=== PATIENT | male | born 1935 | race Caucasian/White ===

== ENCOUNTER 2019-04-29 14:52 | Emergency (ER) | payer MEDICARE ==
--- OUTSIDE RECORDS SUMMARY | 2019-04-29 14:56 | XMS REPORT ---
:1935 [facility] Address [address] Schultz [address] [place] [address] Care Team Providers Name Role Phone Unavailable Unavailable Unavailable Problems This patient has no known problems. Allergies, Adverse Reactions, Alerts This patient has no known allergies or adverse reactions. Medications This patient has no known medications.
--- OUTSIDE RECORDS SUMMARY | 2019-04-29 14:57 | XMS REPORT | Summary of Care ---
:1935 Author Organization [facility] Address [address] [place] [address] Care Team Providers Name Role Phone Greg Esparza MD Primary Care Provider Reason for Visit Reason Comments Talk To Nurse Encounter Details Date Type Department Care Team Description 12/18/2018 Telephone [facility] Cardiology- Roshan Holliday MD Talk To Nurse [address] [facility], [address] [place] [address] [place] [address] Allergies Active Allergy Reactions Severity Noted Date Comments Penicillins Swelling High 10/28/2016 Simvastatin Other - See comments 05/06/2017 Leg cramps Sulfa (Sulfonamide Antibiotics) Rash High 10/28/2016 Rivaroxaban Other - See comments 05/06/2017 hematuria documented as of this encounter (statuses as of 12/18/2018) Medications Medication Sig Dispensed Refills Start Date End Date Status gabapentin 800 mg tablet Take 800 mg by 0 Active mouth 3 (three) times daily. finasteride 5 mg tablet TAKE 1 ORAL 90 tablet 3 02/23/2018 Active TABLET ONCE A DAY amiodarone 200 mg Take 1 tablet 60 tablet 3 05/05/2018 Active tabletIndications: SVT by mouth daily. (supraventricular tachycardia) fludrocortisone 0.1 mg Take 1 tablet 60 tablet 3 05/05/2018 Active tabletIndications: 1 by mouth daily. tablet twice a day as needed if systolic BP less than 90 RANITIDINE 150 mg tablet TAKE 1 TABLET 180 tablet 1 05/21/2018 Active BY MOUTH TWICE A DAY TAMSULOSIN 0.4 mg 24 hr TAKE 1 CAPSULE 90 capsule 2 07/27/2018 Active capsule BY MOUTH EVERY DAY magnesium oxide 400 mg Take 1 tablet 60 tablet 3 10/06/2018 Active (241.3 mg magnesium) by mouth 2 tablet (two) times daily. KCL 20 mEq tablet Take 2 tablets 60 tablet 3 10/21/2018 Active by mouth daily. 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 Essential hypertension 02/21/2017 Abnormal nuclear stress test 02/21/2017 Chest pain 01/16/2017 SVT (supraventricular tachycardia) 01/01/2017 Orthostatic hypotension 01/01/2017 Hypokalemia 01/01/2017 Hypomagnesemia 01/01/2017 Tachycardia 12/31/2016 documented as of this encounter (statuses as of 12/18/2018) Social History Tobacco Use Types Packs/Day Years Used Date Never Smoker Smokeless Tobacco: Former User Chew Quit: 10/28/1953 Alcohol Use Drinks/Week oz/Week Comments No Sex Assigned at Date Recorded Not on file Job Start Date Occupation Industry Not on file Not on file Not on file Travel History Travel Start Travel End No recent travel history available. documented as of this encounter Last Filed Vital Signs Not on filedocumented in this encounter Plan of Treatment Date Type Specialty Care Team Description 02/02/2019 Office Visit Cardiology Roshan Holliday MD [address] [facility] [address] [place], [place] [id number] 03/24/2019 Office Visit Urology Rica Abraham FNP [address] [place], [place] [phone] Health Maintenance Due Date Last Done Comments DTaP,Tdap,and Td Vaccines (1 - Tdap) 1954 Zoster Recombinant Vaccine (SHINGRIX) (1 of 2) 08/20/1983 Medicare Wellness Visit 1998 PNEUMOCOCCAL VACCINES 65+ (1 of 2 - PCV13) 1998 INFLUENZA VACCINE (#1) 2018 documented as of this encounter Results Not on filedocumented in this encounter Insurance Payer Benefit Plan / Subscriber ID Effective Phone Address Type Group Dates [place] [employer]ARP MEDICARE [id number] 2016-Prese Medicare Adv HEALTHCARE - COMPLETE nt HMO MANAGED MEDICARE documented as of this encounter
--- OUTSIDE RECORDS SUMMARY | 2019-04-29 14:57 | XMS REPORT | Summary of Care ---
:1935 Author Organization [facility] Address [address] [place] [id number] Care Team Providers Name Role Phone Greg Esparza MD Primary Care Provider Reason for Visit Reason Comments Talk To Nurse Encounter Details Date Type Department Care Team Description 12/18/2018 Telephone [facility] Cardiology- Roshan Holliday MD Talk To Nurse [address] [facility], [address] [place] [address] [place] [address] Allergies Active Allergy Reactions Severity Noted Date Comments Penicillins Swelling High 10/28/2016 Simvastatin Other - See comments 05/06/2017 Leg cramps Sulfa (Sulfonamide Antibiotics) Rash High 10/28/2016 Rivaroxaban Other - See comments 05/06/2017 hematuria documented as of this encounter (statuses as of 12/21/2018) Medications Medication Sig Dispensed Refills Start Date [...] as of this encounter (statuses as of 12/21/2018) Active Problems Problem Noted Date Hypotension 01/09/2018 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 Essential hypertension 02/21/2017 Abnormal nuclear stress test 02/21/2017 Chest pain 01/16/2017 SVT (supraventricular tachycardia) 01/01/2017 Orthostatic hypotension 01/01/2017 Hypokalemia 01/01/2017 Hypomagnesemia 01/01/2017 Tachycardia 12/31/2016 documented as of this encounter (statuses as of 12/21/2018) Social History Tobacco Use Types Packs/Day Years [...] Office Visit Cardiology Roshan Holliday MD [address] [facility] [address] [place], [place] [address] 03/24/2019 Office Visit Urology Rica Abraham FNP [address] [facility] [address] [place], [place] [phone] Health Maintenance Due Date Last Done Comments [...] Address Type Group Dates [place] [employer]ARP MEDICARE [id number] 2016-Prese Medicare Adv HEALTHCARE - COMPLETE nt HMO MANAGED MEDICARE documented as of this encounter
--- OUTSIDE RECORDS SUMMARY | 2019-04-29 14:57 | XMS REPORT | Summary of Care ---
:1935 Author Organization [facility] Address [address] [place] [address] Care Team Providers Name Role Phone Greg Esparza MD Primary Care Provider Reason for Visit Reason Comments Refill Request Encounter Details Date Type Department Care Team Description 12/22/2018 Refill [facility] Family Medicine Greg Esparza MD Refill Request - [address] [address] [place] [address] Allergies Active Allergy Reactions Severity Noted Date Comments Penicillins Swelling High 10/28/2016 Simvastatin Other - See comments 05/06/2017 Leg cramps Sulfa (Sulfonamide Antibiotics) Rash High 10/28/2016 Rivaroxaban Other - See comments 05/06/2017 hematuria documented as of this encounter (statuses as of 12/23/2018) Medications Medication Sig Dispensed Refills Start Date End Date Status gabapentin 800 mg Take 800 mg 0 Active tablet by mouth 3 (three) times daily. finasteride 5 mg TAKE 1 ORAL 90 tablet 3 02/23/2018 Active tablet TABLET ONCE A DAY amiodarone 200 mg Take 1 tablet 60 tablet 3 05/05/2018 Active tabletIndications: by mouth SVT (supraventricular daily. tachycardia) fludrocortisone 0.1 Take 1 tablet 60 tablet 3 05/05/2018 Active mg tabletIndications: by mouth 1 tablet twice a day daily. as needed if systolic BP less than 90 TAMSULOSIN 0.4 mg 24 TAKE 1 90 capsule 2 07/27/2018 Active hr capsule CAPSULE BY MOUTH EVERY DAY magnesium oxide 400 Take 1 tablet 60 tablet 3 10/06/2018 Active mg (241.3 mg by mouth 2 magnesium) tablet (two) times daily. KCL 20 mEq tablet Take 2 60 tablet 3 10/21/2018 Active tablets by mouth daily. 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 [address] [place], [place] [phone] Health Maintenance Due Date Last Done Comments [...] Address Type Group Dates [place] [employer]ARP MEDICARE [id number] 2016-Prese Medicare Adv HEALTHCARE - COMPLETE nt O MANAGED MEDICARE documented as of this encounter
--- OUTSIDE RECORDS SUMMARY | 2019-04-29 14:57 | XMS REPORT | Summary of Care ---
:1935 Author Organization [facility] Address [address] [place] [address] Care Team Providers Name Role Phone Greg Esparza MD Primary Care Provider Encounter Details Date Type Department Care Team Description 12/29/2018 Orders Only [facility] Doctor Unassigned, No [address] [facility] Name [place], [place] [id number] [place] [address] Allergies Active Allergy Reactions Severity Noted Date Comments Penicillins Swelling High 10/28/2016 Simvastatin Other - See comments 05/06/2017 Leg cramps Sulfa (Sulfonamide Antibiotics) Rash High 10/28/2016 Rivaroxaban Other - See comments 05/06/2017 hematuria documented as of this encounter (statuses as of 12/29/2018) Medications Medication Sig Dispensed Refills Start Date [...] less than 90 TAMSULOSIN 0.4 mg 24 hr TAKE 1 CAPSULE 90 capsule 2 07/27/2018 Active capsule BY MOUTH EVERY DAY magnesium oxide 400 mg Take 1 tablet 60 tablet 3 10/06/2018 Active (241.3 mg magnesium) by mouth 2 tablet (two) times daily. KCL 20 mEq tablet Take 2 tablets 60 tablet 3 10/21/2018 Active by mouth daily. 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 Essential hypertension 02/21/2017 Abnormal nuclear stress test 02/21/2017 Chest pain 01/16/2017 SVT (supraventricular tachycardia) 01/01/2017 Orthostatic hypotension 01/01/2017 Hypokalemia 01/01/2017 Hypomagnesemia 01/01/2017 Tachycardia 12/31/2016 documented as of this encounter (statuses as of 12/29/2018) Social History Tobacco Use Types Packs/Day Years [...] 02/02/2019 Office Visit Cardiology Roshan Holliday MD [address] [place] [address] [address] [place] [address] [phone] 03/24/2019 Office Visit Urology Rica Abraham FNP [address] [place] [address] [address] [place], [place] [address] Health Maintenance Due Date Last Done Comments DTaP,Tdap,and Td Vaccines (1 - Tdap) 1954 Zoster Recombinant Vaccine (SHINGRIX) (1 of 2) 08/20/1983 Medicare Wellness Visit 1998 PNEUMOCOCCAL VACCINES 65+ (1 of 2 - PCV13) 1998 INFLUENZA VACCINE (#1) 2018 documented as of this encounter Procedures Procedure Name Priority Date/Time Associated Diagnosis Comments EXTERNAL PROVIDER - ADC Routine 12/29/2018 12:01 AM CARDIOLOGY CDT documented in this encounter Results Not on filedocumented in this encounter Insurance Payer Benefit Plan / Subscriber ID Effective Phone Address Type Group Dates [place] [employer] MEDICARE [id number] 2016-[place] Medicare Adv HEALTHCARE - COMPLETE nt HMO MANAGED MEDICARE documented as of this encounter
[2019-04-29 15:54] LABS: Absolute Lymphocytes (CBC) 0.8 K/uL (0.7-4.9); Basophils % 0.5 % (0-1.3); Lymphocytes % 5.3 % (15.3-44.8); MPV 10.9 fL (7.6-11.3); RBC Red Blood Cell Count 4.78 M/uL (4.33-5.43)
[2019-04-29 16:08] LABS: Albumin 3.4 g/dL (3.4-5.0); Bilirubin Direct 0.2 mg/dL (0-0.2); Bilirubin Total 0.6 mg/dL (0.2-1.0); Potassium 3.8 mmol/L (3.5-5.1); Protein, Total 6.5 g/dL (6.4-8.2)
--- NOTE | 2019-04-29 16:45 | RAD REPORT ---
EXAM DESCRIPTION: CT - Abdomen Pelvis W Contrast - 04/29/2019 4:33 pm CLINICAL HISTORY: ABD PAINabdominal pain, rectal pain, decreased bowel movement COMPARISON: CT ABD PELVIS W CONTRAST dated 10/08/2013 TECHNIQUE: Biphasic, helical CT imaging of the abdomen and pelvis was performed following 100 ml non -ionic IV contrast. No oral contrast administered. All CT scans are performed using dose optimization technique as appropriate and may include automated exposure control or mA/KV adjustment according to patient size. FINDINGS: No suspicious findings in the lung bases. The liver, spleen, and pancreas show no suspicious findings. Gallbladder is absent. Biliary tree with in normal limits. Symmetric renal function is seen with no hydronephrosis or suspicious renal mass. No pyelonephritis o r acute parenchymal process. No bladder abnormalities. No adrenal abnormalities. No gastric dilatation or wall thickening. No small bowel abnormality. No appendicitis findings. Mild to moderate stool is present in the colon from cecum through mid descending colon. Moderate stool vol ume fills the distal descending colon and sigmoid. There is a large amount of stool present dilating the rectum to 10 cm AP x 7 cm TR. Proximal rectal wall thickening and edema are present. There is mil d stranding in the adjacent fat. No mass lesion evident. No free air, free fluid or pneumatosis. Small fat only inguinal hernias are present. No bulky lympha denopathy. Disc and bony degenerative changes are present without acute finding. IMPRESSION: Large stool volume is present dilating the rectum to 10 cm AP x 7 cm TR. No inguinal or distal rectal mass evident. Moderate stool volume is present in the colon from distal descending colon to the proximal rectum. Mi ld rectal wall thickening and edema are present just proximal to the dilatation. No free air, obstruction or emergent finding otherwise noted.
[2019-04-29] MEDS ORDERED: NA CHLORIDE 0.9% 250 ML ONE (16:52)
[2019-04-29] MEDS ORDERED: NA CHLORIDE 0.9% 500 ML ONE (16:52)
[2019-04-29 17:32] LABS: Urine Bacteria <20 /HPF (NONE SEEN); Urine Culture Reflex Order NOT NEEDED; Urine Mucus 1+ /HPF (NONE SEEN)
[2019-04-29] MEDS ORDERED: MINERAL OIL ENEMA 135 ML BTL PR ONE (17:37)
--- NOTE | 2019-04-29 19:16 | ER ---
Nurse's Notes [facility] Name: Danyel Oliver IV Age: 83 yrs Sex: Male : 1935 Arrival Date: 04/29/2019 Time: 14:54 Bed 30 Private MD: Diagnosis: Fecal impaction;Constipation Presentation: 04/29 15:02 Presenting complaint: Patient states: No BM x 3 days, c/o rectal pain, hx of ph hemorrhoids, denies N/V or fever. Transition of care: patient was not received from another setting of care. Onset of symptoms was April 29, 2019. Risk Assessment: Do you want to hurt yourself or someone else? Patient reports no desire to harm self or others. Initial Sepsis Screen: Does the patient meet any 2 criteria? No. Patient's initial sepsis screen is negative. Does the patient have a suspected source of infection? No. Patient's initial sepsis screen is negative. Care prior to arrival: took stool softener this morning. 15:02 Method Of Arrival: Ambulatory ph 15:02 Acuity: REDDY 4 ph Triage Assessment: 16:00 General: Appears in no apparent distress. uncomfortable. General: Behavior is calm, ls4 cooperative. Neuro: No deficits noted. Cardiovascular: No deficits noted. Respiratory: No deficits noted. 16:00 GI: GI: Abdomen is round Rectal exam: Deferred to physician Last BM was April 252019. : : No deficits noted. Historical: - Allergies: 15:13 PENICILLINS; ph 15:13 Sulfa (Sulfonamide Antibiotics); ph - Home Meds: 15:33 finasteride 5 mg Oral tab 1 tab once daily [Active]; fludrocortisone 0.1 mg Oral tab 1 ls4 tab twice a day [Active]; gabapentin 800 mg Oral tab 1 tab 3 times per day [Active]; Potassium Chloride Oral [Active]; tamsulosin 0.4 mg Oral cp24 1 cap once daily [Active]; magnesium oxide 400 mg Oral cap twice a day [Active]; Aspir-81 81 mg oral TbEC 1 tab every three days [Active]; Vitamin B-12 Oral daily [Active]; - PMHx: 15:30 Diabetes - NIDDM; neuropathy; Hyperlipidemia; spinal cord tumor; DVT; right bundle ls4 branch block; - PSHx: 15:30 Knee surgery; Appendectomy; Cholecystectomy; Disc surgery; ls4 - Immunization history:: Adult Immunizations up to date. - Social history:: Smoking status: Patient/guardian denies using tobacco, never smoked. - Ebola Screening: : No symptoms or risks identified at this time. Screenin:52 Abuse screen: Denies threats or abuse. Denies injuries from another. Nutritional ls4 screening: No deficits noted. Tuberculosis screening: No symptoms or risk factors identified. Fall Risk None identified. Assessment: 15:46 General: Appears uncomfortable, Behavior is calm, cooperative. GI: Bowel sounds present ls4 X 4 quads. Abdomen is tender to palpation X 4 quads. Reports Parent/caregiver reports the patient having constipation. 17:00 Reassessment: Patient and/or family updated on plan of care and expected duration. Pain ls4 level reassessed. Patient is alert, oriented x 3, equal unlabored respirations, skin warm/dry/pink. 17:00 Pain: Complains of pain in gluteal cleft Pain currently is 4 out of 10 on a pain scale. ls4 19:18 Reassessment: Patient and/or family updated on plan of care and expected duration. Pain ls4 level reassessed. Patient is alert, oriented x 3, equal unlabored respirations, skin warm/dry/pink. pt discharge delayed due to pt is still on commode after enema. Enema is having positive results. Vital Signs: 15:04 Pulse 84; Resp 18; Temp 98.4; Pulse Ox 98% ; Weight 100.7 kg; Height 6 ft. 3 in. ph (190.50 cm); 15:13 BP 138 / 72; ph 15:04 Body Mass Index 27.75 (100.70 kg, 190.50 cm) ph ED Course: 14:54 Patient arrived in ED. as 15:04 Triage completed. ph 15:08 Marlee Hammond, CECILIA is Primary Nurse. ls4 15:18 Piter Ferrera PA is PHCP. cp 15:18 Yogesh Arita MD is Attending Physician. cp 15:46 Arm band placed on. ls4 15:52 Patient has correct armband on for positive identification. Placed in gown. Bed in low ls4 position. Call light in reach. Side rails up X 1. Verbal reassurance given. 15:53 No provider procedures requiring assistance completed. Inserted saline lock: 20 gauge ls4 in right antecubital area, using aseptic technique. 16:33 CT Abd/Pelvis - IV Contrast Only In Process Unspecified. EDMS Administered Medications: 16:56 Drug: NS 0.9% 500 ml Route: IV; Rate: 75 ml/hr; Site: right antecubital; ls4 19:23 Follow up: IV Status: Completed infusion; IV Intake: 150ml ls4 16:56 Drug: NS 0.9% 250 ml Route: IV; Rate: bolus; Site: right antecubital; ls4 19:23 Follow up: IV Status: Completed infusion; IV Intake: 250ml ls4 Intake: 19:23 IV: 250ml; Total: 250ml. ls4 19:23 IV: 150ml; Total: 400ml. ls4 Outcome: 19:15 Discharge ordered by . slim 21:15 Patient left the ED. ls4 Signatures: Dispatcher [employer] EDMS Elle Hernandez Patricia, RN RN ph Piter Ferrera PA PA Marlee Carreon, RN RN ls4
--- NOTE | 2019-04-29 19:16 | EDPHYS ---
Physician Documentation [facility] Name: Danyel Oliver IV Age: 83 yrs Sex: Male : 1935 Arrival Date: 04/29/2019 Time: 14:54 Bed 30 Private MD: ED Physician Yogesh Arita HPI: 04/29 15:24 This 83 yrs old Male presents to ER via Ambulatory with complaints of cp Hemorrhoids, Constipation. 15:25 The patient presents with constipation. cp 15:25 Onset: The symptoms/episode began/occurred 3 day(s) ago. Associated signs and symptoms: cp Pertinent negatives: nausea and vomiting, blood in stools, chest pain, diarrhea, dysuria, fever, shortness of breath. Historical: - Allergies: 15:13 PENICILLINS; ph 15:13 Sulfa (Sulfonamide Antibiotics); ph - Home Meds: 15:33 finasteride 5 mg Oral tab 1 tab once daily [Active]; fludrocortisone 0.1 mg Oral tab 1 ls4 tab twice a day [Active]; gabapentin 800 mg Oral tab 1 tab 3 times per day [Active]; Potassium Chloride Oral [Active]; tamsulosin 0.4 mg Oral cp24 1 cap once daily [Active]; magnesium oxide 400 mg Oral cap twice a day [Active]; Aspir-81 81 mg oral TbEC 1 tab every three days [Active]; Vitamin B-12 Oral daily [Active]; - PMHx: 15:30 Diabetes - NIDDM; neuropathy; Hyperlipidemia; spinal cord tumor; DVT; right bundle ls4 branch block; - PSHx: 15:30 Knee surgery; Appendectomy; Cholecystectomy; Disc surgery; ls4 - Immunization history:: Adult Immunizations up to date. - Social history:: Smoking status: Patient/guardian denies using tobacco, never smoked. - Ebola Screening: : No symptoms or risks identified at this time. ROS: 15:30 Eyes: Negative for injury, pain, redness, and discharge. cp 15:30 Constitutional: Negative for body aches, chills, fever, poor PO intake. 15:30 Cardiovascular: Negative for chest pain, edema. 15:30 Respiratory: Negative for cough, shortness of breath, wheezing. 15:30 Abdomen/GI: Positive for abdominal pain, constipation, Negative for vomiting, diarrhea, anorexia, black/tarry stool, rectal bleeding. 15:30 Back: Negative for pain at rest, pain with movement. 15:30 Skin: Negative for rash. 15:30 Neuro: Negative for altered mental status, headache, weakness. 15:30 All other systems are negative. Exam: 15:35 Constitutional: The patient appears in no acute distress, alert, awake, cp non-diaphoretic, non-toxic, well developed, well nourished. 15:35 Head/Face: Normocephalic, atraumatic. cp 15:35 Eyes: Periorbital structures: appear normal, Conjunctiva: normal, no exudate, no injection, Sclera: no appreciated abnormality, Lids and lashes: appear normal, bilaterally. 15:35 ENT: External ear(s): are unremarkable, Nose: is normal, Mouth: Lips: moist, Oral mucosa: pink and intact, moist, Posterior pharynx: is normal, airway is patent, no erythema, no exudate. 15:35 Chest/axilla: Inspection: normal, Palpation: is normal, no crepitus, no tenderness. 15:35 Cardiovascular: Rate: normal, Rhythm: regular. 15:35 Respiratory: the patient does not display signs of respiratory distress, Respirations: normal, no use of accessory muscles, no retractions, no splinting, no tachypnea, labored breathing, is not present, Breath sounds: are clear throughout, no decreased breath sounds, no stridor, no wheezing. 15:35 Abdomen/GI: Inspection: abdomen appears normal, Bowel sounds: active, all quadrants, Palpation: soft, in all quadrants, mild abdominal tenderness, in the right lower quadrant and left lower quadrant, rebound tenderness, is not appreciated, voluntary guarding, is not appreciated, involuntary guarding, is not appreciated, Rectal exam: Stool: brown, guaiac positive, fecal impaction, that is moderate. 15:35 Neuro: Orientation: to person, place \T\ time. Mentation: is normal. Vital Signs: 15:04 Pulse 84; Resp 18; Temp 98.4; Pulse Ox 98% ; Weight 100.7 kg; Height 6 ft. 3 in. ph (190.50 cm); 15:13 BP 138 / 72; ph 15:04 Body Mass Index 27.75 (100.70 kg, 190.50 cm) ph MDM: 15:19 Patient medically screened. cp 16:00 Differential diagnosis: bowel obstruction, diverticulitis, GI Bleed, non-specific abd cp pain. 19:13 Data reviewed: vital signs, nurses notes, lab test result(s), radiologic studies, CT cp scan, I have discussed the patient's presentation/case with the attending Emergency Department Physician; and as a result, I will discharge patient. Counseling: I had a detailed discussion with the patient and/or guardian regarding: the historical points, exam findings, and any diagnostic results supporting the discharge/admit diagnosis, lab results, radiology results, to return to the emergency department if symptoms worsen or persist or if there are any questions or concerns that arise at home. Response to treatment: the patient's symptoms have markedly improved after treatment, VSS. Patient observed to have large bowel movement after administration of soaps suds enema. Will discharge to home for continued monitoring. 04/29 15:25 Order name: Basic Metabolic Panel; Complete Time: 16:20 cp 04/29 16:20 Interpretation: Normal except: CL 109; GLUC 139; BUN 19; CRE 1.38; GFR 49. cp 04/29 15:25 Order name: CBC with Diff; Complete Time: 16:20 cp 04/29 16:21 Interpretation: Normal except: WBC 15.0; IVANA% 83.6; LYM% 5.3; NEUT A 12.5; MNA 1.6. cp 04/29 15:25 Order name: Creatinine for Radiology; Complete Time: 16:20 cp 04/29 15:25 Order name: Hepatic Function; Complete Time: 16:20 cp 04/29 15:25 Order name: Lipase; Complete Time: 16:20 cp 04/29 15:25 Order name: Urine Microscopic Only cp 04/29 15:25 Order name: IV Saline Lock; Complete Time: 16:09 cp 04/29 15:25 Order name: Labs collected and sent; Complete Time: 16:09 cp 04/29 15:25 Order name: CT Abd/Pelvis - IV Contrast Only; Complete Time: 16:51 cp 04/29 15:25 Order name: Urine Dipstick-Ancillary (obtain specimen); Complete Time: 17:05 cp 04/29 16:53 Order name: Misc. Order: soap suds enema; Complete Time: 18:15 cp Administered Medications: 16:56 Drug: NS 0.9% 500 ml Route: IV; Rate: 75 ml/hr; Site: right antecubital; ls4 19:23 Follow up: IV Status: Completed infusion; IV Intake: 150ml ls4 16:56 Drug: NS 0.9% 250 ml Route: IV; Rate: bolus; Site: right antecubital; ls4 19:23 Follow up: IV Status: Completed infusion; IV Intake: 250ml ls4 Disposition: 04/29/19 19:15 Discharged to Home. Impression: Fecal impaction, Constipation. - Condition is Stable. - Discharge Instructions: Constipation, Adult, Fecal Impaction. - Medication Reconciliation Form, Thank You Letter, Antibiotic Education, Prescription Opioid Use form. - Follow up: Emergency Department; When: As needed; Reason: Worsening of condition. - Problem is new. - Symptoms have improved. Addendum: 05/04/2019 09:34 Co-signature as Attending Physician, Yogesh Arita MD. r n Signatures: Dispatcher [employer] EDMS Yogesh Arita MD MD rn Hall, Patricia, RN RN ph Piter Ferrera PA PA cp Marlee Hammond RN RN ls4 Corrections: (The following items were deleted from the chart) 04/29 16:21 16:21 Normal except: WBC 15.0; IVANA% 83.6; LYM% 5.3; NEUT A 12.5. cp cp 21:15 19:15 04/29/2019 19:15 Discharged to Home. Impression: Fecal impaction; Constipation. ls4 Condition is Stable. Forms are Medication Reconciliation Form, Thank You Letter, Antibiotic Education, Prescription Opioid Use. Follow up: Emergency Department; When: As needed; Reason: Worsening of condition. Problem is new. Symptoms have improved. cp
[2019-04-29 22:11] VITALS: TEMP 98.4; O2SAT 98
[2019-04-29 22:13] VITALS: BP 138/72
== END 2019-04-29 21:15 | disposition home or self-care (01) ==
LOC: ER 14:52
DX: K56.41 Fecal impaction (principal); Z88.0 Allergy status to penicillin; Z88.2 Allergy status to sulfonamides; E11.9 Type 2 diabetes mellitus without complications; E78.5 Hyperlipidemia, unspecified
CPT/HCPCS: 36415; 74177; 80048; 80076; 81015; 83690; 85025; 96365; 96366; 99283; J7030; J7040; Q9967

== ENCOUNTER 2019-06-17 03:32 | Observation (INO) | payer MEDICARE ==
--- OUTSIDE RECORDS SUMMARY | 2019-06-17 03:35 | XMS REPORT ---
:1935 Author Organization [facility] Address [address] Schultz [address] [place] [address] Care Team Providers Name Role Phone Unavailable Unavailable Unavailable Problems This patient has no known problems. Allergies, Adverse Reactions, Alerts This patient has no known allergies or adverse reactions. Medications This patient has no known medications.
--- OUTSIDE RECORDS SUMMARY | 2019-06-17 03:36 | XMS REPORT | Summary of Care ---
:1935 Author Organization [facility] - Health Address [address] [place] [address] Care Team Providers Name Role Phone Greg Esparza MD Primary Care Provider Reason for Visit Reason Comments Notification Rx Concern/Question Encounter Details Date Type Department Care Team Description 04/30/2019 Telephone [facility] Greg Esparza Notification; Rx Medicine - Sandi Iqbal MD Concern/Question [address] [phone] Allergies Active Allergy Reactions Severity Noted Date Comments Penicillins Swelling High 10/28/2016 Simvastatin Other - See comments 05/06/2017 Leg cramps Sulfa (Sulfonamide Antibiotics) Rash High 10/28/2016 Rivaroxaban Other - See comments 05/06/2017 hematuria documented as of this encounter (statuses as of 05/04/2019) Medications Medication Sig Dispensed Refills Start Date End Date Status gabapentin 800 mg tablet Take 800 mg by 0 Active mouth 3 (three) times daily. finasteride 5 mg tablet TAKE 1 ORAL 90 tablet 3 02/23/2018 Active TABLET ONCE A DAY amiodarone 200 mg Take 1 tablet 60 tablet 3 05/05/2018 Active tabletIndications: SVT by mouth daily. (supraventricular tachycardia) benzonatate 200 mg Take 1 capsule 30 capsule 1 01/29/2019 Active capsuleIndications: by mouth 3 Cough (three) times daily as needed for Cough. magnesium oxide 400 mg Take 1 tablet 60 tablet 3 02/01/2019 Active (241.3 mg magnesium) by mouth 2 tablet (two) times daily. fludrocortisone 0.1 mg Take 2 tablets 60 tablet 5 02/02/2019 Active tabletIndications: 1 by mouth daily. tablet twice a day as Indications: 1 needed if systolic BP tablet twice a less than 90 day as needed if systolic BP less than 90 fludrocortisone 0.1 mg Take 2 tablets 60 tablet 5 02/02/2019 Active tablet by mouth daily. KCL 20 mEq tablet Take 2 tablets 60 tablet 3 02/23/2019 Active by mouth daily. tamsulosin 0.4 mg 24 hr Take 1 capsule 60 capsule 11 04/21/2019 Active capsuleIndications: BPH by mouth 2 with obstruction/lower (two) times urinary tract symptoms daily. famotidine 20 mg Take 1 tablet 60 tablet 12 04/22/2019 Active tabletIndications: by mouth 2 Gastroesophageal reflux (two) times disease without daily. 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 Essential hypertension 02/21/2017 Abnormal nuclear stress test 02/21/2017 Chest pain 01/16/2017 SVT (supraventricular tachycardia) 01/01/2017 Orthostatic hypotension 01/01/2017 Hypokalemia 01/01/2017 Hypomagnesemia 01/01/2017 Tachycardia 12/31/2016 documented as of this encounter (statuses as of 05/04/2019) Immunizations Name Administration Dates Next Due Influenza Virus Vaccine 01/11/2019 Pneumococcal 13 Conjugate, PCV13 (Prevnar 13) 12/14/2015 documented as of this encounter Social History Tobacco Use Types Packs/Day Years [...] Treatment Date Type Specialty Care Team Description 08/04/2019 Office Visit Cardiology Roshan Holliday MD [address] [place] [address] [address] [place] [address] [phone] 09/20/2019 Office Visit Urology Tu Barron MD [address] [place] [address]. [place] [address] Health Maintenance Due Date Last Done Comments DTaP,Tdap,and Td Vaccines (1 - Tdap) 1946 Zoster Recombinant Vaccine (SHINGRIX) (1 of 2) 08/20/1983 Medicare Wellness Visit 1998 PNEUMOCOCCAL VACCINES 65+ (2 of 2 - PPSV23) 12/13/2016 12/14/2015 INFLUENZA VACCINE Completed 01/11/2019 documented as of this encounter Results Not on filedocumented in this encounter Insurance Payer Benefit Plan Subscriber ID Effective Phone Address Type / Group Dates [facility] [id number] 2016-[facility] Medicare Adv HEALTHCARE - MEDICARE ent HMO MANAGED COMPLETE MEDICARE MEDICARE MEDICARE xxxxxxxxxxx 2019-Pr [phone] Medicare PART A & B esent [id number] [place] [phone] documented as of this encounter
--- OUTSIDE RECORDS SUMMARY | 2019-06-17 03:37 | XMS REPORT | Summary of Care ---
:1935 Author Organization [facility] Address [address] [place] [address] Care Team Providers Name Role Phone Greg Esparza MD Primary Care Provider Reason for Visit Reason Comments Follow-up follow up from fall, hurting all over Encounter Details Date Type Department Care Team Description 05/06/2019 Office Visit [facility] Family Greg Esparza Multiple contusions Medicine - Sandi Iqbal MD (Primary Dx) [address] [facility] [place], [place] [phone] Allergies Active Allergy Reactions Severity Noted Date Comments Penicillins Swelling High 10/28/2016 Simvastatin Other - See comments 05/06/2017 Leg cramps Sulfa (Sulfonamide Antibiotics) Rash High 10/28/2016 Rivaroxaban Other - See comments 05/06/2017 hematuria documented as of this encounter (statuses as of 05/06/2019) Medications Medication Sig Dispensed Refills Start Date [...] as of this encounter (statuses as of 05/06/2019) Active Problems Problem Noted Date Hypotension 01/09/2018 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 Essential hypertension 02/21/2017 Abnormal nuclear stress test 02/21/2017 Chest pain 01/16/2017 SVT (supraventricular tachycardia) 01/01/2017 Orthostatic hypotension 01/01/2017 Hypokalemia 01/01/2017 Hypomagnesemia 01/01/2017 Tachycardia 12/31/2016 documented as of this encounter (statuses as of 05/06/2019) Immunizations Name Administration Dates Next Due Influenza [...] of this encounter Last Filed Vital Signs Vital Sign Reading Time Taken Comments Blood Pressure 164/67 05/06/2019 11:31 AM SECURITY POLICE OFFICER Pulse 58 05/06/2019 11:31 AM SEC[employer]ITY [employer]ICE OFFICER Temperature 36.7 C (98.1 F) 05/06/2019 11:31 AM SECURITY POLICE OFFICER Respiratory Rate 18 05/06/2019 11:31 AM SECURITY POLICE OFFICER Oxygen Saturation - - Inhaled Oxygen Concentration - - Weight 100.7 kg (222 lb) 05/06/2019 11:31 AM SECURITY POLICE OFFICER Height 190.5 cm (6' 3") 05/06/2019 11:31 AM SECURITY POLICE OFFICER Body Mass Index 27.75 05/06/2019 11:31 AM SECURITY POLICE OFFICER documented in this encounter Progress Notes Greg Esparza MD - 05/06/2019 11:30 AM CST CC: follow up from fall Danyel is a 83 year old male Patient is here to check contusions from recent fall. Patient is doing OK Allergies Allergen Reactions Pcn [Penicillins] Swelling Sulfa (Sulfonamide Antibiotics) Rash Simvastatin Other - See comments Leg cramps Xarelto [Rivaroxaban] Other - See comments hematuria Current Outpatient Medications Medication Sig Dispense Refill famotidine 20 mg tablet Take 1 tablet by mouth 2 (two) times daily. 60 tablet 12 tamsulosin 0.4 mg 24 hr capsule Take 1 capsule by mouth 2 (two) times daily. 60 capsule 11 KCL 20 mEq tablet Take 2 tablets by mouth daily. 60 tablet 3 fludrocortisone 0.1 mg tablet Take 2 tablets by mouth daily. Indications: 1 tablet twice a day as needed if systolic BP less than 90 60 tablet 5 fludrocortisone 0.1 mg tablet Take 2 tablets by mouth daily. 60 tablet 5 magnesium oxide 400 mg (241.3 mg magnesium) tablet Take 1 tablet by mouth 2 (two) times daily. 60 tablet 3 benzonatate 200 mg capsule Take 1 capsule by mouth 3 (three) times daily as needed for Cough. 30capsule 1 amiodarone 200 mg tablet Take 1 tablet by mouth daily. 60 tablet 3 finasteride 5 mg tablet TAKE 1 ORAL TABLET ONCE A DAY 90 tablet 3 gabapentin 800 mg tablet Take 800 mg by mouth 3 (three) times daily. No current facility-administered medications for this visit. Past Medical History: Diagnosis Date Carpal tunnel syndrome Cataract DVT (deep venous thrombosis) Embolism involving vascular device Enlarged prostate Esophageal reflux Factor V Leiden History of lumbar laminectomy for spinal cord decompression Decompression of C 3, 4, 5, L 4 and 5 Osteoarthritis Right bundle branch block S/P cervical spinal fusion Spinal cord tumor SVT (supraventricular tachycardia) 01/01/2017 Past Surgical History: Procedure Laterality Date ADENOIDECTOMY APPENDECTOMY CHOLECYSTECTOMY CIRCUMCISION EYE SURGERY HB FILTER VENA TECH CAVAL 09/2013 HEMORRHOIDECTOMY LAMINECTOMY,LUMBAR OPEN CARPAL TUNNEL RELEASE OPEN SHOULDER ROTATOR CUFF REPAIR Left POSTERIOR CERVICAL FUSION VA ANESTH,KNEE AREA SURGERY Left TONSILLECTOMY TRANSURETHRAL PROSTATE RESECTION 2000 Social History Socioeconomic History Marital status: Spouse name: Not on file Number of children: Not on file Years of education: Not on file Highest education level: Not on file Occupational History Not on file Social Needs Financial resource strain: Not on file Food insecurity: Worry: Not on file Inability: Not on file Transportation needs: Medical: Not on file Non-medical: Not on file Tobacco Use Smoking status: Never Smoker Smokeless tobacco: Former User Types: Chew Substance and Sexual Activity Alcohol use: No Drug use: No Sexual activity: Not on file Lifestyle Physical activity: Days per week: Not on file Minutes per session: Not on file Stress: Not on file Relationships Social connections: Talks on phone: Not on file Gets together: Not on file Attends episcopal service: Not on file Active member of club or organization: Not on file Attends meetings of clubs or organizations: Not on file Relationship status: Not on file Intimate partner violence: Fear of current or ex partner: Not on file Emotionally abused: Not on file Physically abused: Not on file Forced sexual activity: Not on file Other Topics Concern Not on file Social History Narrative Uses walker Lives with family Family History Problem Relation Age of Onset PAD (peripheral arterial disease) Mother carotid artery disease Heart Father Review of Systems BP (!) 164/67 (BP Location: Left arm, Patient Position: Sitting, BP CUFF SIZE: Adult Large) | Pulse58 | Temp 36.7 C (98.1 F) (Tympanic) | Resp 18 | Ht 6' 3" (1.905 m) | Wt 222 lb (100.7 kg) | BMI 27.75 kg/m Physical Exam Constitutional: He is oriented to person, place, and time. He appears well- developed and well-nourished. HENT: Head: Normocephalic and atraumatic. Eyes: Conjunctivae are normal. Neck: Normal range of motion. Neck supple. No JVD present. No tracheal deviation present. No thyromegaly present. Cardiovascular: Normal rate, regular rhythm, normal heart sounds and intact distal pulses. Exam reveals no gallop and no friction rub. No murmur heard. Pulmonary/Chest: Effort normal and breath sounds normal. No respiratory distress. He has no wheezes.He has no rales. He exhibits no tenderness. Abdominal: Soft. Bowel sounds are normal. He exhibits no distension and no mass. There is no tenderness. There is no rebound and no guarding. Musculoskeletal: Normal range of motion. He exhibits no edema or tenderness. Lymphadenopathy: He has no cervical adenopathy. Neurological: He is alert and oriented to person, place, and time. Skin: Skin is warm and dry. Ecchymosis (contusions left butt and hip; left foot and toes) noted. Diagnosis: 1. Multiple contusions Follow up: prn Patient Care Team: Greg Esparza MD as PCP - General (FM-FAMILY MEDICINE) Plan of care, desired health behaviors, goals,& medication discussed with patient. Education resources & self management tools provided and reviewed with AVS. Patient/guardian/family verbalized understanding & agrees to plan of care. Barriers to care: None Ability to manage care: Good documented in this encounter Plan of Treatment Date Type Specialty Care Team Description 08/04/2019 Office Visit Cardiology Roshan Holliday MD [address] [place] [address] [address] [place] [address] [phone] 09/20/2019 Office Visit Urology Tu Barron MD [address] [place] [phone] Health Maintenance Due Date Last Done Comments DTaP,Tdap,and Td Vaccines (1 - Tdap) 1946 Zoster Recombinant Vaccine (SHINGRIX) (1 of 2) 08/20/1983 Medicare Wellness Visit 1998 PNEUMOCOCCAL VACCINES 65+ (2 of 2 - PPSV23) 12/13/2016 12/14/2015 INFLUENZA VACCINE Completed 01/11/2019 documented as of this encounter Results Not on filedocumented in this encounter Visit Diagnoses Diagnosis Multiple contusions - Primary Contusion of multiple sites, not elsewhere classified documented in this encounter Insurance Payer Benefit Plan / Subscriber ID Effective Dates Phone Address Type Group [facility] [id number] 2019-Present [facility] documented as of this encounter
--- OUTSIDE RECORDS SUMMARY | 2019-06-17 03:37 | XMS REPORT | Summary of Care ---
:1935 Author Organization [facility] - [facility] Address [address] [place] [address] Care Team Providers Name Role Phone Greg Esparza MD Primary Care Provider Reason for Visit Reason Comments Notification Encounter Details Date Type Department Care Team Description 05/04/2019 Telephone [facility] Greg Esparza, Notification - Sandi ADKINS [address] [place] [address] [place] [address] [facility] [address] Allergies Active Allergy Reactions Severity [...] 08/04/2019 Office Visit Cardiology Roshan Holliday MD [address] [place] [address] [place] [address] [phone] 09/20/2019 Office Visit Urology Tu Barron MD [address] [place] [address]. [place] [phone] Health Maintenance Due Date Last Done Comments [...] Effective Phone Address Type / Group Dates [facility] [id number] 2016-Pres Medicare Adv HEALTHCARE - MEDICARE ent HMO MANAGED COMPLETE MEDICARE MEDICARE MEDICARE xxxxxxxxxxx 2019-Pr [phone] Medicare PART A & B esent [id number] [place] [phone] documented as of this encounter
--- OUTSIDE RECORDS SUMMARY | 2019-06-17 03:37 | XMS REPORT | Summary of Care ---
:1935 Author Organization [facility] Address [address] [place] [address] Care Team Providers Name Role Phone Greg Esparza MD Primary Care Provider Reason for Visit Reason Comments Follow-up follow up from fall, hurting all over Encounter Details Date Type Department Care Team Description 05/06/2019 Office Visit [facility] Family Greg Esparza Multiple contusions Medicine - Sandi Iqbal MD (Primary Dx) [address] [facility] [place], [place] [phone] Allergies Active Allergy Reactions Severity Noted [...] Comments Blood Pressure 164/67 05/06/2019 11:31 AM DESK ATTENDANT Pulse 58 05/06/2019 11:31 AM DESK ATTENDANT Temperature 36.7 C (98.1 F) 05/06/2019 11:31 AM DESK ATTENDANT Respiratory Rate 18 05/06/2019 11:31 AM DESK ATTENDANT Oxygen Saturation - - Inhaled Oxygen Concentration - - Weight 100.7 kg (222 lb) 05/06/2019 11:31 AM DESK ATTENDANT Height 190.5 cm (6' 3") 05/06/2019 11:31 AM DESK ATTENDANT Body Mass Index 27.75 05/06/2019 11:31 AM DESK ATTENDANT documented in this encounter Progress Notes Greg [...] ROTATOR CUFF REPAIR Left POSTERIOR CERVICAL FUSION MS ANESTH,KNEE AREA SURGERY Left TONSILLECTOMY TRANSURETHRAL PROSTATE [...] file Gets together: Not on file Attends pentecostalism service: Not on file Active member of [...] 08/04/2019 Office Visit Cardiology Roshan Holliday MD [address] [place] [address] [address] [place] [address] [phone] 09/20/2019 Office Visit Urology Tu Barron MD [address] [place] [phone] [phone] Health Maintenance Due Date Last Done Comments [...] ID Effective Dates Phone Address Type Group [facility] [id number] 2019-Present [facility] documented as of this encounter
--- OUTSIDE RECORDS SUMMARY | 2019-06-17 03:37 | XMS REPORT | Summary of Care ---
:1935 Author Organization [facility] - [facility] Address [address] [place] [address] Care Team Providers Name Role Phone Greg Esparza MD Primary Care Provider Reason for Referral (Routine) Status Reason Specialty Diagnoses / Referred By Referred To Procedures Contact Contact New Request Patient is Diagnoses Diplopia Greg Esparza, Established with Procedures CONSULT/REFERRAL OPHTHALMOLOGY MD Nighat Iqbal MD a Specific [address] [facility] [place] [address] Phone: Fax: (Routine) Status Reason Specialty Diagnoses / Referred By Referred To Procedures Contact Contact New Request Patient is Diagnoses Pain of foot, unspecified laterality Greg Esparza David Established with a Procedures CONSULT/REFERRAL PODIATRY MD Cayetano Iqbal, DPM Specific Provider [address] [facility] [address] [place] [address] [address] [place], [place] Phone: [phone] Phone: Reason for Visit Reason Comments Follow-up follow up from fall, hurting all over Encounter Details Date Type Department Care Team Description 05/06/2019 Office Visit [facility] Family Greg Esparza Multiple contusions (Primary Dx); Medicine - Sandi Iqbal MD Pain of foot, unspecified laterality; 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 CARE NURSE Pulse 58 05/06/2019 11:31 AM HIV/AIDS CARE NURSE Temperature 36.7 C (98.1 F) 05/06/2019 11:31 AM HIV/AIDS CARE NURSE Respiratory Rate 18 05/06/2019 11:31 AM HIV/AIDS CARE NURSE Oxygen Saturation - - Inhaled Oxygen Concentration - - Weight 100.7 kg (222 lb) 05/06/2019 11:31 AM HIV/AIDS CARE NURSE Height 190.5 cm (6' 3") 05/06/2019 11:31 AM HIV/AIDS CARE NURSE Body Mass Index 27.75 05/06/2019 11:31 AM HIV/AIDS CARE NURSE documented in this encounter Progress Notes Greg [...] ROTATOR CUFF REPAIR Left POSTERIOR CERVICAL FUSION AL ANESTH,KNEE AREA SURGERY Left TONSILLECTOMY TRANSURETHRAL PROSTATE [...] file Gets together: Not on file Attends cheondoism service: Not on file Active member of [...] 08/04/2019 Office Visit Cardiology Roshan Holliday MD [address] [facility] [address] [place], [place] [phone] 09/20/2019 Office Visit Urology Tu Barron MD [address] [place] [phone] Health Maintenance Due Date Last Done [...] Contusion of multiple sites, not elsewhere classified Pain of foot, unspecified laterality Diplopia documented in this encounter Insurance Payer Benefit Plan / Subscriber ID Effective Dates Phone Address Type Group [facility] [id number] 2019-Present [facility]/AARP documented as of this encounter
--- OUTSIDE RECORDS SUMMARY | 2019-06-17 03:37 | XMS REPORT | Summary of Care ---
:1935 Author Organization [facility] - [facility] Address [address] [place] [address] Care Team Providers Name Role Phone Greg Esparza MD Primary Care Provider Reason for Referral (Routine) Status Reason Specialty Diagnoses / Referred By Referred To Procedures Contact Contact New Request Patient is Diagnoses Diplopia Greg Esparza, Established with Procedures CONSULT/REFERRAL OPHTHALMOLOGY MD Nighat Iqbal MD a Specific [address] [facility] [place] [phone] Phone: Fax: (Routine) Status Reason Specialty Diagnoses / Referred By Referred To Procedures Contact Contact New Request Patient is Diagnoses Pain of foot, unspecified laterality Greg Esparza David Established with a Procedures CONSULT/REFERRAL PODIATRY MD Cayetano Iqbal, DPM Specific Provider [address] [facility] [address] [place] [address] [address] [place], [place] Phone: [phone] Phone: Reason for Visit Reason Comments Follow-up follow up from fall, hurting all over Encounter Details Date Type Department Care Team Description 05/06/2019 Office Visit [facility] Family Greg Esparza Multiple contusions (Primary Dx); Medicine - Sandi Iqbal MD Pain of foot, unspecified laterality; 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 Pulse 58 05/06/2019 11:31 AM RV PARTS AND SERVICE DIRECTOR Temperature 36.7 C (98.1 F) 05/06/2019 11:31 AM RV PARTS AND SERVICE DIRECTOR Respiratory Rate 18 05/06/2019 11:31 AM RV PARTS AND SERVICE DIRECTOR Oxygen Saturation - - Inhaled Oxygen Concentration - - Weight 100.7 kg (222 lb) 05/06/2019 11:31 AM RV PARTS AND SERVICE DIRECTOR Height 190.5 cm (6' 3") 05/06/2019 11:31 AM RV PARTS AND SERVICE DIRECTOR Body Mass Index 27.75 05/06/2019 11:31 AM RV PARTS AND SERVICE DIRECTOR documented in this encounter Progress Notes Greg [...] ROTATOR CUFF REPAIR Left POSTERIOR CERVICAL FUSION [place] ANESTH,KNEE AREA SURGERY Left TONSILLECTOMY TRANSURETHRAL PROSTATE [...] file Gets together: Not on file Attends sikh service: Not on file Active member of [...] Office Visit Cardiology Roshan Holliday MD [address] [facility] [address] [place], [place] [address] 09/20/2019 Office Visit Urology Tu Barron MD [address] [place] [phone] Health Maintenance Due Date Last Done [...] ID Effective Dates Phone Address Type Group [facility] [id number] 2019-Present [facility]/AARP documented as of this encounter
--- OUTSIDE RECORDS SUMMARY | 2019-06-17 03:38 | XMS REPORT | Summary of Care ---
:1935 Author Organization [facility] - Health Address [address] [place] [address] Care Team Providers Name Role Phone Greg Esparza MD Primary Care Provider Reason for Visit Reason Comments Refill Request Encounter Details Date Type Department Care Team Description 05/21/2019 Refill [facility] Family Medicine Greg Esparza MD Refill Request - [address] [address] [place] [address] Allergies Active Allergy Reactions Severity Noted Date Comments Penicillins Swelling High 10/28/2016 Simvastatin Other - See comments 05/06/2017 Leg cramps Sulfa (Sulfonamide Antibiotics) Rash High 10/28/2016 Rivaroxaban Other - See comments 05/06/2017 hematuria documented as of this encounter (statuses as of 05/21/2019) Medications Medication Sig Dispensed Refills Start Date End Date Status gabapentin 800 mg Take 800 mg 0 Active tablet by mouth 3 (three) times daily. benzonatate 200 mg Take 1 30 capsule 1 01/29/2019 Active capsuleIndications: capsule by Cough mouth 3 (three) times daily as needed for Cough. magnesium oxide 400 Take 1 tablet 60 tablet 3 02/01/2019 Active mg (241.3 mg by mouth 2 magnesium) tablet (two) times daily. fludrocortisone 0.1 Take 2 60 tablet 5 02/02/2019 Active mg tabletIndications: tablets by 1 tablet twice a day mouth daily. as needed if systolic Indications: BP less than 90 1 tablet twice a day as needed if systolic BP less than 90 fludrocortisone 0.1 Take 2 60 tablet 5 02/02/2019 Active mg tablet tablets by mouth daily. KCL 20 mEq tablet Take 2 60 tablet 3 02/23/2019 Active tablets by mouth daily. tamsulosin 0.4 mg 24 Take 1 60 capsule 11 04/21/2019 Active hr capsule by capsuleIndications: mouth 2 (two) BPH with times daily. obstruction/lower urinary tract symptoms famotidine 20 mg Take 1 tablet 60 tablet 12 04/22/2019 Active tabletIndications: by mouth 2 Gastroesophageal (two) times reflux disease daily. without esophagitis amiodarone 200 mg Take 1 tablet 90 tablet 3 05/13/2019 Active tabletIndications: by mouth SVT (supraventricular daily. 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 Essential hypertension 02/21/2017 Abnormal nuclear stress test 02/21/2017 Chest pain 01/16/2017 SVT (supraventricular tachycardia) 01/01/2017 Orthostatic hypotension 01/01/2017 Hypokalemia 01/01/2017 Hypomagnesemia 01/01/2017 Tachycardia 12/31/2016 documented as of this encounter (statuses as of 05/21/2019) Immunizations Name Administration Dates Next Due Influenza [...] Office Visit Cardiology Roshan Holliday MD [address] [facility] [address] [place] [address] [phone] 09/20/2019 Office Visit Urology Tu Barron MD [address] [place] [phone] Health Maintenance Due Date Last Done Comments [...] ID Effective Dates Phone Address Type Group [facility] [id number] 2019-Present PPO HEALTHCARE/AARP documented as of this encounter
--- OUTSIDE RECORDS SUMMARY | 2019-06-17 03:38 | XMS REPORT | Summary of Care ---
:1935 Author Organization [facility] Address [address] [place] [address] Care Team Providers Name Role Phone Greg Esparza MD Primary Care Provider Reason for Visit Reason Comments Refill Request Amiodarone 200 mg Encounter Details Date Type Department Care Team Description 05/10/2019 Refill [facility] Cardiology- Roshan Holliday MD Refill Request [address] (Amiodarone 200 mg) [address] [place] [address], [address] [place] [address] [place], [place] [phone] Allergies Active Allergy Reactions Severity Noted Date Comments Penicillins Swelling High 10/28/2016 Simvastatin Other - See comments 05/06/2017 Leg cramps Sulfa (Sulfonamide Antibiotics) Rash High 10/28/2016 Rivaroxaban Other - See comments 05/06/2017 hematuria documented as of this encounter (statuses as of 05/13/2019) Medications Medication Sig Dispensed Refills Start End Date Status Date gabapentin 800 mg Take 800 mg 0 Active tablet by mouth 3 (three) times daily. finasteride 5 mg TAKE 1 ORAL 90 tablet 3 Active tablet TABLET ONCE 8 A DAY benzonatate 200 mg Take 1 30 capsule 1 Active capsuleIndications: capsule by 9 Cough mouth 3 (three) times daily as needed for Cough. magnesium oxide 400 Take 1 60 tablet 3 Active mg (241.3 mg tablet by 9 magnesium) tablet mouth 2 (two) times daily. fludrocortisone 0.1 Take 2 60 tablet 5 Active mg tabletIndications: tablets by 9 1 tablet twice a day mouth daily. as needed if systolic Indications: BP less than 90 1 tablet twice a day as needed if systolic BP less than 90 fludrocortisone 0.1 Take 2 60 tablet 5 Active mg tablet tablets by 9 mouth daily. KCL 20 mEq tablet Take 2 60 tablet 3 Active tablets by 9 mouth daily. tamsulosin 0.4 mg 24 Take 1 60 capsule 11 Active hr capsule by 0 capsuleIndications: mouth 2 BPH with (two) times obstruction/lower daily. urinary tract symptoms famotidine 20 mg Take 1 60 tablet 12 Active tabletIndications: tablet by 0 Gastroesophageal mouth 2 reflux disease (two) times without esophagitis daily. amiodarone 200 mg Take 1 90 tablet 3 Active tabletIndications: tablet by 0 SVT (supraventricular mouth daily. tachycardia) amiodarone 200 mg Take 1 60 tablet 3 05/13/19 Discontinued tabletIndications: tablet by 9 20 (Reorder) SVT (supraventricular mouth daily. 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 Essential hypertension 02/21/2017 Abnormal nuclear stress test 02/21/2017 Chest pain 01/16/2017 SVT (supraventricular tachycardia) 01/01/2017 Orthostatic hypotension 01/01/2017 Hypokalemia 01/01/2017 Hypomagnesemia 01/01/2017 Tachycardia 12/31/2016 documented as of this encounter (statuses as of 05/13/2019) Immunizations Name Administration Dates Next Due Influenza [...] Office Visit Cardiology Roshan Holliday MD [address] [facility] [address] [place] [address] [phone] 09/20/2019 Office Visit Urology Tu Barron MD [address] [place] [phone] Health Maintenance Due Date Last Done Comments DTaP,Tdap,and Td Vaccines (1 - Tdap) 1946 Zoster Recombinant Vaccine (SHINGRIX) (1 of 2) 08/20/1983 Medicare Wellness Visit 1998 PNEUMOCOCCAL VACCINES 65+ (2 of 2 - PPSV23) 12/13/2016 12/14/2015 INFLUENZA VACCINE Completed 01/11/2019 documented as of this encounter Results Not on filedocumented in this encounter Visit Diagnoses Diagnosis SVT (supraventricular tachycardia) Other specified cardiac dysrhythmias documented in this encounter Insurance Payer Benefit Plan / Subscriber ID Effective Dates Phone Address Type Group [facility] [id number] 2019-Present [facility]/AARP documented as of this encounter
--- OUTSIDE RECORDS SUMMARY | 2019-06-17 03:38 | XMS REPORT | Summary of Care ---
:[address] [facility] - Health Address [address] [place] [address] Care Team Providers Name Role Phone Greg Esparza MD Primary Care Provider Encounter Details Date Type Department Care Team Description 05/07/[address] [facility] Doctor Unassigned, No [address] [facility] [place] [address] [place] [address] Allergies Active Allergy Reactions Severity Noted Date Comments Penicillins Swelling High 10/28/2016 Simvastatin Other - See comments 05/06/2017 Leg cramps Sulfa (Sulfonamide Antibiotics) Rash High 10/28/2016 Rivaroxaban Other - See comments 05/06/2017 hematuria documented as of this encounter (statuses as of 05/07/2019) Medications Medication Sig Dispensed Refills Start Date [...] as of this encounter (statuses as of 05/07/2019) Active Problems Problem Noted Date Hypotension 01/09/2018 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 Essential hypertension 02/21/2017 Abnormal nuclear stress test 02/21/2017 Chest pain 01/16/2017 SVT (supraventricular tachycardia) 01/01/2017 Orthostatic hypotension 01/01/2017 Hypokalemia 01/01/2017 Hypomagnesemia 01/01/2017 Tachycardia 12/31/2016 documented as of this encounter (statuses as of 05/07/2019) Immunizations Name Administration Dates Next Due Influenza [...] 08/04/2019 Office Visit Cardiology Roshan Holliday MD [address] [place] [address] [address] [place] [address] [phone] 09/20/2019 Office Visit Urology Tu Barron MD [address] [place] [phone] Health Maintenance Due Date Last Done Comments DTaP,Tdap,and Td Vaccines (1 - Tdap) 1946 Zoster Recombinant Vaccine (SHINGRIX) (1 of 2) 08/20/1983 Medicare Wellness Visit 1998 PNEUMOCOCCAL VACCINES 65+ (2 of 2 - PPSV23) 12/13/2016 12/14/2015 INFLUENZA VACCINE Completed 01/11/2019 documented as of this encounter Procedures Procedure Name Priority Date/Time Associated Diagnosis Comments EXTERNAL PROVIDER Routine 05/07/2019 12:01 AM TRAINING AND DEVELOPMENT REP RECORDS documented in this encounter Results Not on filedocumented in this encounter Insurance Payer Benefit Plan / Subscriber ID Effective Dates Phone Address Type Group [facility] [id number] 2019-Present PPO HEALTHCARE/AARP documented as of this encounter
[2019-06-17] MEDS ORDERED: MECLIZINE HCL 12.5 MG TAB ONE (03:47)
[2019-06-17] MEDS ORDERED: ONDANSETRON 4 MG/2 ML VIAL ONE ×3 (03:47→06:16)
[2019-06-17] MEDS ORDERED: NA CHLORIDE 0.9% 1,000 ML ONE ×2 (03:47→05:24)
[2019-06-17 04:19] LABS: Albumin 3.1 g/dL (3.4-5.0); Bilirubin Direct 0.2 mg/dL (0-0.2); Bilirubin Total 0.5 mg/dL (0.2-1.0); Protein, Total 6.6 g/dL (6.4-8.2)
[2019-06-17 04:24] LABS: Potassium 2.8 mmol/L (3.5-5.1)
[2019-06-17 04:25] LABS: Basophils % 0.5 % (0-1.3); Hematocrit 43.2 % (39.6-49.0); Lymphocytes % 13.2 % (15.3-44.8); MPV 10.9 fL (7.6-11.3); RBC Red Blood Cell Count 4.84 M/uL (4.33-5.43)
[2019-06-17] MEDS ORDERED: POTASSIUM 25 MEQ EFFERV TAB ONE (04:35)
[2019-06-17] MEDS ORDERED: HYDRALAZINE HCL 20 MG/ML VIAL ONE ×2 (04:55→06:01)
[2019-06-17] MEDS ORDERED: ACETAMINOPHEN 500 MG TAB ONE (05:06)
[2019-06-17] MEDS ORDERED: cloNIDine HCL 0.1 MG TAB ONE (06:01)
[2019-06-17] MEDS ORDERED: PROMETHAZINE INJ 25 MG/ML AMP ONE (06:36)
--- NOTE | 2019-06-17 06:59 | ER ---
Nurse's Notes [facility] Name: Danyel Oliver IV Age: 83 yrs Sex: Male : 1935 Arrival Date: 06/17/2019 Time: 03:37 Bed 7 Private MD: Diagnosis: Cyclical vomiting, intractable;Hypo-osmolality and hyponatremia;Dehydration Presentation: 06/16 03:37 Chief complaint: EMS states: IS VERTIGO FOR SIX DAYS NOW. ON THE WAY TO BATHROOM WHEN rv HE FELT HE IS GOING TO FALL SO HE JUST WENT DOWN AND CALLED FOR HELP. ALSO COMPLAINING OF NAUSEA WITHOUT EPISODES OF VOMITING, AND LOSS OF APPETITE. GENERALIZED WEAKNESS. Coronavirus screen: The patient has NOT traveled to a country currently being monitored by the CDC within the last 14 days. Proceed with normal triage procedures. The patient has NOT had contact with any known and/or suspected case of coronavirus. Proceed with normal triage procedures. Ebola Screen: No symptoms or risks identified at this time. Initial Sepsis Screen: Does the patient meet any 2 criteria? No. Patient's initial sepsis screen is negative. Does the patient have a suspected source of infection? No. Patient's initial sepsis screen is negative. Risk Assessment: Do you want to hurt yourself or someone else? Patient reports no desire to harm self or others. 03:37 Method Of Arrival: EMS: [facility] rv 03:37 Acuity: REDDY 3 rv Historical: - Allergies: 03:43 PENICILLINS; rv 03:43 Sulfa (Sulfonamide Antibiotics); rv - Home Meds: 03:43 fludrocortisone 0.1 mg Oral tab 1 tab twice a day [Active]; finasteride 5 mg Oral tab 1 rv tab once daily [Active]; gabapentin 800 mg Oral tab 1 tab 3 times per day [Active]; tamsulosin 0.4 mg Oral cp24 1 cap once daily [Active]; famotidine 20 mg Oral tab 1 tab 2 times per day [Active]; Aspir-81 81 mg Oral TbEC 1 tab every three days [Active]; Potassium Chloride Oral [Active]; aspirin 81 mg Oral TbEC 1 tab EVERY THREE DAYS [Active]; Vitamin B-12 Oral daily [Active]; magnesium oxide 400 mg Oral cap twice a day [Active]; - PMHx: 03:43 DVT; Hyperlipidemia; neuropathy; right bundle branch block; spinal cord tumor; rv - PSHx: 03:43 Appendectomy; Cholecystectomy; HEMORHOIDECTOMY; rv - Immunization history:: Adult Immunizations up to date. - Social history:: Smoking status: Patient denies any tobacco usage or history of. Screenin:00 Abuse screen: Denies threats or abuse. Denies injuries from another. Nutritional mg2 screening: No deficits noted. Tuberculosis screening: No symptoms or risk factors identified. 04:00 Fall Risk IV access (20 points). mg2 Assessment: 04:10 General: Appears in no apparent distress. comfortable, Behavior is calm, cooperative. mg2 Pain: Denies pain. Neuro: Level of Consciousness is awake, alert, obeys commands, Oriented to person, place, time, situation. 04:10 Neuro: Reports dizziness. Cardiovascular: Capillary refill < 3 seconds Patient's skin mg2 is warm and dry. Respiratory: Airway is patent Respiratory effort is even, unlabored, Respiratory pattern is regular, symmetrical. GI: Reports nausea. : No signs and/or symptoms were reported regarding the genitourinary system. EENT: No signs and/or symptoms were reported regarding the EENT system. Derm: Skin is intact, is healthy with good turgor, Skin is pink, warm \\T\\ dry. normal. Musculoskeletal: Circulation, motion, and sensation intact. Capillary refill < 3 seconds. 05:00 Reassessment: Patient appears in no apparent distress at this time. Patient and/or mg2 family updated on plan of care and expected duration. Pain level reassessed. Patient is alert, oriented x 3, equal unlabored respirations, skin warm/dry/pink. 06:00 Reassessment: Patient appears in no apparent distress at this time. Patient and/or mg2 family updated on plan of care and expected duration. Pain level reassessed. Patient is alert, oriented x 3, equal unlabored respirations, skin warm/dry/pink. patient was vomiting nonstop. provider informed. 07:05 General: Appears uncomfortable, Behavior is calm, cooperative. Neuro: Level of ss Consciousness is awake, alert, obeys commands, Oriented to person, place, time, situation, [employer] are equal bilaterally Speech is normal, Facial symmetry appears normal, Pupils are PERRLA, Pt has numbness in bilateral lower extremities, but states this is chronic due to peripheral neuropathy from many years ago. . Denies headache. Neuro: Reports slight hallucinations such as feeling as if legs are floating off of the bed and that there are legs hanging off the ceiling. states that any time patient has any sedatives at all that he tends to hallucinate and go "berserk".. Neuro: Reports dizziness, when moving head, repositioning x 4 days. Respiratory: Airway is patent Respiratory effort is even, unlabored, Respiratory pattern is regular, symmetrical. EENT: Nares are clear Oral mucosa is moist. Derm: Skin is healthy with good turgor, is thin, Skin is pink, warm \\T\\ dry. Musculoskeletal: No signs and/or symptoms reported regarding the musculoskeletal system. Circulation, motion, and sensation intact. 07:28 Reassessment: Care handed over to Dr. Upton per Dr. Hernandez. Pt awaiting to go to CT. ss Pt states that he feels like he is too nauseous to go to CT at this time. Dr. Upton notified and has ordered Reglan 10 mg IV. Medication ordered and administered. Pt and verbalize understanding that he is admitted to the hospital, but we must wait for CT results prior to obtaining room assignment. Respiratory: Respiratory effort is even, unlabored, Respiratory pattern is regular, symmetrical. Derm: Skin is pink, warm \\T\\ dry. 08:31 Reassessment: Patient and/or family updated on plan of care and expected duration. Pain ss level reassessed. Patient is alert, oriented x 3, equal unlabored respirations, skin warm/dry/pink. Patient states feeling better. Patient states symptoms have improved. 08:31 Reassessment: Attempted to call report to fourth floor. Nurse unavailable and will call ss back momentarily. Vital Signs: 03:37 BP 190 / 89; Pulse 59; Resp 17; Temp 98.8; Pulse Ox 98% on R/A; Weight 99.79 kg; Height rv 6 ft. 2 in. (187.96 cm); Pain 0/10; 04:45 BP 205 / 83; Pulse 52; Resp 18; Pulse Ox 100% on R/A; Pain 0/10; mg2 05:04 BP 163 / 67; Pulse 59; Resp 18; Pulse Ox 100% on R/A; mg2 05:53 BP 205 / 88; Pulse 59; Resp 18; Pulse Ox 100% on R/A; mg2 07:23 BP 162 / 70; Pulse 60; ss 09:03 BP 165 / 71; Pulse 64; Resp 16; Pulse Ox 98% on R/A; Pain 0/10; ss 03:37 Body Mass Index 28.25 (99.79 kg, 187.96 cm) rv ED Course: 03:37 Patient arrived in ED. rv 03:40 Triage completed. rv 03:43 Arm band placed on Patient placed Patient notified of wait time. rv 03:44 Neil Hernandez MD is Attending Physician. tw4 03:51 Torito Edwards, CECILIA is Primary Nurse. mg2 04:00 Inserted saline lock: 20 gauge in right antecubital area, using aseptic technique. mg2 Blood collected. 04:48 Patient has correct armband on for positive identification. mg2 04:48 No provider procedures requiring assistance completed. mg2 06:57 Dina Trinidad MD is Hospitalizing Provider. tw4 09:02 Patient admitted, IV remains in place. ss Administered Medications: 03:53 Drug: Meclizine 50 mg Route: PO; mg2 04:34 Follow up: Response: No adverse reaction mg2 03:53 Drug: Zofran (Ondansetron) 4 mg Route: IVP; Site: right forearm; mg2 04:34 Follow up: Response: No adverse reaction mg2 03:53 Drug: NS 0.9% 1000 ml Route: IV; Rate: 1 bolus; Site: right forearm; mg2 04:34 Follow up: Response: No adverse reaction; IV Status: Completed infusion; IV Intake: mg2 1000ml 04:54 Drug: Potassium Effervescent Tablet 50 mEq Route: PO; mg2 07:11 Follow up: Response: No adverse reaction mg2 04:54 Drug: hydrALAZINE 10 mg Route: IV; Rate: bolus; Site: right antecubital; mg2 06:41 Follow up: IV Status: Completed infusion mg2 05:04 Drug: Tylenol 1000 mg Route: PO; mg2 06:41 Follow up: Response: No adverse reaction mg2 05:20 Drug: NS 0.9% 1000 ml Route: IV; Rate: 1000 ml; Site: right antecubital; mg2 08:35 Follow up: IV Status: Completed infusion; IV Intake: 1000ml ss 05:20 Drug: Zofran (Ondansetron) 4 mg Route: IVP; Site: right antecubital; mg2 06:41 Follow up: Response: No adverse reaction mg2 06:02 Drug: hydrALAZINE 20 mg Route: IV; Rate: bolus; Site: right antecubital; mg2 06:40 Follow up: Response: No adverse reaction; IV Status: Completed infusion mg2 06:02 Drug: cloNIDine 0.2 mg Route: PO; mg2 06:40 Follow up: Response: No adverse reaction; Blood pressure is lowered mg2 06:45 Drug: Phenergan 6.25 mg Route: IVP; Site: right antecubital; mg2 07:11 Follow up: Response: No adverse reaction mg2 07:27 Drug: Reglan 10 mg Route: IVP; Site: right forearm; ss 08:34 Follow up: Response: No adverse reaction; Marked relief of symptoms; Nausea is decreasedss Intake: 04:34 IV: 1000ml; Total: 1000ml. mg2 08:35 IV: 1000ml; Total: 2000ml. ss Outcome: 06:58 Decision to Hospitalize by Provider. tw4 09:02 Admitted to Tele accompanied by tech, family with patient, via stretcher, room 415, with chart, Report called to CECILIA Lara 09:02 Condition: good 09:02 Instructed on the need for admit. 09:18 Patient left the ED. iw Signatures: Katrin Alcantar RN CECILIA iw Nini Dos Santos RN RN Neil Hernandez MD MD tw4 Torito Edwards RN RN mg2 Torrey Jimenez RN RN rv Corrections: (The following items were deleted from the chart) 09:04 03:43 PMHx: Diabetes - NIDDM; rv ss
--- NOTE | 2019-06-17 06:59 | EDPHYS ---
Physician Documentation [facility] Name: Danyel Oliver IV Age: 83 yrs Sex: Male : 1935 Arrival Date: 06/17/2019 Time: 03:37 Bed 7 Private MD: ED Physician Neil Hernandez HPI: 06/16 05:13 This 83 yrs old Male presents to ER via EMS with complaints of "VERTIGO". tw4 05:13 The patient presents with sense of spinning. Onset: The symptoms/episode began/occurred tw4 today. Context: occurred at home. Modifying factors: The symptoms are alleviated by nothing, the symptoms are aggravated by nothing. Severity of symptoms: At their worst the symptoms were moderate. The patient has not experienced similar symptoms in the past. 07:14 Associated signs and symptoms: Pertinent positives: nausea, vomiting, Pertinent tw4 negatives: abdominal pain, agitation, blurred vision, chest pain, confusion, focal weakness, numbness, palpitations. Patient's baseline: Neuro: alert and fully oriented, Motor: no deficits. Historical: - Allergies: 03:43 PENICILLINS; rv 03:43 Sulfa (Sulfonamide Antibiotics); rv - Home Meds: 03:43 fludrocortisone 0.1 mg Oral tab 1 tab twice a day [Active]; finasteride 5 mg Oral tab 1 rv tab once daily [Active]; gabapentin 800 mg Oral tab 1 tab 3 times per day [Active]; tamsulosin 0.4 mg Oral cp24 1 cap once daily [Active]; famotidine 20 mg Oral tab 1 tab 2 times per day [Active]; Aspir-81 81 mg Oral TbEC 1 tab every three days [Active]; Potassium Chloride Oral [Active]; aspirin 81 mg Oral TbEC 1 tab EVERY THREE DAYS [Active]; Vitamin B-12 Oral daily [Active]; magnesium oxide 400 mg Oral cap twice a day [Active]; - PMHx: 03:43 DVT; Hyperlipidemia; neuropathy; right bundle branch block; spinal cord tumor; rv - PSHx: 03:43 Appendectomy; Cholecystectomy; HEMORHOIDECTOMY; rv - Immunization history:: Adult Immunizations up to date. - Social history:: Smoking status: Patient denies any tobacco usage or history of. ROS: 05:13 Constitutional: Negative for fever, chills, and weight loss, Eyes: Negative for injury, tw4 pain, redness, and discharge, Cardiovascular: Negative for chest pain, palpitations, and edema, Respiratory: Negative for shortness of breath, cough, wheezing, and pleuritic chest pain, Back: Negative for injury and pain, MS/Extremity: Negative for injury and deformity, Skin: Negative for injury, rash, and discoloration. 05:13 Neuro: Positive for dizziness. 07:14 Abdomen/GI: Positive for nausea and vomiting, nausea, vomiting, Negative for abdominal tw4 pain, diarrhea, constipation, abdominal cramps, abdominal distension, anorexia, dysphagia, black/tarry stool, rectal pain, rectal bleeding. Exam: 05:13 Constitutional: This is a well developed, well nourished patient who is awake, alert, tw4 and in no acute distress. Head/Face: Normocephalic, atraumatic. Chest/axilla: Normal chest wall appearance and motion. Nontender with no deformity. No lesions are appreciated. Cardiovascular: Regular rate and rhythm with a normal S1 and S2. No gallops, murmurs, or rubs. Normal PMI, no JVD. No pulse deficits. Respiratory: Lungs have equal breath sounds bilaterally, clear to auscultation and percussion. No rales, rhonchi or wheezes noted. No increased work of breathing, no retractions or nasal flaring. Abdomen/GI: Soft, non-tender, with normal bowel sounds. No distension or tympany. No guarding or rebound. No evidence of tenderness throughout. Back: No spinal tenderness. No costovertebral tenderness. Full range of motion. MS/ Extremity: Pulses equal, no cyanosis. Neurovascular intact. Full, normal range of motion. Neuro: Awake and alert, GCS 15, oriented to person, place, time, and situation. Cranial nerves II-XII grossly intact. Motor strength 5/5 in all extremities. Sensory grossly intact. Cerebellar exam normal. Normal gait. Vital Signs: 03:37 BP 190 / 89; Pulse 59; Resp 17; Temp 98.8; Pulse Ox 98% on R/A; Weight 99.79 kg; Height rv 6 ft. 2 in. (187.96 cm); Pain 0/10; 04:45 BP 205 / 83; Pulse 52; Resp 18; Pulse Ox 100% on R/A; Pain 0/10; mg2 05:04 BP 163 / 67; Pulse 59; Resp 18; Pulse Ox 100% on R/A; mg2 05:53 BP 205 / 88; Pulse 59; Resp 18; Pulse Ox 100% on R/A; mg2 07:23 BP 162 / 70; Pulse 60; ss 09:03 BP 165 / 71; Pulse 64; Resp 16; Pulse Ox 98% on R/A; Pain 0/10; ss 03:37 Body Mass Index 28.25 (99.79 kg, 187.96 cm) rv MDM: 03:44 Patient medically screened. tw4 05:41 Differential diagnosis: cardiac arrhythmia, CVA. Data reviewed: vital signs, nurses tw4 notes. Data interpreted: Pulse oximetry: Interpretation: normal. Counseling: I had a detailed discussion with the patient and/or guardian regarding: the historical points, exam findings, and any diagnostic results supporting the discharge/admit diagnosis. 07:14 Data reviewed: lab test result(s), CBC, electrolytes, EKG. Test interpretation: by ED tw4 physician or midlevel provider: ECG. Medication response: Phenergan partially relieved the patient's nausea, Zofran did not change the patient's condition. The patient is still nauseated. Physician consultation: Dina Trinidad MD regarding admission, to the telemetry unit. and will see patient in ED. 06/16 03:47 Order name: Basic Metabolic Panel; Complete Time: 04:40 06/16 04:42 Interpretation: Normal except: GLUC 137; K 2.8; GFR 64. 06/16 03:47 Order name: CBC with Diff; Complete Time: 04:40 06/16 03:47 Order name: Creatinine for Radiology; Complete Time: 04:40 06/16 04:47 Interpretation: Within normal limits: CRE 1.06. 06/16 03:47 Order name: Hepatic Function; Complete Time: 04:40 06/16 04:46 Interpretation: Normal except: AST 10; ALT 11; ALB 3.1; A/G 0.9. 06/16 03:47 Order name: Lipase; Complete Time: 04:40 06/16 04:47 Interpretation: Normal except: LIP 68. 06/16 05:55 Order name: CT Head Brain wo Cont 06/16 07:03 Order name: CT Abd/Pelvis - IV Contrast Only 4 06/16 08:09 Order name: CT; Complete Time: 08:41 EDMS 06/16 08:21 Order name: CT; Complete Time: 08:41 EDMS 06/16 03:47 Order name: IV Saline Lock; Complete Time: 03:54 tw4 06/16 03:47 Order name: Labs collected and sent; Complete Time: 03:54 tw4 06/16 03:54 Order name: EKG - Nurse/Tech; Complete Time: 03:54 mg2 EC:13 Rate is 58 beats/min. Rhythm is regular with Right bundle branch block. QRS Parks is tw4 Normal. MS interval is normal. QRS interval is normal. QT interval is normal. No Q waves. T waves are Normal. No ST changes noted. Clinical impression: Abnormal EKG without significant change. Interpreted by me. Reviewed by me. Administered Medications: 03:53 Drug: Meclizine 50 mg Route: PO; mg2 04:34 Follow up: Response: No adverse reaction mg2 03:53 Drug: Zofran (Ondansetron) 4 mg Route: IVP; Site: right forearm; mg2 04:34 Follow up: Response: No adverse reaction mg2 03:53 Drug: NS 0.9% 1000 ml Route: IV; Rate: 1 bolus; Site: right forearm; mg2 04:34 Follow up: Response: No adverse reaction; IV Status: Completed infusion; IV Intake: mg2 1000ml 04:54 Drug: Potassium Effervescent Tablet 50 mEq Route: PO; mg2 07:11 Follow up: Response: No adverse reaction mg2 04:54 Drug: hydrALAZINE 10 mg Route: IV; Rate: bolus; Site: right antecubital; mg2 06:41 Follow up: IV Status: Completed infusion mg2 05:04 Drug: Tylenol 1000 mg Route: PO; mg2 06:41 Follow up: Response: No adverse reaction mg2 05:20 Drug: NS 0.9% 1000 ml Route: IV; Rate: 1000 ml; Site: right antecubital; mg2 08:35 Follow up: IV Status: Completed infusion; IV Intake: 1000ml ss 05:20 Drug: Zofran (Ondansetron) 4 mg Route: IVP; Site: right antecubital; mg2 06:41 Follow up: Response: No adverse reaction mg2 06:02 Drug: hydrALAZINE 20 mg Route: IV; Rate: bolus; Site: right antecubital; mg2 06:40 Follow up: Response: No adverse reaction; IV Status: Completed infusion mg2 06:02 Drug: cloNIDine 0.2 mg Route: PO; mg2 06:40 Follow up: Response: No adverse reaction; Blood pressure is lowered mg2 06:45 Drug: Phenergan 6.25 mg Route: IVP; Site: right antecubital; mg2 07:11 Follow up: Response: No adverse reaction mg2 07:27 Drug: Reglan 10 mg Route: IVP; Site: right forearm; ss 08:34 Follow up: Response: No adverse reaction; Marked relief of symptoms; Nausea is decreasedss Disposition: 06/17/19 06:58 Hospitalization ordered by Dina Trinidad for Observation. Preliminary diagnosis are Cyclical vomiting, intractable, Hypo-osmolality and hyponatremia, Dehydration. - Bed requested for Telemetry/MedSurg (observation). - Status is Observation. iw - Condition is Fair. - Problem is new. - Symptoms are unchanged. Signatures: Dispatcher [employer] EDMS Trey Upton MD MD [facility] Katrin Alcantar RN RN iw Alexis Hernandez em1 Nini Dos Santos RN RN ss Neil Hernandez MD MD tw4 Torito Edwards, CECILIA RN mg2 Torrey Jimenez RN RN rv Corrections: (The following items were deleted from the chart) 08:26 06:58 Hospitalization Ordered by Dina Trinidad MD for Observation. Preliminary diagnosis em1 is Cyclical vomiting, intractable; Hypo-osmolality and hyponatremia; Dehydration. Bed requested for Telemetry/MedSurg (observation). Status is Observation. Condition is Fair. Problem is new. Symptoms are unchanged. tw4 09:04 03:43 PMHx: Diabetes - NIDDM; rv ss 09:18 08:26 06/17/2019 06:58 Hospitalization Ordered by Dina Trinidad MD for Observation. iw Preliminary diagnosis is Cyclical vomiting, intractable; Hypo-osmolality and hyponatremia; Dehydration. Bed requested for Telemetry/MedSurg (observation). Status is Observation. Condition is Fair. Problem is new. Symptoms are unchanged. em1
[2019-06-17] MEDS ORDERED: METOCLOPRAMIDE 10 MG/2mL INJ ONE (07:27)
--- NOTE | 2019-06-17 08:06 | RAD REPORT ---
EXAM DESCRIPTION: CT - Head Brain Wo Cont - 06/17/2019 7:50 am CLINICAL HISTORY: Vertigo COMPARISON: 2012 TECHNIQUE: Computed axial tomography of the head was obtained. IV contrast was not requested. All CT scans are performed using dose optimization technique as appropriate and may include automated exposure control or mA/KV adjustment according to patient size. FINDINGS: A small calcification within the upper spinal cord is unchanged. An intracranial bleed is not seen . The ventricles are normal in caliber. No extra-axial fluid collection is noted. Fluid within the sinuses/ mastoids is not seen. IMPRESSION: No acute intracranial abnormality is seen. If patient's symptoms persist MRI of the bra in would be recommended.
--- NOTE | 2019-06-17 08:11 | RAD REPORT ---
EXAM DESCRIPTION: CT - Abdomen Pelvis W Contrast - 06/17/2019 7:52 am CLINICAL HISTORY: Abdominal pain/nausea COMPARISON: April 2019 TECHNIQUE: Computed axial tomography of the abdomen pelvis was obtained. 100 cc Isovue-300 was admin istered intravenously. Oral contrast was not requested which limits evaluation of bowel. All CT scans are performed using dose optimization technique as appropriate and may include automated exposure control or mA/KV adjustment according to patient size. FINDINGS: The liver, spleen, pancreas, and adrenals appear unremarkable. Small renal cysts There is no evidence of diverticulitis. Small inguinal hernias contain fat. Postsurgical changes involve the lumbar spine. IVC filter in place IMPRESSION: No acute abnormality is displayed.
[2019-06-17] MEDS ORDERED: ACETAMINOPHEN 500 MG TAB PO PRN (09:14)
[2019-06-17] MEDS: ONDANSETRON 4 MG/2 ML VIAL IV PRN ×2 (10:08→14:19)
[2019-06-17] MEDS: MECLIZINE HCL 12.5 MG TAB PO PRN (10:08)
[2019-06-17] MEDS: NA CHLORIDE 0.9% 1,000 ML IV SCH ×2 (10:08→18:28)
[2019-06-17] MEDS ORDERED: ASPIRIN 81 MG CHEWABLE TABLET PO SCH (11:00)
--- NOTE | 2019-06-17 11:37 | EKG ---
Test Date: 2019-06-17 Test Time: 03:37:53 High Pressure Kettle Operator: MEASUREMENT RESULTS: Intervals: Rate: 58 NC: 234 QRSD: 154 QT: 528 QTc: 518 [place]: P: 27 NC: 234 QRS: -83 T: 12 INTERPRETIVE STATEMENTS: Sinus bradycardia with 1st degree AV block Right bundle branch block Left anterior fascicular block Bifascicular block Minimal voltage criteria for LVH, may be normal variant Septal infarct, age undetermined Abnormal ECG Compared to ECG 10/06/2013 17:06:30 First degree AV block now present Left anterior fascicular block now present Bifascicular block now present Left ventricular hypertrophy now present Myocardial infarct finding now present Electronically Signed On 06-17-19 11:36:14 TRACK MECHANIC by Juan Manuel Cadet
[2019-06-17 12:13] VITALS: BMI 27.7
[2019-06-17] MEDS: KCL 20 MEQ/100 mL IVPB 20 MEQ/100 ML BAG IV SCH ×4 (12:14→23:49)
[2019-06-17] MEDS: GABAPENTIN 400 MG CAP PO SCH ×2 (14:19→21:06)
[2019-06-17] MEDS ORDERED: HYDRALAZINE HCL 20 MG/ML VIAL IV PRN (15:08)
[2019-06-17] MEDS ORDERED: THIAMINE 200 MG/2 ML INJ IVP ONE (19:30)
--- NOTE | 2019-06-17 20:02 | HP ---
Date of Admission: 06/17/2019 Consultants: Dr. Harrison with Neurology. Code Status: Full. Chief Complaint: Nausea, vomiting, vertigo. History Of Present Illness: Patient is an 83-year-old male with past medical history of GERD, BPH, n europathy, Factor V Leiden, osteoarthritis, spinal cord tumor, undergoing current treatment, who come s in with worsening nausea, vomiting, and vertigo. Patient states his vertigo is worse with certain movements. Patient has been having this problem ongoing for the past several years, has been followi ng with Dr. Harrison with Neurology. However, his symptoms recently have worsened. Symptoms are consta nt, moderate, progressively worsening. Him and his recently moved to an assisted living [facility] and out of their house. Otherwise, denies any fevers, chills, ill contacts. Does report some vagu e abdominal epigastric pain. Patient came into the ER for further evaluation. His workup revealed a low sodium, potassium of 2.8. CT scan of the head was negative. CT scan of the abdomen showed no a cute abnormality. IVC filter in place. Patient was then referred for admission. He was given Phene rgan, Zofran, and meclizine in the ER and 2 boluses of IV fluids. His potassium was also replaced. Past Medical History: Benign prostatic hyperplasia; spinal cord tumor, currently undergoing treatmen t; peripheral neuropathy. Patient also has Factor V Leiden, right bundle-branch block, and IVC filte r. Surgical History: Appendectomy; cholecystectomy; hemorrhoidectomy; cervical fusion 5, 6, and 7; part ial laminectomy, lumbar; cataract surgery both eyes; embolism removal; rotator cuff on the left; debr idement of the left thumb; decompression of C3, 4, and 5; decompression of L4, L5, and S1; removal of inflamed muscle mass; cervical epidural steroid injections; carpal tunnel, right hand and left hand. Patient also has history of DVT and basal cell carcinoma removal. Allergies: PENICILLIN AND SULFA. Medications: As per medication reconciliation list. Family History: Patient denies any premature coronary artery disease in the family. Social History: Patient denies any tobacco use or alcohol use. Lives with his in assisted [facility], mainly independent in his activities of daily living. Does need some assistance. Review of Systems: Ten-point system reviewed, negative except as per HPI. Physical Examination: Vital Signs: Temperature 98.8, heart rate 59, blood pressure 190/89, respirations 17, O2 of 98% on r oom air. General: Awake, alert, oriented x3. Elderly male, ill-appearing. HEENT: Normocephalic, atraumatic. PERRLA. EOMI. Dry mucous membranes. Oropharynx is clear. Poor dentition. Conjunctivae are anicteric. Neck: Supple. No JVD. Trachea midline. CV: S1, S2. Regular rate and rhythm. Pulses weak. Respiratory: Moving air well bilaterally. No wheezing or stridor. No use of accessory muscles. Gastrointestinal: Abdomen is soft, nontender, nondistended. Positive bowel sounds. Patient has marielena e tenderness on the epigastric region. No rebound or guarding. Extremities: No clubbing, cyanosis, or edema. No calf tenderness. Neurologic: Cranial nerves 2 through 12 intact grossly. No focal neurological deficit. Speech is n ormal. Skin: No rashes. Normal skin turgor. Psychiatric: Mood is okay. Affect is full. Insight and judgment are good. Laboratory Data: WBC 7.4, H and H 14.4 and 43.2, platelets 147, neutrophils 73%. Sodium 143, potass ium 2.8, chloride 107, CO2 of 31, BUN 11, creatinine 1.09, glucose 137, calcium 8.6, albumin 3.1, lip ase 68. Imaging Studies: CT scan of the head shows no acute abnormality. CT scan of the abdomen also does n ot show any acute abnormality. IVC filter is in place. Small renal cysts. Assessment: 83-year-old male with: 1.Intractable nausea and vomiting, likely secondary to vertigo. We will continue with Zofran and Ph energan, and we will continue with symptomatic treatment, IV fluids. 2.Vertigo, likely benign positional vertigo. We will have PT work with patient and apply the Aydee maneuver. Dr. Harrison is his neurologist. We will consult him as well and meclizine p.r.n. 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 Grimm in [place]. 4.Benign prostatic hypertrophy. Continue tamsulosin. 5.Gastroesophageal reflux disease. Continue PPI. No esophagitis. 6.Degenerative disk disease. 7.Mixed hyperlipidemia. Continue statin. 8.Neuropathy. Plan: 1.Admit patient to Med-Surg, place as observation. 2.Deep vein thrombosis prophylaxis with Lovenox. CALI Voice ID: [id number]
[2019-06-17] MEDS: TAMSULOSIN 0.4 MG SR CAP PO SCH (21:05)
[2019-06-17] MEDS: FAMOTIDINE 20 MG TAB PO SCH (21:06)
[2019-06-17 21:38] VITALS: O2SAT 94
--- NOTE | 2019-06-17 23:08 | CON ---
Date of Consultation: 06/17/2019 Time: 1849. Reason: Dizziness. History: 83-year-old gentleman well known to myself with multiple problems, we will just touch base on the neurological issues. 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 He has multiple nutritional neuropathies with a history of B12 deficiency, Beriberi, as well as paraproteinemia with a monoclonal gammopathy. His has Parkinson disease. As alluded, I have known the patient over 10 years, moved to [facility] recently because he is jus t really no longer able to care for himself properly, had a lot issues with orthostatic hypotension a nd orthostatic dizziness. It has been ongoing, but he went to get up last night to use the bathroom and got very dizzy, he was unable to walk. He fell back into the bed. He has a somewhat hard time d escribing the episode. It is not really a violent twisting spinning sensation as noted and really peterson ppened when going from lying to sitting to standing. He did have some associated nausea and vomiting , came to the emergency department. CT scan of the brain was unremarkable. Labs revealed hypokalemi a and elevated glucose consistent with his known history of diabetes. EKG; sinus bradycardia with a bifascicular block. QTc 518. He was admitted and I was consulted. Past Medical History: As alluded to also with a history of diabetes, orthostatic hypotension. Allergies: PENICILLIN AND SULFA. Social History: requiring increasing assistance with basic activities of daily living. Review of Systems: General: Chronically ill. Eyes: Chronic diplopia. Ears, Nose, Throat: No dysphagia. No dysarthria. Cardiovascular: Bifascicular block and prolonged QT. Pulmonary: Negative. GI: Nausea. : Prostate enlargement. Musculoskeletal: Arthralgias, distal weakness. Neurologic: As noted. Psychiatric: Negative. Endocrine: Diabetes. Hematologic: Monoclonal gammopathy. Physical Examination: Vital Signs: 98, 72, 160/79. Heart: Sinus rhythm. Systolic ejection murmur noted radiating up into the carotids. HEENT: Pupils reactive. Ocular motion full, pederson full. Neck: Hallpike negative. Decreased range of motion cervical spine. 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 Extremities: Examination of the extremities reveal 4/5 distal upper extremity weakness and 2/5 foot drops proximally. Full strength. Sensation decreased distally. Reflexes are 2/4 in the arms and ab sent in the legs. Toes are silent. Neuro: Cerebellar exam demonstrates no ataxia. Pertinent Laboratory Data And Imaging: EKG is noted. Potassium 2.5, creatinine 1.06. CBC; platelet s 147, otherwise normal. Liver function tests normal. Impression: 1.Dizziness. 2.Neuropathy with orthostatic hypotension. 3.Spinal cord astrocytoma/glioma. Plan: We will administer thiamine intravenously. Check orthostatic vitals to ensure it is not somet sheyla as simple as adjusting his Florinef or adding midodrine. Check brain MRI and cervical MRI with contrast. He has been having some symptoms that are concerning for tumor enlargement, although repea t scan in March up in [place] demonstrated that the lesion was not enlarging. Physical Therapy as you are doing. Thank you for the consult. We will continue to follow with you. JERRELL Voice ID: [id number] Report ID: [id number]
[2019-06-18] MEDS: KCL 20 MEQ/100 mL IVPB 20 MEQ/100 ML BAG IV SCH ×2 (01:44→03:52)
[2019-06-18 06:10] LABS: Absolute Lymphocytes (CBC) 1.3 K/uL (0.7-4.9); Basophils % 0.2 % (0-1.3); Hematocrit 38.3 % (39.6-49.0); Lymphocytes % 12.4 % (15.3-44.8); MPV 11.8 fL (7.6-11.3)
[2019-06-18 06:18] LABS: Albumin 2.8 g/dL (3.4-5.0); Bilirubin Total 0.9 mg/dL (0.2-1.0); Magnesium 1.6 mg/dL (1.8-2.4); Potassium 3.4 mmol/L (3.5-5.1); Protein, Total 5.7 g/dL (6.4-8.2)
[2019-06-18] MEDS: NA CHLORIDE 0.9% 1,000 ML IV SCH (06:19)
[2019-06-18] MEDS ORDERED: MAGNESIUM SULFATE 1 gm IVPB 1 GM/100 ML BAG IV ONE (07:30)
[2019-06-18] MEDS ORDERED: FINASTERIDE 5 MG TAB PO SCH (09:00)
[2019-06-18] MEDS ORDERED: THIAMINE 200 MG/2 ML INJ IVP SCH (09:00)
[2019-06-18] MEDS ORDERED: FLUDROCORTISONE 0.1 MG TAB PO SCH (09:00)
[2019-06-18] MEDS: FAMOTIDINE 20 MG TAB PO SCH (09:22)
[2019-06-18] MEDS: GABAPENTIN 400 MG CAP PO SCH ×2 (09:22→13:34)
[2019-06-18] MEDS: TAMSULOSIN 0.4 MG SR CAP PO SCH (09:22)
[2019-06-18] MEDS ORDERED: POTASSIUM CL SA 10 MEQ TAB PO ONE (09:24)
--- NOTE | 2019-06-18 09:55 | RAD REPORT ---
EXAM DESCRIPTION: MRI - Brain W/Wo Cont - 06/18/2019 8:41 am CLINICAL HISTORY: Double vision/CVA COMPARISON: 2016 TECHNIQUE: Axial, sagittal, and coronal magnetic images of the brain were obtained. 20 cc MultiHance administered intravenously FINDINGS: Mild signal is present within periventricular, deep and subcortical white matter probably ischemic changes secondary to small vessel disease The ventricles are normal in caliber. Diffusion-weighted/ ADC mapping sequences do not demonstrate evidence of an acute infarction. No abnormal enhancement within the brain is seen. An extra-axial fluid collection is not noted. Fluid within the sinuses/mastoids is not seen IMPRESSION: No acute abnormality displayed
--- NOTE | 2019-06-18 09:58 | RAD REPORT ---
EXAM DESCRIPTION: MRI - MRA Head Wo Cont - 06/18/2019 8:41 am CLINICAL HISTORY: CVA/double vision COMPARISON: None. TECHNIQUE: Magnetic resonance angiogram was performed. 3D MIPS reconstruction performed FINDINGS: The anterior cerebral, middle cerebral, posterior cerebral, distal internal carotid and ba silar arteries do not demonstrate a significant stenosis. An aneurysm is not displayed. IMPRESSION: Unremarkable MRA brain.
--- NOTE | 2019-06-18 10:05 | RAD REPORT ---
EXAM DESCRIPTION: MRI - MRA Neck W/Wo Cont - 06/18/2019 8:40 am CLINICAL HISTORY: CVA/double vision COMPARISON: None. TECHNIQUE: Magnetic resonance angiogram of the neck was performed. 20 cc MultiHance was administered intravenously. 3D MIPS reconstruction performed FINDINGS: Mild plaque is present within the common, internal and external carotid arteries. The vertebral arteries are codominant. No abnormality is displayed IMPRESSION: Mild plaque within the carotid arteries NASCET criteria used. Mild 0-49% stenosis Moderate 50-69% stenosis Severe 70-99% stenosis
--- NOTE | 2019-06-18 11:09 | RAD REPORT ---
EXAM DESCRIPTION: MRI - C Spine W/Wo Cont - 06/18/2019 8:41 am CLINICAL HISTORY: Astrocytoma COMPARISON: 2014 TECHNIQUE: Axial and sagittal magnetic resonance imaging of the cervical spine was obtained FINDINGS: A 9 millimeter enhancing lesion within the spinal cord at the C1 level has mildly diminish ed in size. However, the enhancement now involves the entire lesion. On the prior exam the enhancemen t was in the periphery of the lesion. Ill-defined increased signal within the spinal cord extends inf eriorly to the C2-3 level. Broad-based central disc herniation C3-4. This in combination with spondylosis results in moderate na rrowing of the left and mild narrowing the right neural foramina Spondylosis C4-5 results in moderate narrowing of the neural foramina bilaterally Anterior fusion involves C5 through C7 IMPRESSION: 9 millimeter area of enhancement within the spinal cord at C1 has mildly diminished in s ize. However, the enhancement now involves the entire lesion. On the prior exam the enhancement was i n the periphery of the lesion
[2019-06-18] MEDS: MECLIZINE HCL 12.5 MG TAB PO PRN (13:45)
[2019-06-18 15:43] VITALS: BP 147/72; TEMP 97.8
--- NOTE | 2019-06-18 23:41 | DS ---
Date of Discharge: 06/18/2019 Consultants: Dr. Harrison with Neurology. Discharge Diagnoses: 1.Intractable nausea and vomiting, improved secondary to vertigo. 2.Vertigo, likely benign positional vertigo, improved. 3.Spinal cord tumor, imaging study showing reduction in size. 4.Benign prostatic hypertrophy, stable on tamsulosin. 5.Gastroesophageal reflux disease without esophagitis. Continue PPI. 6.Degenerative disk disease. 7.Mixed hyperlipidemia. 8.Neuropathy. Hospital Course: Patient is an 83-year-old male with past medical history of GERD, BPH, neuropathy, factor 5 Leiden, osteoarthritis, spinal cord tumor, comes in with nausea, vomiting, vertigo. Patient was dizzy and also reported some vertigo. Patient was admitted to the hospital for further evaluati on. CT scan of the head showed no significant or acute abnormalities. He did have some electrolyte abnormalities including low sodium and potassium of 2.8. Patient had imaging studies done including MRI of the brain, MRA of the brain, neck MRA, and cervical spine MRA, which were unremarkable. The t umor on the spinal cord reduced in size. Patient currently undergoing treatment with Dr. Grimm in [place] on. The patient's orthostatic vital signs were negative. He worked with PT. An Aydee maneuver was performed. Overall, his symptoms improved. He did well. He did require some meclizine p.r.n. The patient was then able to ambulate without difficulty. He was then set up with home health and discha rged in a stable condition. Activity: Fall precautions, ambulate with assist. Diet: Diabetic. Followup: Follow up with primary care physician in 2-3 days. Follow up with neurologist, Dr. Harrison in 2 weeks. Return to ER for worsening condition. Medications: As per medication reconciliation list. Physical Examination: General: Awake, alert, and oriented x3. Elderly male, not in any acute distress. CV: S1, S2. Respiratory: Moving air well bilaterally. Abdomen: Abdomen is soft, nontender, nondistended. Positive bowel sounds. Extremities: No clubbing, cyanosis, or edema. Neurologic: Nonfocal. SA/MODL Voice ID: [id number] Report ID: [id number]
== END 2019-06-18 15:59 | disposition home health service (06) ==
LOC: ER 03:32 → ERHOLD 07:25 → 4TH 09:06
PROVIDERS: ADMIT Family Medicine; ATTEND Family Medicine
DX: R42 Dizziness and giddiness (principal); R11.2 Nausea with vomiting, unspecified; E87.1 Hypo-osmolality and hyponatremia; E86.0 Dehydration; K21.9 Gastro-esophageal reflux disease without esophagitis; D49.7 Neoplasm of unspecified behavior of endocrine glands and other parts of nervous system; N40.0 Benign prostatic hyperplasia without lower urinary tract symptoms; E78.2 Mixed hyperlipidemia; G62.9 Polyneuropathy, unspecified; M19.90 Unspecified osteoarthritis, unspecified site; Z88.0 Allergy status to penicillin; Z88.2 Allergy status to sulfonamides; Z85.828 Personal history of other malignant neoplasm of skin; Z86.718 Personal history of other venous thrombosis and embolism
CPT/HCPCS: 96365; 96361; 93005; 85025 ×2; 80048; 36415 ×2; 83735; 84132 ×3; 80076; 83690; 80053; 70450; 74177; 70553; 72156; 70544; 70549; 97112; 97163; 97530; 94760 ×2; 96375; 99285; 96366; Q9967; A9577; J0360 ×3; J2765; J2550; J3411 ×2; J3475; J7030 ×5; J2405 ×5; G0378 ×3; J8597

== ENCOUNTER 2020-07-01 15:16 | Emergency (ER) | payer MEDICARE ==
--- OUTSIDE RECORDS SUMMARY | 2020-07-01 15:21 | XMS REPORT | Continuity of Care Document ---
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 Ton Soliz Kurt Bell OPID [place] Gastroesop Problem Active 2020-06-30 emoria hageal 00:58:46 l reflux [place] disease Gastroesop (disorder) hageal reflux disease (disorder) Active Problem 06/30/2020 Data migrated from [employer] on 12/06/14. [facility] Glioma Problem Active 2020-06-30 Memor ia (disorder) 00:58:46 l Glioma [place] (disorder) Active Problem 06/30/2020 Data migrated from [employer] on 12/06/14. Ton Soliz Kurt Bellann Hypertensi Problem Active 2020-06-30 M emoria ve 00:58:46 l disorder, [place] systemic Hypertensi arterial ve (disorder) disorder, systemic arterial (disorder) Active Problem 06/30/2020 [facility] GIANFRANCO [place] Numbness Problem Active 2020-06-30 Mem oria of limbs 00:58:46 l (finding) Numbness Her amezcua of limbs (finding) Active Problem 06/30/2020 Data migrated from [employer] on 12/06/14. [facility], Kurt BellD [place] Tachycardi Problem Active 2020-06-30 M emoria a 00:58:46 l (finding) Amol Tachycardi a (finding) Active Problem 06/30/2020 [facility] GIANFRANCO Carmichael Vertigo Problem Active 2020-06-30 Luis shasta (finding) 00:58:46 l Vertigo [place] (finding) Active Problem 06/30/2020 Data migrated from [employer] on 12/06/14. [facility], Kurt Bell Amol Beriberi Problem Active 2020-06-30 Mem oria (disorder) 00:58:46 l Beriberi Jitendra n (disorder) Active Problem 06/30/2020 [facility] GIANFRANCO Carmichael Foot-drop Problem Active 2020-06-30 Me moria (finding) 00:58:46 l Amol Foot-drop (finding) Active Problem 06/30/2020 [facility] GIANFRANCO Carmichael Monoclonal Problem Active 2020-06-30 M emoria gammopathy 00:58:46 l (disorder) Jitendra n Monoclonal gammopathy (disorder) Active Problem 06/30/2020 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, Amol WITH SPONDYLOSI RADICULOPA S, THY CERVICAL, WITH RADICULOPA THY Active Condition 10/20/2014 [facility] FATIGUE Condition Active 2014-10-20 Me moria 13:39:01 l FATIGUE Amol Active Condition 10/20/2014 [facility] NEURAL Condition Active 2014-10-20 Mem oria HEARING 13:39:01 l 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 Condition 10/20/2014 [facility] BRONCHOPNE Diagnosis Active 2016-01-15 Memoria UMONIA, 22:08:00 l UNSPECIFIE Jitendra n D ORGANISM BRONCHOPNE UMONIA, UNSPECIFIE D ORGANISM Active [facility] Am[facility] Other Problem 2018-06-16 Memor ia cervical 15:58:43 l disc 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 level 06/16/2018 OPID [place] Spinal Problem 2018-10-06 Memor ia stenosis, 11:19:11 l cervical Spinal Jitendra n region stenosis, cervical region 10/06/2018 OPID Amol Other Problem 2018-06-16 Memor ia specified 15:58:43 l diseases Other Amol of spinal specified cord diseases of spinal cord 9 OPID Amol Localized Problem 2018-06-16 Ne moria edema 15:58:43 l [place] Localized edema 06/16/2018 OPID [place] Arthrodesi Problem 2018-06-16 M emoria s status 15:58:43 l Amol Arthrodesi s status 06/16/2018 OPID Amol Abnormal Problem 2017-09-11 Mem oria findings 11:08:52 l on Abnormal Jitendra n diagnostic findings imaging of on other diagnostic parts of imaging of musculoske other letal parts of system musculoske letal system 09/11/2017 OPID Amol Fusion of Problem 2018-10-06 Ne moria spine, 11:19:11 l cervical Fusion Jitendra n region of spine, cervical region 10/06/2018 OPID Amol Osteophyte Problem 2018-10-06 M emoria , 11:19:11 l vertebrae [place] Osteophyte , vertebrae 10/06/2018 OPID Amol Carpal Problem Resolve 2020-06-30 Luis shasta tunnel d 00:58:46 l syndrome Carpal Jitendra n (disorder) tunnel syndrome (disorder) Resolved Problem 06/30/2020 Ton Soliz, Arabella,[facility] OPID [place] Hyperlipid Problem Resolve 2020-06-30 Memoria emia d 00:58:46 l (disorder) Jitendra n Hyperlipid emia (disorder) Resolved Problem 06/30/2020 Ton Soliz, Arabella,[facility] TIGRED [place] Large Problem Resolve 2020-06-30 Luis shasta prostate d 00:58:46 l (finding) Large Jitendra n prostate (finding) Resolved Problem 06/30/2020 [facility], Arabella,[facility] OPID [place] Neoplasm Problem Resolve 2020-06-30 Me moria of spinal d 00:58:46 l cord Neoplasm Jitendra n (disorder) of spinal cord (disorder) Resolved Problem 06/30/2020 [facility] Arabella,[facility] GIANFRANCO [place] Orthostati Problem Resolve 2020-06-30 Memoria c d 00:58:46 l hypotensio Jitendra n n Orthostati (disorder) c hypotensio n (disorder) Resolved Problem 06/30/2020 Ton Soliz, Arabella,[facility] OPID [place] Osteoarthr Problem Resolve 2020-06-30 Memoria itis d 00:58:46 l (disorder) Jitendra n Osteoarthr itis (disorder) Resolved Problem 06/30/2020 [facility] Arabella,[facility] OPID [place] Peripheral Problem Resolve 2020-06-30 Memoria neurorrhap d 00:58:46 l hy [place] (procedure Peripheral ) neurorrhap hy (procedure ) Resolved Problem 06/30/2020 [facility] OPID [place] 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 , , [place]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 Diabetes Problem Active Unive rs mellitus mellitus ity of [place] Physici ans 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 [place] Physici ans Bradyarrhy Bradyarrhy Problem Active U nivers thmia thmia ity of [place] Physici ans 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 [place] branch branch Physici block) block) ans 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 ity of hypertroph hypertroph [place]ici ans Dental Dental Problem Active Univers caries caries ity of [place] [facility]ici ans Infective Problem Resolve 2015-042020-06-30 2020-06-30 Memoria pneumonia d 04-30 00:58:46 00:58:46 l (disorder) 00:00: Jitendra n Infective 00 pneumonia (disorder) Resolved 02/29/2016 Problem 06/30/2020 [facility], GIANFRANCO Carmichael History of Past Illness Condition Condition Condition Status Onset Resolution Last Treating Co mments Source Name Details Category Date Date Treatment Clinician Date Malignant Problem 2017-042018-10-06 2018-10-06 Memoria 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/23/2018 10/06/2018 GIANFRANCO Amol Neoplasm Problem 2017-09-11 2017-09-11 Memoria of 06-11 11:08:52 11:08:52 l unspecifie Neoplasm 05:24: He rmmary kate d behavior of 06 of brain unspecifie d behavior of brain 8 09/11/2017 GIANFRANCO Carmichael BENIGN Condition Inactiv 2014-10-20 2014-10-20 Memoria NEOPLASM e 12-20 13:39:01 13:39:01 l OF SPINAL BENIGN 00:00: Kaylee nn CORD NEOPLASM 00 OF SPINAL CORD Inactive 12/20/2010 Condition 5 [facility] Allergies, Adverse Reactions, Alerts Allergy Allergy Status Severity Reaction(s) Onset Inactive Treating Comm ents Source Name Type Date Date Clinician penicill penicill Active Memori a ins<sup> ins<sup> 7-26 l 1</sup> 1</sup> 00:00: [place] 00 sulfa sulfa Active Memoria drugs<castorena drugs<castorena 7 l p>2</sup p>2</sup 00:00: Jitendra n > > 00 PENICILL PENICILL Active Memori a IN IN 7-26 l 00:00: [place] SULFUR SULFUR Active Memoria 11-06 l 00:00: [place] Bactrim Bactrim Active Memoria 7-30 l 00:00: Amol penicill penicill Active Memori a ins ins 7-30 l 00:00: [place] sulfa sulfa Active Memoria drugs drugs 7-30 l 00:00: Amol Penicill drug Active [facility] Dem[facility] Demerol Active Moderate Memori a HCl HCl l Amol Sulfa drug Active [facility] Social History Smoking Status Start Date Stop Date Source Social History [facility] [place] [facility] Medications Ordered Filled Start Stop Current Ordering Indication Dosage Frequency Signature Comments Components Source Medication Medication Date Date Medication? Clinician (SIG) Name Name apixaban Yes 2.5 mg = 1 Mem oria 2.5 MG Oral 3-16 tab, PO, l Tablet 15:15: BID, 0 [place] [Eliquis] 00 Refill(s) Avastin 25 Yes 5 mg/kg, Mem oria mg/mL 3-16 IV, q3wk, l intravenous 15:15: 0 Jitendra n solution 00 Refill(s) Clonidine Yes 0.1 mg = 1 Me moria Hydrochlori 3-16 tab, PO, l de 0.1 MG 15:14: BID, 0 Jitendra n Oral Tablet 00 Refill(s) gabapentin Yes = 1 tab, Mem oria 800 MG Oral 9-15 PO, TID, # l Tablet 17:02: 270 tab, 3 Kaylee nn 00 Refill(s), Pharmacy: [place] [address] [facility], 185.42, cm, 12/28/19 11:19:00 CDT, Height, 101.364, kg, 12/28/19 11:19:00 CDT, Weight AMIODarone Yes 200 mg = 1 M emoria 200 mg oral 9-15 tab, PO, l tablet 16:27: Daily, # [place] 00 90 tab, 3 Refill(s) Famotidine Yes 20 mg = 1 Me moria 20 MG Oral 2-04 tab, PO, l Tablet 16:40: BID, # 60 Jitendra n 00 tab, 0 Refill(s) gabapentin Yes = 1 tab, Mem oria 800 MG Oral 9-25 PO, TID, # l Tablet 18:23: 270 tab, 3 Kaylee nn 57 Refill(s), Pharmacy: [place] [address] [facility] Ibuprofen Ibuprofen Yes TAWANA 1 Q6H TAKE 1 Univers 600 MG Oral 600 MG Oral 5-20 TONG DDS TABLET ity of Tablet Tablet 00:00: EVERY 6 [place] 00 HOURS WITH Physici FOOD ans NEEDED. Acetaminoph Acetaminoph Yes TAWANA TAKE 1 Univers en 500 MG en 500 MG 5-20 TONG DDS TABLET ity of Oral Tablet Oral Tablet 00:00: EVERY 4 TO [place] 00 6 HOURS Physici NEEDED. ans Clindamycin Clindamycin Yes [place] Q6H TAKE 1 Univers HCl - 300 HCl - 300 5-20 TONG DDS CAPSULE ity of MG Oral MG Oral 00:00: EVERY 6 [place] Capsule Capsule 00 HOURS Physici DAILY. ans Chlorhexidi Chlorhexidi Yes TA[place]NA Q12H RINSE Univers ne ne 5-20 TONG DDS MOUTH WITH ity o f Gluconate Gluconate 00:00: 15ML (1 [place] 0.12 % 0.12 % 00 CAPFUL) Physici Mouth/Throa Mouth/Throa FOR 30 ans t Solution t Solution SECONDS AM AND PM AFTER TOOTHBRUSH ING. EXPECTORAT E AFTER RINSING, DO NOT SWALLOW Vitamin B12 Yes 1,000 Memor ia 1000 mcg 1-02 microgram l oral tablet 16:39: = 1 tab, He rmann 39 PO, Daily, # 30 tab, 4 Refill(s), other Aspirin 2017-04 Yes 81 mg, PO, Luis shasta 2-14 Daily, 0 l 20:09: Refill(s) Amol 00 Vitamin B12 2017-04 No 1,000 Memor ia 1000 mcg 2-14 microgram l oral tablet 20:07: = 1 tab, He rmann 00 PO, qWeek, X 30 day, # 5 tab, 6 Refill(s), other gabapentin 2017-04 Yes 800 mg = 1 M emoria 800 MG Oral 0-02 tab, PO, l Tablet 23:23: TID, # 270 Kaylee nn 00 tab, 3 Refill(s), Pharmacy: [place] [address] [facility] simvastatin No 20 mg = 1 M emoria 20 mg oral 2-27 tab, PO, l tablet 15:37: Bedtime, 0 Kaylee nn 00 Refill(s) metoprolol No 25 mg = 1 Me moria tartrate 25 2-27 tab, PO, l mg oral 15:37: BID, 0 [place] tablet 00 Refill(s) atorvastati Yes 20 mg = 1 M emoria n 20 mg 2-22 tab, PO, l oral tablet 19:20: Bedtime, # [place] 00 90 tab, 0 Refill(s) Aspirin 81 Yes 81 mg = 1 Me moria MG Enteric 2-22 tab, PO, l Coated 19:20: Daily, # [place] Tablet 00 90 tab, 3 Refill(s) potassium Yes 40 mEq = 2 Me moria chloride 20 2-22 tab, PO, l mEq oral 19:20: BID, 0 Amol tablet, 00 Refill(s) extended release magnesium Yes 400 mg = 1 Me moria oxide 400 2-22 tab, PO, l mg oral 19:20: BID, 0 [place] tablet 00 Refill(s) fludrocorti Yes 0.1 mg = 1 Memoria sone 0.1 mg - tab, PO, l oral tablet 21:16: Q48H, 0 Her amezcua 00 Refill(s) gabapentin Yes PO, TID, 0 M emoria 800 MG Oral 01-09 Refill(s) l Tablet 21:16: [place] 00 Potassium Yes 20 mEq = Luis shasta Chloride 01-09 15 mL, PO, l 1.33 MEQ/ML 21:16: BID, 0 Herm mary kate Oral 00 Refill(s) Solution simvastatin Yes 20 mg = 1 M emoria 20 mg oral 28 tab, PO, l tablet 21:16: Bedtime, 0 Kaylee nn 00 Refill(s) tamsulosin Yes 0.4 mg = 1 M emoria 0.4 mg oral 28 cap, PO, l capsule 21:16: Daily, 0 Jitendra n 00 Refill(s) acetaminoph Yes 650 mg = 2 Memoria en 325 mg -28 tab, PO, l oral tablet 21:16: Q4H, PRN He rmann 00 Pain Score 1-3, 0 Refill(s) Enoxaparin Yes 40 mg = Luis hsasta 01-09 0.4 mL, l 21:16: SUB-Q, [place] 00 [id number], 0 Refill(s) 24 HR Yes 25 mg = 1 Memoria Metoprolol 01-09 tab, PO, l Tartrate 25 21:16: BID, 0 Herm mary kate MG Extended 00 Refill(s) Release Tablet [Toprol] lactobacill Yes 1 cap, PO, Memoria us 01-09 Daily, 0 l rhamnosus 21:16: Refill(s) Her amezcua GG 00 levalbutero Yes 1.25 mg = M emoria l 1.25 mg/3 01-09 3 mL, NEB, l mL 21:16: RQ6H, PRN [place] inhalation 00 Respirator solution y Protocol, 0 Refill(s) Imodium A-D No 1 mg, Memor ia 01-09 Route: PO, l 17:00: Drug form: Amol 00 LIQ, Q6H, Dosing Weight 107.227, kg, Start date: 01/10/16 12:00:00 CDT, Duration: 30 day, Stop date: 02/09/16 6:00:00 CDT Loperamide No Notes: Memor ia 01-09 (Same as: l 15:02: Imodium) [place] 00 Fludrocorti No Notes: Luis shasta sone 01-07 (Same as: l 14:00: Florinef [place] 00 Acetate) Give with food. 24 HR No Notes: Memoria Metoprolol 01-05 (Same as: l Tartrate 25 22:00: Toprol XL) [place] MG Extended Do Not Release Crush Tablet [Toprol] Potassium No 20 mEq, 15 Me moria Chloride -24 mL, Route: l 1.33 MEQ/ML 14:47: PO, ONCE, H ermann Oral 00 Dosing Solution Weight 107.227, kg, Start date: 01/06/16 9:47:00 CDT, Stop date: 01/06/16 9:47:00 CDT Fludrocorti No Notes: Luis shasta sone 01-05 (Same as: l 14:00: Florinef Amol 00 Acetate) Give with food. Acetaminoph Yes 1 - 2 tab, Memoria en 300 MG / 01-04 PO, Q6H, l Codeine 23:23: PRN Pain, Kaylee nn Phosphate 00 X 4 day, # 60 MG Oral 50 tab, 2 Tablet Refill(s) [Tylenol with Codeine #4] Potassium No Notes: Memori a Chloride 01-04 (Same as: l 1.33 MEQ/ML 22:00: Potassium H ermann Oral 00 Chloride) Solution lactobacill No Notes: Luis shasta us 01-04 Same as l rhamnosus 16:07: Culturelle rmann GG 00 Potassium No Notes: Memori a Chloride 01-04 (Same as: l 1.33 MEQ/ML 15:13: Potassium H ermann Oral Chloride) Solution Magnesium No 800 mg, Memor ia Oxide 01-04 Route: PO, l 15:12: PRN, Dosing Weight 107.227, kg, PRN Abnormal Lab Result, For NON-ICU Patients Only., Start date: 01/05/16 10:12:00 CDT, Duration: 30 day, Stop date: 02/04/16 10:11:00 CDT potassium No 20 mEq, Memor ia chloride 01-04 Route: PO, l 15:12: Drug form: ERTAB, PRN, Dosing Weight 107.227, kg, PRN Abnormal Lab Result, For NON-ICU Patients Only, Start date: 01/05/16 10:12:00 CDT, Duration: 30 day, Stop date: 02/04/16 10:11:00 CDT sodium No 30 mmol, Memoria phosphate 01-04 Route: l 15:12: IVPB, PRN, Dosing Weight 107.227, kg, PRN Abnormal Lab Result, For NON-ICU Patients Only., Start date: 01/05/16 10:12:00 CDT, Duration: 30 day, Stop date: 02/04/16 10:11:00 CDT Magnesium No 2 gm, Memoria Sulfate 01-04 Route: l 15:12: IVPB, PRN, Dosing Weight 107.227, kg, PRN Abnormal Lab Result, For NON-ICU Patients Only., Start date: 01/05/16 10:12:00 CDT, Duration: 30 day, Stop date: 02/04/16 10:11:00 CDT Calcium No 3 gm, Memoria Gluconate 01-04 Route: l 15:12: IVPB, PRN, Amol Dosing Weight 107.227, kg, PRN Abnormal Lab Result, For NON-ICU Patients Only., Start date: 01/05/16 10:12:00 CDT, Duration: 30 day, Stop date: 02/04/16 10:11:00 CDT potassium No 15 mmol, Luis shasta phosphate 01-04 Route: l 15:12: IVPB, PRN, Amol Dosing Weight 107.227, kg, PRN Abnormal Lab Result, For NON-ICU Patients Only., Start date: 01/05/16 10:12:00 CDT, Duration: 30 day, Stop date: 02/04/16 10:11:00 CDT potassium No 2 pkt, Memori a phosphate-s 01-04 Route: PO, l odium 15:12: Dosing [place] phosphate 00 Weight 250 mg-278 107.227, mg-164 mg kg, PRN, oral powder PRN Abnormal Lab Result, For NON-ICU Patients Only, Start date: 01/05/16 10:12:00 CDT, Duration: 30 day, Stop date: 02/04/16 10:11:00 CDT Potassium No Notes: Memori a Chloride 20 01-04 (Same as: l MEQ 11:14: K-Dur 20) Amol Extended "Do Not Release Crush" Tablet With food and full glass of water potassium No Notes: Memori a chloride 01-03 (Same as: l 19:00: K-Dur 20) "Do Not Crush" With food and full glass of water fentaNYL No Route: IV, Mem oria (ANES) 01-03 Drug form: l 17:29: INJ, ONCE, Stop date: 01/04/16 12:29:00 CDT propofol No Route: IV, Mem oria (ANES) 01-03 Drug form: l 17:25: INJ, ONCE, Stop date: 01/04/16 12:25:00 CDT Cleocin No Route: IV, Luis shasta Phosphate 01-03 Drug form: l (ANES) 17:25: INJ, ONCE, Kaylee nn 00 Stop date: 01/04/16 12:25:00 CDT ketOROLAC No IV, ONCE Luis shasta (ANES) 01-03 l 17:25: [place] 00 ondansetron No Route: IV, Memoria (ANES) 01-03 Drug form: l 17:25: INJ, ONCE, [place] 00 Stop date: 01/04/16 12:25:00 CDT midazolam No Route: IV, Me moria (ANES) 01-03 Drug form: l 17:25: SOLN, [place] 00 ONCE, Stop date: 01/04/16 12:25:00 CDT Magnesium No Notes: Memori a Sulfate 01-03 WASTE: F/P l 17:00: - Sink; E - Municipal Trash Bin LR 1000 mL No Route: IV, M emoria INJ (ANES) 01-03 Total l 16:25: Volume: Amol 1,000, Start date: 01/04/16 11:25:00 CDT, Stop date: 01/04/16 12:25:00 CDT Lactated No 1,000 mL, Luis shasta Ringers 01-03 Rate: 40 l 1,000 mL 15:40: ml/hr, Infuse over: 25 hr, Route: IV, Dosing Weight 107.227 kg, Total Volume: 1,000, Start date: 01/04/16 10:40:00 CDT, Duration: 30 day, Stop date: 02/03/16 10:39:00 CDT potassium No Notes: Memori a chloride 01-03 (Same as: l 15:00: K-Dur 20) "Do Not Crush" With food and full glass of water Hydralazine No Notes: Luis shasta 01-03 (Same as: l 06:41: Apresoline ) Push over 5 minutes 24 HR No Notes: Memoria Metoprolol 01-01 (Same as: l Tartrate 25 14:51: Toprol XL) [place] MG Extended 00 Do Not Release Crush Tablet [Toprol] Magnesium No Notes: Memori a Sulfate 12-31 WASTE: F/P l 19:35: - Sink; E [place] 00 - Municipal Trash Bin Magnesium No Notes: Memori a Oxide 12-31 (Same as: l 19:35: Mag-Ox [place] 00 400) Magnesium oxide 249ov=953d g elemental magnesium Dose=____m g magnesium oxide (___mg elemental magnesium) Calcium No Notes: Memoria Gluconate 12-31 WASTE: F/P l 19:35: - Sink; E [place] 00 - Municipal Trash Bin sodium No 30 mmol, Memoria phosphate + - 10 mL, l D5W 250 mL 19:35: Route: Kaylee nn 00 IVPB, PRN, Dosing Weight 107.227, kg, PRN Abnormal Lab Result, For NON-ICU Patients Only., Start date: 01/01/16 14:35:00 CDT, Duration: 30 day, Stop date: 01/31/16 14:34:00 CDT potassium No Notes: Memori a phosphate + - (Same as: l sodium 19:35: K [place] chloride 00 Phosphate. 0.9% INJ ) 1 mMol 250 mL phoshate has 1.47 mEq potassium Infuse over 4 hours potassium No Notes: Memori a phosphate-s - (Same as: l odium 19:35: Neutra-Erica Jitendra n phosphate 00 s) Each 250 mg-278 1.25 gm mg-164 mg pkt has oral powder 250mg phosphorou s. Mix w/2.5oz water and stir. potassium No Notes: Memori a chloride - Infuse at l 19:35: a rate of [place] 00 10 mEq/hr. (Same as: KCL) potassium No Notes: Memori a chloride -19 (Same as: l 10:45: K-Dur 20) Amol 00 "Do Not Crush" With food and full glass of water Clindamycin No 300 mg, 50 Memoria 9-19 mL, Route: l 02:00: IVPB, Drug [place] 00 form: INJ, [id number], Dosing Weight 107.227, kg, Start date: 12/31/15 21:00:00 CDT, Duration: 30 day, Stop date: 01/30/16 13:00:00 CDT Simvastatin No Notes: Luis shasta -19 (Same as: l 02:00: Zocor) [place] 00 Xopenex No Notes: SEE Luis shasta 9-18 RT l 19:09: DOCUMENTAT [place] 00 ION (Same as:Xopenex ) Non-Formul papa tamsulosin No Notes: Memor ia -18 (Same As: l 14:00: Flomax) "Do Not Crush" Finasteride No Notes: Luis shasta -18 (Same as: l 14:00: Proscar) "Do Not Crush" Women of childbeari ng age should not touch or handle broken tablets gabapentin No Notes: Memor ia 800 MG Oral 18 (Same as: l Tablet 14:00: Neurontin) Kaylee nn Fludrocorti No Notes: Luis shasta sone 18 (Same as: l 14:00: Florinef [place] 00 Acetate) Give with food. Aztreonam No /= 30 Memoria 9-18 ml/min), l 10:00: Start date: 12/31/15 5:00:00 CDT, Duration: 30 day, Stop date: 01/29/16 21:00:00 CDT Vancomycin No 100 Memoria 9-18 mL/min), l 10:00: Time Critical Medication , Priority: Routine, Start date: 12/31/15 5:00:00 CDT, Duration: 30 day, Stop date: 01/29/16 21:00:00 CDT Tobramycin No 60 Memoria 9-18 ml/min), l 10:00: Time Critical Medication , Priority: Routine, Start date: 12/31/15 5:00:00 CDT, Duration: 30 day, Stop date: 01/29/16 5:00:00 CDT Guaifenesin No Notes: Luis shasta 9-18 (Same as: l 09:47: Robitussin ) Ondansetron No Notes: Luis shasta 12-30 (Same as: l 09:47: Zofran) [place] 00 MEDICATION WASTE Product Size: 4 mg Product Wasted: ___ mg Acetaminoph No Notes: Do M emoria en 12-30 not exceed l 09:47: 4 gm/day. [place] 00 (Same as: Tylenol) Levaquin No Notes: Memoria 12-30 (Same l 09:00: as:Levaqui [place] 00 n) Enoxaparin No Notes: Memor ia 12-30 (Same as: l 09:00: Lovenox) Albuterol No Notes: Memori a 0.833 MG/ML 12-30 (Same as: l / 08:55: Duoneb) [place] Ipratropium 00 [place] 0.167 MG/ML Inhalant Solution Magnesium No 1 gm, Memoria Sulfate 12-30 Route: l 08:53: IVPB, Drug form: INJ, ONCE, Dosing Weight 101.364, kg, Start date: 12/31/15 3:53:00 CDT, Stop date: 12/31/15 3:53:00 CDT Sodium No 1,000 mL, Memori a Chloride 18 Rate: 75 l 0.154 08:50: ml/hr, Amol MEQ/ML 00 Infuse Injectable over: 13.3 Solution hr, Route: IV, Dosing Weight 101.364 kg, Total Volume: 1,000, Start date: 12/31/15 3:50:00 CDT, Duration: 30 day, Stop date: 01/30/16 3:49:00 CDT Saline No Notes: Memoria Flush 0.9% 12-30 (Same as: l 08:50: BD Amol 00 Posiflush) Magnesium No Notes: Memori a Sulfate 18 WASTE: F/P l 08:14: - Sink; E [place] 00 - Municipal Trash Bin potassium No Notes: Memori a chloride 9-18 Infuse at l 08:00: a rate of Amol 00 10 mEq/hr. (Same as: KCL) Tobramycin No Notes: Memor ia -18 TIME l 07:43: CRITICAL MEDICATION (Same As: Nebcin) Aztreonam No Notes: Memori a 18 (Same As: l 07:41: Azactam) Vancomycin No 2001 mg: Me moria -18 infuse l 07:41: over 2.5 hours MEDICATION WASTE Product Size: 1000 mg Product Wasted: ___ mg potassium No Notes: Memori a chloride 18 (Same as: l 07:03: K-Dur 20) "Do Not Crush" With food and full glass of water FINASTERIDE Yes 1 po qd Mem oria 5 MG TABS 7-09 l 00:00: OMEPRAZOLE Yes qd Memoria 20 MG CPDR 8-01 l 00:00: FLUDROCORTI Yes bid Memori a SONE 8-01 l ACETATE 0.1 00:00: Jitendra n MG TABS OMEPRAZOLE Yes qd Memoria 20 MG CPDR 8-01 l 00:00: OMEPRAZOLE Yes qd [facility]oria 20 MG CPDR 8-01 l 00:00: FLUDROCORTI Yes bid Memori a SONE 8-01 l ACETATE 0.1 00:00: Jitendra n MG TABS 00 GABAPENTIN Yes 1 tab TID Me moria 800 MG TABS 4-04 l (GABAPENTIN 00:00: Jitendra n ) 00 TAMSULOSIN Yes QD Memoria HCL 0.4 MG 4-04 l CAPS 00:00: LISINOPRIL No PRN Memoria 5 MG TABS 4-04 l 00:00: K-TABS 10 No QD Memoria MEQ CR-TABS 4-04 l 00:00: LISINOPRIL No PRN Memoria 5 MG TABS 4-04 l 00:00: LISINOPRIL No PRN Memoria 5 MG TABS 4-04 l 00:00: ZOFRAN 8 MG No take one Me moria TABS 8-29 daily 30 l 00:00: min prior to chemo COLESTIPOL Yes 1-2 tabs Mem oria HCL 1 GM 7-26 daily prn l TABS 00:00: METFORMIN Yes 1 tab 2x Luis shasta HCL 500 MG 7-26 daily l TABS 00:00: VITAMIN Yes 1 tab Memoria B-12 1000 7-26 daily l MCG SUBL 00:00: MULTIVITAMI Yes 1 tab Memor ia NS TABS 7-26 daily l 00:00: SIMVASTATIN Yes 1 tab Memor ia 20 MG TABS 7-26 daily l 00:00: FLUTICASONE No 2 sprays Me moria PROPIONATE 7-26 ea nostril l 50 MCG/ACT 00:00: qday prn Her amezcua SUSP FLUDROCORTI No 1 tab 2x Me moria SONE 7-26 daily l ACETATE 0.1 00:00: Jitendra n MG TABS VITAMIN D No 1 tab Memoria 1000 UNIT 7-26 daily l CAPS 00:00: WARFARIN No 1 po qd Memori a SODIUM 4 MG 7-26 l TABS 00:00: METFORMIN Yes 1 tab 2x Luis shasta HCL 500 MG 7-26 daily l TABS 00:00: SIMVASTATIN Yes 1 tab Memor ia 20 MG TABS 7-26 daily l 00:00: FLUTICASONE No 2 sprays Me moria PROPIONATE 7-26 ea nostril l 50 MCG/ACT 00:00: qday prn Her amezcua SUSP WARFARIN No 1 po qd Memori a SODIUM 4 MG 7-26 l TABS 00:00: METFORMIN Yes 1 tab 2x Ulis shasta HCL 500 MG 7-26 daily l TABS 00:00: FLUDROCORTI No 1 tab 2x Me moria SONE 7-26 daily l ACETATE 0.1 00:00: Jitendra n MG TABS WARFARIN No 1 po qd Memori a SODIUM 4 MG 7-26 l TABS 00:00: METFORMIN 2011-0 Yes 1 tab 2x Luis shasta HCL 500 MG 7-26 daily l TABS 00:00: Colestipol Colestipol Yes Q0.3333D TAKE 1 Univers HCl - 1 GM HCl - 1 GM TABLET 3 ity of Oral Tablet Oral Tablet TIMES [place] DAILY. Physici ans Gabapentin Gabapentin Yes Q0.3333D TAKE 1 Univers 800 MG Tab 800 MG Tab TABLET 3 ity of (OR) - (OR) - TIMES [place] [id number] [id number] DAILY. Physici ivated ivated ans Omeprazole Omeprazole Yes 1 QD TAKE 1 U nivers 20 MG Oral 20 MG Oral TABLET i ty of Tablet Tablet DAILY [place] Delayed Delayed Physici Release Release ans Aspirin 81 Aspirin 81 Yes 1 QD TAKE 1 U nivers MG TABS MG TABS TABLET ity of DAILY. [place] Physici ans Vitamin B12 Vitamin B12 Yes QD TAKE 1 Univers TABS TABS TABLET ity of DAILY [place] DIRECTED. Physici ans Multi-Vitam Multi-Vitam Yes 1 QD TAKE 1 Univers in TABS in TABS TABLET ity of DAILY. [place] Physici ans Simvastatin Simvastatin Yes QD TAKE 1 Univers 20 MG Oral 20 MG Oral TABLET i ty of Tablet Tablet DAILY [place] DIRECTED. Physici ans Tamsulosin Tamsulosin Yes 1 TAKE 1 U nivers HCl - 0.4 HCl - 0.4 CAPSULE it y of MG Oral MG Oral BEDTIME [place] Capsule Capsule Physici ans Fludrocorti Fludrocorti Yes 1 Q0.5D TAKE 1 Univers sone sone TABLET ity of Acetate 0.1 Acetate 0.1 TWICE [place] MG Oral MG Oral DAILY Physici Tablet Tablet ans Glimepiride Glimepiride Yes 1 QD TAKE 1 Univers 1 MG Oral 1 MG Oral TABLET ity of Tablet Tablet DAILY. [place] Physici ans Finasteride Finasteride Yes 1 QD TAKE 1 Univers 5 MG Oral 5 MG Oral TABLET ity of Tablet Tablet DAILY. [place] Physici ans Potassium Potassium Yes 1 QD TAKE 1 Uni vers Chloride 20 Chloride 20 TABLET ity of MEQ TBCR MEQ TBCR DAILY. [place] Physici ans Vital Signs Vital Name Observation Time Observation Value Comments Source Systolic (mm Hg) 2020-06-27 15:08:00 Luis rial [facility] Diastolic (mm Hg) 2020-06-27 15:08:00 [facility] [place] Heart Rate 2020-06-27 15:08:00 [facility] Respitory Rate 2020-06-27 15:08:00 [facility] al [place] Weight 2020-06-27 15:08:00 [facility] Systolic (mm Hg) 2019-12-28 16:19:00 Luis rial [place] Diastolic (mm Hg) 2019-12-28 16:19:00 [facility] [place] Heart Rate 2019-12-28 16:19:00 [facility] [place] Respitory Rate 2019-12-28 16:19:00 Memori al Am[facility] Height 2019-12-28 16:19:00 185.42 cm [facility] [place] Weight 2019-12-28 16:19:00 [facility] [place] BMI Calculated 2019-12-28 16:19:00 [facility] al [place] Systolic (mm Hg) 2019-05-18 16:31:00 Luis rial [place] Diastolic (mm Hg) 2019-05-18 16:31:00 [facility] o[facility] [place] Heart Rate 2019-05-18 16:31:00 [facility] [place] Respitory Rate 2019-05-18 16:31:00 Memori al Am[place] Height 2019-05-18 16:31:00 185.42 cm [facility] [place] Weight 2019-05-18 16:31:00 [facility] BMI Calculated 2019-05-18 16:31:00 Memori al [place] BMI Calculated 2018-11-12 15:10:00 [facility] al [place] Weight 2018-11-12 15:10:00 [facility] Height 2018-11-12 15:10:00 185.42 cm [facility] Respitory Rate 2018-11-12 15:10:00 Memori al [facility] Systolic (mm Hg) 2018-11-12 15:10:00 Luis rial [place] Diastolic (mm Hg) 2018-11-12 15:10:00 [facility] o[facility] [place] Heart Rate 2018-11-12 15:10:00 [facility] Height 2018-09-24 20:30:00 190.5 cm [facility] Weight 2018-09-24 20:30:00 [facility] [place] BMI Calculated 2018-09-24 20:30:00 [facility] al [place] Systolic (mm Hg) 2018-09-24 20:30:00 Luis rial [place] Diastolic (mm Hg) 2018-09-24 20:30:00 [facility] [place] Heart Rate 2018-09-24 20:30:00 [facility] [place] BP Systolic 2018-08-31 10:00:00 120 mm[Hg] [facility] [place] [facility] BP Diastolic 2018-08-31 10:00:00 57 mm[Hg] [facility] [place] [facility] Height 2018-08-31 10:00:00 75 [in_us] [facility] [place] [facility] Weight 2018-08-31 10:00:00 222 [lb_av] [facility] [place] [facility] Body Mass Index 2018-08-31 10:00:00 27.75 kg/m2 Unive rsity of Calculated [place] Physician s Heart Rate 2018-08-31 10:00:00 88 /min [facility] [place] [facility] BP Systolic 2018-06-29 09:50:00 151 mm[Hg] [facility] [place] [facility] BP Diastolic 2018-06-29 09:50:00 68 mm[Hg] [facility] [place] [facility] Height 2018-06-29 09:50:00 75 [in_us] [facility] [place] [facility] Weight 2018-06-29 09:50:00 222 [lb_av] [facility] [place] [facility] Body Mass Index 2018-06-29 09:50:00 27.75 kg/m2 Unive rsity of Calculated [place] [facility] Heart Rate 2018-06-29 09:50:00 82 /min [facility] [place] [facility] BMI Calculated 2018-03-27 19:25:00 [facility] al [place] Height 2018-03-27 19:25:00 190.5 cm [facility] Weight 2018-03-27 19:25:00 [facility] [place] Systolic (mm Hg) 2018-03-27 19:25:00 Luis rial [place] Diastolic (mm Hg) 2018-03-27 19:25:00 Mem o[facility] Heart Rate 2018-03-27 19:25:00 [facility] [place] BMI Calculated 2018-03-18 20:56:00 [facility] al [place] Height 2018-03-18 20:56:00 190.5 cm [facility] Weight 2018-03-18 20:56:00 [facility] Temperature Oral (F) 2018-03-18 20:56:00 96.9 F [facility] Heart Rate 2018-03-18 20:56:00 [facility] Systolic (mm Hg) 2018-03-18 20:56:00 Luis rial [place] Diastolic (mm Hg) 2018-03-18 20:56:00 [facility] o[facility] Weight 2017-11-27 18:13:00 [facility] Height 2017-11-27 18:13:00 190.5 cm [facility] BMI Calculated 2017-11-27 18:13:00 [facility] al [place] Systolic (mm Hg) 2017-11-27 18:13:00 Luis rial [place] Diastolic (mm Hg) 2017-11-27 18:13:00 [facility] o[facility] Heart Rate 2017-11-27 18:13:00 [facility] Temperature Oral (F) 2017-11-27 18:13:00 96.3 F [facility] [place] BMI Calculated 2017-06-05 18:38:00 [facility] al [place] Weight 2017-06-05 18:38:00 [facility] [place] Height 2017-06-05 18:38:00 190.5 cm [facility] [place] Temperature Oral (F) 2017-06-05 18:38:00 96.7 F [facility] [place] Systolic (mm Hg) 2017-06-05 18:38:00 Luis rial [facility] Diastolic (mm Hg) 2017-06-05 18:38:00 Mem o[facility] Heart Rate 2017-06-05 18:38:00 [facility] [place] Systolic (mm Hg) 2016-01-10 21:19:00 Luis rial [place] Diastolic (mm Hg) 2016-01-10 21:19:00 [facility] [place] Respitory Rate 2016-01-10 21:19:00 [facility] al [place] Heart Rate 2016-01-10 21:19:00 [facility] Temperature Oral (F) 2016-01-10 21:19:00 98.5 F [facility] [place] Systolic (mm Hg) 2016-01-10 16:04:00 Luis rial [facility] Diastolic (mm Hg) 2016-01-10 16:04:00 Mem o[facility] Temperature Oral (F) 2016-01-10 16:04:00 97.9 F [facility] [place] Respitory Rate 2016-01-10 16:04:00 [facility] al [place] Heart Rate 2016-01-10 16:04:00 [facility] [place] Systolic (mm Hg) 2016-01-10 13:24:00 Luis rial [facility] Diastolic (mm Hg) 2016-01-10 13:24:00 Mem [facility] [place] Respitory Rate 2016-01-10 13:24:00 [facility] al [facility] Heart Rate 2016-01-10 13:24:00 [facility] Temperature Oral (F) 2016-01-10 13:24:00 97.6 F [facility] [place] Weight 2015-12-31 09:05:00 [facility] Height 2015-12-31 09:05:00 190.5 cm [facility] [place] BMI Calculated 2015-12-31 09:05:00 [facility] al [place] Height 2015-12-31 05:17:00 190.5 cm [facility] [place] BMI Calculated 2015-12-31 05:17:00 [facility] al [place] Weight 2015-12-31 05:17:00 [facility] [place] Weight 2014-10-20 18:39:01 [facility] [place] Height 2014-10-20 18:39:01 [facility] [place] Temperature Oral (F) 2014-10-20 18:39:01 96.8 F [facility] [place] Heart Rate 2014-10-20 18:39:01 [facility] [place] Systolic (mm Hg) 2014-10-20 18:39:01 Luis rial [place] Diastolic (mm Hg) 2014-10-20 18:39:01 [facility] [place] Height 2014-06-30 18:19:44 [facility] [place] Weight 2014-06-30 18:19:44 [facility] [place] Temperature Oral (F) 2014-06-30 18:19:44 97.2 F [facility] Heart Rate 2014-06-30 18:19:44 [facility] [place] Systolic (mm Hg) 2014-06-30 18:19:44 Luis rial [place] Diastolic (mm Hg) 2014-06-30 18:19:44 [facility] Weight 2014-04-05 18:52:31 [facility] [place] Height 2014-04-05 18:52:31 [facility] [place] Temperature Oral (F) 2014-04-05 18:52:31 96.8 F [facility] [place] Heart Rate 2014-04-05 18:52:31 [facility] [place] Systolic (mm Hg) 2014-04-05 18:52:31 Luis rial [facility] Diastolic (mm Hg) 2014-04-05 18:52:31 Mem [facility] [place] Weight 2013-12-30 16:18:00 [facility] Height 2013-12-30 16:18:00 [facility] [place] Temperature Oral (F) 2013-12-30 16:18:00 96.2 F [facility] [place] Heart Rate 2013-12-30 16:18:00 [facility] [place] Systolic (mm Hg) 2013-12-30 16:18:00 Luis rial [facility] Diastolic (mm Hg) 2013-12-30 16:18:00 [facility] [place] Weight 2013-12-09 16:55:00 [facility] [place] Height 2013-12-09 16:55:00 [facility] [place] Temperature Oral (F) 2013-12-09 16:55:00 96.2 F [facility] [place] Heart Rate 2013-12-09 16:55:00 [facility] Systolic (mm Hg) 2013-12-09 16:55:00 Luis rial [place] Diastolic (mm Hg) 2013-12-09 16:55:00 [facility] [place] Height 2013-08-05 19:11:52 [facility] [place] Weight 2013-08-05 19:11:52 [facility] [place] Systolic (mm Hg) 2013-08-05 19:11:52 Luis rial [place] Diastolic (mm Hg) 2013-08-05 19:11:52 [facility] [place] Heart Rate 2013-08-05 19:11:52 [facility] Respitory Rate 2013-08-05 19:11:52 [facility] al [place] Temperature Oral (F) 2013-08-05 19:11:52 98.6 F [facility] Weight 2013-05-13 19:03:20 [facility] [place] Height 2013-05-13 19:03:20 [facility] Temperature Oral (F) 2013-05-13 19:03:20 97.2 F [facility] [place] Heart Rate 2013-05-13 19:03:20 [facility] Systolic (mm Hg) 2013-05-13 19:03:20 Luis rial [facility] Diastolic (mm Hg) 2013-05-13 19:03:20 [facility] [place] Weight 2013-02-11 18:24:12 [facility] [place] Height 2013-02-11 18:24:12 [facility] [place] Temperature Oral (F) 2013-02-11 18:24:12 97.0 F [facility] [place] Heart Rate 2013-02-11 18:24:12 [facility] Systolic (mm Hg) 2013-02-11 18:24:12 Luis rial [facility] Diastolic (mm Hg) 2013-02-11 18:24:12 [facility] [place] Weight 2012-11-12 18:46:11 [facility] Height 2012-11-12 18:46:11 [facility] [place] Temperature Oral (F) 2012-11-12 18:46:11 98 F [facility] [place] Heart Rate 2012-11-12 18:46:11 [facility] [place] Systolic (mm Hg) 2012-11-12 18:46:11 Luis rial [facility] Diastolic (mm Hg) 2012-11-12 18:46:11 [facility] [place] Weight 2012-07-16 19:23:03 [facility] [place] Height 2012-07-16 19:23:03 [facility] Temperature Oral (F) 2012-07-16 19:23:03 97.7 F [facility] [place] Heart Rate 2012-07-16 19:23:03 [facility] [place] Systolic (mm Hg) 2012-07-16 19:23:03 Luis rial [place] Diastolic (mm Hg) 2012-07-16 19:23:03 [facility] Weight 2012-05-21 19:46:40 [facility] Height 2012-05-21 19:46:40 [facility] [place] Temperature Oral (F) 2012-05-21 19:46:40 97.9 F [facility] [place] Heart Rate 2012-05-21 19:46:40 [facility] [place] Systolic (mm Hg) 2012-05-21 19:46:40 Luis rial [facility] Diastolic (mm Hg) 2012-05-21 19:46:40 [facility] [place] Weight 2012-03-19 16:55:40 [facility] [place] Height 2012-03-19 16:55:40 [facility] [place] Temperature Oral (F) 2012-03-19 16:55:40 98.3 F [facility] [place] Heart Rate 2012-03-19 16:55:40 [facility] [place] Systolic (mm Hg) 2012-03-19 16:55:40 Luis rial [facility] Diastolic (mm Hg) 2012-03-19 16:55:40 [facility] [place] Weight 2012-01-14 18:13:10 [facility] [place] Height 2012-01-14 18:13:10 [facility] Temperature Oral (F) 2012-01-14 18:13:10 97.3 F [facility] [place] Heart Rate 2012-01-14 18:13:10 [facility] Systolic (mm Hg) 2012-01-14 18:13:10 Luis rial [facility] Diastolic (mm Hg) 2012-01-14 18:13:10 [facility] [place] Weight 2011-10-31 18:40:21 [facility] [place] Height 2011-10-31 18:40:21 [facility] [place] Temperature Oral (F) 2011-10-31 18:40:21 98.2 F [facility] [place] Heart Rate 2011-10-31 18:40:21 [facility] [place] Systolic (mm Hg) 2011-10-31 18:40:21 Luis rial [facility] Diastolic (mm Hg) 2011-10-31 18:40:21 [facility] Height 2011-08-22 15:41:41 [facility] [place] Temperature Oral (F) 2011-08-22 15:41:41 97.2 F [facility] [place] Heart Rate 2011-08-22 15:41:41 [facility] [place] Systolic (mm Hg) 2011-08-22 15:41:41 Luis rial [place] Diastolic (mm Hg) 2011-08-22 15:41:41 [facility] Weight 2011-08-22 15:41:41 [facility] [place] Weight 2011-06-27 17:22:40 [facility] [place] Height 2011-06-27 17:22:40 [facility] [place] Temperature Oral (F) 2011-06-27 17:22:40 97.2 F [facility] Systolic (mm Hg) 2011-06-27 17:22:40 Luis rial [facility] Diastolic (mm Hg) 2011-06-27 17:22:40 [facility] [place] Weight 2011-04-25 18:00:10 [facility] [place] Height 2011-04-25 18:00:10 [facility] [place] Temperature Oral (F) 2011-04-25 18:00:10 98.0 F [facility] [place] Heart Rate 2011-04-25 18:00:10 [facility] [place] Systolic (mm Hg) 2011-04-25 18:00:10 Luis rial [place] Diastolic (mm Hg) 2011-04-25 18:00:10 Mem orial [facility] Weight 2011-03-28 18:48:51 [facility] [place] Height 2011-03-28 18:48:51 [facility] [place] Temperature Oral (F) 2011-03-28 18:48:51 97.2 F [facility] Am[facility] Heart Rate 2011-03-28 18:48:51 [facility] [place] Systolic (mm Hg) 2011-03-28 18:48:51 Luis juarez Am[facility] Diastolic (mm Hg) 2011-03-28 18:48:51 [facility] orial Amol Procedures Procedure Date / Time Performing Clinician Source Performed CTD - Carpal tunnel 2012-12-23 05:00:00 [facility] Amol decompression smoking/tobacco cessation, 2012-05-21 19:46:40 [facility] [place] patient education and counseling Decompression of spinal 2007-04-14 00:00:00 Luis ann Richardsonann cord Partial laminectomy 1989-04-14 00:00:00 [facility] [place] [facility] Cervical spinal fusion 1986-04-14 00:00:00 [facility] [place] Hem[facility]ide[facility] 1974-04[facility]14 [facility] 00:00:00 [facility] Appendectomy 1962-04-14 00:00:00 [facility] Cataract extraction [facility] Cataract surgery [facility] n Deep vein thrombosis (DVT) [facility] [place] History of Fusion / [facility] [place] Refusion Of 2-3 Vertebrae Physic ians History [facility] History of Laminectomy [facility] Cervical Physicians History of Appendectomy [facility] Physicians History of Cholecystectomy [facility] Physicians History of [employer] [facility] [place] Hemorrhoidectomy Physicians History of Cataract [facility] [place] Extraction Physicians History of Rotator Cuff [facility] Repair Physicians History of Neuroplasty [facility] Decompression [facility] At Carpal Tunnel Encounters Start End Encounter Admission Attending Care Care Encounter Source Date/Time Date/Time Type Type Clinicians Facility Department ID 2020-06-30 2020-06-30 Refill DON Holliday [id number] 00:00:00 00:00:00 Roshan Junior [id number] [place] [id number] Professio [id number] [address] 2020-06-27 2020-06-27 Outpatient Krell, MHMISCHER MHMISCHER [id number] 10:30:00 23:59:59 Ken 16 [place] 2020-06-13 2020-06-13 Office Gramm, [facility] [id number] 09:39:37 10:25:33 Visit Rica Monteiro [place] [id number] [place] [id number] Professio [id number] [address] 2020-06-09 2020-06-09 Orders Doctor ANGELICA [id number] 00:00:00 00:00:00 Only Unassigned, DELISA [id number] [place] [facility] [id number] 2020-03-15 2020-03-15 Outpatient Celsa, MHOIH MHOIH [id number] 12:46:00 23:59:00 Ulisses 33 2019-12-28 2019-12-28 Outpatient Christy, MHMISCHER MHMISCHER [id number] 11:15:00 23:59:59 Ken 15 [place] 2019-05-18 2019-05-18 Outpatient Christy, MHMISCHER MHMISCHER [id number] 10:30:00 23:59:59 Ken 12 [place] 2019-03-25 2019-03-25 Outpatient Celsa MHOIH MHOIH [id number] 10:00:00 23:59:00 Ulisses 32 2018-11-12 2018-11-12 Outpatient Christy, MHMISCHER MHMISCHER [id number] 10:30:00 23:59:59 Ken 10 [place] 2018-09-24 2018-09-24 Outpatient Steen, MHMISCHER MHMISCHER [id number] 15:30:00 23:59:59 Ulisses 11 2018-09-24 2018-09-24 Outpatient Celsa, MHOIH MHOIH [id number] 11:35:00 23:59:00 Ulisses 31 2018-08-31 2018-08-31 Appointmen ANGELY STAHL Oral & [id number] Univers 10:30:00 10:30:00 t; KENNEY, Maxillofaci i ty of SWATHI STAHL al Surgery Peter as Joycelyn MOULTON DDJuanis ans 2018-08-03 2018-08-04 Outpatient MHMISCHER MHMISCHER [id number] 12:44:00 23:59:59 16 2018-07-13 2018-07-14 Outpatient MHMISCHER MHMISCHER [id number] 08:21:00 23:59:59 15 2018-06-29 2018-06-29 Appointmen ANGELY STAHL Oral & [id number] Univers 10:00:00 10:00:00 t; KENNEY, Maxillofaci i ty of SWATHI STA[facility] al Surgery Peter as Joycelyn MOULTON DDJuanis ans 2018-03-27 2018-03-27 Outpatient Bonnieshiva MHMISCHER MHMISCHER [id number] 13:30:00 23:59:59 Ken 08 [facility] 2018-03-18 2018-03-18 Outpatient Celsa MHMISCHER MHMISCHER [id number] 15:00:00 23:59:59 Ulisses 09 2018-03-18 2018-03-18 Outpatient Celsa MHOIH MHOIH [id number] 12:17:00 23:59:00 Ulisses 30 2018-01-13 2018-01-14 Outpatient MHMISCHER MHMISCHER [id number] 09:46:00 23:59:59 14 2017-12-24 2017-12-25 Outpatient MHMISCHER MHMISCHER [id number] 13:04:00 23:59:59 13 2017-12-09 2017-12-10 Outpatient MHMISCHER MHMISCHER [id number] 09:01:00 23:59:59 12 2017-11-28 2017-11-29 Outpatient MHMISCHER MHMISCHER [id number] 10:14:00 23:59:59 11 2017-11-27 2017-11-27 Outpatient Celsa MHMISCHER MHMISCHER [id number] 12:00:00 23:59:59 Ulisses 06 2017-11-27 2017-11-27 Outpatient Celsa MHOIH MHOIH [id number] 09:30:00 23:59:00 Donn-Jiguang 29 2017-06-05 2017-06-05 Outpatient Celsa, MHMISCHER MHMISCHER [id number] 12:00:00 23:59:59 Donn-Jiguang 05 2017-06-05 2017-06-05 Outpatient Celsa, MHMISCHER MHMISCHER [id number] 12:00:00 23:59:59 Donn-Jiguang 2017-06-05 2017-06-05 Outpatient Celsa, MHOIH MHOIH [id number] 10:16:00 23:59:00 Donn-Jiguang 2017-06-05 2017-06-05 Outpatient Celsa, MHOIH MHOIH [id number] 10:16:00 23:59:00 Donn-Jiguang 28 2017-02-21 2017-02-22 Outpatient MHMISCHER MHMISCHER [id number] 14:31:00 23:59:59 09 2016-12-05 2016-12-05 Outpatient Celsa, MHOIH MHOIH [id number] 10:15:00 23:59:00 Donn-Jiguang 27 2016-06-19 2016-06-19 Outpatient Celsa, MHOIH MHOIH [id number] 10:56:00 23:59:00 Donn-Jiguang 26 2016-04-04 2016-04-04 Outpatient Celsa, MHOIH MHOIH [id number] 10:38:00 23:59:00 Donn-Jiguang 25 2015-12-31 2016-01-10 Outpatient Ajibaluis, [facility] [id number] 00:07:00 17:35:00 [facility] 2015-10-12 2015-10-12 Outpatient Celsa, MHOIH MHOIH [id number] 11:59:00 23:59:00 Donn-Jiguang 24 2015-04-20 2015-04-20 Outpatient Celsa, MHOIH MHOIH [id number] 11:10:00 23:59:00 Donn-Jiguang 23 2015-04-20 2015-04-20 Outpatient Celsa, MHOIH MHOIH [id number] 11:10:00 23:59:00 Donn-Jiguang 23 2014-10-20 2014-10-20 Outpatient Celsa [facility] [id number] 10:45:00 23:59:00 DonnLoriguang 22 2013-12-30 2013-12-30 Outpatient Celsa [facility] [id number] 08:53:00 23:59:00 Donn-Marvinguang 19 2013-12-09 2013-12-09 Outpatient Celsa [facility] [id number] 09:34:00 23:59:00 Donn-Antonella 18 2013-08-05 2013-08-05 Outpatient Celsa [facility] [id number] 11:37:00 23:59:00 DonnLorironaldo 17 2013-05-13 2013-05-13 Outpatient [facility] [id number] [facility] 10:31:00 23:59:00 Outpatien Outpatient O utpati t Imaging Imaging ent [facility] 2013-02-11 2013-02-11 Outpatient [facility] [id number] [facility] 10:15:00 23:59:00 Outpatien Outpatient O utpati t Imaging Imaging ent [facility] Veronique bradshaw 2013-02-11 2013-02-11 Outpatient [facility] [id number] [facility] 10:15:00 23:59:00 Outpatien Outpatient O utpati t Imaging Imaging ent [facility] Veronique bradshaw 2013-02-11 2013-02-11 Outpatient [facility] [id number] [facility] 10:15:00 23:59:00 Outpatien Outpatient O utpati t Imaging Imaging ent [place] Arabella bradshaw 2013-02-11 2013-02-11 Outpatient [facility] [id number] 4 [facility] 10:15:00 23:59:00 Outpatien Outpatient O utpati t Imaging Imaging ent Lawrence Arabella bradshaw Results Test Description Test Time Test Comments Results Result Comments Source ELECTROLYTES 2016-01-09 10.6 [facility] 09:46:00 ELECTROLYTES 2016-01-09 87 [facility] 09:46:00 ELECTROLYTES 2016-01-09 3.6 [facility] 09:46:00 ELECTROLYTES 2016-01-09 109 [facility] 09:46:00 ELECTROLYTES 2016-01-09 142 [facility] 09:46:00 ELECTROLYTES 2016-01-09 26 [facility] 09:46:00 ELECTROLYTES 2016-01-09 7.9 [facility] 09:46:00 ELECTROLYTES 2016-01-09 11 [facility] 09:46:00 ELECTROLYTES 2016-01-09 117 [facility] 09:46:00 ELECTROLYTES 2016-01-09 0.71 [facility] 09:46:00 HEMATOLOGY 2016-01-09 9.9 [facility] 09:46:00 HEMATOLOGY 2016-01-09 85.6 [facility] 09:46:00 HEMATOLOGY 2016-01-09 4.35 [facility] 09:46:00 HEMATOLOGY 2016-01-09 12.6 [facility] 09:46:00 HEMATOLOGY 2016-01-09 37.3 [facility] 09:46:00 HEMATOLOGY 2016-01-09 12.0 [facility] 09:46:00 HEMATOLOGY 2016-01-09 09:46:00 Test Item Value Reference Range Interpretation Comme nts MCH (test code = MCH) 28.9 pg 27.0-31.0 [facility] CulhcpuICIXSWZGQH8556-63-91 09:46:0033.7[facility]ann[facility]MATOLOGY 2016-01-09 09:46:0015.1[facility] AgumyaeZABFQTSKEC4280-82-05 09:46:46434Fszdkvmh HermannURINE AND SQHYB7102-78-59 08:59:00Negative (01/09/16 3:59 AM)[facility] GHJWM1780-16-72 08:59:00Negative (01/09/16 3:59 AM)[facility] SZOVH3631-93-51 08:59:00Negative (01/09/16 3:59 AM)[facility] BUNUL7767-38-73 08:59:000.2[facility] STOOL 2016-01-09 08:59:00 Test Item Value Reference Range Interpretation Comments UA pH (test code = UA pH) 7.0 1 5.0-8.0 [facility] [id number] 08:59:00 Test Item Value Reference Range Interpretation Comments UA Spec Grav (test code = UA Spec 1.010 1 Grav) [facility] [id number] 08:59:00Negative *NA*(01/09/16 3:59 AM) [facility] ALFLQ5545-08-72 08:59:00Yellow *NA*(01/09/16 3:59 AM) [facility] CXDDX7463-75-18 08:59:00Clear (01/09/16 3:59 AM) [facility] MZEFG2182-17-81 08:59:00None Seen (01/09/16 3:59 AM) [facility] XVRVP7589-23-12 08:59:00Performed (01/09/16 3:59 AM) [facility]annMOLECULAR VMZXVJYHKB4681-41-14 16:36:00Negative (01/08/16 11:36 AM)[facility] KbqdtdrICAFEEJTXI7528-73-35 09:25:000.8[facility]annHEMATOLOGY 2016-01-08 09:25:000.2[facility] DaovfyhYVCGTXQKIF9739-51-37 09:25:0077.7[facility] XpityqtBGGQHZKAPE3677-80-73 09:25:008.5[facility] EsneffbHZQTPJBAPT6576-91-38 09:25:0010.9[facility] VufgpthHBOPBMPGQX3874-93-24 09:25:007.7[facility] [place] WLURPLZDZU3657-04-98 09:25:000.5[facility] PdfqvysQPWSNQMRUD9959-81-37 09:25:002.4 [facility] SvzunhpNIIMTPETYW0734-68-88 09:25:001.1[facility]annHEMATOLOGY 2016-01-08 09:25:009.7[facility] GdqoqtoZIJRLYNPJM9973-99-03 09:25:0085.2[facility] QyeqvkrPFYXMZRXOB8472-80-67 09:25:0036.8[facility] RhbxhnlAGTGBKZZFX2124-39-89 09:25:00 Test Item Value Reference Range Interpretation Comments MCH (test code = MCH) 28.5 pg 27.0-31.0 [facility] NzidlgtQJDTIITVKT3760-25-19 09:25:0033.4[facility]annHEMATOLOGY 2016-01-08 09:25:0015.0[facility] SqirtlxSJRCLNMRSV2573-77-20 09:25:38176Qjstuyqe XhotyklUGTMTYGDSZ0320-78-40 09:25:004.32[facility] GpszcweHFMMGVIIFA5215-36-84 09:25:009.9[facility] FburmhrXBROGTJTYM7018-38-24 09:25:0012.3[facility] [place] BXLBSDPNPMNIQ8263-24-78 17:12:00<1[facility] PizeapgUDZIFBGTFTAZJ8985-17-85 17:12:000.07[facility] HermannCHEM FWILH1233-64-36 09:14:68261Lwykhady HermannCHEM XSZRM3700-11-63 09:14:0011[facility]annCHEM IKFRN1765-29-13 09:14:19771 [facility]annCHEM EJJXX9824-76-97 09:14:000.72[facility] HermannCHEM PANEL 2016-01-07 09:14:0087[facility] HermannCHEM MGXPV5802-82-61 09:14:003.4[facility] HermannCHEM SPVKY2609-27-72 09:14:08382Jhbdnayk HermannCHEM RFMQA2402-77-17 09:14:0028[facility]annCHEM HTMPZ2785-11-29 09:14:007.8[facility]annCHEM AVLZI6498-84-93 09:14:0010.4[facility]annCHEM IMUYT9130-66-62 09:14:001.8 [facility] UfcrbfwLDVSEWLLCJ5290-39-87 09:14:0033.6[facility]annHEMATOLOGY 2016-01-07 09:14:00 Test Item Value Reference Range Interpretation Comments MCH (test code = MCH) 28.7 pg 27.0-31.0 [facility] PfpdfuiEFOBVATNWD5727-83-83 09:14:0085.3[facility]annHEMATOLOGY 2016-01-07 09:14:0037.0[facility] QnkjttrXGMTSHEPRX6999-15-24 09:14:0012.4[facility] ZdjzoftAFHXMNIOQS5868-00-68 09:14:0015.1[facility] YtibnusNCMQXSMNEI5025-74-58 09:14:009.8[facility] AklhnsxWFICHYOTZU4239-82-72 09:14:72007Dthalizt [place] ZBTSCITKVC6824-12-37 09:14:004.34[facility] RxbfqstUIUMETESJM9914-46-14 09:14:00 9.2[facility] AhubhskBDZXZMCZVE1199-41-93 09:14:000.2[facility]annHEMATOLOGY 2016-01-07 09:14:000.8[facility] SzhqnagZKBQAEBVGY9395-54-13 09:14:000.9[facility] IycqqebAWYJAUIIHK6679-28-29 09:14:0078.2[facility] BdwbektXEGMRTRVKC9285-39-56 09:14:007.2[facility] LpolxweCRJTYBKCVC5478-33-17 09:14:000.4[facility]ol QUKHGTOOYG9307-48-76 09:14:002.2[facility] GldpbbkSHKQFKNXJS0282-55-66 09:14:009.1 [facility] KsuuorxTPTWHQMEOL8980-15-04 09:14:0010.1[facility] HermannCHEM PANEL 2016-01-06 09:19:51323Ucushfaf HermannCHEM AKMXE6463-27-47 09:19:0011[facility] HermannCHEM NRLMC9435-19-46 09:19:007.4[facility] HermannCHEM FUPEF0831-13-62 09:19:0084[facility] HermannCHEM EMJAM2770-57-42 09:19:000.77[facility] HermannCHEM ELQJK4010-92-66 09:19:60340Akjjqijf HermannCHEM OSFHQ1332-62-52 09:19:003.1 [facility]annCHEM XKCEH8265-28-58 09:19:37130Xsbekvpo HermannCHEM PANEL 2016-01-06 09:19:0029[facility] HermannCHEM LHZFP8422-31-53 09:19:0010.1[facility] HermannCHEM AEHNH1004-29-37 09:19:001.9[facility] VbfocpxBMXVUJPOSN5938-97-79 09:19:008.3[facility] RbbgnawSJVIIIFMPM9603-38-46 09:19:0080.5[facility] DGOFPYZVZN4819-76-90 09:19:009.3[facility] ZcsttipMAWHKLCCZV1607-50-14 09:19:001.5 [facility] FzhngndQGHARJOPGC3163-88-40 09:19:007.9[facility] HermannHEMATOLOGY 2016-01-06 09:19:000.4[facility] JthgdzlIWJOCVWFWX2026-35-39 09:19:000.1[facility] PcfjjhnECVHUPUBPZ6712-24-00 09:19:000.9[facility] OlwssytNADUSTASVF8540-07-27 09:19:000.8[facility] HermannCHEM PDLIE5672-55-70 09:28:002.1[facility] HermannBODY YIJJHQ1313-44-43 17:57:46Negative (01/04/16 12:57 PM)[facility]annBODY FLUIDS 2016-01-04 17:57:46Synovial (01/04/16 12:57 PM)[facility]annBODY FLUIDS 2016-01-04 17:57:46Moderate Cloudy *ABN*(01/04/16 12:57 PM)[facility]annBODY VAFJTO4844-63-63 17:57:208787Wjztnziu HermannBODY ZGPBPJ3189-99-37 17:57:46 Yellow (01/04/16 12:57 PM)[facility] HermannBODY PDNXMA6369-16-91 17:57:46Synovial (01/04/16 12:57 PM)[facility] HermannBODY NYFRMG0418-14-75 17:57:85319Tksixhtj HermannBODY CVZNAE7609-50-48 17:57:4610[facility] HermannBODY PABLIB7179-88-85 17:57:4690[facility] MeewwcvHKLCBIWHEE6964-34-67 14:20:0086[facility] CJJLSQVJBT9968-89-17 14:20:000.1[facility] XqfoqrdHECOKIXYXB4584-95-91 14:20:00 164.0[facility] HermannBODY BQMBWR2956-61-43 21:43:436[facility] HermannBODY FLUIDS 2016-01-03 21:43:43Synovial (01/03/16 4:43 PM)[facility] HermannBODY FLUIDS 2016-01-03 21:43:432.2[facility] HermannBODY LUUSSG7407-78-93 21:43:43Synovial (01/03/16 4:43 PM)[facility]annBODY DKWVXF7328-73-53 21:43:4326[facility] HermannBODY AALOQS7763-30-53 21:43:4372[facility] HermannBODY ZKSXEP0241-87-46 21:43:432[facility]annBODY JIYKZX8855-93-13 21:43:43Synovial (01/03/16 4:43 PM)[facility]annBODY NVKJRD2595-81-19 21:43:43Light Yellow *ABN*(01/03/16 4:43 PM)[facility]annBODY RZIFDC9990-96-06 21:43:43Marked *ABN*(01/03/16 4:43 PM) [facility]annB[facility] PLNIGC1118-15-36 21:43:252773Vpfxpqsz HermannBODY FLUIDS 2016-01-03 21:43:791994Cryygxiu HermannBODY NGRHRF9010-46-68 21:43:43Negative (01/03/16 4:43 PM)[facility]annBODY FPHSVF6054-06-52 21:43:43Synovial (01/03/16 4:43 PM)[facility] HermannCHEM CLGID5863-26-70 10:01:001.8[facility] HermannCHEM GRVPQ3548-99-21 10:01:002.4[facility] HermannCHEM OUXVU5698-10-84 10:01:0099 [facility]annCHEM JMDXK3644-89-70 10:01:0015[facility] HermannCHEM PANEL 2015-12-31 10:01:000.7[facility] HermannCHEM AFMDU2847-30-43 10:01:003.5[facility] HermannCHEM EPKKS9435-69-42 10:01:005.9[facility] HermannCHEM GEADB2398-95-20 10:01:001.5[facility] HermannCHEM RCZUA5491-53-30 10:01:007[facility]annCHEM KTQVQ0049-35-25 10:01:0019[facility] PrdlgajTRHCZPTPON2787-48-29 10:01:00 Test Item Value Reference Range Interpretation Comments aPTT (test code = aPTT) 45.7 s 22.9-35.8 [facility]annCHEM JEAXU7780-34-72 08:30:000.21[facility] HermannCHEM PANEL 2015-12-31 08:30:001.4[facility] AND DLFVM3800-30-05 07:30:00Negative (12/31/15 2:30 AM)[facility] MBIKV8356-34-10 07:30:00Negative (12/31/15 2:30 AM)[facility] KBAIS1550-90-60 07:30:001.0[facility] HBIAT5092-97-10 07:30:00Trace *ABN*(12/31/15 2:30 AM)[facility] BULBK4890-39-76 07:30:00Negative (12/31/15 2:30 AM)[facility] HOCQM5302-94-27 07:30:00Negative (12/31/15 2:30 AM)[facility] SEMMM7695-43-98 07:30:00Negative *NA*(12/31/15 2:30 AM)[facility] HKENC1954-15-12 07:30:00Negative *NA*(12/31/15 2:30 AM)[facility] RHLEA6975-33-64 07:30:00<=1.005 *NA*(12/31/15 2:30 AM) [facility] CSLMO5681-47-85 07:30:00 Test Item Value Reference Range Interpretation Comments UA pH (test code = UA pH) 6.0 1 5.0-8.0 [facility] MRQJI7451-56-31 07:30:00Yellow *NA*(12/31/15 2:30 AM) [facility] YEUUI5526-15-99 07:30:00Clear (12/31/15 2:30 AM) [facility]annCHEM DNMRS2279-51-99 06:34:003.8[facility] HermannCHEM PANEL 2015-12-31 06:34:0016[facility] HermannCHEM NOUUP8955-97-33 06:34:000.7[facility] HermannCHEM XFMAW9518-66-23 06:34:21978Lalxjmhf HermannCHEM FYNSS8268-61-46 06:34:002.8[facility] HermannCHEM BTWPD0476-12-90 06:34:0021[facility] HermannCHEM QFQXF0327-14-55 06:34:008[facility] HermannCHEM CKUCZ8050-81-71 06:34:006.6 [facility]annCHEM TDYZC6596-24-45 06:34:001.3[facility] HermannVIRAL - SEROLOGY 2015-12-31 06:04:00Negative (12/31/15 1:04 AM)[facility]annVIRAL - SEROLOGY 2015-12-31 06:04:00Negative (12/31/15 1:04 AM)[facility] HermannHematology 2011-03-28 17:15:0013.5[facility] DuggaevBnzgxzyujl2163-25-80 17:15:0040.3[facility] XduvthbMiovwaehhb6739-41-73 17:15:83703 [facility] 2011-02-14 14:41:0013.9[facility] EupwnoqLhyyzwyyzn6726-21-18 14:41:0040.3[facility] RwwjcghPdcaqtkedu5001-94-69 14:41:49917 [facility] [place]
--- NOTE | 2020-07-01 15:49 | ER ---
Nurse's Notes [facility] Name: Danyel Oliver IV Age: 84 yrs Sex: Male : 1935 Arrival Date: 07/01/2020 Time: 15:17 Bed 17 Private MD: Greg Esparza Diagnosis: Fall due to bumping against object;Displaced subtrochanteric fracture of right femur Presentation: 07/01 15:09 Chief complaint: EMS states: Pt. is 84 yr. old from home. Fell in the kitchen and rb3 landed on his left side, but c/o right hip pain and right shoulder pain. Denies LOC. 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 No medications were administered during route. reports that pt. behavior is normal. BP 200/96, P 75, BS 182, 98% RA. Pt. arrived on a backboard for easier transfer, not due to back injury. Allergy to Sulfa and Penicillin. Care prior to arrival: Placed on backboard. Mechanism of Injury: Fall from standing position. an unknown distance. 15:09 Acuity: REDDY 3 rb3 15:09 Method Of Arrival: EMS: [facility] rb3 15:09 Coronavirus screen: At this time, the client does not indicate any symptoms associated rb3 with coronavirus-19. Pt. reports having both doses of the vaccine. Ebola Screen: Patient denies travel to an Ebola-affected area in the 21 days before illness onset. Initial Sepsis Screen: Does the patient meet any 2 criteria? No. Patient's initial sepsis screen is negative. Does the patient have a suspected source of infection? No. Patient's initial sepsis screen is negative. Risk Assessment: Do you want to hurt yourself or someone else? Patient reports no desire to harm self or others. Onset of symptoms was July 01, 2020 at 14:30. Historical: - Allergies: 15:09 PENICILLINS; rb3 15:09 Sulfa (Sulfonamide Antibiotics); rb3 - Home Meds: 15:09 aspirin 81 mg Oral TbEC 1 tab every three days [Active]; famotidine 20 mg Oral tab 1 rb3 tab 2 times per day [Active]; finasteride 5 mg Oral tab 1 tab once daily [Active]; fludrocortisone 0.1 mg Oral tab 1 tab twice a day [Active]; gabapentin 800 mg Oral tab 1 tab 3 times per day [Active]; magnesium oxide 400 mg Oral cap twice a day [Active]; Potassium Chloride Oral [Active]; tamsulosin 0.4 mg Oral cp24 1 cap once daily [Active]; Vitamin B-12 Oral daily [Active]; Eliquis 2.5 mg oral tab 1 tab 2 times per day [Active]; Avastin 25 mg/mL intravenous soln every 2 wks [Active]; amiodarone 200 mg Oral tab 1 tab once daily [Active]; - PMHx: 15:09 DVT; Hyperlipidemia; neuropathy; right bundle branch block; spinal cord tumor; rb3 - PSHx: 15:09 Appendectomy; Cholecystectomy; HEMORHOIDECTOMY; Cataract; Rotator Cuff; Carpal Tunnel rb3 Repair; Basal Cell Carcinoma; - Immunization history:: Adult Immunizations up to date. - Social history:: Smoking status: Patient/guardian denies using. - Family history:: not pertinent. Screenin:09 Abuse screen: Denies threats or abuse. Tuberculosis screening: No symptoms or risk rb3 factors identified. 15:09 Nutritional screening: No deficits noted. Fall Risk Fall in past 12 months (25 points). rb3 Secondary diagnosis (15 points) impaired mobility, No IV (0 pts). Ambulatory Aid- None/Bed Rest/Nurse Assist (0 pts). Gait- Impaired (20 pts.). Mental Status- Oriented to own ability (0 pts). Total Davila Fall Scale indicates High Risk Score (45 or more points). Fall prevention measures have been instituted. Side Rails Up X 2 Placed Close to Nursing Station Frequent Obs/Assessments Occuring As available patient and family educated on Fall Prevention Program and Strategies. Primary Survey: 15:09 NO uncontrolled hemorrhage observed. A: The patient is alert. Airway: patent. rb3 Breathing/Chest: Respiratory pattern: regular, Respiratory effort: spontaneous, unlabored, Breath sounds: clear, bilaterally. Chest inspection: symmetrical rise and fall of the chest. Circulation: Pulses: palpable right radial artery and right posterior tibial artery. Skin color: pink, Skin temperature: warm. Disability Alert. Exposure/Environment: All clothing and personal items were removed. Forensic evidence collection is not deemed to be indicated at this time. Items placed in patient belonging bag. There is no evidence of uncontrolled external bleeding. Obvious injury(ies) are noted at this time: possible right hip fracture A warming method has been applied: A warm blanket has been provided to the patient. 15:30 Reassessment Airway Airway Patent Breathing/Chest Respiratory pattern Regular rb3 Respiratory effort Spontaneous Unlabored Chest inspection Symmetrical Circulation Color [place] Temperature Warm Dry Disability Alert. Secondary Survey: 15:09 HEENT: No deficits noted. Gastrointestinal: No deficits noted. : No signs and/or rb3 symptoms were reported regarding the genitourinary system. Musculoskeletal: Reports pain in right hip and right shoulder Pain is 7 out of 10 on a pain scale. Assessment: 15:09 General: Appears in no apparent distress. comfortable, Behavior is calm, cooperative. rb3 Pain: Complains of pain in right hip and right knee Pain currently is 7 out of 10 on a pain scale. Neuro: Level of Consciousness is awake, alert, obeys commands, Oriented to person, place, time, situation. Cardiovascular: Patient's skin is warm and dry. Respiratory: Airway is patent Respiratory effort is even, unlabored, Respiratory pattern is regular, symmetrical. GI: No signs and/or symptoms were reported involving the gastrointestinal system. : No signs and/or symptoms were reported regarding the genitourinary system. Musculoskeletal: Range of motion: limited in right shoulder and right hip. 16:00 Reassessment: Patient appears in no apparent distress at this time. Patient and/or rb3 family updated on plan of care and expected duration. Pain level reassessed. Patient is alert, oriented x 3, equal unlabored respirations, skin warm/dry/pink. 17:00 Reassessment: Patient appears in no apparent distress at this time. No changes from rb3 previously documented assessment. 17:15 Reassessment: Gave report to CECILIA Rolle at [place]. Information from the [facility] was given. rb3 All questions asked and answered. 18:00 Reassessment: Patient appears in no apparent distress at this time. Patient and/or rb3 family updated on plan of care and expected duration. Pain level reassessed. Patient is alert, oriented x 3, equal unlabored respirations, skin warm/dry/pink. 19:25 Reassessment: Patient appears in no apparent distress at this time. Patient is alert, rr5 oriented x 3, equal unlabored respirations, skin warm/dry/pink. report given to city ambulance alert oriented vital signs taken and recorded. Vital Signs: 15:09 BP 198 / 95; Pulse 68; Resp 19; Temp 97.5; Pulse Ox 100% ; Weight 95.25 kg; Height 6 rb3 ft. 2 in. (187.96 cm); Pain 7/10; 16:00 BP 204 / 80; Pulse 64; Resp 12; Pulse Ox 99% ; rb3 17:00 BP 198 / 88; Pulse 64; Resp 12; Pulse Ox 99% ; rb3 18:00 BP 195 / 93; Pulse 68; Resp 11; Pulse Ox 99% ; rb3 19:24 BP 157 / 80; Pulse 79; Resp 16; Pulse Ox 98% ; rr5 15:09 Body Mass Index 26.96 (95.25 kg, 187.96 cm) rb3 Vineet Coma Score: 15:09 Eye Response: spontaneous(4). Verbal Response: oriented(5). Motor Response: obeys rb3 commands(6). Total: 15. Trauma Score (Adult): 15:09 Eye Response: spontaneous(1); Verbal Response: oriented(1); Motor Response: obeys rb3 commands(2); Systolic BP: > 89 mm Hg(4); Respiratory Rate: 10 to 29 per min(4); [place] Score: 15; Trauma Score: 12 ED Course: 15:09 Patient has correct armband on for positive identification. Bed in low position. Call rb3 light in reach. Side rails up X 1. Patient maintains SpO2 saturation greater than 95% on room air. 15:09 Arm band placed on right wrist. rb3 15:09 Patient maintains SpO2 saturation greater than 95% on room air. rb3 15:09 Thermoregulation: warm blanket given to patient. rb3 15:17 Patient arrived in ED. am2 15:17 Greg Esparza MD is Private Physician. am2 15:19 Piter Echeverria MD is Attending Physician. dionne 15:23 Sandra Alonso, CECILIA is Primary Nurse. rb3 15:31 Triage completed. rb3 16:21 Initial lab(s) drawn, by ut, sent to lab. Urine collected: Nevarez catheter specimen, mh5 clear. Inserted saline lock: 22 gauge in right antecubital area, using aseptic technique. Blood collected. 16:30 Nevarez cath inserted, using sterile technique, 18 Fr., by ut, balloon inflated, urine [facility] specimen collected. 16:31 Magnesium Sent. 5 16:31 Liver (Hepatic) Function Sent. 5 16:31 Basic Metabolic Panel Sent. 5 16:31 CBC with Automated Diff Sent. 5 16:32 Basic Metabolic Panel Sent. 5 16:32 CBC with Diff Sent. 5 16:32 LFT's Sent. 5 16:32 Magnesium Sent. 5 16:32 NT PRO-BNP Sent. 5 16:33 PT-INR Sent. 5 16:33 Troponin (emerg Dept Use Only) Sent. 5 16:33 Urine Culture Sent. 5 16:[address] Echeverria with Troy Villagran from the [facility]. 16:51 administrative approval given by Troy Villagran/ Patient has been accepted to [facility] ER/ Dr. Núñez has accepted the patient without conference/ report to be given [phone]. 17:15 XRAY Chest (1 view) In Process Unspecified. EDMS 17:15 Pelvis XRAY In Process Unspecified. EDMS 17:15 Hip Right 2 View XRAY In Process Unspecified. EDMS 17:15 Femur Right XRAY In Process Unspecified. EDMS 17:33 Shoulder Right (2 View) XRAY In Process Unspecified. EDMS 19:26 No provider procedures requiring assistance completed. EKG done, by ED staff, reviewed rr5 by Piter Echeverria MD. Patient transferred, IV remains in place. intact, No redness/swelling at site. Administered Medications: 16:23 Drug: morphine 2 mg Route: IVP; Site: right antecubital; rb3 16:23 Drug: Zofran (Ondansetron) 4 mg Route: IVP; Site: right antecubital; rb3 16:40 Follow up: Response: No adverse reaction rb3 16:23 Drug: NS 0.9% 500 ml Route: IV; Rate: bolus; Site: right antecubital; rb3 17:14 Follow up: IV Status: Completed infusion rb3 17:27 Drug: NS 0.9% 1000 ml Route: IV; Rate: 125 ml/hr; Site: right antecubital; rb3 19:25 Follow up: Response: No adverse reaction; IV Status: Infusion continued upon transfer; rr5 IV Intake: 250ml 18:03 Drug: morphine 2 mg Route: IVP; Site: right antecubital; rb3 18:34 Follow up: Response: No adverse reaction; Pain is decreased rb3 19:35 Drug: morphine 2 mg {Note: rass 0.} Route: IVP; Site: right antecubital; rr5 19:41 Follow up: Response: Medication administered at discharge. rr5 Intake: 19:25 IV: 250ml; Total: 250ml. rr5 Outcome: 15:49 ER care complete, transfer ordered by MD. truong 19:26 Transferred by ground EMS to [facility], Transfer form completed. rr5 19:26 Condition: stable 19:26 Instructed on the need for transfer. 19:39 Patient left the ED. rr5 19:41 Patient left the ED. rr5 Signatures: Dispatcher [employer] Piter Cowan MD MD cha Martinez, Maria 5 Annie Murray am2 Rebekah Kelsey Raymond RN RN rr5 Sandra Alonso, RN RN rb3
--- NOTE | 2020-07-01 15:49 | EDPHYS ---
Physician Documentation [facility] Name: Danyel Oliver IV Age: 84 yrs Sex: Male : 1935 Arrival Date: 07/01/2020 Time: 15:17 Bed 17 Private MD: Greg Esparza ED Physician Piter Echeverria HPI: 07/01 15:37 This 84 yrs old Male presents to ER via EMS with complaints of Fall Injury. dionne 15:37 Details of fall: The patient fell from an upright position, while standing, while idonne walking. Onset: The symptoms/episode began/occurred just prior to arrival. Associated injuries: The patient sustained right hip, lateral aspect of right thigh and right upper thigh. Severity of symptoms: At their worst the symptoms were mild, moderate, just prior to arrival. The patient has not experienced similar symptoms in the past. Historical: - Allergies: 15:09 PENICILLINS; rb3 15:09 Sulfa (Sulfonamide Antibiotics); rb3 - Home Meds: 15:09 aspirin 81 mg Oral TbEC 1 tab every three days [Active]; famotidine 20 mg Oral tab 1 rb3 tab 2 times per day [Active]; finasteride 5 mg Oral tab 1 tab once daily [Active]; fludrocortisone 0.1 mg Oral tab 1 tab twice a day [Active]; gabapentin 800 mg Oral tab 1 tab 3 times per day [Active]; magnesium oxide 400 mg Oral cap twice a day [Active]; Potassium Chloride Oral [Active]; tamsulosin 0.4 mg Oral cp24 1 cap once daily [Active]; Vitamin B-12 Oral daily [Active]; Eliquis 2.5 mg oral tab 1 tab 2 times per day [Active]; Avastin 25 mg/mL intravenous soln every 2 wks [Active]; amiodarone 200 mg Oral tab 1 tab once daily [Active]; - PMHx: 15:09 DVT; Hyperlipidemia; neuropathy; right bundle branch block; spinal cord tumor; rb3 - PSHx: 15:09 Appendectomy; Cholecystectomy; HEMORHOIDECTOMY; Cataract; Rotator Cuff; Carpal Tunnel rb3 Repair; Basal Cell Carcinoma; - Immunization history:: Adult Immunizations up to date. - Social history:: Smoking status: Patient/guardian denies using. - Family history:: not pertinent. ROS: 15:38 Constitutional: Negative for fever, chills, and weight loss, Eyes: Negative for injury, dionne pain, redness, and discharge, ENT: Negative for injury, pain, and discharge, Neck: Negative for injury, pain, and swelling, Cardiovascular: Negative for chest pain, palpitations, and edema, Respiratory: Negative for shortness of breath, cough, wheezing, and pleuritic chest pain, Abdomen/GI: Negative for abdominal pain, nausea, vomiting, diarrhea, and constipation, Back: Negative for injury and pain, : Negative for injury, bleeding, discharge, and swelling, Skin: Negative for injury, rash, and discoloration, Neuro: Negative for headache, weakness, numbness, tingling, and seizure, Psych: Negative for depression, anxiety, suicide ideation, homicidal ideation, and hallucinations, Allergy/Immunology: Negative for hives, rash, and allergies, Endocrine: Negative for neck swelling, polydipsia, polyuria, polyphagia, and marked weight changes, Hematologic/Lymphatic: Negative for swollen nodes, abnormal bleeding, and unusual bruising. 15:38 MS/extremity: Positive for decreased range of motion, pain, swelling, of the right hip, lateral aspect of right thigh and right upper thigh. Exam: 15:38 Constitutional: This is a well developed, well nourished patient who is awake, alert, dionne and in no acute distress. Head/Face: Normocephalic, atraumatic. Eyes: Pupils equal round and reactive to light, extra-ocular motions intact. Lids and lashes normal. Conjunctiva and sclera are non-icteric and not injected. Cornea within normal limits. Periorbital areas with no swelling, redness, or edema. ENT: Nares patent. No nasal discharge, no septal abnormalities noted. Tympanic membranes are normal and external auditory canals are clear. Oropharynx with no redness, swelling, or masses, exudates, or evidence of obstruction, uvula midline. Mucous membranes moist. Neck: Trachea midline, no thyromegaly or masses palpated, and no cervical lymphadenopathy. Supple, full range of motion without nuchal rigidity, or vertebral point tenderness. No Meningismus. Chest/axilla: Normal chest wall appearance and motion. Nontender with no deformity. No lesions are appreciated. Cardiovascular: Regular rate and rhythm with a normal S1 and S2. No gallops, murmurs, or rubs. Normal PMI, no JVD. No pulse deficits. Respiratory: Lungs have equal breath sounds bilaterally, clear to auscultation and percussion. No rales, rhonchi or wheezes noted. No increased work of breathing, no retractions or nasal flaring. Abdomen/GI: Soft, non-tender, with normal bowel sounds. No distension or tympany. No guarding or rebound. No evidence of tenderness throughout. Back: No spinal tenderness. No costovertebral tenderness. Full range of motion. Male : Normal genitalia with no discharge or lesions. Skin: Warm, dry with normal turgor. Normal color with no rashes, no lesions, and no evidence of cellulitis. Neuro: Awake and alert, GCS 15, oriented to person, place, time, and situation. Cranial nerves II-XII grossly intact. Motor strength 5/5 in all extremities. Sensory grossly intact. Cerebellar exam normal. Normal gait. Psych: Awake, alert, with orientation to person, place and time. Behavior, mood, and affect are within normal limits. 15:38 Musculoskeletal/extremity: ROM: limited active range of motion due to pain, limited passive range of motion due to pain, in the right leg, Circulation is intact in all extremities. Sensation intact. Compartment Syndrome exam of affected extremity: is normal. Weight bearing: is unable to bear weight, DVT Exam: negative Homans' sign noted on exam, no appreciated bluish discoloration, no erythema, no increased warmth, pain, swelling, tenderness, Calves: are non-tender, have equal circumference. 19:28 ECG was reviewed by the Attending Physician. cp Vital Signs: 15:09 BP 198 / 95; Pulse 68; Resp 19; Temp 97.5; Pulse Ox 100% ; Weight 95.25 kg; Height 6 rb3 ft. 2 in. (187.96 cm); Pain 7/10; 16:00 BP 204 / 80; Pulse 64; Resp 12; Pulse Ox 99% ; rb3 17:00 BP 198 / 88; Pulse 64; Resp 12; Pulse Ox 99% ; rb3 18:00 BP 195 / 93; Pulse 68; Resp 11; Pulse Ox 99% ; rb3 19:24 BP 157 / 80; Pulse 79; Resp 16; Pulse Ox 98% ; rr5 15:09 Body Mass Index 26.96 (95.25 kg, 187.96 cm) rb3 Vineet Coma Score: 15:09 Eye Response: spontaneous(4). Verbal Response: oriented(5). Motor Response: obeys rb3 commands(6). Total: 15. Trauma Score (Adult): 15:09 Eye Response: spontaneous(1); Verbal Response: oriented(1); Motor Response: obeys rb3 commands(2); Systolic BP: > 89 mm Hg(4); Respiratory Rate: 10 to 29 per min(4); Queensbury Score: 15; Trauma Score: 12 Procedures: 17:46 Splinting: using right hip posterior ocl. dionne MDM: 15:19 Patient medically screened. dionne 15:41 Differential diagnosis: closed fracture, contusion, hip fracture, intertrochanteric dionne fracture, femoral neck fracture, femoral shaft fracture. Differential diagnosis: contusion, fracture, laceration, multiple trauma, sprain, strain. Data reviewed: vital signs, nurses notes, lab test result(s), EKG, radiologic studies, plain films. 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 Test interpretation: by ED physician or midlevel provider: ECG, plain radiologic studies. Counseling: I had a detailed discussion with the patient and/or guardian regarding: the historical points, exam findings, and any diagnostic results supporting the discharge/admit diagnosis, lab results. 07/01 15:36 Order name: Basic Metabolic Panel [facility] 07/01 15:36 Order name: CBC with Diff 07/01 15:36 Order name: LFT's 07/01 15:36 Order name: Magnesium 07/01 15:36 Order name: NT PRO-BNP; Complete Time: 17:05 [facility] 07/01 15:36 Order name: PT-INR; Complete Time: 17:05 [facility] 07/01 15:36 Order name: Troponin (emerg Dept Use Only); Complete Time: 17:05 [facility] 07/01 15:36 Order name: XRAY Chest (1 view); Complete Time: 19:15 [facility] 07/01 15:36 Order name: Urine Culture 07/01 15:37 Order name: Basic Metabolic Panel; Complete Time: 17:05 EDMS 07/01 15:37 Order name: CBC with Automated Diff; Complete Time: 17:05 EDMS 07/01 15:37 Order name: Liver (Hepatic) Function; Complete Time: 17:05 EDMS 07/01 15:37 Order name: Magnesium; Complete Time: 17:05 EDDC 07/01 16:40 Order name: Urine Dipstick--Ancillary (enter results) 07/01 15:36 Order name: EKG; Complete Time: 15:37 [facility] 07/01 15:36 Order name: Cardiac monitoring; Complete Time: 16:31 [facility] 07/01 15:36 Order name: EKG - Nurse/Tech; Complete Time: 16:32 [facility] 07/01 15:36 Order name: IV Saline Lock; Complete Time: 16:32 [facility] 07/01 15:36 Order name: Labs collected and sent; Complete Time: 16:32 [facility] 07/01 15:36 Order name: O2 Per Protocol; Complete Time: 17:10 [facility] 07/01 15:36 Order name: O2 Sat Monitoring; Complete Time: 17:10 [facility] 07/01 15:36 Order name: Pelvis XRAY; Complete Time: 19:15 [facility] 07/01 15:36 Order name: Hip Right 2 View XRAY [facility] 07/01 15:36 Order name: Femur Right XRAY [facility] 07/01 17:14 Order name: Shoulder Right (2 View) XRAY; Complete Time: 19:15 [facility] 07/01 15:36 Order name: Urine Dipstick-Ancillary (obtain specimen); Complete Time: 16:33 [facility] 07/01 16:34 Order name: Nevarez; Complete Time: 16:34 rb3 07/01 17:07 Order name: Splint: right hip; Complete Time: 18:32 [facility] 07/01 19:26 Order name: EKG - Nurse/Tech; Complete Time: 19:26 rr5 EC:28 Rate is 78 beats/min. Rhythm is regular. IL interval is prolonged at 246 msec. QRS cp interval is prolonged at 130 msec. QT interval is normal. Interpreted by me. Reviewed by me. Administered Medications: 16:23 Drug: morphine 2 mg Route: IVP; Site: right antecubital; rb3 16:23 Drug: Zofran (Ondansetron) 4 mg Route: IVP; Site: right antecubital; rb3 16:40 Follow up: Response: No adverse reaction rb3 16:23 Drug: NS 0.9% 500 ml Route: IV; Rate: bolus; Site: right antecubital; rb3 17:14 Follow up: IV Status: Completed infusion rb3 17:27 Drug: NS 0.9% 1000 ml Route: IV; Rate: 125 ml/hr; Site: right antecubital; rb3 19:25 Follow up: Response: No adverse reaction; IV Status: Infusion continued upon transfer; rr5 IV Intake: 250ml 18:03 Drug: morphine 2 mg Route: IVP; Site: right antecubital; rb3 18:34 Follow up: Response: No adverse reaction; Pain is decreased rb3 19:35 Drug: morphine 2 mg {Note: rass 0.} Route: IVP; Site: right antecubital; rr5 19:41 Follow up: Response: Medication administered at discharge. rr5 Disposition: 07/02 01:24 Co-signature as Attending Physician, Piter Echeverria MD I agree with the assessment and [facility] plan of care. Disposition: 07/01/20 15:49 Transfer ordered to [facility]. Diagnosis are Fall due to bumping against object, Displaced subtrochanteric fracture of right femur. - Reason for transfer: Higher level of care. - Accepting physician is Wiley Dinh. - Condition is Stable. - Problem is new. - Symptoms have improved. Signatures: Dispatcher [employer] EDPiter Zheng MD MD cha Page, Corey, PA PA cp Botello, Elizabeth eb Roque, Raymond RN RN rr5 Sandra Alonso, RN RN rb3 Corrections: (The following items were deleted from the chart) 07/01 16:56 15:49 07/01/2020 15:49 Transfer ordered to [facility]. Diagnosis is Fall eb due to bumping against object; Displaced subtrochanteric fracture of right femur. Reason for transfer: Higher level of care. Accepting physician is to ionia, per patient choice. Condition is Stable. Problem is new. Symptoms have improved. [facility] 19:39 16:56 07/01/2020 15:49 Transfer ordered to [facility]. Diagnosis is Fall rr5 due to bumping against object; Displaced subtrochanteric fracture of right femur. Reason for transfer: Higher level of care. Accepting physician is Wiley Dinh. Condition is Stable. Problem is new. Symptoms have improved. eb 19:41 19:39 07/01/2020 15:49 Transfer ordered to [facility]. Diagnosis is Fall rr5 due to bumping against object; Displaced subtrochanteric fracture of right femur. Reason for transfer: Higher level of care. Accepting physician is Wiley Dinh. Condition is Stable. Problem is new. Symptoms have improved. rr5
[2020-07-01] MEDS ORDERED: NA CHLORIDE 0.9% 1,000 ML ONE (16:06)
[2020-07-01] MEDS ORDERED: NA CHLORIDE 0.9% 500 ML ONE (16:06)
[2020-07-01] MEDS ORDERED: MORPHINE 2 MG/ML SYR ONE ×3 (16:06→19:48)
[2020-07-01] MEDS ORDERED: ONDANSETRON 4 MG/2 ML VIAL ONE (16:06)
[2020-07-01 16:41] LABS: Protime INR 1.11
[2020-07-01 16:43] LABS: Absolute Lymphocytes (CBC) 0.9 K/uL (0.7-4.9); Basophils % 0.5 % (0-1.3); Hematocrit 42.6 % (39.6-49.0); MPV 10.8 fL (7.6-11.3); RBC Red Blood Cell Count 4.73 M/uL (4.33-5.43)
[2020-07-01 16:49] LABS: ALT/SGPT 14 U/L (12-78); AST/SGOT 9 U/L (15-37); Albumin 3.2 g/dL (3.4-5.0); Alkaline Phosphatase 112 U/L (45-117); BUN Blood Urea Nitrogen 14 mg/dL (7-18); Bicarbonate 28 mmol/L (21-32); Bilirubin Direct 0.1 mg/dL (0-0.2); Bilirubin Total 0.4 mg/dL (0.2-1.0); Glucose Level 122 mg/dL (74-106); NT PRO-BNP 560 pg/mL (<450); Potassium 4.2 mmol/L (3.5-5.1); Protein, Total 7.3 g/dL (6.4-8.2); Sodium Level 143 mmol/L (136-145); Troponin (Emerg Dept Use Only) < 0.02 ng/mL (0.0-0.045)
--- NOTE | 2020-07-01 17:27 | RAD REPORT ---
EXAM DESCRIPTION: RAD - Chest Single View - 07/01/2020 5:15 pm CLINICAL HISTORY: COUGH Chest pain. COMPARISON: Chest Pa And Lat (2 Views) dated 12/27/2015; CHEST SINGLE VIEW dated 10/06/2013; CHEST SIN GLE VIEW dated 05/09/2012; CHEST SINGLE VIEW dated 01/24/2009 FINDINGS: Portable technique limits examination quality. The lungs are grossly clear. The heart is normal in size. No displaced fractures. IMPRESSION: No acute intrathoracic process suspected.
--- NOTE | 2020-07-01 17:28 | RAD REPORT ---
EXAM DESCRIPTION: RAD - Pelvis - 07/01/2020 5:15 pm CLINICAL HISTORY: PAIN Fall, trauma, pain COMPARISON: None FINDINGS: AP pelvis, right hip and right femur - multiple projections submitted Intratrochanteric fracture is present of the proximal right femur with varus angulation. No dislocati on evident. No knee joint effusion.
--- NOTE | 2020-07-01 17:40 | RAD REPORT ---
EXAM DESCRIPTION: RAD - Shoulder Right 2 View - 07/01/2020 5:34 pm CLINICAL HISTORY: PAIN COMPARISON: Shoulder Right 2 View dated 10/01/2013; Pelvis dated 07/01/2020 FINDINGS: Mild degenerative change involves the AC joint and glenohumeral joint. No acute fracture o r dislocation seen
[2020-07-01 19:51] VITALS: BP 157/80; O2SAT 98
[2020-07-01 20:08] LABS: Urine Specific Gravity 1.025 (1.005-1.030)
[2020-07-01 20:09] LABS: Urine Blood NEGATIVE (NEG); Urine Glucose NEGATIVE (NEG); Urine Protein NEGATIVE (NEG)
--- NOTE | 2020-07-03 10:59 | RAD REPORT ---
EXAM DESCRIPTION: RAD - Femur Right - 07/01/2020 5:15 pm CLINICAL HISTORY: PAIN Fall, trauma, pain COMPARISON: None FINDINGS: AP pelvis, right hip and right femur - multiple projections submitted Intratrochanteric fracture is present of the proximal right femur with varus angulation. No dislocati on evident. No knee joint effusion.
--- NOTE | 2020-07-03 10:59 | RAD REPORT ---
EXAM DESCRIPTION: RAD - Hip Right 2 View - 07/01/2020 5:15 pm RAD - Hip Right 2 View - 07/01/2020 5:15 pm CLINICAL HISTORY: PAIN Fall, trauma, pain COMPARISON: None FINDINGS: AP pelvis, right hip and right femur - multiple projections submitted Intratrochanteric fracture is present of the proximal right femur with varus angulation. No dislocati on evident. No knee joint effusion.
== END 2020-07-01 19:41 | disposition short-term general hospital (02) ==
LOC: ER 15:16
DX: S72.21XA Displaced subtrochanteric fracture of right femur, initial encounter for closed fracture (principal); W18.00XA Striking against unspecified object with subsequent fall, initial encounter; Y93.01 Activity, walking, marching and hiking; Y92.9 Unspecified place or not applicable; Z79.82 Long term (current) use of aspirin; Z88.0 Allergy status to penicillin; Z88.2 Allergy status to sulfonamides; E78.5 Hyperlipidemia, unspecified
CPT/HCPCS: 96361; 93005 ×2; 87088; 85025; 87086; 80048; 36415; 83735; 85610; 80076; 81003; 84484; 83880; 71045; 72170; 73502; 73030; 73552; 51702; 96375; 96374; 99285; J2270 ×3; J7040; J7030; J2405

== ENCOUNTER 2020-08-25 14:46 | Inpatient (IN) | payer MEDICARE ==
--- NOTE | 2020-08-30 10:49 | R.PREADM ---
PRE-ADMISSION SCREENING FORM SCREENING DATE AND TIME 08/30/2020 10:08 (CDT) ANTICIPATED REHAB ADMISSION DATE 08/30/2020 REFERRING FACILITY [facility] REFERRAL DATE AND TIME 08/25/2020 11:08 (CDT) REFERRAL OFFICE PHONE [phone] ACUTE ADMIT DATE 07/11/2020 Previous Rehabilitation(s): No. ATTENDING PHYSICIAN REFERRING PHYSICIAN REHAB FACILITY [facility] CLINICAL LIAISON Emanuel Albarado PHYSICIAN REVIEWER Dr. Zhang Sullivan M.D. MR# [id number] NAME AILEEN ANDINO [address]ESS [address] [facility] [id number] DATE OF 1935 AGE 85 SSN# [id number] GENDER male MARITAL STATUS RACE unknown race PREF. LANGUAGE (IF NON-ROMANSH) Turkish ADMIT FROM 03 - Group Home Facility (SNF) PRE-HOSPITAL LIVING SETTING 01 - Home (private home/apt. board/care, assisted living, snf, transitional living) HOME TYPE AND DETAILS Type of home: single family house # of steps to enter the residence: 1 # of levels in the residence: 1 # of steps within the residence: 1 PRE-HOSPITAL LIVING WITH Family/Relatives FAMILY SUPPORT Yes PRIMARY FAMILY CONTACT NAME ANATOLY ANDINO PRIMARY FAMILY CONTACT PHONE PRIMARY FAMILY CONTACT RELATIONSHIP Spouse PHONE PRIMARY FAMILY CONTACT ON ADM.? no IS PRIMARY FAMILY CONTACT AUTH. REP.? no 1ST EMERGENCY CONTACT ANATOLY ANDINO 1ST CONTACT PHONE 1ST CONTACT RELATIONSHIP Spouse PHONE 1ST CONTACT ON ADM. no IS 1ST CONTACT AUTH. REP.? no PHONE 2ND CONTACT ON ADM.? no PATIENT EMPLOYMENT STATUS Retired (for age) PATIENT EMPLOYER No Employer PAYOR INFORMATION: 1ST PAYOR NAME TREY 1ST PAYOR PHONE [phone] 1ST PAYOR INJURY/ILLNESS DUE TO ACCIDENT? No ANOTHER CONSTITUTION PARTY RESPONSIBLE? No PRIMARY REHAB/ACUTE DIAGNOSIS: right femur fracture ONSET DATE 08/30/2020 REHAB IMPAIRMENT CATEGORY (LENARD): 07 Fracture of LE (FracLE) MEETS 60% rule AFFECTED EXTREMITIES: RLE PRIMARY DIAGNOSIS-RELATED SURGERIES: SUBSEQUENT ENCOUNTER FOR CLOSED FRACTURE SUMMARY OF ACUTE HOSPITALIZATION: Pt. is a 85 yo Right-handed male of unknown race. On 08/30/2020 he was admitted to [facility] with diagnosis right femur fracture. His impairment category is Orthopaedic Disorders 08 - Unilateral Hip Fracture (08.11). Pre-morbidly, Pt. was independent/mod-I in Safety Awareness, Balance, Transfers Control, Endurance, a nd Locomotion; and he had good Balance and Social Cognition. Currently, he has deficits of Locomotion, Safety Awareness, Social Cognition, Transfers Control, Sphi ncter Control, Self-Care, and Endurance. Pt. is now referred to [facility] for acute in-patient rehabilitation in order to maximize patient's functional independence in activities of daily living, strength, ROM, and mobi lity. Patient has realistic goal of being discharged at assistance level 7-Ind to reside at Home with Fami ly/Relatives. PAST MEDICAL HISTORY Unspecified lack of coordination (R27.9) Muscle weakness (generalized) (M62.81) Encounter for other aftercare and medical care (Z51) Displaced intertrochanteric fracture of left femur, subsequent encounter for closed fracture with rou vane healing (S72.142D) MEDICATION ALLERGIES: FENLANYL MORPHINE OXYCODONE PENICILLIN BACTRIM SULFA ANTIBIOTICS ENVIRONMENTAL ALLERGIES: Milk LETTUCE - Substance Allergies None Known - Other Allergies None Known CODE STATUS: Full code BMI N/A DIET: - Diet Type Regular - Diet - Solid Texture Regular - Diet - Liquid Texture Regular - Tube Feed N/A REVIEW OF SYSTEMS: - Gen Alert and awake Lying in bed No apparent distress Oriented to: person, time, and place - Vital Signs Temperature: 97.7 F SBP/DBP: 141/80 Pulse: 72 Resp: 16 Vital signs stable, afebrile - CVS RRR VITAL SIGNS Temperature: 97.7 F SBP/DBP: 141/80 Pulse: 72 Resp: 16 Vital signs stable, afebrile MEDICATIONS/TREATMENT: Other- See attached MAR (Medication Administration Record). CURRENT SPHINCTER CONTROL: Pre-hospital bladder status: unspecified # of bladder accidents in the last 7 days prior to screenin Pre-hospital bowel status: unspecified # of bowel accidents in the last 7 days prior to screenin Last Bowel Movement Date: 08/25/2020 CURRENT LOCOMOTION STATUS: distance walked 7-10 feet WITH RW AND WHEEL CHAIR DETAILED CURRENT FUNCTIONAL STATUS: - Bladder accident frequency: 7-Ind - No accidents in the past 7 days - Bowel accident frequency: 7-Ind - No accidents in the past 7 days - Walking score based on distance walked: 0(N/A) score based on distance walked: 1(<=50ft) - Wheelchair score based on distance traveled: 0(N/A) QI SCORES: - Self-Care A. Eating 06-Independent B. Oral hygiene 03-Partial/moderate assistance C. Toileting hygiene 02-Substantial/maximal assistance E. Shower/bathe self 02-Substantial/maximal assistance F. Upper body dressing 02-Substantial/maximal assistance G. Lower body dressing 02-Substantial/maximal assistance H. Putting on/taking off footwear 88-Not attempted due to medical condition or safety concerns - Mobility A. Roll left and right 03-Partial/moderate assistance B. Sit to lying 02-Substantial/maximal assistance C. Lying to sitting on side of bed 02-Substantial/maximal assistance D. Sit to stand 02-Substantial/maximal assistance E. Chair/oai-lo-liyhj transfer 02-Substantial/maximal assistance F. Toilet transfer 03-Partial/moderate assistance G. Car transfer 88-Not attempted due to medical condition or safety concerns I. Walk 10 feet 02-Substantial/maximal assistance J. Walk 50 feet with two turns 88-Not attempted due to medical condition or safety concerns K. Walk 150 feet 88-Not attempted due to medical condition or safety concerns L. Walking 10 feet on uneven surfaces 88-Not attempted due to medical condition or safety concerns M. 1 step (curb) 88-Not attempted due to medical condition or safety concerns N. 4 steps 88-Not attempted due to medical condition or safety concerns O. 12 steps 88-Not attempted due to medical condition or safety concerns P. Picking up object 88-Not attempted due to medical condition or safety concerns R. Wheel 50 feet with two turns 88-Not attempted due to medical condition or safety concerns S. Wheel 150 feet 88-Not attempted due to medical condition or safety concerns - Bladder and Bowel Bladder continence Bowel continence - Endurance Fair - Balance Poor - Safety Awareness Fair CURRENT FUNC. DEFICITS: Mobility, Endurance, Balance, Safety Awareness, and Self-Care CURRENT / PREVIOUS ASSISTIVE DEVICES: Rolling Walker Wheelchair HISTORY OF FALLS. HAS THE PATIENT HAD TWO OR MORE FALLS IN THE PAST YEAR OR ANY FALL WITH INJURY IN T HE PAST YEAR?: No PRIOR SURGERY. DID THE PATIENT HAVE MAJOR SURGERY DURING THE 100 DAYS PRIOR TO ADMISSION?: Yes THERAPY NOTES FROM ACUTE CARE: Attached. SPECIAL NEEDS: - Safety Concerns Skin breakdown precautions needed due to skin breakdown risk PRECAUTIONS: - Posterior Hip Precaution No adduction across midline No external rotation No hip flexion >90 degrees No internal rotation No wheel chair propulsion - Weight Bearing Precaution WBAT right LE PATIENT NEEDS ACTIVE AND ONGOING THERAPEUTIC INTERVENTION OF MULTIPLE THERAPY DISCIPLINES, INCLUDING: - Dietary and Nutrition Adequate Nutrition. Nutritional Education. Nutritional Supplements. PATIENT NEEDS CLOSE MEDICAL SUPERVISION BY A REHABILITATION PHYSICIAN FOR: Coordination of Treatment Team PATIENT REQUIRES 24X7 REHAB NURSING FOR MEDICAL AND FUNCTIONAL MGT. OF THE FOLLOWING DEFICITS: Disease Management Medication Management Patient/Family Education Providing Safe Environment PATIENT REQUIRES INTENSIVE, COORDINATED INTERDISCIPLINARY APPROACH TO REHAB: Arranging Home Equipment/Services Discharge Planning Family Intervention/Training Assistant Professor Of Communication/Case Management PATIENT REHAB POTENTIAL: Danish ANDNIO is able and expected to receive 3 hours of individualized therapy daily on at least 5 of every 7 days Danish ANDINO's prognosis for significant practical improvement within a reasonable period of time trent ears Good Expected level of measurable improvement will be of a practical value to Danish ANDINO's functional ca pacity or adaptations to impairments Has a viable Discharge Plan Medically appropriate; condition is sufficiently stable to participate in intensive rehab program DISCHARGE PLAN: - Estimated Length of Stay (days) 14. - Consensus on plan Discharge plan has been discussed with primary caregiver. Patient/Family is in agreement with the raina n. Primary caregiver is in agreement with the plan. - Patient/Family Goals Return home independently. - Planned Living Setting Upon Discharge Home, to live with Family/Relatives. Transitional Living. RECOMMENDED CARE LEVEL: IRF RECOMMENDATION DETAILS: Recommended Admission to Comprehensive Rehabilitation Program to Increase Functional Pelican SCREENER'S COMPLETENESS CONFIRMATION: - Screening Confirmation The patient data collection on this preadmission screening form is finished PHYSICIANS REVIEW AND ADMISSION DETERMINATION Admit - Based on my review of the Pre-Admission Screening results, in my medical judgment and experie nce, I concur with the findings and recommend admission to [facility], as this patient requires an IRF level of care. SIGNATURE PANEL: Thoroughbred Horse Farm Manager - [electronically] signed by Emanuel Albarado on 08/30/2020 at 10:13 (CDT) Thoroughbred Horse Farm Manager - [electronically] signed by Osbaldo Cortez PT on 08/30/2020 at 10:26 (CDT) Physician Reviewer - [electronically] signed by Dr. Zhang Sullivan M.D. on 08/30/2020 at 10:49 (CDT )
--- OUTSIDE RECORDS SUMMARY | 2020-08-30 14:41 | XMS REPORT | Continuity of Care Document ---
:[address] [facility] t Address [address] [place] [address] Care Team Providers Name Role Phone Rasheed Esparza MD Attending Clinician DONNA Attending Clinician Unavailable Doctor Unassigned, Name Attending Clinician Unavailable FRANCHESKA Attending Clinician Unavailable Gramm SG, [place] Attending Clinician MARIBETH Attending Clinician Unavailable Problems Condition Condition Condition Status Onset Resolution Last Treating Co mments Source Name Details Category Date Date Treatment Clinician Date POSTURAL Condition Active 2011-042014-10-20 M emoria LIGHTHEADE 2-06 13:39:01 l DNESS POSTURAL 00:00: Jitendra amor LIGHTHEADE 00 DNESS Active 03/19/2012 Condition 5 [facility] 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 [place] of hypertroph [place] Physici ans Dental Dental Problem Active Univers caries caries ity of [place] Physici ans Pain of Pain of Problem Active Univers right right ity of femur femur [place] Physici ans 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 , , [place]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 Diabetes Problem Active Unive rs mellitus mellitus ity of [place] Physici ans 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 [place] Physici ans Esophageal Esophageal Problem Active U nivers reflux reflux ity of [place] Physici ans Hyperlipid Hyperlipid Problem Active U nivers emia emia ity of [place] Physici ans Bradyarrhy Bradyarrhy Problem Active U nivers thmia thmia ity of [place] Physici ans 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 Mem oria 13:39:01 l GLIOMA [place] Active Condition 10/20/2014 [facility] GERD Condition Active 2014-10-20 Mem oria 13:39:01 l GERD [place] Active Condition 10/20/2014 [facility] 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 [place]ensio [place] Physici ans NUMBNESS, Condition Active 2014-10-20 Memoria ARM 13:39:01 l Amol NUMBNESS, ARM Active Condition 10/20/2014 [facility] 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, 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, Amol WITH SPONDYLOSI RADICULOPA S, THY CERVICAL, WITH RADICULOPA THY Active Condition 10/20/2014 [facility] FATIGUE Condition Active 2014-10-20 Me moria 13:39:01 l FATIGUE [place] Active Condition 10/20/2014 [facility] NEURAL Condition Active 2014-10-20 Mem oria HEARING 13:39:01 l LOSS NEURAL [place] BILATERAL HEARING LOSS BILATERAL Active Condition 10/20/2014 [facility] 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 [place] branch branch Physici block) block) ans History of Past Illness Condition Condition Condition Status Onset Resolution Last Treating Co mments Source Name Details Category Date Date Treatment Clinician Date BENIGN Condition Inactiv 2014-10-20 2014-10-20 Memoria NEOPLASM e 12-20 13:39:01 13:39:01 l OF SPINAL BENIGN 00:00: Kaylee nn CORD NEOPLASM 00 OF SPINAL CORD Inactive 12/20/2010 [facility] All[facility]ies, Adverse Reactions, Alerts Allergy Allergy Status Severity Reaction(s) Onset Inactive Treating Comm ents Source Name Type Date Date Clinician PENICILL PENICILL Active Memori a IN IN 7-26 l 00:00: [place] 00 SULFUR SULFUR Active Memoria 26 l 00:00: [place] 00 Penicill Allergy Active Univers ins to drug ity of (finding [place] ) Physici ans Sulfa Allergy Active Univers Drugs to drug ity of (finding [place] ) Physici ans Medications Ordered Filled Start Stop Current Ordering Indication Dosage Frequency Signature Comments Components Source Medication Medication Date Date Medication? Clinician (SIG) Name Name Ibuprofen Ibuprofen Yes TAWANA Q6H TAKE 1 Univers 600 MG Oral [...] EXPECTORAT E AFTER RINSING, DO NOT SWALLOW FINASTERIDE Yes 1 po qd Mem oria 5 MG TABS 7-09 l 00:00: OMEPRAZOLE Yes qd Memoria 20 MG CPDR 8-01 l 00:00: FLUDROCORTI Yes bid Memori a SONE 8-01 l ACETATE 0.1 00:00: Jitendra n MG TABS OMEPRAZOLE Yes qd Memoria 20 MG CPDR 8-01 l 00:00: Am[place] OMEPRAZOLE Yes qd Memoria 20 MG CPDR 8-01 l 00:00: [place] 00 FLUDROCORTI Yes bid Memori a SONE 8-01 l ACETATE 0.1 00:00: Jitendra n MG TABS GABAPENTIN Yes 1 tab TID Me moria 800 MG TABS 4-04 l (GABAPENTIN 00:00: Jitendra n ) TAMSULOSIN Yes QD Memoria HCL 0.4 MG 4-04 l CAPS 00:00: LISINOPRIL No PRN Memoria 5 MG TABS 4-04 l 00:00: Amol 00 K-TABS 10 No QD Memoria MEQ CR-TABS [...] 0.1 00:00: Jitendra n MG TABS 00 WARFARIN No 1 po qd Memori a SODIUM 4 MG 7-26 l TABS 00:00: METFORMIN Yes 1 tab 2x Luis shasta HCL 500 MG 7-26 daily l TABS 00:00: Colestipol Colestipol Yes Q0.3333D TAKE 1 Univers HCl - 1 GM HCl - 1 GM TABLET 3 ity of Oral Tablet Oral Tablet TIMES [place] DAILY. Physici ans Gabapentin Gabapentin Yes Q0.3333D TAKE 1 Univers 800 MG Tab 800 MG Tab TABLET 3 ity of (OR) - (OR) - TIMES [place] [id number] DAILY. Physici ivated ivated ans Omeprazole Omeprazole Yes 1 QD TAKE 1 U nivers 20 MG Oral 20 MG Oral TABLET i ty of Tablet Tablet DAILY [place] Delayed Delayed Physici Release Release ans Aspirin 81 Aspirin 81 Yes 1 QD TAKE 1 U nivers MG TABS MG TABS TABLET ity of DAILY. [place] Physici ans Vitamin B12 Vitamin B12 Yes QD TAKE 1 Univers TABS TABS TABLET ity of DAILY [place] DIRECTED. Physici ans Multi-Vitam Multi-Vitam Yes 1 QD TAKE 1 Univers in TABS in TABS TABLET ity of DAILY. [place] Physici ans Simvastatin Simvastatin Yes QD TAKE 1 Univers 20 MG Oral 20 MG Oral TABLET i ty of Tablet Tablet DAILY [place] DIRECTED. Physici ans Tamsulosin Tamsulosin Yes 1 [...] Oral TABLET ity of Tablet Tablet DAILY. [place] Physici ans Finasteride Finasteride Yes 1 QD TAKE 1 Univers 5 MG Oral 5 MG Oral TABLET ity of Tablet Tablet DAILY. [place] Physici ans Potassium Potassium Yes 1 QD TAKE 1 Uni vers Chloride 20 Chloride 20 TABLET ity of MEQ TBCR MEQ TBCR DAILY. [place] Physici ans Vital Signs Vital Name Observation Time Observation Value Comments Source BP Systolic 2018-08-31 10:00:00 120 mm[Hg] Universi [...] /min Universi ty of [place] Physician s Weight 2014-10-20 18:39:01 [facility] [place] Height 2014-10-20 18:39:01 [facility] [place] Temperature Oral (F) 2014-10-20 18:39:01 96.8 F [facility] Heart Rate 2014-10-20 18:39:01 [facility] [place] Systolic (mm Hg) 2014-10-20 18:39:01 Luis juarez Amol Diastolic (mm Hg) 2014-10-20 18:39:01 Mem orial [place] Height 2014-06-30 18:19:44 [facility] [place] Weight 2014-06-30 18:19:44 [facility] [place] Temperature Oral (F) 2014-06-30 18:19:44 97.2 F [facility] [place] Heart Rate 2014-06-30 18:19:44 [facility] [place] Systolic (mm Hg) 2014-06-30 18:19:44 Luis rial Amol Diastolic (mm Hg) 2014-06-30 18:19:44 Mem o[facility] [place] Weight 2014-04-05 18:52:31 [facility] [place] Height 2014-04-05 18:52:31 [facility] Temperature Oral (F) 2014-04-05 18:52:31 96.8 F [facility] [place] Heart Rate 2014-04-05 18:52:31 [facility] [place] Systolic (mm Hg) 2014-04-05 18:52:31 Luis rial [place] Diastolic (mm Hg) 2014-04-05 18:52:31 Mem orial [place] Weight 2013-12-30 16:18:00 [facility] [place] Height 2013-12-30 16:18:00 [facility] [place] Temperature Oral (F) 2013-12-30 16:18:00 96.2 F [facility] [place] Heart Rate 2013-12-30 16:18:00 [facility] [place] Systolic (mm Hg) 2013-12-30 16:18:00 Luis rial [place] Diastolic (mm Hg) 2013-12-30 16:18:00 Mem orial [place] Weight 2013-12-09 16:55:00 [facility] [place] Height 2013-12-09 16:55:00 [facility] [place] Temperature Oral (F) 2013-12-09 16:55:00 96.2 F [facility] Heart Rate 2013-12-09 16:55:00 [facility] [place] Systolic (mm Hg) 2013-12-09 16:55:00 Luis rial [place] Diastolic (mm Hg) 2013-12-09 16:55:00 Mem orial [place] Height 2013-08-05 19:11:52 [facility] [place] Weight 2013-08-05 19:11:52 [facility] [place] Systolic (mm Hg) 2013-08-05 19:11:52 Luis rial [place] Diastolic (mm Hg) 2013-08-05 19:11:52 Mem orial [place] Heart Rate 2013-08-05 19:11:52 [facility] Respitory Rate 2013-08-05 19:11:52 Memori al [place] Temperature Oral (F) 2013-08-05 19:11:52 98.6 F [facility] [place] Weight 2013-05-13 19:03:20 [facility] Height 2013-05-13 19:03:20 [facility] [place] Temperature Oral (F) 2013-05-13 19:03:20 97.2 F [facility] [place] Heart Rate 2013-05-13 19:03:20 [facility] [place] Systolic (mm Hg) 2013-05-13 19:03:20 Luis rial [place] Diastolic (mm Hg) 2013-05-13 19:03:20 Mem orial [place] Heart Rate 2013-02-11 18:24:12 [facility] [place] Systolic (mm Hg) 2013-02-11 18:24:12 Luis rial [place] Diastolic (mm Hg) 2013-02-11 18:24:12 Mem orial [place] Weight 2013-02-11 18:24:12 [facility] [place] Height 2013-02-11 18:24:12 [facility] [place] Temperature Oral (F) 2013-02-11 18:24:12 97.0 F [facility] Weight 2012-11-12 18:46:11 [facility] [place] Height 2012-11-12 18:46:11 [facility] [place] Temperature Oral (F) 2012-11-12 18:46:11 98 F [facility] [place] Heart Rate 2012-11-12 18:46:11 [facility] [place] Systolic (mm Hg) 2012-11-12 18:46:11 Luis rial [place] Diastolic (mm Hg) 2012-11-12 18:46:11 Mem orial [place] Weight 2012-07-16 19:23:03 [facility] [place] Height 2012-07-16 19:23:03 [facility] [place] Temperature Oral (F) 2012-07-16 19:23:03 97.7 F [facility] [place] Heart Rate 2012-07-16 19:23:03 [facility] [place] Systolic (mm Hg) 2012-07-16 19:23:03 Luis rial [place] Diastolic (mm Hg) 2012-07-16 19:23:03 Mem orial [place] Weight 2012-05-21 19:46:40 [facility] [place] Height 2012-05-21 19:46:40 [facility] [place] Temperature Oral (F) 2012-05-21 19:46:40 97.9 F [facility] [place] Heart Rate 2012-05-21 19:46:40 [facility] [place] Systolic (mm Hg) 2012-05-21 19:46:40 Luis rial [place] Diastolic (mm Hg) 2012-05-21 19:46:40 Mem orial [place] Weight 2012-03-19 16:55:40 [facility] [place] Height 2012-03-19 16:55:40 [facility] [place] Temperature Oral (F) 2012-03-19 16:55:40 98.3 F [facility] [place] Heart Rate 2012-03-19 16:55:40 [facility] [place] Systolic (mm Hg) 2012-03-19 16:55:40 Luis rial [place] Diastolic (mm Hg) 2012-03-19 16:55:40 Mem orial [place] Weight 2012-01-14 18:13:10 [facility] [place] Height 2012-01-14 18:13:10 [facility] [place] Temperature Oral (F) 2012-01-14 18:13:10 97.3 F [facility] [place] Heart Rate 2012-01-14 18:13:10 [facility] [place] Systolic (mm Hg) 2012-01-14 18:13:10 Luis rial [place] Diastolic (mm Hg) 2012-01-14 18:13:10 Mem orial [place] Weight 2011-10-31 18:40:21 [facility] [place] Height 2011-10-31 18:40:21 [facility] [place] Temperature Oral (F) 2011-10-31 18:40:21 98.2 F [facility] [place] Heart Rate 2011-10-31 18:40:21 [facility] [place] Systolic (mm Hg) 2011-10-31 18:40:21 Luis rial [place] Diastolic (mm Hg) 2011-10-31 18:40:21 Mem orial [place] Weight 2011-08-22 15:41:41 [facility] [place] Height 2011-08-22 15:41:41 [facility] [place] Temperature Oral (F) 2011-08-22 15:41:41 97.2 F [facility] [place] Heart Rate 2011-08-22 15:41:41 [facility] [place] Systolic (mm Hg) 2011-08-22 15:41:41 Luis rial [place] Diastolic (mm Hg) 2011-08-22 15:41:41 Mem orial [place] Weight 2011-06-27 17:22:40 [facility] [place] Height 2011-06-27 17:22:40 [facility] [place] Temperature Oral (F) 2011-06-27 17:22:40 97.2 F [facility] [place] Systolic (mm Hg) 2011-06-27 17:22:40 Luis rial [place] Diastolic (mm Hg) 2011-06-27 17:22:40 Mem orial [place] Weight 2011-04-25 18:00:10 [facility] [place] Height 2011-04-25 18:00:10 [facility] [place] Temperature Oral (F) 2011-04-25 18:00:10 98.0 F [facility] [place] Heart Rate 2011-04-25 18:00:10 [facility] [place] Systolic (mm Hg) 2011-04-25 18:00:10 Luis rial [place] Diastolic (mm Hg) 2011-04-25 18:00:10 Mem orial [place] Weight 2011-03-28 18:48:51 [facility] [place] Height 2011-03-28 18:48:51 [facility] [place] Temperature Oral (F) 2011-03-28 18:48:51 97.2 F [facility] [place] Heart Rate 2011-03-28 18:48:51 [facility] [place] Systolic (mm Hg) 2011-03-28 18:48:51 Lusi rial [place] Diastolic (mm Hg) 2011-03-28 18:48:51 Mem orial Am[place] Procedures Procedure Date / Time Performing Clinician Source Performed Post Op Promis 29 Survey 2020-07-27 [facility] 2 VWS RIGHT 2020-07[facility]26 [id number] [facility] smoking/tobacco cessation, 2012-05-21 19:46:40 [facility] [place] patient education and counseling History of Fusion / [facility] [place] Refusion Of 2-3 Vertebrae Physic ians History of Laminectomy Universit [facility] Lumbar Physicians History of Laminectomy Universit y [facility] Cervical Physicians History of Appendectomy [facility]i [facility] Physicians History of Cholecystectomy [facility] Physicians History of [facility] [place] Hemorrhoidectomy Physicians History of Cataract [facility] [place] Extraction Physicians [facility] History of Neuroplasty [facility] y [facility] Decompression [facility] [place] Encounters Start End Encounter Admission Attending Care Care Encounter Source Date/Time Date/Time Type Type Clinicians Facility Department ID 2020-08-29 2020-08-29 Telephone [facility] [id number] 00:00:00 00:00:00 [facility] [id number] [facility] [id number] Professio [phone] community health [address] 2020-08-03 2020-08-03 Appointmen ANGELY THOMPSON Orthopedics 7 [id number] Univers 14:00:00 14:00:00 t; JIMY, Trauma ity of Laquita THOMPSON [facility] 2020-07-21 2020-07-21 [facility] [id number] 00:00:00 00:00:00 [facility] [id number] [facility] [id number] Professio [phone] [place] [address] Office [facility] One 2020-07-11 2020-07-11 Orders Doctor ANGELICA [id number] 00:00:00 00:00:00 Only Unassigned, DELISA [id number] [place] [facility] [id number] 2020-07-02 2020-07-02 Appointmen ANGELY PRITCHARD UTP [id number] Univers 10:30:00 10:30:00 t; TYREE PRITCHARD, it y of Ra [place] Ra Physici ans 2020-06-13 2020-06-13 [facility] [id number] 14 09:39:37 10:25:33 Visit Rica Junior [id number] [place] [id number] Professio [phone] [address] 2018-08-31 2018-08-31 Appointmen ANGELY STAHL Oral & [id number] Univers 10:30:00 10:30:00 t; KENNEY Maxillofaci i ty of SWATHI STAHL al Surgery Peter as Joycelyn MOULTON DDS ans 2018-06-29 2018-06-29 Appointmen ANGELY STAHL Oral & [id number] Univers 10:00:00 10:00:00 t; KENNEY, Maxillofaci i ty of SWATHI STAHL al Surgery Peter as Joycelyn MOULTON DDS ans Results Test Description Test Time Test Comments Results Result Comments Source Hematology 2011-03-28 13.5 [facility] Kaylee nn 17:15:00 Hematology 2011-03-28 40.3 [facility] Kaylee nn 17:15:00 Hematology 2011-03-28 164 K/CMM [facility] Kaylee nn 17:15:00 Hematology 2011-02-14 13.9 [facility] Kaylee nn 14:41:00 Hematology 2011-02-14 40.3 [facility] [place] nn 14:41:00 Hematology 2011-02-14 178 K/CMM [facility] Kaylee nn 14:41:00
[2020-08-30 18:46] LABS: Urine Appearance CLEAR (Clear); Urine Bilirubin NEGATIVE (Negative); Urine Blood NEGATIVE (Negative); Urine Color YELLOW (Yellow); Urine Glucose NEGATIVE (Negative); Urine Protein NEGATIVE (Negative); Urine Specific Gravity 1.015 (1.005-1.030); Urine Urobilinogen 0.2 mg/dL (0.2-1.0); Urine pH 5.5 (5.0-7.0)
[2020-08-30 19:03] LABS: Urine Bacteria <20 /HPF (NONE SEEN); Urine RBC <5 /HPF (NONE SEEN)
[2020-08-30] MEDS: ACETAMINOPHEN 500 MG TAB PO PRN (19:32)
[2020-08-30] MEDS: FAMOTIDINE 20 MG TAB PO SCH (19:32)
[2020-08-30] MEDS: GABAPENTIN 400 MG CAP PO SCH (19:33)
[2020-08-30] MEDS: TAMSULOSIN 0.4 MG SR CAP PO SCH (19:33)
[2020-08-31] MEDS: ACETAMINOPHEN 500 MG TAB PO PRN ×3 (01:39→18:55)
[2020-08-31 06:18] LABS: Basophils % 0.7 % (0-1.3); Hematocrit 32.7 % (39.6-49.0); Lymphocytes % 13.9 % (15.3-44.8); MPV 9.3 fL (7.6-11.3); RBC Red Blood Cell Count 3.85 M/uL (4.33-5.43)
[2020-08-31 06:44] LABS: Albumin 2.3 g/dL (3.4-5.0); BUN Blood Urea Nitrogen 9 mg/dL (7-18); Bicarbonate 31 mmol/L (21-32); Glucose Level 93 mg/dL (74-106); Magnesium 1.6 mg/dL (1.8-2.4); Potassium 3.2 mmol/L (3.5-5.1); Prealbumin 12.9 mg/dL (20-40); Sodium Level 146 mmol/L (136-145)
[2020-08-31] MEDS ORDERED: POTASSIUM CL SA 10 MEQ TAB PO ONE (07:46)
[2020-08-31] MEDS ORDERED: MAGNESIUM OXIDE 400 MG TAB PO ONE (07:48)
[2020-08-31] MEDS ORDERED: THIAMINE 200 MG/2 ML INJ IM SCH (08:00)
[2020-08-31] MEDS ORDERED: ASPIRIN EC 81 MG TAB PO SCH (08:00)
[2020-08-31] MEDS: GABAPENTIN 400 MG CAP PO SCH ×2 (08:30→18:56)
[2020-08-31] MEDS: FINASTERIDE 5 MG TAB PO SCH (08:30)
[2020-08-31] MEDS: TAMSULOSIN 0.4 MG SR CAP PO SCH ×2 (08:30→18:55)
[2020-08-31] MEDS: FAMOTIDINE 20 MG TAB PO SCH ×2 (08:31→18:55)
[2020-08-31] MEDS: ZINC SULFATE 220 MG CAP PO SCH (08:31)
[2020-08-31] MEDS: CYANOCOBALAMIN 1,000 MCG TAB PO SCH (08:32)
[2020-08-31] MEDS: AMIODARONE HCL 200 MG TAB PO SCH (08:32)
[2020-08-31] MEDS: ASCORBIC ACID 500 MG TABLET PO SCH (08:32)
[2020-08-31] MEDS: THIAMINE HCL 100 MG TABLET PO SCH (08:37)
[2020-08-31] MEDS: MAGNESIUM OXIDE 400 MG TAB PO SCH ×2 (08:37→18:56)
[2020-08-31] MEDS: COLLAGENASE 30 GM OINTMENT TOP SCH (10:21)
[2020-08-31] MEDS: FLUDROCORTISONE 0.1 MG TAB PO SCH (10:22)
[2020-08-31] MEDS: POTASSIUM CL SA 10 MEQ TAB PO SCH (10:22)
--- NOTE | 2020-08-31 16:36 | RAD REPORT ---
EXAM DESCRIPTION: RAD - Hip Right 2 View - 08/31/2020 3:35 pm CLINICAL HISTORY: pain COMPARISON: Hip Right 2 View dated 07/01/2020; Femur Right dated 07/01/2020; Pelvis dated 07/01/2020 FINDINGS: Single AP view of the hip obtained. Fracture fixation hardware has been placed since the prior imaging. Hardware appears in good position . The trochanteric and subtrochanteric fracture line is still present. Angulation deformity has been substantially corrected. Fracture line remains lucent with no measurable or significant bridging ossi fication. There is 8 mm of distraction along the lateral aspect of the fracture line. No measurable c allus formation. Lesser trochanter is a free fracture fragment that has migrated medially and superio rly from origin. IMPRESSION: Fracture fixation hardware in place with no unexpected hardware finding. The fracture line is still evident. No significant callus formation or significant bridging ossificat ion.
--- NOTE | 2020-08-31 16:56 | R.HP ---
HISTORY AND PHYSICAL FACILITY: [facility] ENCOUNTER DATE AND TIME: 08/31/2020 16:33 (CDT) MR#: [id number] NAME AILEEN ANDINO ADDRESS: [address] [place] [address] [address] CITY: [place] [address]IP [address] PHONE: DATE OF : 1935 AGE: 85 SSN# [id number] GENDER: Male DEXTERITY Right-handed MARITAL STATUS RACE Unknown race PRE-HOSPITAL LIVING SETTING 01 - Home (private home/apt. board/care, assisted living, fci, transitional living) PRE-HOSPITAL LIVING WITH Family/Relatives ENCOUNTER PHYSICIAN: Dr. Zhang Sullivan M.D. REFERRING DOCTOR: DATE OF ADMISSION: 08/30/2020 14:35 (CDT) REFERRING FACILITY [facility] HOME TYPE AND DETAILS: Type of home: single family house # of steps to enter the residence: 1 # of levels in the residence: 1 # of steps within the residence: 1 ONSET DATE: 08/30/2020 PRIMARY DIAGNOSIS-RELATED SURGERIES: SUBSEQUENT ENCOUNTER FOR CLOSED FRACTURE HISTORY OF PRESENT ILLNESS (HPI): Pt. is a 85 yo Right-handed male of unknown race. On 08/30/2020 he was admitted to [facility] with diagnosis right femur fracture. His impairment category is Orthopaedic Disorders 08 - Unilateral Hip Fracture (08.11). Pre-morbidly, Pt. was independent/mod-I in Safety Awareness, Balance, Transfers Control, Endurance, a nd Locomotion; and he had good Balance and Social Cognition. Currently, he has deficits of Locomotion, Safety Awareness, Social Cognition, Transfers Control, Sphi ncter Control, Self-Care, and Endurance. Pt. is now referred to [facility] for acute in-patient rehabilitation in order to maximize patient's functional independence in activities of daily living, strength, ROM, and mobi lity. Patient has realistic goal of being discharged at assistance level 7-Ind to reside at Home with Fami ly/Relatives. MEDICATION ALLERGIES: FENLANYL MORPHINE OXYCODONE PENICILLIN BACTRIM SULFA ANTIBIOTICS ENVIRONMENTAL ALLERGIES: Milk LETTUCE - Substance Allergies None Known - Other Allergies None Known PAST MEDICAL HISTORY: Unspecified lack of coordination (R27.9) Muscle weakness (generalized) (M62.81) Encounter for other aftercare and medical care (Z51) Displaced intertrochanteric fracture of left femur, subsequent encounter for closed fracture with rou vane healing (F06.402I) SOCIAL HISTORY: - Home Living Family/Relatives REVIEW OF SYSTEMS: - Gen No Chills Fatigue No Fever - Eyes No Double Vision No itchiness - ENMT No Difficulty Swallowing - CVS No Chest Discomfort No Chest Pain Fatigue No Weight Gain - Resp No Cough No Shortness of Breath - GI Continent No Abdominal Pain No Constipation No Diarrhea - Continent No Kidney Pain No Painful Urination No Urinary Urgency - MSK No Joint Pain Muscle Cramps Stiffness - Skin No Itching No Rash No Suspicious Lesions - Neuro Coordination Difficulty No Difficulty with Concentration No Memory Loss No Seizures Weakness - Psych No Anxiety No Depression No HIV Exposure No Persistent Infections No Seasonal Allergies - Endo No Cold/Heat Intolerance No Excessive Hunger No Excessive Thirst No Excessive Urination PHYSICAL EXAM - Gen Alert and awake Lying in bed No apparent distress Oriented to: person, time, and place - Skin Mild bruising in anterior legs bilaterally, otherwise intact. Normacephalic - Eyes No abnormalities - ENMT No abnormalities - Neck No abnormalities - CVS RRR - Chest No abnormalities - Resp Clear to auscultation - Abd + bowel sounds - GI Soft Deferred - No abnormalities - Ext Mild right lower extremity edema. - MSK 4+/5 weakness in right lower extremity. - Neuro 4/5 strength right lower extremity - Psych No abnormalities VITAL SIGNS Temperature: 97.9 F SBP/DBP: 140/69 Pulse: 64 Resp: 16 NURSING: - Shower allowing shower - Skin care per protocol PRECAUTIONS: - Posterior Hip Precaution No adduction across midline No external rotation No hip flexion >90 degrees No internal rotation No wheel chair propulsion - Weight Bearing Precaution WBAT right LE ACTIVITIES OOB only with supervision QI SCORES: - Self-Care A. Eating 06-Independent B. Oral hygiene 03-Partial/moderate assistance C. Toileting hygiene 02-Substantial/maximal assistance E. Shower/bathe self 02-Substantial/maximal assistance F. Upper body dressing 02-Substantial/maximal assistance G. Lower body dressing 02-Substantial/maximal assistance H. Putting on/taking off footwear 88-Not attempted due to medical condition or safety concerns - Mobility A. Roll left and right 03-Partial/moderate assistance B. Sit to lying 02-Substantial/maximal assistance C. Lying to sitting on side of bed 02-Substantial/maximal assistance D. Sit to stand 02-Substantial/maximal assistance E. Chair/imw-zd-[id number] transfer 02-Substantial/maximal assistance F. Toilet transfer 03-Partial/moderate assistance G. Car transfer 88-Not attempted due to medical condition or safety concerns I. Walk 10 feet 02-Substantial/maximal assistance J. Walk 50 feet with two turns 88-Not attempted due to medical condition or safety concerns K. Walk 150 feet 88-Not attempted due to medical condition or safety concerns L. Walking 10 feet on uneven surfaces 88-Not attempted due to medical condition or safety concerns M. 1 step (curb) 88-Not attempted due to medical condition or safety concerns N. 4 steps 88-Not attempted due to medical condition or safety concerns O. 12 steps 88-Not attempted due to medical condition or safety concerns P. Picking up object 88-Not attempted due to medical condition or safety concerns R. Wheel 50 feet with two turns 88-Not attempted due to medical condition or safety concerns S. Wheel 150 feet 88-Not attempted due to medical condition or safety concerns - Bladder and Bowel Bladder continence Bowel continence - Endurance Fair - Balance Poor - Safety Awareness Fair CURRENT FUNC. DEFICITS: Mobility, Endurance, Balance, Safety Awareness, and Self-Care MEDICATIONS: - Other See attached MAR (Medication Administration Record) ASSESSMENT: Pt. is a 85 yo Right-handed male of unknown race.On 08/30/2020 he was admitted to [facility] with diagnosis right femur fracture.His impairment category is Orthopaedic Disorders 08 - Unila teral Hip Fracture (08.11).Pre-morbidly, Pt. was independent/mod-I in Safety Awareness, Balance, Arevalo sfers Control, Endurance, and Locomotion; and he had good Balance and Social Cognition.Currently, he has deficits of Locomotion, Safety Awareness, Social Cognition, Transfers Control, Sphincter Control, Self-Care, and Endurance.Pt. is now referred to [facility] for acute in-patie nt rehabilitation in order to maximize patient's functional independence in activities of daily livin g, strength, ROM, and mobility.- Rehab Goal Patient has realistic goal of being discharged at assistance level 7-Ind to reside at Home with Fami ly/Relatives. REHAB PLAN: - Physical Therapy Decreased range of motion - to improve, our physical therapists will perform initial evaluation of pt 's status upon admission and devise an individualized program for increasing patient's Range of Motio n. Gait dysfunction - to improve, our physical therapists will perform initial evaluation of pt's status upon admission and devise an individualized program for Gait Training, and Wheel Chair mobility Inability to transfer - to improve, our physical therapists will perform initial evaluation of pt's s tatus upon admission and devise an individualized program for Bed mobility Need for home safety evaluation - to improve, our physical therapists will perform initial evaluation of pt's status upon admission and devise an individualized program for Home Evaluation Need in caregiver upon discharge - to improve, our physical therapists will perform initial evaluatio n of pt's status upon admission and devise an individualized program for Caregiver Training Edema - to improve, our physical therapists will perform initial evaluation of pt's status upon admi ssion and devise an individualized program for Elevation Training, and Lymphedema Therapy New precaution - to improve, our physical therapists will perform initial evaluation of pt's status u antonio admission and devise an individualized program for Patient precaution education Poor endurance - to improve, our physical therapists will perform initial evaluation of pt's status u antonio admission and devise an individualized program for Endurance Training Weakness - to improve, our physical therapists will perform initial evaluation of pt's status upon ad mission and devise an individualized program for Aquatic Therapy, Neuromuscular Reeducation, and Stre ngthening Achieving independence - to improve, our physical therapists will perform initial evaluation of pt's status upon admission and devise an individualized program for Community Reintegration Activities - Occupational Therapy ADL deficits - to improve, our occupation therapists will perform initial evaluation of pt's status u antonio admission and devise an individualized program for Bathing, Bed mobility, Community Reintegration , Cooking, Dressing, Eating, Fine Motor Skills, Grooming, Homemaking, Kitchen Mobility, Laundry, Taylor ent Education, Safety Awareness, Splinting - Positioning, Transfers(Toilet, Tub, Shower), and Wheel C hair Management Cognitive deficits - to improve, our occupation therapists will perform initial evaluation of pt's st atus upon admission and devise an individualized program for Cognition - orientation Need for careers adviser - to improve, our occupation therapists will perform initial evaluation of pt's s tatus upon admission and devise an individualized program for Caregiver Training Weakness - to improve, our occupation therapists will perform initial evaluation of pt's status upon admission and devise an individualized program for Aquatic Therapy, Balance, Endurance, UE ROM, and U E strengthening MEDICAL PLAN: - Anterior Hip Precaution No abduction No active extension No adduction across midline No external rotation No hip flexion >90 degrees No internal rotation - Diet - Liquid Texture Start Regular - Tube Feed Start N/A - Diet Type Start Regular - Posterior Hip Precaution No adduction across midline No external rotation No hip flexion >90 degrees No internal rotation No wheel chair propulsion - Weight Bearing Precaution WBAT right LE - Skin care per protocol - Other See attached MAR (Medication Administration Record) - Diet - Solid Texture Regular - Shower shower DISCHARGE PLAN: - Estimated Length of Stay (days) 14. - Consensus on plan Discharge plan has been discussed with primary caregiver. Patient/Family is in agreement with the raina n. Primary caregiver is in agreement with the plan. - Patient/Family Goals Return home independently. - Planned Living Setting Upon Discharge Home, to live with Family/Relatives. Transitional Living. SIGNATURE PANEL: (CDT)
--- NOTE | 2020-08-31 16:58 | PAPE ---
POST ADMISSION PHYSICIAN EVALUATION PATIENT: [facility] MR# [id number] REFERRING DOCTOR EVALUATION DATE AND TIME 08/31/2020 16:56 (CDT) NAME AILEEN ANDINO DATE OF 1935 AGE 85 PHONE SSN# [id number] GENDER male EVALUATING PHYSICIAN Dr. Zhang Sullivan M.D. ADMISSION DIAGNOSIS: right femur fracture ONSET DATE 08/30/2020 POST-ADMISSION FUNCTIONAL/MEDICAL STATUS: - Bladder Same accident frequency: 7-Ind - No accidents in the past 7 days - Bowel Same accident frequency: 7-Ind - No accidents in the past 7 days - Walking Same score based on distance walked: 0(N/A) Same score based on distance walked: 1(<=50ft) - Wheelchair Same score based on distance traveled: 0(N/A) STATUS CHANGE EVALUATION: No change in Functional or Medical Status is identified compared with Pre-Admission screening. PATIENT NEEDS CLOSE MEDICAL SUPERVISION BY A REHABILITATION PHYSICIAN FOR: Coordination of Treatment Team PATIENT REQUIRES 24X7 REHAB NURSING FOR MEDICAL AND FUNCTIONAL MGT. OF THE FOLLOWING DEFICITS: Disease Management Medication Management Patient/Family Education Providing Safe Environment PATIENT REQUIRES INTENSIVE, COORDINATED INTERDISCIPLINARY APPROACH TO REHAB: Arranging Home Equipment/Services Discharge Planning Family Intervention/Training Rn Lactation Consultant/Case Management LIST OF IDENTIFIED AND POTENTIAL PROBLEMS: Alteration in leisure activities Bladder, Incontinence Bowel, Incontinence Infection, Actual or Potential Mobility Impaired Pain, Alteration in Comfort Self Care Deficit Skin Integrity, Actual or Potential Urinary Tract Infection (UTI), Actual or Potential PATIENT COULD BE AT RISK FOR COMPLICATIONS FROM ADVERSE MEDICAL CONDITIONS DUE TO HIS/HER COMORBIDITI ES AND THE RIGORS OF THE INTENSIVE REHABILLITATION PROGRAM. METHODS OR INTERVENTIONS TO AVOID COMPLIC ATIONS INCLUDE: - Infection Clinical staff to assess and manage the signs and symptoms of infection including fever, redness, war mth, etc. - Urinary Tract Infection - Falls Patient will be evaluated for Fall Precautions and will be placed on Fall Precautions as indicated pe r protocol. - Skin Breakdown Nursing will assess skin daily using assessment tool and will place on Skin Breakdown Precautions as indicated per protocol. - Pain Clinical staff may employ non-medication methods such as massage, distraction, decrease stimulus, etc . as needed. Clinical staff will assess patient's pain level every shift per protocol to assess and e nsure pain management effectiveness. Medications will be given and the pain level re-assessed. PRELIMINARY PLAN OF CARE: - Physical Therapy Patient needs Physical Therapy for a daily minimum of 1.5 hours at least 5 out of 7 days, to improve: Mobility, Strengthening, Transfers, Stretching, ROM, Endurance, Ability to manage stairs, Gait, and Balance. - Speech Therapy Patient needs Speech Therapy for a daily minimum of 0.5 hours at least 5 out of 7 days, to improve: S wallowing, Cognition, Language Skills, and Compensatory Strategies. - Rehabilitation Nursing Patient requires 24x7 Rehabilitation Nursing for: Pain Issues, Identifying and preventing risk factor s, Monitoring and reporting current medical conditions, Assisting with ambulation and transfer, Arleen ting with all ADL-s, Teaching patients about disease process and medications, Family teaching, Provid ing safe environment, Bowel and Bladder Issues, Skin Integrity, and Medication Management. Patient needs Rn Lactation Consultant and/or Case Management for: Discharge Planning, Arranging Home Equipmen t or Services, and Family Interventions. - Dietary and Nutrition Services Patient needs Dietary and Nutrition Services for: Adequate Nutrition, Nutritional Supplements, and Nu tritional Education. - Occupational Therapy Patient needs Occupational Therapy for a daily minimum of 1.5 hours at least 5 out of 7 days, to impr ove Activities of Daily Living, including: Eating, Grooming, Bathing, Dressing, Toileting, Toilet Tra nsfers, Community Reintegration, Higher functional activities, Adaptive Equipment, Splinting, Househo ld Tasks, and Other activities as determined. QI SCORES: - Self-Care A. Eating 06-Independent B. Oral hygiene 03-Partial/moderate assistance C. Toileting hygiene 02-Substantial/maximal assistance E. Shower/bathe self 02-Substantial/maximal assistance F. Upper body dressing 02-Substantial/maximal assistance G. Lower body dressing 02-Substantial/maximal assistance H. Putting on/taking off footwear 88-Not attempted due to medical condition or safety concerns - Mobility A. Roll left and right 03-Partial/moderate assistance B. Sit to lying 02-Substantial/maximal assistance C. Lying to sitting on side of bed 02-Substantial/maximal assistance D. Sit to stand 02-Substantial/maximal assistance E. Chair/mgu-by-[id number] transfer 02-Substantial/maximal assistance F. Toilet transfer 03-Partial/moderate assistance G. Car transfer 88-Not attempted due to medical condition or safety concerns I. Walk 10 feet 02-Substantial/maximal assistance J. Walk 50 feet with two turns 88-Not attempted due to medical condition or safety concerns K. Walk 150 feet 88-Not attempted due to medical condition or safety concerns L. Walking 10 feet on uneven surfaces 88-Not attempted due to medical condition or safety concerns M. 1 step (curb) 88-Not attempted due to medical condition or safety concerns N. 4 steps 88-Not attempted due to medical condition or safety concerns O. 12 steps 88-Not attempted due to medical condition or safety concerns P. Picking up object 88-Not attempted due to medical condition or safety concerns R. Wheel 50 feet with two turns 88-Not attempted due to medical condition or safety concerns S. Wheel 150 feet 88-Not attempted due to medical condition or safety concerns - Bladder and Bowel Bladder continence Bowel continence - Endurance Fair - Balance Poor - Safety Awareness Fair POTENTIAL FUNCTIONAL GOALS FOR PATIENT TO ACHIEVE BY DISCHARGE: - Safety Precaution Patient will remain free from falls or injury at time of discharge. - Bed Mobility Patient will perform bed mobility at 4-Lorna level of assistance. - Transfers Patient will complete transfers from bed to chair at 4-Lorna level of assistance. - Mobility Patient will ambulate 150 ft with 4-Lorna level of assistance with RW. PATIENT REHAB POTENTIAL Danish ANDINO is able and expected to receive 3 hours of individualized therapy daily on at least 5 of every 7 days Danish ANDINO's prognosis for significant practical improvement within a reasonable period of time trent ears Good Expected level of measurable improvement will be of a practical value to Danish ANDINO's functional ca pacity or adaptations to impairments Has a viable Discharge Plan Medically appropriate; condition is sufficiently stable to participate in intensive rehab program DISCHARGE PLAN: - Estimated Length of Stay (days) 14. - Consensus on plan Discharge plan has been discussed with primary caregiver. Patient/Family is in agreement with the raina n. Primary caregiver is in agreement with the plan. - Patient/Family Goals Return home independently. - Planned Living Setting Upon Discharge Home, to live with Family/Relatives. Transitional Living. CONCLUSION ON REHABILITATION NECESSITY: I have evaluated patient's pre-admission functional status and, comparing it to the patient's post-ad mission functional status now, I conclude that the pre-admission assessment was accurate. Patient's c ondition on admission supports the medical necessity of admission to IRF. It is safe to proceed with patient's therapy program. SIGNATURE PANEL: (CDT)
[2020-08-31] MEDS: ENSURE ENLIVE 237 ML CAN PO SCH (18:49)
[2020-08-31] MEDS: APIXABAN 2.5 MG TABLET PO SCH (18:49)
[2020-09-01] MEDS: ACETAMINOPHEN 500 MG TAB PO PRN ×2 (00:18→19:09)
[2020-09-01] MEDS: COLLAGENASE 30 GM OINTMENT TOP SCH (06:51)
[2020-09-01] MEDS: LIDOCAINE 4% PATCH TOP SCH (06:51)
[2020-09-01] MEDS: ENSURE ENLIVE 237 ML CAN PO SCH ×2 (07:53→19:09)
[2020-09-01] MEDS: APIXABAN 2.5 MG TABLET PO SCH (07:53)
[2020-09-01] MEDS: GABAPENTIN 400 MG CAP PO SCH ×2 (08:21→19:09)
[2020-09-01] MEDS: CYANOCOBALAMIN 1,000 MCG TAB PO SCH (08:21)
[2020-09-01] MEDS: ZINC SULFATE 220 MG CAP PO SCH (08:22)
[2020-09-01] MEDS: FLUDROCORTISONE 0.1 MG TAB PO SCH (08:22)
[2020-09-01] MEDS: POTASSIUM CL SA 10 MEQ TAB PO SCH (08:22)
[2020-09-01] MEDS: FINASTERIDE 5 MG TAB PO SCH (08:22)
[2020-09-01] MEDS: AMIODARONE HCL 200 MG TAB PO SCH (08:22)
[2020-09-01] MEDS: TAMSULOSIN 0.4 MG SR CAP PO SCH ×2 (08:22→19:08)
[2020-09-01] MEDS: FAMOTIDINE 20 MG TAB PO SCH ×2 (08:22→19:08)
[2020-09-01] MEDS: ASCORBIC ACID 500 MG TABLET PO SCH (08:23)
[2020-09-01] MEDS: MAGNESIUM OXIDE 400 MG TAB PO SCH ×2 (08:23→19:09)
[2020-09-01] MEDS: THIAMINE HCL 100 MG TABLET PO SCH (08:23)
--- NOTE | 2020-09-01 09:59 | P.RH.PN ---
Estimated Length of Stay: 15 Expected Discharge Date: 09/13/20 Discharge Disposition Plan: Home Family Support: Yes [facility] Goal: Mobility, Transfers, Self Care Vital Signs: Last Vital Signs Temp 97.9 F 09/01/20 07:58 Pulse 79 09/01/20 07:58 Resp 18 09/01/20 07:58 BP 128/74 09/01/20 07:58 Pulse Ox 97 09/01/20 07:58 Laboratory: Laboratory Last Values WBC 6.90 K/uL (4.3-10.9) D 08/31/20 05:58 RBC 3.85 M/uL (4.33-5.43) L 08/31/20 05:58 Hgb 10.4 g/dL (13.6-17.9) L 08/31/20 05:58 Hct 32.7 % (39.6-49.0) L 08/31/20 05:58 MCV 85.0 fL (80-100) 08/31/20 05:58 MCH 27.1 pg (27.0-35.0) 08/31/20 05:58 MCHC 31.8 g/dL (32.0-36.0) L 08/31/20 05:58 RDW 16.8 % (12.1-15.2) H 08/31/20 05:58 Plt Count 306 K/uL (152-406) D 08/31/20 05:58 MPV 9.3 fL (7.6-11.3) 08/31/20 05:58 Neutrophils % 67.4 % (41.7-73.7) 08/31/20 05:58 Lymphocytes % 13.9 % (15.3-44.8) L 08/31/20 05:58 Monocytes % 12.2 % (3.3-12.3) 08/31/20 05:58 Eosinophils % 5.8 % (0-4.4) H 08/31/20 05:58 Basophils % 0.7 % (0-1.3) 08/31/20 05:58 Absolute Neutrophils 4.7 K/uL (1.8-8.0) 08/31/20 05:58 Absolute Lymphocytes 1.0 K/uL (0.7-4.9) 08/31/20 05:58 Absolute Monocytes 0.8 K/uL (0.1-1.3) 08/31/20 05:58 Absolute Eosinophils 0.4 K/uL (0-0.5) 08/31/20 05:58 Absolute Basophils 0.0 K/uL (0-0.5) 08/31/20 05:58 Sodium 146 mmol/L (136-145) H 08/31/20 05:58 Potassium 3.2 mmol/L (3.5-5.1) L 08/31/20 05:58 Chloride 111 mmol/L (98-107) H 08/31/20 05:58 Carbon Dioxide 31 mmol/L (21-32) 08/31/20 05:58 BUN 9 mg/dL (7-18) 08/31/20 05:58 Creatinine 0.71 mg/dL (0.55-1.3) 08/31/20 05:58 Estimated GFR > 90 mL/min (=/>90) 08/31/20 05:58 Glucose 93 mg/dL (74-106) 08/31/20 05:58 Calcium 8.3 mg/dL (8.5-10.1) L 08/31/20 05:58 Magnesium 1.6 mg/dL (1.8-2.4) L 08/31/20 05:58 Albumin 2.3 g/dL (3.4-5.0) L 08/31/20 05:58 Prealbumin 12.9 mg/dL (20-40) L 08/31/20 05:58 Urine Color Yellow (Yellow) 08/30/20 18:00 Urine Appearance Clear (Clear) 08/30/20 18:00 Urine pH 5.5 (5.0-7.0) 08/30/20 18:00 Ur Specific [place] 1.015 (1.005-1.030) 08/30/20 18:00 Glucose (UA)(Auto) Negative (Negative) 08/30/20 18:00 Urine Ketones Negative (Negative) 08/30/20 18:00 Urine Blood Negative (Negative) 08/30/20 18:00 Urine Nitrite Negative (Negative) 08/30/20 18:00 Urine Bilirubin Negative (Negative) 08/30/20 18:00 Urine Urobilinogen 0.2 mg/dL (0.2-1.0) 08/30/20 18:00 Ur Leukocyte Esterase Negative (Negative) 08/30/20 18:00 Urine RBC <5 /HPF (NONE SEEN) 08/30/20 18:00 Urine WBC <5 /HPF (<5) 08/30/20 18:00 Ur Squamous Epith Cells <5 /HPF (NONE SEEN) 08/30/20 18:00 Urine Bacteria <20 /HPF (NONE SEEN) 08/30/20 18:00 Urine Culture Reflexed Not needed 08/30/20 18:00 Urine Total Protein Negative (Negative) 08/30/20 18:00 Weight: 200 lb Wound Present: Yes Closed Surgical Incision Present: No Negative Pressure Wound Therapy Present: No Physician Update: His prealbumin, K and Hgb were low. K has been replaced, he is on iron supplements and protein drinks. He is moderate assistance for transfers. Walking 30' with moderate assistance. He has chronic foot drop bilaterally and his AFOs may require replacement. He is independent with grooming. Bathing patrial to mod assistance. Upper body dressing is moderate assistance. Shower transfers with max assistance. He has limited strength and range of motion in the right shoulder due to arthritis. Summary: Patient's care plan and assisted goals have been reviewed and revised as necessary. Please see the Rehabilitation Signature page for all necessary signatures.
[2020-09-01] MEDS: ASPIRIN EC 81 MG TAB PO SCH (12:00)
[2020-09-01] MEDS: MELATONIN 3 MG TABLET PO PRN (19:09)
[2020-09-02] MEDS: ENSURE ENLIVE 237 ML CAN PO SCH ×2 (08:00→20:00)
[2020-09-02] MEDS: ACETAMINOPHEN 500 MG TAB PO PRN (08:18)
[2020-09-02] MEDS: AMIODARONE HCL 200 MG TAB PO SCH (08:19)
[2020-09-02] MEDS: ASCORBIC ACID 500 MG TABLET PO SCH (08:19)
[2020-09-02] MEDS: TAMSULOSIN 0.4 MG SR CAP PO SCH ×2 (08:20→20:01)
[2020-09-02] MEDS: ASPIRIN EC 81 MG TAB PO SCH (08:20)
[2020-09-02] MEDS: THIAMINE HCL 100 MG TABLET PO SCH (08:20)
[2020-09-02] MEDS: FAMOTIDINE 20 MG TAB PO SCH ×2 (08:20→20:01)
[2020-09-02] MEDS: CYANOCOBALAMIN 1,000 MCG TAB PO SCH (08:20)
[2020-09-02] MEDS: FLUDROCORTISONE 0.1 MG TAB PO SCH (08:21)
[2020-09-02] MEDS: FINASTERIDE 5 MG TAB PO SCH (08:21)
[2020-09-02] MEDS: MAGNESIUM OXIDE 400 MG TAB PO SCH ×2 (08:21→20:01)
[2020-09-02] MEDS: ZINC SULFATE 220 MG CAP PO SCH (08:21)
[2020-09-02] MEDS: GABAPENTIN 400 MG CAP PO SCH ×2 (08:21→20:01)
[2020-09-02] MEDS: POTASSIUM CL SA 10 MEQ TAB PO SCH (08:22)
[2020-09-02] MEDS: LIDOCAINE 4% PATCH TOP SCH (10:27)
[2020-09-02] MEDS: COLLAGENASE 30 GM OINTMENT TOP SCH (10:28)
[2020-09-02] MEDS: MELATONIN 3 MG TABLET PO PRN (20:58)
[2020-09-02] MEDS: TRAMADOL HCL 50 MG TAB PO PRN (23:50)
[2020-09-03] MEDS: COLLAGENASE 30 GM OINTMENT TOP SCH (07:01)
[2020-09-03] MEDS: LIDOCAINE 4% PATCH TOP SCH (07:01)
[2020-09-03] MEDS: ENSURE ENLIVE 237 ML CAN PO SCH ×2 (08:00→20:00)
[2020-09-03] MEDS: ASPIRIN EC 81 MG TAB PO SCH (08:15)
[2020-09-03] MEDS: AMIODARONE HCL 200 MG TAB PO SCH (08:15)
[2020-09-03] MEDS: THIAMINE HCL 100 MG TABLET PO SCH (08:16)
[2020-09-03] MEDS: TAMSULOSIN 0.4 MG SR CAP PO SCH ×2 (08:16→20:14)
[2020-09-03] MEDS: FAMOTIDINE 20 MG TAB PO SCH ×2 (08:16→20:14)
[2020-09-03] MEDS: FLUDROCORTISONE 0.1 MG TAB PO SCH (08:16)
[2020-09-03] MEDS: ASCORBIC ACID 500 MG TABLET PO SCH (08:16)
[2020-09-03] MEDS: CYANOCOBALAMIN 1,000 MCG TAB PO SCH (08:16)
[2020-09-03] MEDS: MAGNESIUM OXIDE 400 MG TAB PO SCH ×2 (08:17→20:14)
[2020-09-03] MEDS: POTASSIUM CL SA 10 MEQ TAB PO SCH (08:17)
[2020-09-03] MEDS: ZINC SULFATE 220 MG CAP PO SCH (08:18)
[2020-09-03] MEDS: GABAPENTIN 400 MG CAP PO SCH ×2 (08:18→20:14)
[2020-09-03] MEDS: FINASTERIDE 5 MG TAB PO SCH (08:18)
[2020-09-03] MEDS: MELATONIN 3 MG TABLET PO PRN (20:14)
[2020-09-03] MEDS: ACETAMINOPHEN 500 MG TAB PO PRN (23:30)
[2020-09-04] MEDS: ACETAMINOPHEN 500 MG TAB PO PRN ×2 (06:57→15:49)
[2020-09-04] MEDS: FINASTERIDE 5 MG TAB PO SCH (08:00)
[2020-09-04] MEDS: ENSURE ENLIVE 237 ML CAN PO SCH (08:00)
[2020-09-04] MEDS: COLLAGENASE 30 GM OINTMENT TOP SCH (08:27)
[2020-09-04] MEDS: LIDOCAINE 4% PATCH TOP SCH (08:27)
[2020-09-04] MEDS: CYANOCOBALAMIN 1,000 MCG TAB PO SCH (08:28)
[2020-09-04] MEDS: ZINC SULFATE 220 MG CAP PO SCH (08:28)
[2020-09-04] MEDS: FAMOTIDINE 20 MG TAB PO SCH ×2 (08:28→19:05)
[2020-09-04] MEDS: ASPIRIN EC 81 MG TAB PO SCH (08:28)
[2020-09-04] MEDS: TAMSULOSIN 0.4 MG SR CAP PO SCH ×2 (08:29→19:05)
[2020-09-04] MEDS: FLUDROCORTISONE 0.1 MG TAB PO SCH (08:29)
[2020-09-04] MEDS: POTASSIUM CL SA 10 MEQ TAB PO SCH (08:29)
[2020-09-04] MEDS: THIAMINE HCL 100 MG TABLET PO SCH (08:29)
[2020-09-04] MEDS: GABAPENTIN 400 MG CAP PO SCH ×2 (08:30→19:05)
[2020-09-04] MEDS: AMIODARONE HCL 200 MG TAB PO SCH (08:30)
[2020-09-04] MEDS: ASCORBIC ACID 500 MG TABLET PO SCH (08:30)
[2020-09-04] MEDS: MAGNESIUM OXIDE 400 MG TAB PO SCH ×2 (08:30→19:06)
--- NOTE | 2020-09-04 16:30 | R.PN ---
PROGRESS NOTES ENCOUNTER DATE AND TIME: 09/04/2020 16:22 (CDT) NAME AILEEN ANDINO DATE OF : 1935 DATE OF ADMISSION: 08/30/2020 14:35 (CDT) right femur fractureCHIEF COMPLAINT: Right femur fracture, debility SUBJECTIVE: Pt denied any depression. Pt denied any Shortness of Breath. WBC 6.9, Hgb 10.4, PLT 306, prelabumin 12.9, K 3.2, Na 146, Ca 8.3, Mg 1.6. Ambulated 90' with minimum assistance using a rolling walker. Replaced K and Mg. VITAL SIGNS Temperature: 98.2 F SBP/DBP: 175/65 Pulse: 63 Resp: 16 MEDICATION ALLERGIES: FENLANYL MORPHINE OXYCODONE PENICILLIN BACTRIM SULFA ANTIBIOTICS ENVIRONMENTAL ALLERGIES: Milk LETTUCE - Substance Allergies None Known - Other Allergies None Known NURSING: - Shower allowing shower - Skin care per protocol PRECAUTIONS: - Posterior Hip Precaution No adduction across midline No external rotation No hip flexion >90 degrees No internal rotation No wheel chair propulsion - Weight Bearing Precaution WBAT right LE ACTIVITIES OOB only with supervision THERAPIES: - Dietary and Nutrition Adequate Nutrition. Nutritional Education. Nutritional Supplements. PHYSICAL EXAM - Gen Alert and awake Lying in bed No apparent distress Oriented to: person, time, and place - Skin Mild bruising in anterior legs bilaterally, otherwise intact. Normacephalic - Eyes No abnormalities - ENMT No abnormalities - Neck No abnormalities - CVS RRR - Chest No abnormalities - Resp Clear to auscultation - Abd + bowel sounds - GI Soft Deferred - No abnormalities - Ext Mild right lower extremity edema. - MSK 4+/5 weakness in right lower extremity. - Neuro 4/5 strength right lower extremity - Psych No abnormalities ASSESSMENT: Pt. is a 85 yo Right-handed male of unknown race.On 08/30/2020 he was admitted to [facility] with diagnosis right femur fracture.His impairment category is Orthopaedic Disorders 08 - Unila teral Hip Fracture (11).Pre-morbidly, Pt. was independent/mod-I in Safety Awareness, Balance, Arevalo sfers Control, Endurance, and Locomotion; and he had good Balance and Social Cognition.Currently, he has deficits of Locomotion, Safety Awareness, Social Cognition, Transfers Control, Sphincter Control, Self-Care, and Endurance.Pt. is now referred to [facility] for acute in-patie nt rehabilitation in order to maximize patient's functional independence in activities of daily livin g, strength, ROM, and mobility.- Rehab Goal Patient has realistic goal of being discharged at assistance level 7-Ind to reside at Home with Fami ly/Relatives. MDM/PLAN: - Physical Therapy Decreased range of motion - to improve, our physical therapists will perform initial evaluation of p t's status upon admission and devise an individualized program for increasing patient's Range of Keyur on. Gait dysfunction - to improve, our physical therapists will perform initial evaluation of pt's statu s upon admission and devise an individualized program for Gait Training, and Wheel Chair mobility Inability to transfer - to improve, our physical therapists will perform initial evaluation of pt's status upon admission and devise an individualized program for Bed mobility Need for home safety evaluation - to improve, our physical therapists will perform initial evaluatio n of pt's status upon admission and devise an individualized program for Home Evaluation Need in caregiver upon discharge - to improve, our physical therapists will perform initial evaluati on of pt's status upon admission and devise an individualized program for Caregiver Training Edema - to improve, our physical therapists will perform initial evaluation of pt's status upon admis mark and devise an individualized program for Elevation Training, and Lymphedema Therapy New precaution - to improve, our physical therapists will perform initial evaluation of pt's status upon admission and devise an individualized program for Patient precaution education Poor endurance - to improve, our physical therapists will perform initial evaluation of pt's status upon admission and devise an individualized program for Endurance Training Weakness - to improve, our physical therapists will perform initial evaluation of pt's status upon a dmission and devise an individualized program for Aquatic Therapy, Neuromuscular Reeducation, and Str engthening Achieving independence - to improve, our physical therapists will perform initial evaluation of pt's status upon admission and devise an individualized program for Community Reintegration Activities - Occupational Therapy ADL deficits - to improve, our occupation therapists will perform initial evaluation of pt's status upon admission and devise an individualized program for Bathing, Bed mobility, Community Reintegratio n, Cooking, Dressing, Eating, Fine Motor Skills, Grooming, Homemaking, Kitchen Mobility, Laundry, Pat ient Education, Safety Awareness, Splinting - Positioning, Transfers(Toilet, Tub, Shower), and Wheel Chair Management Cognitive deficits - to improve, our occupation therapists will perform initial evaluation of pt's s tatus upon admission and devise an individualized program for Cognition - orientation Need for child care teacher - to improve, our occupation therapists will perform initial evaluation of pt's status upon admission and devise an individualized program for Caregiver Training Weakness - to improve, our occupation therapists will perform initial evaluation of pt's status upon admission and devise an individualized program for Aquatic Therapy, Balance, Endurance, UE ROM, and UE strengthening - Other See attached MAR (Medication Administration Record) - Anterior Hip Precaution No abduction No active extension No adduction across midline No external rotation No hip flexion >90 degrees No internal rotation - Diet - Liquid Texture Continue Regular - Tube Feed Continue N/A - Diet Type Continue Regular - Posterior Hip Precaution No adduction across midline No external rotation No hip flexion >90 degrees No internal rotation No wheel chair propulsion - Weight Bearing Precaution WBAT right LE - Skin care per protocol - Diet - Solid Texture Continue Regular - Shower allowing shower FUNCTIONAL STATUS: UPDATED AT WEEKLY TEAM CONFERENCE - Bladder Same accident frequency: 7-Ind - No accidents in the past 7 days - Bowel Same accident frequency: 7-Ind - No accidents in the past 7 days - Walking Same score based on distance walked: 0(N/A) Same score based on distance walked: 1(<=50ft) - Wheelchair Same score based on distance traveled: 0(N/A) FUNCTIONAL STATUS: - Self-Care A. Eating Joyce B. Grooming sup C. Bathing Lorna D. Dressing - Upper Lorna E. Dressing - Lower modA F. Toileting Lorna - Sphincter Control G. Bladder control Lorna H. Bowel control Lorna - Transfers Control I. Bed/Chair/Wheelchair Lorna J. Toilet Lorna K. Tub/Shower modA - Locomotion L. Walk/Wheelchair (B) Lorna M. Stairs maxA - Communication N. Comprehension (B) sup O. Expression (B) sup - Social Cognition P. Social Interaction Joyce Q. Problem Solving sup R. Memory sup - Endurance Fair - Balance Fair - Safety Awareness Fair QI SCORES: - Self-Care A. Eating 06-Independent B. Oral hygiene 03-Partial/moderate assistance C. Toileting hygiene 02-Substantial/maximal assistance E. Shower/bathe self 02-Substantial/maximal assistance F. Upper body dressing 02-Substantial/maximal assistance G. Lower body dressing 02-Substantial/maximal assistance H. Putting on/taking off footwear 88-Not attempted due to medical condition or safety concerns - Mobility A. Roll left and right 03-Partial/moderate assistance B. Sit to lying 02-Substantial/maximal assistance C. Lying to sitting on side of bed 02-Substantial/maximal assistance D. Sit to stand 02-Substantial/maximal assistance E. Chair/[id number] transfer 02-Substantial/maximal assistance F. Toilet transfer 03-Partial/moderate assistance G. Car transfer 88-Not attempted due to medical condition or safety concerns I. Walk 10 feet 02-Substantial/maximal assistance J. Walk 50 feet with two turns 88-Not attempted due to medical condition or safety concerns K. Walk 150 feet 88-Not attempted due to medical condition or safety concerns L. Walking 10 feet on uneven surfaces 88-Not attempted due to medical condition or safety concerns M. 1 step (curb) 88-Not attempted due to medical condition or safety concerns N. 4 steps 88-Not attempted due to medical condition or safety concerns O. 12 steps 88-Not attempted due to medical condition or safety concerns P. Picking up object 88-Not attempted due to medical condition or safety concerns R. Wheel 50 feet with two turns 88-Not attempted due to medical condition or safety concerns S. Wheel 150 feet 88-Not attempted due to medical condition or safety concerns - Bladder and Bowel Bladder continence Bowel continence - Endurance Fair - Balance Poor - Safety Awareness Fair [facility]RENT [facility] DEFICITS: Mobility, Endurance, Balance, Safety Awareness, and Self-Care SIGNATURE PANEL: (CDT)
[2020-09-04] MEDS: METHYL SALICYLATE/MENTHOL 3 OZ TUBE TOP PRN (17:40)
[2020-09-04] MEDS: MELATONIN 3 MG TABLET PO PRN (19:06)
[2020-09-05] MEDS: ACETAMINOPHEN 500 MG TAB PO PRN ×3 (00:19→20:03)
[2020-09-05] MEDS: LIDOCAINE 4% PATCH TOP SCH (06:38)
[2020-09-05] MEDS: COLLAGENASE 30 GM OINTMENT TOP SCH (06:38)
[2020-09-05 06:56] LABS: BUN Blood Urea Nitrogen 9 mg/dL (7-18); Bicarbonate 31 mmol/L (21-32); Glucose Level 92 mg/dL (74-106); Magnesium 1.8 mg/dL (1.8-2.4); Potassium 3.5 mmol/L (3.5-5.1); Sodium Level 144 mmol/L (136-145)
[2020-09-05] MEDS: METHYL SALICYLATE/MENTHOL 3 OZ TUBE TOP PRN (07:34)
[2020-09-05] MEDS: AMIODARONE HCL 200 MG TAB PO SCH (07:55)
[2020-09-05] MEDS: ASPIRIN EC 81 MG TAB PO SCH (07:55)
[2020-09-05] MEDS: MAGNESIUM OXIDE 400 MG TAB PO SCH ×2 (07:55→20:00)
[2020-09-05] MEDS: ASCORBIC ACID 500 MG TABLET PO SCH (07:56)
[2020-09-05] MEDS: POTASSIUM CL SA 10 MEQ TAB PO SCH (07:56)
[2020-09-05] MEDS: CYANOCOBALAMIN 1,000 MCG TAB PO SCH (07:56)
[2020-09-05] MEDS: THIAMINE HCL 100 MG TABLET PO SCH (07:56)
[2020-09-05] MEDS: ZINC SULFATE 220 MG CAP PO SCH (07:56)
[2020-09-05] MEDS: TAMSULOSIN 0.4 MG SR CAP PO SCH ×2 (07:56→20:02)
[2020-09-05] MEDS: GABAPENTIN 400 MG CAP PO SCH ×2 (07:56→20:03)
[2020-09-05] MEDS: FINASTERIDE 5 MG TAB PO SCH (07:56)
[2020-09-05] MEDS: FAMOTIDINE 20 MG TAB PO SCH ×2 (07:56→20:03)
[2020-09-05] MEDS: FLUDROCORTISONE 0.1 MG TAB PO SCH (07:56)
[2020-09-05] MEDS: JUVEN PACKET PO SCH (20:00)
[2020-09-05] MEDS: MELATONIN 3 MG TABLET PO PRN (20:04)
[2020-09-06] MEDS: ACETAMINOPHEN 500 MG TAB PO PRN (03:41)
[2020-09-06] MEDS: LIDOCAINE 4% PATCH TOP SCH (08:32)
[2020-09-06] MEDS: COLLAGENASE 30 GM OINTMENT TOP SCH (08:32)
[2020-09-06] MEDS: ZINC SULFATE 220 MG CAP PO SCH (08:33)
[2020-09-06] MEDS: MAGNESIUM OXIDE 400 MG TAB PO SCH ×2 (08:34→20:05)
[2020-09-06] MEDS: TAMSULOSIN 0.4 MG SR CAP PO SCH ×2 (08:34→20:04)
[2020-09-06] MEDS: FAMOTIDINE 20 MG TAB PO SCH ×2 (08:34→20:04)
[2020-09-06] MEDS: GABAPENTIN 400 MG CAP PO SCH ×2 (08:34→20:05)
[2020-09-06] MEDS: ASPIRIN EC 81 MG TAB PO SCH (08:35)
[2020-09-06] MEDS: FINASTERIDE 5 MG TAB PO SCH (08:35)
[2020-09-06] MEDS: CYANOCOBALAMIN 1,000 MCG TAB PO SCH (08:35)
[2020-09-06] MEDS: FLUDROCORTISONE 0.1 MG TAB PO SCH (08:35)
[2020-09-06] MEDS: THIAMINE HCL 100 MG TABLET PO SCH (08:36)
[2020-09-06] MEDS: ASCORBIC ACID 500 MG TABLET PO SCH (08:36)
[2020-09-06] MEDS: AMIODARONE HCL 200 MG TAB PO SCH (08:40)
[2020-09-06] MEDS: POTASSIUM CL SA 10 MEQ TAB PO SCH (08:40)
[2020-09-06] MEDS: JUVEN PACKET PO SCH ×2 (08:41→20:00)
[2020-09-06] MEDS: MELATONIN 3 MG TABLET PO PRN (20:04)
[2020-09-07 06:53] LABS: Absolute Lymphocytes (CBC) 0.7 K/uL (0.7-4.9); Basophils % 0.7 % (0-1.3); Hematocrit 32.1 % (39.6-49.0); Lymphocytes % 11.1 % (15.3-44.8); MPV 10.2 fL (7.6-11.3)
[2020-09-07 07:03] LABS: Albumin 2.2 g/dL (3.4-5.0); BUN Blood Urea Nitrogen 13 mg/dL (7-18); Bicarbonate 32 mmol/L (21-32); Glucose Level 96 mg/dL (74-106); Magnesium 1.8 mg/dL (1.8-2.4); Potassium 3.5 mmol/L (3.5-5.1); Prealbumin 10.6 mg/dL (20-40); Sodium Level 143 mmol/L (136-145)
[2020-09-07] MEDS: JUVEN PACKET PO SCH ×2 (08:00→20:00)
[2020-09-07] MEDS: POTASSIUM CL SA 10 MEQ TAB PO SCH (08:51)
[2020-09-07] MEDS: FAMOTIDINE 20 MG TAB PO SCH ×2 (08:51→20:09)
[2020-09-07] MEDS: ZINC SULFATE 220 MG CAP PO SCH (08:51)
[2020-09-07] MEDS: ASPIRIN EC 81 MG TAB PO SCH (08:51)
[2020-09-07] MEDS: CYANOCOBALAMIN 1,000 MCG TAB PO SCH (08:52)
[2020-09-07] MEDS: GABAPENTIN 400 MG CAP PO SCH ×2 (08:52→20:09)
[2020-09-07] MEDS: FINASTERIDE 5 MG TAB PO SCH (08:52)
[2020-09-07] MEDS: ASCORBIC ACID 500 MG TABLET PO SCH (08:52)
[2020-09-07] MEDS: AMIODARONE HCL 200 MG TAB PO SCH (08:52)
[2020-09-07] MEDS: THIAMINE HCL 100 MG TABLET PO SCH (08:52)
[2020-09-07] MEDS: TAMSULOSIN 0.4 MG SR CAP PO SCH ×2 (08:52→20:08)
[2020-09-07] MEDS: MAGNESIUM OXIDE 400 MG TAB PO SCH ×2 (08:57→20:09)
[2020-09-07] MEDS: LIDOCAINE 4% PATCH TOP SCH (08:58)
[2020-09-07] MEDS: ACETAMINOPHEN 500 MG TAB PO PRN ×2 (08:58→22:11)
[2020-09-07] MEDS: COLLAGENASE 30 GM OINTMENT TOP SCH (08:58)
[2020-09-07] MEDS: FLUDROCORTISONE 0.1 MG TAB PO SCH (09:02)
--- NOTE | 2020-09-07 18:44 | R.PN ---
PROGRESS NOTES ENCOUNTER DATE AND TIME: 09/07/2020 18:38 (CDT) NAME AILEEN ANDINO DATE OF : 1935 DATE OF ADMISSION: 08/30/2020 14:35 (CDT) right femur fractureCHIEF COMPLAINT: Right femur fracture, debility SUBJECTIVE: Pt denied any depression. Pt denied any Shortness of Breath. WBC 6.7, Hgb 10.3, PLT 248, prelabumin 10.6, K 3.5, Na 143, Ca 8.4, Mg 1.8. Ambulated 60' with contact guard assistance using a rolling walker. Replaced K and Mg. Propelled wheelchair 250' with manual resistance. VITAL SIGNS Temperature: 99.1 F SBP/DBP: 160/74 Pulse: 64 Resp: 16 MEDICATION ALLERGIES: FENLANYL MORPHINE OXYCODONE PENICILLIN BACTRIM SULFA ANTIBIOTICS ENVIRONMENTAL ALLERGIES: Milk LETTUCE - Substance Allergies None Known - Other Allergies None Known NURSING: - Shower allowing shower - Skin care per protocol PRECAUTIONS: - Posterior Hip Precaution No adduction across midline No external rotation No hip flexion >90 degrees No internal rotation No wheel chair propulsion - Weight Bearing Precaution WBAT right LE ACTIVITIES OOB only with supervision THERAPIES: - Dietary and Nutrition Adequate Nutrition. Nutritional Education. Nutritional Supplements. PHYSICAL EXAM - Gen Alert and awake Lying in bed No apparent distress Oriented to: person, time, and place - Skin Mild bruising in anterior legs bilaterally, otherwise intact. Normacephalic - Eyes No abnormalities - ENMT No abnormalities - Neck No abnormalities - CVS RRR - Chest No abnormalities - Resp Clear to auscultation - Abd + bowel sounds - GI Soft Deferred - No abnormalities - Ext Mild right lower extremity edema. - MSK 4+/5 weakness in right lower extremity. - Neuro 4/5 strength right lower extremity - Psych No abnormalities ASSESSMENT: Pt. is a 85 yo Right-handed male of unknown race.On 08/30/2020 he was admitted to [facility] with diagnosis right femur fracture.His impairment category is Orthopaedic Disorders 08 - Unila teral Hip Fracture (08.11).Pre-morbidly, Pt. was independent/mod-I in Safety Awareness, Balance, Arevalo sfers Control, Endurance, and Locomotion; and he had good Balance and Social Cognition.Currently, he has deficits of Locomotion, Safety Awareness, Social Cognition, Transfers Control, Sphincter Control, Self-Care, and Endurance.Pt. is now referred to [facility] for acute in-patie nt rehabilitation in order to maximize patient's functional independence in activities of daily livin g, strength, ROM, and mobility.- Rehab Goal Patient has realistic goal of being discharged at assistance level 7-Ind to reside at Home with Fami ly/Relatives. MDM/PLAN: - Physical Therapy Decreased range of motion - to improve, our physical therapists will perform initial evaluation of p t's status upon admission and devise an individualized program for increasing patient's Range of Keyur on. Gait dysfunction - to improve, our physical therapists will perform initial evaluation of pt's statu s upon admission and devise an individualized program for Gait Training, and Wheel Chair mobility Inability to transfer - to improve, our physical therapists will perform initial evaluation of pt's status upon admission and devise an individualized program for Bed mobility Need for home safety evaluation - to improve, our physical therapists will perform initial evaluatio n of pt's status upon admission and devise an individualized program for Home Evaluation Need in caregiver upon discharge - to improve, our physical therapists will perform initial evaluati on of pt's status upon admission and devise an individualized program for Caregiver Training Edema - to improve, our physical therapists will perform initial evaluation of pt's status upon admi ssion and devise an individualized program for Elevation Training, and Lymphedema Therapy New precaution - to improve, our physical therapists will perform initial evaluation of pt's status upon admission and devise an individualized program for Patient precaution education Poor endurance - to improve, our physical therapists will perform initial evaluation of pt's status upon admission and devise an individualized program for Endurance Training Weakness - to improve, our physical therapists will perform initial evaluation of pt's status upon a dmission and devise an individualized program for Aquatic Therapy, Neuromuscular Reeducation, and Str engthening Achieving independence - to improve, our physical therapists will perform initial evaluation of pt's status upon admission and devise an individualized program for Community Reintegration Activities - Occupational Therapy ADL deficits - to improve, our occupation therapists will perform initial evaluation of pt's status upon admission and devise an individualized program for Bathing, Bed mobility, Community Reintegratio n, Cooking, Dressing, Eating, Fine Motor Skills, Grooming, Homemaking, Kitchen Mobility, Laundry, Pat ient Education, Safety Awareness, Splinting - Positioning, Transfers(Toilet, Tub, Shower), and Wheel Chair Management Cognitive deficits - to improve, our occupation therapists will perform initial evaluation of pt's s tatus upon admission and devise an individualized program for Cognition - orientation Need for home child care provider - to improve, our occupation therapists will perform initial evaluation of pt's status upon admission and devise an individualized program for Caregiver Training Weakness - to improve, our occupation therapists will perform initial evaluation of pt's status upon admission and devise an individualized program for Aquatic Therapy, Balance, Endurance, UE ROM, and UE strengthening - Other See attached MAR (Medication Administration Record) - Anterior Hip Precaution No abduction No active extension No adduction across midline No external rotation No hip flexion >90 degrees No internal rotation - Diet - Liquid Texture Continue Regular - Tube Feed Continue N/A - Diet Type Continue Regular - Posterior Hip Precaution No adduction across midline No external rotation No hip flexion >90 degrees No internal rotation No wheel chair propulsion - Weight Bearing Precaution WBAT right LE - Skin care per protocol - Diet - Solid Texture Continue Regular - Shower allowing shower FUNCTIONAL STATUS: UPDATED AT WEEKLY TEAM CONFERENCE - Bladder Same accident frequency: 7-Ind - No accidents in the past 7 days - Bowel Same accident frequency: 7-Ind - No accidents in the past 7 days - Walking Same score based on distance walked: 0(N/A) Same score based on distance walked: 1(<=50ft) - Wheelchair Same score based on distance traveled: 0(N/A) FUNCTIONAL STATUS: - Self-Care A. Eating Joyce B. Grooming sup C. Bathing Lorna D. Dressing - Upper Lorna E. Dressing - Lower modA F. Toileting Lorna - Sphincter Control G. Bladder control Lorna H. Bowel control Lorna - Transfers Control I. Bed/Chair/Wheelchair Lorna J. Toilet Lorna K. Tub/Shower modA - Locomotion L. Walk/Wheelchair (B) Lorna M. Stairs maxA - Communication N. Comprehension (B) sup O. Expression (B) sup - Social Cognition P. Social Interaction Joyce Q. Problem Solving sup R. Memory sup - Endurance Fair - Balance Fair - Safety Awareness Fair QI SCORES: - Self-Care A. Eating 06-Independent B. Oral hygiene 03-Partial/moderate assistance C. Toileting hygiene 02-Substantial/maximal assistance E. Shower/bathe self 02-Substantial/maximal assistance F. Upper body dressing 02-Substantial/maximal assistance G. Lower body dressing 02-Substantial/maximal assistance H. Putting on/taking off footwear 88-Not attempted due to medical condition or safety concerns - Mobility A. Roll left and right 03-Partial/moderate assistance B. Sit to lying 02-Substantial/maximal assistance C. Lying to sitting on side of bed 02-Substantial/maximal assistance D. Sit to stand 02-Substantial/maximal assistance E. Chair/sse-pd-supmz transfer 02-Substantial/maximal assistance F. Toilet transfer 03-Partial/moderate assistance G. Car transfer 88-Not attempted due to medical condition or safety concerns I. Walk 10 feet 02-Substantial/maximal assistance J. Walk 50 feet with two turns 88-Not attempted due to medical condition or safety concerns K. Walk 150 feet 88-Not attempted due to medical condition or safety concerns L. Walking 10 feet on uneven surfaces 88-Not attempted due to medical condition or safety concerns M. 1 step (curb) 88-Not attempted due to medical condition or safety concerns N. 4 steps 88-Not attempted due to medical condition or safety concerns O. 12 steps 88-Not attempted due to medical condition or safety concerns P. Picking up object 88-Not attempted due to medical condition or safety concerns R. Wheel 50 feet with two turns 88-Not attempted due to medical condition or safety concerns S. Wheel 150 feet 88-Not attempted due to medical condition or safety concerns - Bladder and Bowel Bladder continence Bowel continence - Endurance Fair - Balance Poor - Safety Awareness Fair CURRENT [facility]UNC. DEFICITS: Mobility, Endurance, Balance, Safety Awareness, and Self-Care SIGNATURE PANEL: (CDT)
[2020-09-07] MEDS: MELATONIN 3 MG TABLET PO PRN (20:09)
[2020-09-08] MEDS: METHYL SALICYLATE/MENTHOL 3 OZ TUBE TOP PRN (06:44)
[2020-09-08] MEDS: LIDOCAINE 4% PATCH TOP SCH (06:45)
[2020-09-08] MEDS: COLLAGENASE 30 GM OINTMENT TOP SCH (06:45)
[2020-09-08] MEDS: JUVEN PACKET PO SCH ×2 (08:00→20:27)
[2020-09-08] MEDS: FLUDROCORTISONE 0.1 MG TAB PO SCH (08:30)
[2020-09-08] MEDS: CYANOCOBALAMIN 1,000 MCG TAB PO SCH (08:30)
[2020-09-08] MEDS: TAMSULOSIN 0.4 MG SR CAP PO SCH ×2 (08:30→20:27)
[2020-09-08] MEDS: POTASSIUM CL SA 10 MEQ TAB PO SCH (08:30)
[2020-09-08] MEDS: ASPIRIN EC 81 MG TAB PO SCH (08:30)
[2020-09-08] MEDS: ASCORBIC ACID 500 MG TABLET PO SCH (08:31)
[2020-09-08] MEDS: GABAPENTIN 400 MG CAP PO SCH ×2 (08:31→20:28)
[2020-09-08] MEDS: MAGNESIUM OXIDE 400 MG TAB PO SCH ×2 (08:31→20:27)
[2020-09-08] MEDS: FAMOTIDINE 20 MG TAB PO SCH ×2 (08:31→20:28)
[2020-09-08] MEDS: AMIODARONE HCL 200 MG TAB PO SCH (08:32)
[2020-09-08] MEDS: FINASTERIDE 5 MG TAB PO SCH (08:32)
[2020-09-08] MEDS: THIAMINE HCL 100 MG TABLET PO SCH (08:32)
[2020-09-08] MEDS: ZINC SULFATE 220 MG CAP PO SCH (08:32)
--- NOTE | 2020-09-08 09:49 | P.RH.PN ---
Estimated Length of Stay: 15 Expected Discharge Date: 09/13/20 Discharge Disposition Plan: Home Family Support: Yes [facility] Goal: Mobility, Transfers, Self Care Vital Signs: Last Vital Signs Temp 97.7 F 09/08/20 07:00 Pulse 67 09/08/20 07:00 Resp 18 09/08/20 07:00 BP 168/69 H 09/08/20 07:00 Pulse Ox 97 09/08/20 07:00 Laboratory: Laboratory Last Values WBC 6.70 K/uL (4.3-10.9) 09/07/20 06:31 RBC 3.80 M/uL (4.33-5.43) L 09/07/20 06:31 Hgb 10.3 g/dL (13.6-17.9) L 09/07/20 06:31 Hct 32.1 % (39.6-49.0) L 09/07/20 06:31 MCV 84.5 fL (80-100) 09/07/20 06:31 MCH 27.1 pg (27.0-35.0) 09/07/20 06:31 MCHC 32.0 g/dL (32.0-36.0) 09/07/20 06:31 RDW 17.1 % (12.1-15.2) H 09/07/20 06:31 Plt Count 248 K/uL (152-406) 09/07/20 06:31 MPV 10.2 fL (7.6-11.3) 09/07/20 06:31 Neutrophils % 67.5 % (41.7-73.7) 09/07/20 06:31 Lymphocytes % 11.1 % (15.3-44.8) L 09/07/20 06:31 Monocytes % 16.2 % (3.3-12.3) H 09/07/20 06:31 Eosinophils % 4.5 % (0-4.4) H 09/07/20 06:31 Basophils % 0.7 % (0-1.3) 09/07/20 06:31 Absolute Neutrophils 4.5 K/uL (1.8-8.0) 09/07/20 06:31 Absolute Lymphocytes 0.7 K/uL (0.7-4.9) 09/07/20 06:31 Absolute Monocytes 1.1 K/uL (0.1-1.3) 09/07/20 06:31 Absolute Eosinophils 0.3 K/uL (0-0.5) 09/07/20 06:31 Absolute Basophils 0.0 K/uL (0-0.5) 09/07/20 06:31 Sodium 143 mmol/L (136-145) 09/07/20 06:31 Potassium 3.5 mmol/L (3.5-5.1) 09/07/20 06:31 Chloride 108 mmol/L (98-107) H 09/07/20 06:31 Carbon Dioxide 32 mmol/L (21-32) 09/07/20 06:31 BUN 13 mg/dL (7-18) 09/07/20 06:31 Creatinine 0.74 mg/dL (0.55-1.3) 09/07/20 06:31 Estimated GFR > 90 mL/min (=/>90) 09/07/20 06:31 Glucose 96 mg/dL (74-106) 09/07/20 06:31 Calcium 8.4 mg/dL (8.5-10.1) L 09/07/20 06:31 Magnesium 1.8 mg/dL (1.8-2.4) 09/07/20 06:31 Albumin 2.2 g/dL (3.4-5.0) L 09/07/20 06:31 Prealbumin 10.6 mg/dL (20-40) L 09/07/20 06:31 Urine Color Yellow (Yellow) 08/30/20 18:00 Urine Appearance Clear (Clear) 08/30/20 18:00 Urine pH 5.5 (5.0-7.0) 08/30/20 18:00 Ur Specific [place] 1.015 (1.005-1.030) 08/30/20 18:00 Glucose (UA)(Auto) Negative (Negative) 08/30/20 18:00 Urine Ketones Negative (Negative) 08/30/20 18:00 Urine Blood Negative (Negative) 08/30/20 18:00 Urine Nitrite Negative (Negative) 08/30/20 18:00 Urine Bilirubin Negative (Negative) 08/30/20 18:00 Urine Urobilinogen 0.2 mg/dL (0.2-1.0) 08/30/20 18:00 Ur Leukocyte Esterase Negative (Negative) 08/30/20 18:00 Urine RBC <5 /HPF (NONE SEEN) 08/30/20 18:00 Urine WBC <5 /HPF (<5) 08/30/20 18:00 Ur Squamous Epith Cells <5 /HPF (NONE SEEN) 08/30/20 18:00 Urine Bacteria <20 /HPF (NONE SEEN) 08/30/20 18:00 Urine Culture Reflexed Not needed 08/30/20 18:00 Urine Total Protein Negative (Negative) 08/30/20 18:00 SARS-CoV-2 RNA (RT-PCR) Negative (NEGATIVE) 09/06/20 15:05 Weight: 200 lb Within Defined Parameters: No left hand Skin Alteration: skin tear cleaned with ns triple antibiotics applied 2x2 and tegaderm Skin Temperature: Cold Skin Color: Normal Skin Tone Skin Turgor: Normal Skin Tone: Loose Wound Present: Yes Closed Surgical Incision Present: No Negative Pressure Wound Therapy Present: No Physician Update: Labs reviewed and are stable. Still needs min assistance with ADLs. He needs steading with showers. He will likely require assistance at home and may get that through the [place] [facility]. He does better with his AFOs and can transfer with out assistance. However, the braces may irritate the legs. Summary: Patient's care plan and detention goals have been reviewed and revised as necessary. Please see the Rehabilitation Signature page for all necessary signatures.
[2020-09-08] MEDS: MELATONIN 3 MG TABLET PO PRN (20:28)
[2020-09-08] MEDS: DOCUSATE NA/SENNA CONC 1 TAB PO PRN (20:28)
[2020-09-09] MEDS: COLLAGENASE 30 GM OINTMENT TOP SCH (06:50)
[2020-09-09] MEDS: LIDOCAINE 4% PATCH TOP SCH (06:51)
[2020-09-09] MEDS: POTASSIUM CL SA 10 MEQ TAB PO SCH (08:03)
[2020-09-09] MEDS: CYANOCOBALAMIN 1,000 MCG TAB PO SCH (08:03)
[2020-09-09] MEDS: ASCORBIC ACID 500 MG TABLET PO SCH (08:04)
[2020-09-09] MEDS: ZINC SULFATE 220 MG CAP PO SCH (08:04)
[2020-09-09] MEDS: TAMSULOSIN 0.4 MG SR CAP PO SCH ×2 (08:04→19:06)
[2020-09-09] MEDS: AMIODARONE HCL 200 MG TAB PO SCH (08:04)
[2020-09-09] MEDS: FAMOTIDINE 20 MG TAB PO SCH ×2 (08:04→19:06)
[2020-09-09] MEDS: FINASTERIDE 5 MG TAB PO SCH (08:04)
[2020-09-09] MEDS: THIAMINE HCL 100 MG TABLET PO SCH (08:05)
[2020-09-09] MEDS: FLUDROCORTISONE 0.1 MG TAB PO SCH (08:05)
[2020-09-09] MEDS: ASPIRIN EC 81 MG TAB PO SCH (08:05)
[2020-09-09] MEDS: JUVEN PACKET PO SCH ×2 (08:05→19:06)
[2020-09-09] MEDS: MAGNESIUM OXIDE 400 MG TAB PO SCH ×2 (08:05→19:06)
[2020-09-09] MEDS: GABAPENTIN 400 MG CAP PO SCH ×2 (08:05→19:06)
[2020-09-09] MEDS: MELATONIN 3 MG TABLET PO PRN (19:06)
[2020-09-09] MEDS: ACETAMINOPHEN 500 MG TAB PO PRN (19:06)
[2020-09-10] MEDS: ACETAMINOPHEN 500 MG TAB PO PRN ×2 (06:17→19:02)
[2020-09-10] MEDS: LIDOCAINE 4% PATCH TOP SCH (06:25)
[2020-09-10] MEDS: COLLAGENASE 30 GM OINTMENT TOP SCH (06:26)
[2020-09-10] MEDS: JUVEN PACKET PO SCH ×2 (08:00→19:02)
[2020-09-10] MEDS: ZINC SULFATE 220 MG CAP PO SCH (08:02)
[2020-09-10] MEDS: FINASTERIDE 5 MG TAB PO SCH (08:03)
[2020-09-10] MEDS: CYANOCOBALAMIN 1,000 MCG TAB PO SCH (08:03)
[2020-09-10] MEDS: AMIODARONE HCL 200 MG TAB PO SCH (08:03)
[2020-09-10] MEDS: TAMSULOSIN 0.4 MG SR CAP PO SCH ×2 (08:03→19:01)
[2020-09-10] MEDS: ASPIRIN EC 81 MG TAB PO SCH (08:03)
[2020-09-10] MEDS: FAMOTIDINE 20 MG TAB PO SCH ×2 (08:03→19:01)
[2020-09-10] MEDS: MAGNESIUM OXIDE 400 MG TAB PO SCH ×2 (08:03→19:02)
[2020-09-10] MEDS: ASCORBIC ACID 500 MG TABLET PO SCH (08:03)
[2020-09-10] MEDS: FLUDROCORTISONE 0.1 MG TAB PO SCH (08:04)
[2020-09-10] MEDS: THIAMINE HCL 100 MG TABLET PO SCH (08:04)
[2020-09-10] MEDS: GABAPENTIN 400 MG CAP PO SCH ×2 (08:04→19:01)
[2020-09-10] MEDS: POTASSIUM CL SA 10 MEQ TAB PO SCH (08:04)
[2020-09-10] MEDS: POLYETHYL GLY 3350 17 GM/DOSE PO PRN (10:15)
--- NOTE | 2020-09-10 18:07 | RAD REPORT ---
EXAM DESCRIPTION: US - Extremity Venous Uni Ltd - 09/10/2020 5:30 pm CLINICAL HISTORY: Swelling of the right leg COMPARISON: None. TECHNIQUE: Real-time sonographic evaluation of the right lower extremity deep venous systems was per formed. FINDINGS: Normal compressibility, flow augmentation, phasic flow and spontaneous flow are identified in the right lower extremity common femoral, superficial femoral, popliteal and posterior tibial vei ns. No intraluminal filling defects seen. IMPRESSION: No DVT in the right lower extremity.
[2020-09-10] MEDS: MELATONIN 3 MG TABLET PO PRN (19:02)
[2020-09-10] MEDS: DOCUSATE NA/SENNA CONC 1 TAB PO PRN (19:02)
[2020-09-11] MEDS: LIDOCAINE 4% PATCH TOP SCH (08:00)
[2020-09-11] MEDS: JUVEN PACKET PO SCH ×2 (08:00→19:20)
[2020-09-11] MEDS: ASCORBIC ACID 500 MG TABLET PO SCH (08:27)
[2020-09-11] MEDS: TAMSULOSIN 0.4 MG SR CAP PO SCH ×2 (08:27→19:20)
[2020-09-11] MEDS: CYANOCOBALAMIN 1,000 MCG TAB PO SCH (08:27)
[2020-09-11] MEDS: FAMOTIDINE 20 MG TAB PO SCH ×2 (08:27→19:20)
[2020-09-11] MEDS: MAGNESIUM OXIDE 400 MG TAB PO SCH ×2 (08:28→19:20)
[2020-09-11] MEDS: FLUDROCORTISONE 0.1 MG TAB PO SCH (08:28)
[2020-09-11] MEDS: ASPIRIN EC 81 MG TAB PO SCH (08:28)
[2020-09-11] MEDS: GABAPENTIN 400 MG CAP PO SCH ×2 (08:28→19:20)
[2020-09-11] MEDS: AMIODARONE HCL 200 MG TAB PO SCH (08:28)
[2020-09-11] MEDS: ZINC SULFATE 220 MG CAP PO SCH (08:28)
[2020-09-11] MEDS: FINASTERIDE 5 MG TAB PO SCH (08:28)
[2020-09-11] MEDS: THIAMINE HCL 100 MG TABLET PO SCH (08:29)
[2020-09-11] MEDS: POTASSIUM CL SA 10 MEQ TAB PO SCH (08:29)
[2020-09-11] MEDS: ACETAMINOPHEN 500 MG TAB PO PRN (08:32)
[2020-09-11] MEDS: COLLAGENASE 30 GM OINTMENT TOP SCH (08:33)
--- NOTE | 2020-09-11 15:55 | FAST ---
[employer] FORM SHIFT START DATE/TIME: 09/11/2020 07:00 (CDT) SHIFT END DATE/TIME: 09/11/2020 19:00 (CDT) NAME AILEEN ANDINO DATE OF : 1935 DATE OF ADMISSION: 08/30/2020 14:35 (CDT) PHONE: AGE: 85 N# [id number] GENDER: Male ENCOUNTER PHYSICIAN: Dr. Zhang Sullivan M.D. ADMISSION DIAGNOSIS: - Orthopaedic Disorders 08 - Unilateral Hip Fracture (08.11) right femur fracture. EATING: EATING - STEP 1: Does the patient complete the activity by him/herself with no assistance (physical, verbal/nonverbal cueing, setup/clean-up)? No. EATING - STEP 2: Does the patient need only setup/clean-up assistance from one helper? Yes. 1. [id number] ADMISSION PERFORMANCE: Setup or clean-up assistance CODE: 05 ORAL HYGIENE: ORAL HYGIENE - STEP 1: Does the patient complete the activity by him/herself with no assistance (physical, verbal/nonverbal cueing, setup/clean-up)? No. ORAL HYGIENE - STEP 2: Does the patient need only setup/clean-up assistance from one helper? Yes. 1. [id number] ADMISSION PERFORMANCE: Setup or clean-up assistance CODE: 05 TOILETING HYGIENE: TOILETING HYGIENE - STEP 1: Does the patient complete the activity by him/herself with no assistance (physical, verbal/nonverbal cueing, setup/clean-up)? No. TOILETING HYGIENE - STEP 2: Does the patient need only setup/clean-up assistance from one helper? No. TOILETING HYGIENE - STEP 3: Does the patient need only verbal/nonverbal cueing or touching/steadying/contact guard assistance fro m one helper? Yes. 1. [id number] ADMISSION PERFORMANCE: Supervision or touching assistance CODE: 04 BATHING: Not assessed/no information CODE: - DRESSING - UPPER BODY: DRESSING - UPPER BODY - STEP 1: Does the patient complete the activity by him/herself with no assistance (physical, verbal/nonverbal cueing, setup/clean-up)? No. DRESSING - UPPER BODY - STEP 2: Does the patient need only setup/clean-up assistance from one helper? Yes. 1. [id number] ADMISSION PERFORMANCE: Setup or clean-up assistance CODE: 05 DRESSING - LOWER BODY: DRESSING - LOWER BODY - STEP 1: Does the patient complete the activity by him/herself with no assistance (physical, verbal/nonverbal cueing, setup/clean-up)? No. DRESSING - LOWER BODY - STEP 2: Does the patient need only setup/clean-up assistance from one helper? Yes. 1. [id number] ADMISSION PERFORMANCE: Setup or clean-up assistance CODE: 05 PUTTING ON/TAKING OFF FOOTWEAR: FOOTWEAR - STEP 1: Does the patient complete the activity by him/herself with no assistance (physical, verbal/nonverbal cueing, setup/clean-up)? No. FOOTWEAR - STEP 2: Does the patient need only setup/clean-up assistance from one helper? No. FOOTWEAR - STEP 3: Does the patient need only verbal/nonverbal cueing or touching/steadying/contact guard assistance fro m one helper? Yes. 1. [id number] ADMISSION PERFORMANCE: Supervision or touching assistance CODE: 04 ROLL LEFT AND RIGHT: ROLL LEFT AND RIGHT - STEP 1: Does the patient complete the activity by him/herself with no assistance (physical, verbal/nonverbal cueing, setup/clean-up)? Yes. ROLL LEFT AND RIGHT - STEP 2: Does the patient need only setup/clean-up assistance from one helper? No. ROLL LEFT AND RIGHT - STEP 3: Does the patient need only verbal/nonverbal cueing or touching/steadying/contact guard assistance fro m one helper? Yes. 1. [id number] ADMISSION PERFORMANCE: Supervision or touching assistance CODE: 04 SIT TO LYING: SIT TO LYING - STEP 1: Does the patient complete the activity by him/herself with no assistance (physical, verbal/nonverbal cueing, setup/clean-up)? No. SIT TO LYING - STEP 2: Does the patient need only setup/clean-up assistance from one helper? No. SIT TO LYING - STEP 3: Does the patient need only verbal/nonverbal cueing or touching/steadying/contact guard assistance fro m one helper? Yes. 1. [id number] ADMISSION PERFORMANCE: Supervision or touching assistance CODE: 04 LYING TO SITTING: LYING TO SITTING ON SIDE OF BED - STEP 1: Does the patient complete the activity by him/herself with no assistance (physical, verbal/nonverbal cueing, setup/clean-up)? No. LYING TO SITTING ON SIDE OF BED - STEP 2: Does the patient need only setup/clean-up assistance from one helper? Yes. 1. [id number] ADMISSION PERFORMANCE: Setup or clean-up assistance CODE: 05 SIT TO STAND: SIT TO STAND - STEP 1: Does the patient complete the activity by him/herself with no assistance (physical, verbal/nonverbal cueing, setup/clean-up)? No. SIT TO STAND - STEP 2: Does the patient need only setup/clean-up assistance from one helper? Yes. 1. [id number] ADMISSION PERFORMANCE: Setup or clean-up assistance CODE: 05 TRANSFERS: BED, CHAIR: CHAIR/[id number] TRANSFER - STEP 1: Does the patient complete the activity by him/herself with no assistance (physical, verbal/nonverbal cueing, setup/clean-up)? No. CHAIR/[id number] TRANSFER - STEP 2: Does the patient need only setup/clean-up assistance from one helper? No. CHAIR/[id number] TRANSFER - STEP 3: Does the patient need only verbal/nonverbal cueing or touching/steadying/contact guard assistance fro m one helper? Yes. 1. [id number] ADMISSION PERFORMANCE: Supervision or touching assistance CODE: 04 TRANSFER TOILET: TOILET TRANSFER - STEP 1: Does the patient complete the activity by him/herself with no assistance (physical, verbal/nonverbal cueing, setup/clean-up)? No. TOILET TRANSFER - STEP 2: Does the patient need only setup/clean-up assistance from one helper? Yes. 1. [id number] ADMISSION PERFORMANCE: Setup or clean-up assistance CODE: 05 TRANSFERS: CAR: Not assessed/no information CODE: - WALK 10 FEET: Not assessed/no information CODE: - 1 STEP (CURB): Not assessed/no information CODE: - PICKING UP OBJECT: Not assessed/no information CODE: - DOES THE PATIENT USE A WHEELCHAIR/SCOOTER? Q1. DOES THE PATIENT USE A WHEELCHAIR/SCOOTER?: Yes CODE: 1 WHEEL 50 FEET WITH TWO TURNS: WHEEL 50 FEET WITH TWO TURNS - STEP 1: Does the patient complete the activity by him/herself with no assistance (physical, verbal/nonverbal cueing, setup/clean-up)? No. WHEEL 50 FEET WITH TWO TURNS - STEP 2: Does the patient need only setup/clean-up assistance from one helper? Yes. 1. [id number] ADMISSION PERFORMANCE: Setup or clean-up assistance CODE: 05 INDICATE THE TYPE OF WHEELCHAIR/SCOOTER USED: RR1. INDICATE THE TYPE OF WHEELCHAIR/SCOOTER USED.: Manual CODE: 1 WHEEL 150 FEET: WHEEL 150 FEET - STEP 1: Does the patient complete the activity by him/herself with no assistance (physical, verbal/nonverbal cueing, setup/clean-up)? No. WHEEL 150 FEET - STEP 2: Does the patient need only setup/clean-up assistance from one helper? Yes. 1. [id number] ADMISSION PERFORMANCE: Setup or clean-up assistance CODE: 05 INDICATE THE TYPE OF WHEELCHAIR/SCOOTER USED: SS1. INDICATE THE TYPE OF WHEELCHAIR/SCOOTER USED.: Manual CODE: 1 BLADDER AND BOWEL: H350. BLADDER CONTINENCE (3-DAY ASSESSMENT PERIOD): Always continent (no documented incontinence) CODE: 0 H400. BOWEL CONTINENCE (3-DAY ASSESSMENT PERIOD): Always continent CODE: 0 SIGNATURE PANEL: The following modified sections: 1. [id number] Admission Performance, 1. [id number] Admission Performance, 1. [id number] Admission Performance, 1. LM7027s Admission Performance, 1. [id number] Admission Performance, 1. SV9167u Admission Performance, 1. [id number] Admission Performance, 1. [id number] Admission Performance , 1. [id number] Admission Performance, 1. [id number] Admission Performance, 1. [id number] Admission Performanc e, 1. [id number] Admission Performance, 1. [id number] Admission Performance, 1. [id number] Admission Performan ce, 1. [id number] Admission Performance, Q1. Does the patient use a wheelchair/scooter?, 1. [id number] Admi ssion Performance, RR1. Indicate the type of wheelchair/scooter used., 1. [id number] Admission Performan ce, Code, SS1. Indicate the type of wheelchair/scooter used., H350. Bladder Continence (3-day assessm ent period), H400. Bowel Continence (3-day assessment period) were [electronically] signed by Jolie Eckert C.N.A. on FriSep 11 2020 15:54:28 GMT-0500 (Central Daylight Time)
[2020-09-11] MEDS: DOCUSATE NA/SENNA CONC 1 TAB PO PRN (19:20)
[2020-09-11] MEDS: MELATONIN 3 MG TABLET PO PRN ×2 (19:21→22:37)
[2020-09-12] MEDS: BISACODYL 10 MG RECTAL SUPP PR PRN (04:10)
[2020-09-12] MEDS: COLLAGENASE 30 GM OINTMENT TOP SCH (07:16)
[2020-09-12] MEDS: LIDOCAINE 4% PATCH TOP SCH (08:16)
[2020-09-12] MEDS: ZINC SULFATE 220 MG CAP PO SCH (08:16)
[2020-09-12] MEDS: TAMSULOSIN 0.4 MG SR CAP PO SCH ×2 (08:16→20:29)
[2020-09-12] MEDS: THIAMINE HCL 100 MG TABLET PO SCH (08:17)
[2020-09-12] MEDS: GABAPENTIN 400 MG CAP PO SCH ×2 (08:17→20:29)
[2020-09-12] MEDS: CYANOCOBALAMIN 1,000 MCG TAB PO SCH (08:17)
[2020-09-12] MEDS: ASCORBIC ACID 500 MG TABLET PO SCH (08:17)
[2020-09-12] MEDS: POTASSIUM CL SA 10 MEQ TAB PO SCH (08:17)
[2020-09-12] MEDS: ASPIRIN EC 81 MG TAB PO SCH (08:17)
[2020-09-12] MEDS: AMIODARONE HCL 200 MG TAB PO SCH (08:17)
[2020-09-12] MEDS: FAMOTIDINE 20 MG TAB PO SCH ×2 (08:18→20:29)
[2020-09-12] MEDS: FLUDROCORTISONE 0.1 MG TAB PO SCH (08:18)
[2020-09-12] MEDS: FINASTERIDE 5 MG TAB PO SCH (08:18)
[2020-09-12] MEDS: ACETAMINOPHEN 500 MG TAB PO PRN (08:26)
[2020-09-12] MEDS: MAGNESIUM OXIDE 400 MG TAB PO SCH ×2 (08:26→20:29)
[2020-09-12] MEDS: JUVEN PACKET PO SCH ×2 (08:27→20:00)
--- NOTE | 2020-09-12 20:17 | R.PN ---
PROGRESS NOTES ENCOUNTER DATE AND TIME: 09/12/2020 20:14 (CDT) NAME AILEEN ANDINO DATE OF : 1935 DATE OF ADMISSION: 08/30/2020 14:35 (CDT) right femur fractureCHIEF COMPLAINT: Right femur fracture, debility SUBJECTIVE: Pt denied any depression. Pt denied any Shortness of Breath. WBC 6.7, Hgb 10.3, PLT 248, prelabumin 10.6, K 3.5, Na 143, Ca 8.4, Mg 1.8. Ambulated 130' with contact guard assistance using a rolling walker. Replaced K and Mg. Propelled wheelchair 250' with manual resistance. VITAL SIGNS Temperature: 98.6 F SBP/DBP: 132/64 Pulse: 68 Resp: 16 MEDICATION ALLERGIES: FENLANYL MORPHINE OXYCODONE PENICILLIN BACTRIM SULFA ANTIBIOTICS ENVIRONMENTAL ALLERGIES: Milk LETTUCE - Substance Allergies None Known - Other Allergies None Known NURSING: - Shower allowing shower - Skin care per protocol PRECAUTIONS: - Posterior Hip Precaution No adduction across midline No external rotation No hip flexion >90 degrees No internal rotation No wheel chair propulsion - Weight Bearing Precaution WBAT right LE ACTIVITIES OOB only with supervision THERAPIES: - Dietary and Nutrition Adequate Nutrition. Nutritional Education. Nutritional Supplements. PHYSICAL EXAM - Gen Alert and awake Lying in bed No apparent distress Oriented to: person, time, and place - Skin Mild bruising in anterior legs bilaterally, otherwise intact. Normacephalic - Eyes No abnormalities - ENMT No abnormalities - Neck No abnormalities - CVS RRR - Chest No abnormalities - Resp Clear to auscultation - Abd + bowel sounds - GI Soft Deferred - No abnormalities - Ext Mild right lower extremity edema. - MSK 4+/5 weakness in right lower extremity. - Neuro 4/5 strength right lower extremity - Psych No abnormalities ASSESSMENT: Pt. is a 85 yo Right-handed male of unknown race.On 08/30/2020 he was admitted to [facility] with diagnosis right femur fracture.His impairment category is Orthopaedic Disorders 08 - Unila teral Hip Fracture (08.11).Pre-morbidly, Pt. was independent/mod-I in Safety Awareness, Balance, Arevalo sfers Control, Endurance, and Locomotion; and he had good Balance and Social Cognition.Currently, he has deficits of Locomotion, Safety Awareness, Social Cognition, Transfers Control, Sphincter Control, Self-Care, and Endurance.Pt. is now referred to [facility] for acute in-patie nt rehabilitation in order to maximize patient's functional independence in activities of daily livin g, strength, ROM, and mobility.- Rehab Goal Patient has realistic goal of being discharged at assistance level 7-Ind to reside at Home with Fami ly/Relatives. MDM/PLAN: - Physical Therapy Decreased range of motion - to improve, our physical therapists will perform initial evaluation of p t's status upon admission and devise an individualized program for increasing patient's Range of Keyur on. Gait dysfunction - to improve, our physical therapists will perform initial evaluation of pt's statu s upon admission and devise an individualized program for Gait Training, and Wheel Chair mobility Inability to transfer - to improve, our physical therapists will perform initial evaluation of pt's status upon admission and devise an individualized program for Bed mobility Need for home safety evaluation - to improve, our physical therapists will perform initial evaluatio n of pt's status upon admission and devise an individualized program for Home Evaluation Need in caregiver upon discharge - to improve, our physical therapists will perform initial evaluati on of pt's status upon admission and devise an individualized program for Caregiver Training Edema - to improve, our physical therapists will perform initial evaluation of pt's status upon admi ssion and devise an individualized program for Elevation Training, and Lymphedema Therapy New precaution - to improve, our physical therapists will perform initial evaluation of pt's status upon admission and devise an individualized program for Patient precaution education Poor endurance - to improve, our physical therapists will perform initial evaluation of pt's status upon admission and devise an individualized program for Endurance Training Weakness - to improve, our physical therapists will perform initial evaluation of pt's status upon a dmission and devise an individualized program for Aquatic Therapy, Neuromuscular Reeducation, and Str engthening Achieving independence - to improve, our physical therapists will perform initial evaluation of pt's status upon admission and devise an individualized program for Community Reintegration Activities - Occupational Therapy ADL deficits - to improve, our occupation therapists will perform initial evaluation of pt's status upon admission and devise an individualized program for Bathing, Bed mobility, Community Reintegratio n, Cooking, Dressing, Eating, Fine Motor Skills, Grooming, Homemaking, Kitchen Mobility, Laundry, Pat ient Education, Safety Awareness, Splinting - Positioning, Transfers(Toilet, Tub, Shower), and Wheel Chair Management Cognitive deficits - to improve, our occupation therapists will perform initial evaluation of pt's s tatus upon admission and devise an individualized program for Cognition - orientation Need for lead caregiver - to improve, our occupation therapists will perform initial evaluation of pt's status upon admission and devise an individualized program for Caregiver Training Weakness - to improve, our occupation therapists will perform initial evaluation of pt's status upon admission and devise an individualized program for Aquatic Therapy, Balance, Endurance, UE ROM, and UE strengthening - Other See attached MAR (Medication Administration Record) - Anterior Hip Precaution No abduction No active extension No adduction across midline No external rotation No hip flexion >90 degrees No internal rotation - Diet - Liquid Texture Continue Regular - Tube Feed Continue N/A - Diet Type Continue Regular - Posterior Hip Precaution No adduction across midline No external rotation No hip flexion >90 degrees No internal rotation No wheel chair propulsion - Weight Bearing Precaution WBAT right LE - Skin care per protocol - Diet - Solid Texture Continue Regular - Shower allowing shower FUNCTIONAL STATUS: UPDATED AT WEEKLY TEAM CONFERENCE - Bladder Same accident frequency: 7-Ind - No accidents in the past 7 days - Bowel Same accident frequency: 7-Ind - No accidents in the past 7 days - Walking Same score based on distance walked: 0(N/A) Same score based on distance walked: 1(<=50ft) - Wheelchair Same score based on distance traveled: 0(N/A) FUNCTIONAL STATUS: - Self-Care A. Eating Joyce B. Grooming sup C. Bathing Lorna D. Dressing - Upper Lorna E. Dressing - Lower modA F. Toileting Lorna - Sphincter Control G. Bladder control Lorna H. Bowel control Lorna - Transfers Control I. Bed/Chair/Wheelchair Lorna J. Toilet Lorna K. Tub/Shower modA - Locomotion L. Walk/Wheelchair (B) Lorna M. Stairs maxA - Communication N. Comprehension (B) sup O. Expression (B) sup - Social Cognition P. Social Interaction Joyce Q. Problem Solving sup R. Memory sup - Endurance Fair - Balance Fair - Safety Awareness Fair QI SCORES: - Self-Care A. Eating 06-Independent B. Oral hygiene 03-Partial/moderate assistance C. Toileting hygiene 02-Substantial/maximal assistance E. Shower/bathe self 02-Substantial/maximal assistance F. Upper body dressing 02-Substantial/maximal assistance G. Lower body dressing 02-Substantial/maximal assistance H. Putting on/taking off footwear 88-Not attempted due to medical condition or safety concerns - Mobility A. Roll left and right 03-Partial/moderate assistance B. Sit to lying 02-Substantial/maximal assistance C. Lying to sitting on side of bed 02-Substantial/maximal assistance D. Sit to stand 02-Substantial/maximal assistance E. Chair/[id number]-[id number] transfer 02-Substantial/maximal assistance F. Toilet transfer 03-Partial/moderate assistance G. Car transfer 88-Not attempted due to medical condition or safety concerns I. Walk 10 feet 02-Substantial/maximal assistance J. Walk 50 feet with two turns 88-Not attempted due to medical condition or safety concerns K. Walk 150 feet 88-Not attempted due to medical condition or safety concerns L. Walking 10 feet on uneven surfaces 88-Not attempted due to medical condition or safety concerns M. 1 step (curb) 88-Not attempted due to medical condition or safety concerns N. 4 steps 88-Not attempted due to medical condition or safety concerns O. 12 steps 88-Not attempted due to medical condition or safety concerns P. Picking up object 88-Not attempted due to medical condition or safety concerns R. Wheel 50 feet with two turns 88-Not attempted due to medical condition or safety concerns S. Wheel 150 feet 88-Not attempted due to medical condition or safety concerns - Bladder and Bowel Bladder continence Bowel continence - Endurance Fair - Balance Poor - Safety Awareness Fair CURRENT FUNC. DEFICITS: Mobility, Endurance, Balance, Safety Awareness, and Self-Care SIGNATURE PANEL: (CDT)
[2020-09-12] MEDS: MELATONIN 3 MG TABLET PO PRN (20:29)
[2020-09-13] MEDS: ACETAMINOPHEN 500 MG TAB PO PRN ×3 (00:25→19:09)
[2020-09-13] MEDS: LIDOCAINE 4% PATCH TOP SCH (06:13)
[2020-09-13] MEDS: COLLAGENASE 30 GM OINTMENT TOP SCH (06:13)
[2020-09-13] MEDS: MAGNESIUM OXIDE 400 MG TAB PO SCH ×2 (07:22→19:11)
[2020-09-13] MEDS: THIAMINE HCL 100 MG TABLET PO SCH (07:23)
[2020-09-13] MEDS: AMIODARONE HCL 200 MG TAB PO SCH (07:23)
[2020-09-13] MEDS: TAMSULOSIN 0.4 MG SR CAP PO SCH ×2 (07:23→19:10)
[2020-09-13] MEDS: CYANOCOBALAMIN 1,000 MCG TAB PO SCH (07:23)
[2020-09-13] MEDS: ZINC SULFATE 220 MG CAP PO SCH (07:23)
[2020-09-13] MEDS: ASPIRIN EC 81 MG TAB PO SCH (07:23)
[2020-09-13] MEDS: ASCORBIC ACID 500 MG TABLET PO SCH (07:24)
[2020-09-13] MEDS: JUVEN PACKET PO SCH ×2 (07:24→19:11)
[2020-09-13] MEDS: POTASSIUM CL SA 10 MEQ TAB PO SCH (07:24)
[2020-09-13] MEDS: GABAPENTIN 400 MG CAP PO SCH ×2 (07:24→19:10)
[2020-09-13] MEDS: FAMOTIDINE 20 MG TAB PO SCH ×2 (07:24→19:10)
[2020-09-13] MEDS: FINASTERIDE 5 MG TAB PO SCH (07:24)
[2020-09-13] MEDS: FLUDROCORTISONE 0.1 MG TAB PO SCH (07:24)
--- NOTE | 2020-09-13 17:40 | R.PN ---
PROGRESS NOTES ENCOUNTER DATE AND TIME: 09/13/2020 17:33 (CDT) NAME AILEEN ANDINO DATE OF : 1935 DATE OF ADMISSION: 08/30/2020 14:35 (CDT) right femur fractureCHIEF COMPLAINT: Right femur fracture, debility SUBJECTIVE: Pt denied any depression. Pt denied any Shortness of Breath. WBC 6.7, Hgb 10.3, PLT 248, prelabumin 10.6, K 3.5, Na 143, Ca 8.4, Mg 1.8. Ambulated 130' with contact guard assistance using a rolling walker. Replaced K and Mg. Propelled wheelchair 250' with manual resistance. Sitting blood pressure 104/49, pulse 78, standing 67/40, pulse 81. He was symptomatic. His "dizziness " improved on sitting. VITAL SIGNS Temperature: 97.9 F SBP/DBP: 178/77 Pulse: 69 Resp: 15 MEDICATION ALLERGIES: FENLANYL MORPHINE OXYCODONE PENICILLIN BACTRIM SULFA ANTIBIOTICS ENVIRONMENTAL ALLERGIES: Milk LETTUCE - Substance Allergies None Known - Other Allergies None Known NURSING: - Shower allowing shower - Skin care per protocol PRECAUTIONS: - Posterior Hip Precaution No adduction across midline No external rotation No hip flexion >90 degrees No internal rotation No wheel chair propulsion - Weight Bearing Precaution WBAT right LE ACTIVITIES OOB only with supervision THERAPIES: - Dietary and Nutrition Adequate Nutrition. Nutritional Education. Nutritional Supplements. PHYSICAL EXAM - Gen Alert and awake Lying in bed No apparent distress Oriented to: person, time, and place - Skin Mild bruising in anterior legs bilaterally, otherwise intact. Normacephalic - Eyes No abnormalities - ENMT No abnormalities - Neck No abnormalities - CVS RRR - Chest No abnormalities - Resp Clear to auscultation - Abd + bowel sounds - GI Soft Deferred - No abnormalities - Ext Mild right lower extremity edema. - MSK 4+/5 weakness in right lower extremity. - Neuro 4/5 strength right lower extremity - Psych No abnormalities ASSESSMENT: Pt. is a 85 yo Right-handed male of unknown race.On 08/30/2020 he was [facility] with diagnosis right femur fracture.His impairment category is Orthopaedic Disorders 08 - Unila teral Hip Fracture (08.11).Pre-morbidly, Pt. was independent/mod-I in Safety Awareness, Balance, Arevalo sfers Control, Endurance, and Locomotion; and he had good Balance and Social Cognition.Currently, he has deficits of Locomotion, Safety Awareness, Social Cognition, Transfers Control, Sphincter Control, Self-Care, and Endurance.Pt. is now referred to [facility] for acute in-patie nt rehabilitation in order to maximize patient's functional independence in activities of daily livin g, strength, ROM, and mobility.- Rehab Goal Patient has realistic goal of being discharged at assistance level 7-Ind to reside at Home with Fami ly/Relatives. MDM/PLAN: - Physical Therapy Decreased range of motion - to improve, our physical therapists will perform initial evaluation of p t's status upon admission and devise an individualized program for increasing patient's Range of Keyur on. Gait dysfunction - to improve, our physical therapists will perform initial evaluation of pt's statu s upon admission and devise an individualized program for Gait Training, and Wheel Chair mobility Inability to transfer - to improve, our physical therapists will perform initial evaluation of pt's status upon admission and devise an individualized program for Bed mobility Need for home safety evaluation - to improve, our physical therapists will perform initial evaluatio n of pt's status upon admission and devise an individualized program for Home Evaluation Need in caregiver upon discharge - to improve, our physical therapists will perform initial evaluati on of pt's status upon admission and devise an individualized program for Caregiver Training Edema - to improve, our physical therapists will perform initial evaluation of pt's status upon admi ssion and devise an individualized program for Elevation Training, and Lymphedema Therapy New precaution - to improve, our physical therapists will perform initial evaluation of pt's status upon admission and devise an individualized program for Patient precaution education Poor endurance - to improve, our physical therapists will perform initial evaluation of pt's status upon admission and devise an individualized program for Endurance Training Weakness - to improve, our physical therapists will perform initial evaluation of pt's status upon a dmission and devise an individualized program for Aquatic Therapy, Neuromuscular Reeducation, and Str engthening Achieving independence - to improve, our physical therapists will perform initial evaluation of pt's status upon admission and devise an individualized program for Community Reintegration Activities - Occupational Therapy ADL deficits - to improve, our occupation therapists will perform initial evaluation of pt's status upon admission and devise an individualized program for Bathing, Bed mobility, Community Reintegratio n, Cooking, Dressing, Eating, Fine Motor Skills, Grooming, Homemaking, Kitchen Mobility, Laundry, Pat ient Education, Safety Awareness, Splinting - Positioning, Transfers(Toilet, Tub, Shower), and Wheel Chair Management Cognitive deficits - to improve, our occupation therapists will perform initial evaluation of pt's s tatus upon admission and devise an individualized program for Cognition - orientation Need for intensive care unit nurse - to improve, our occupation therapists will perform initial evaluation of pt's status upon admission and devise an individualized program for Caregiver Training Weakness - to improve, our occupation therapists will perform initial evaluation of pt's status upon admission and devise an individualized program for Aquatic Therapy, Balance, Endurance, UE ROM, and UE strengthening - Other See attached MAR (Medication Administration Record) - Anterior Hip Precaution No abduction No active extension No adduction across midline No external rotation No hip flexion >90 degrees No internal rotation - Diet - Liquid Texture Continue Regular - Tube Feed Continue N/A - Diet Type Continue Regular - Posterior Hip Precaution No adduction across midline No external rotation No hip flexion >90 degrees No internal rotation No wheel chair propulsion - Weight Bearing Precaution WBAT right LE - Skin care per protocol - Diet - Solid Texture Continue Regular - Shower allowing shower FUNCTIONAL STATUS: UPDATED AT WEEKLY TEAM CONFERENCE - Bladder Same accident frequency: 7-Ind - No accidents in the past 7 days - Bowel Same accident frequency: 7-Ind - No accidents in the past 7 days - Walking Same score based on distance walked: 0(N/A) Same score based on distance walked: 1(<=50ft) - Wheelchair Same score based on distance traveled: 0(N/A) FUNCTIONAL STATUS: - Self-Care A. Eating Joyce B. Grooming sup C. Bathing Lorna D. Dressing - Upper Lorna E. Dressing - Lower modA F. Toileting Lorna - Sphincter Control G. Bladder control Lorna H. Bowel control Lorna - Transfers Control I. Bed/Chair/Wheelchair Lorna J. Toilet Lorna K. Tub/Shower modA - Locomotion L. Walk/Wheelchair (B) Lorna M. Stairs maxA - Communication N. Comprehension (B) sup O. Expression (B) sup - Social Cognition P. Social Interaction Joyce Q. Problem Solving sup R. Memory sup - Endurance Fair - Balance Fair - Safety Awareness Fair QI SCORES: - Self-Care A. Eating 06-Independent B. Oral hygiene 03-Partial/moderate assistance C. Toileting hygiene 02-Substantial/maximal assistance E. Shower/bathe self 02-Substantial/maximal assistance F. Upper body dressing 02-Substantial/maximal assistance G. Lower body dressing 02-Substantial/maximal assistance H. Putting on/taking off footwear 88-Not attempted due to medical condition or safety concerns - Mobility A. Roll left and right 03-Partial/moderate assistance B. Sit to lying 02-Substantial/maximal assistance C. Lying to sitting on side of bed 02-Substantial/maximal assistance D. Sit to stand 02-Substantial/maximal assistance E. Chair/edf-ej-bqflk transfer 02-Substantial/maximal assistance F. Toilet transfer 03-Partial/moderate assistance G. Car transfer 88-Not attempted due to medical condition or safety concerns I. Walk 10 feet 02-Substantial/maximal assistance J. Walk 50 feet with two turns 88-Not attempted due to medical condition or safety concerns K. Walk 150 feet 88-Not attempted due to medical condition or safety concerns L. Walking 10 feet on uneven surfaces 88-Not attempted due to medical condition or safety concerns M. 1 step (curb) 88-Not attempted due to medical condition or safety concerns N. 4 steps 88-Not attempted due to medical condition or safety concerns O. 12 steps 88-Not attempted due to medical condition or safety concerns P. Picking up object 88-Not attempted due to medical condition or safety concerns R. Wheel 50 feet with two turns 88-Not attempted due to medical condition or safety concerns S. Wheel 150 feet 88-Not attempted due to medical condition or safety concerns - Bladder and Bowel Bladder continence Bowel continence - Endurance Fair - Balance Poor - Safety Awareness Fair [facility] DEFICITS: Mobility, Endurance, Balance, Safety Awareness, and Self-Care SIGNATURE PANEL: (CDT)
[2020-09-13] MEDS: DOCUSATE NA/SENNA CONC 1 TAB PO PRN (19:10)
[2020-09-13] MEDS: MELATONIN 3 MG TABLET PO PRN (19:11)
[2020-09-14] MEDS: COLLAGENASE 30 GM OINTMENT TOP SCH (06:01)
[2020-09-14] MEDS: LIDOCAINE 4% PATCH TOP SCH (06:01)
[2020-09-14 07:01] LABS: Absolute Lymphocytes (CBC) 0.8 K/uL (0.7-4.9); Hematocrit 36.4 % (39.6-49.0); Lymphocytes % 10.8 % (15.3-44.8); MPV 9.9 fL (7.6-11.3); RBC Red Blood Cell Count 4.31 M/uL (4.33-5.43)
[2020-09-14 07:39] LABS: Albumin 2.6 g/dL (3.4-5.0); Magnesium 2.2 mg/dL (1.8-2.4); Potassium 3.4 mmol/L (3.5-5.1); Prealbumin 13.2 mg/dL (20-40)
[2020-09-14] MEDS: AMIODARONE HCL 200 MG TAB PO SCH (08:00)
[2020-09-14] MEDS: JUVEN PACKET PO SCH ×2 (08:00→18:56)
[2020-09-14] MEDS: ACETAMINOPHEN 500 MG TAB PO PRN ×2 (08:16→18:55)
[2020-09-14] MEDS: ASCORBIC ACID 500 MG TABLET PO SCH (08:18)
[2020-09-14] MEDS: MAGNESIUM OXIDE 400 MG TAB PO SCH ×2 (08:18→18:56)
[2020-09-14] MEDS: FAMOTIDINE 20 MG TAB PO SCH ×2 (08:18→18:55)
[2020-09-14] MEDS: CYANOCOBALAMIN 1,000 MCG TAB PO SCH (08:18)
[2020-09-14] MEDS: POTASSIUM CL SA 10 MEQ TAB PO SCH (08:19)
[2020-09-14] MEDS: THIAMINE HCL 100 MG TABLET PO SCH (08:20)
[2020-09-14] MEDS: FLUDROCORTISONE 0.1 MG TAB PO SCH (08:20)
[2020-09-14] MEDS: FINASTERIDE 5 MG TAB PO SCH (08:20)
[2020-09-14] MEDS: GABAPENTIN 400 MG CAP PO SCH ×2 (08:20→18:55)
[2020-09-14] MEDS: TAMSULOSIN 0.4 MG SR CAP PO SCH ×2 (08:20→18:55)
[2020-09-14] MEDS: ASPIRIN EC 81 MG TAB PO SCH (08:20)
[2020-09-14] MEDS: ZINC SULFATE 220 MG CAP PO SCH (08:21)
--- NOTE | 2020-09-14 16:49 | R.PN ---
PROGRESS NOTES ENCOUNTER DATE AND TIME: 09/14/2020 16:41 (CDT) NAME AILEEN ANDINO DATE OF : 1935 DATE OF ADMISSION: 08/30/2020 14:35 (CDT) right femur fractureCHIEF COMPLAINT: Right femur fracture, debility SUBJECTIVE: Pt denied any depression. Pt denied any Shortness of Breath. WBC 7.1, Hgb 11.4, PLT 265, prelabumin 13.2, K 3.4, Na 143, Ca 8.7, Mg 2.2 Ambulated 290' with contact guard assistance using a rolling walker. Replaced K and Mg. Sitting blood pressure 104/49, pulse 78, standing 67/40, pulse 81. He was symptomatic. His "dizziness " improved on sitting. VITAL SIGNS Temperature: 97.0 F SBP/DBP: 108/57 Pulse: 73 Resp: 16 MEDICATION ALLERGIES: FENLANYL MORPHINE OXYCODONE PENICILLIN BACTRIM SULFA ANTIBIOTICS ENVIRONMENTAL ALLERGIES: Milk LETTUCE - Substance Allergies None Known - Other Allergies None Known NURSING: - Shower allowing shower - Skin care per protocol PRECAUTIONS: - Posterior Hip Precaution No adduction across midline No external rotation No hip flexion >90 degrees No internal rotation No wheel chair propulsion - Weight Bearing Precaution WBAT right LE ACTIVITIES OOB only with supervision THERAPIES: - Dietary and Nutrition Adequate Nutrition. Nutritional Education. Nutritional Supplements. PHYSICAL EXAM - Gen Alert and awake Lying in bed No apparent distress Oriented to: person, time, and place - Skin Mild bruising in anterior legs bilaterally, otherwise intact. Normacephalic - Eyes No abnormalities - ENMT No abnormalities - Neck No abnormalities - CVS RRR - Chest No abnormalities - Resp Clear to auscultation - Abd + bowel sounds - GI Soft Deferred - No abnormalities - Ext Mild right lower extremity edema. - MSK 4+/5 weakness in right lower extremity. - Neuro 4/5 strength right lower extremity - Psych No abnormalities ASSESSMENT: Pt. is a 85 yo Right-handed male of unknown race.On 08/30/2020 he was admitted to [facility] with diagnosis right femur fracture.His impairment category is Orthopaedic Disorders 08 - Unila teral Hip Fracture (08.11).Pre-morbidly, Pt. was independent/mod-I in Safety Awareness, Balance, Arevalo sfers Control, Endurance, and Locomotion; and he had good Balance and Social Cognition.Currently, he has deficits of Locomotion, Safety Awareness, Social Cognition, Transfers Control, Sphincter Control, Self-Care, and Endurance.Pt. is now referred to [facility] for acute in-patie nt rehabilitation in order to maximize patient's functional independence in activities of daily livin g, strength, ROM, and mobility.- Rehab Goal Patient has realistic goal of being discharged at assistance level 7-Ind to reside at Home with Fami ly/Relatives. MDM/PLAN: - Physical Therapy Decreased range of motion - to improve, our physical therapists will perform initial evaluation of p t's status upon admission and devise an individualized program for increasing patient's Range of Keyur on. Gait dysfunction - to improve, our physical therapists will perform initial evaluation of pt's statu s upon admission and devise an individualized program for Gait Training, and Wheel Chair mobility Inability to transfer - to improve, our physical therapists will perform initial evaluation of pt's status upon admission and devise an individualized program for Bed mobility Need for home safety evaluation - to improve, our physical therapists will perform initial evaluatio n of pt's status upon admission and devise an individualized program for Home Evaluation Need in caregiver upon discharge - to improve, our physical therapists will perform initial evaluati on of pt's status upon admission and devise an individualized program for Caregiver Training Edema - to improve, our physical therapists will perform initial evaluation of pt's status upon admi ssion and devise an individualized program for Elevation Training, and Lymphedema Therapy New precaution - to improve, our physical therapists will perform initial evaluation of pt's status upon admission and devise an individualized program for Patient precaution education Poor endurance - to improve, our physical therapists will perform initial evaluation of pt's status upon admission and devise an individualized program for Endurance Training Weakness - to improve, our physical therapists will perform initial evaluation of pt's status upon a dmission and devise an individualized program for Aquatic Therapy, Neuromuscular Reeducation, and Str engthening Achieving independence - to improve, our physical therapists will perform initial evaluation of pt's status upon admission and devise an individualized program for Community Reintegration Activities - Occupational Therapy ADL deficits - to improve, our occupation therapists will perform initial evaluation of pt's status upon admission and devise an individualized program for Bathing, Bed mobility, Community Reintegratio n, Cooking, Dressing, Eating, Fine Motor Skills, Grooming, Homemaking, Kitchen Mobility, Laundry, Pat ient Education, Safety Awareness, Splinting - Positioning, Transfers(Toilet, Tub, Shower), and Wheel Chair Management Cognitive deficits - to improve, our occupation therapists will perform initial evaluation of pt's s tatus upon admission and devise an individualized program for Cognition - orientation Need for clinical manager home care - to improve, our occupation therapists will perform initial evaluation of pt's status upon admission and devise an individualized program for Caregiver Training Weakness - to improve, our occupation therapists will perform initial evaluation of pt's status upon admission and devise an individualized program for Aquatic Therapy, Balance, Endurance, UE ROM, and UE strengthening - Other See attached MAR (Medication Administration Record) - Anterior Hip Precaution No abduction No active extension No adduction across midline No external rotation No hip flexion >90 degrees No internal rotation - Diet - Liquid Texture Continue Regular - Tube Feed Continue N/A - Diet Type Continue Regular - Posterior Hip Precaution No adduction across midline No external rotation No hip flexion >90 degrees No internal rotation No wheel chair propulsion - Weight Bearing Precaution WBAT right LE - Skin care per protocol - Diet - Solid Texture Continue Regular - Shower allowing shower FUNCTIONAL STATUS: UPDATED AT WEEKLY TEAM CONFERENCE - Bladder Same accident frequency: 7-Ind - No accidents in the past 7 days - Bowel Same accident frequency: 7-Ind - No accidents in the past 7 days - Walking Same score based on distance walked: 0(N/A) Same score based on distance walked: 1(<=50ft) - Wheelchair Same score based on distance traveled: 0(N/A) FUNCTIONAL STATUS: - Self-Care A. Eating Joyce B. Grooming sup C. Bathing Lorna D. Dressing - Upper Lorna E. Dressing - Lower modA F. Toileting Lorna - Sphincter Control G. Bladder control Lorna H. Bowel control Lorna - Transfers Control I. Bed/Chair/Wheelchair Lorna J. Toilet Lorna K. Tub/Shower modA - Locomotion L. Walk/Wheelchair (B) Lorna M. Stairs maxA - Communication N. Comprehension (B) sup O. Expression (B) sup - Social Cognition P. Social Interaction Joyce Q. Problem Solving sup R. Memory sup - Endurance Fair - Balance Fair - Safety Awareness Fair QI SCORES: - Self-Care A. Eating 06-Independent B. Oral hygiene 03-Partial/moderate assistance C. Toileting hygiene 02-Substantial/maximal assistance E. Shower/bathe self 02-Substantial/maximal assistance F. Upper body dressing 02-Substantial/maximal assistance G. Lower body dressing 02-Substantial/maximal assistance H. Putting on/taking off footwear 88-Not attempted due to medical condition or safety concerns - Mobility A. Roll left and right 03-Partial/moderate assistance B. Sit to lying 02-Substantial/maximal assistance C. Lying to sitting on side of bed 02-Substantial/maximal assistance D. Sit to stand 02-Substantial/maximal assistance E. Chair/kva-vu-entfe transfer 02-Substantial/maximal assistance F. Toilet transfer 03-Partial/moderate assistance G. Car transfer 88-Not attempted due to medical condition or safety concerns I. Walk 10 feet 02-Substantial/maximal assistance J. Walk 50 feet with two turns 88-Not attempted due to medical condition or safety concerns K. Walk 150 feet 88-Not attempted due to medical condition or safety concerns L. Walking 10 feet on uneven surfaces 88-Not attempted due to medical condition or safety concerns M. 1 step (curb) 88-Not attempted due to medical condition or safety concerns N. 4 steps 88-Not attempted due to medical condition or safety concerns O. 12 steps 88-Not attempted due to medical condition or safety concerns P. Picking up object 88-Not attempted due to medical condition or safety concerns R. Wheel 50 feet with two turns 88-Not attempted due to medical condition or safety concerns S. Wheel 150 feet 88-Not attempted due to medical condition or safety concerns - Bladder and Bowel Bladder continence Bowel continence - Endurance Fair - Balance Poor - Safety Awareness Fair CURRENT [facility]. DEFICITS: Mobility, Endurance, Balance, Safety Awareness, and Self-Care SIGNATURE PANEL: (CDT)
[2020-09-14] MEDS: MELATONIN 3 MG TABLET PO PRN (18:55)
[2020-09-15] MEDS: JUVEN PACKET PO SCH ×2 (08:00→20:00)
[2020-09-15] MEDS: ASPIRIN EC 81 MG TAB PO SCH (08:32)
[2020-09-15] MEDS: ZINC SULFATE 220 MG CAP PO SCH (08:32)
[2020-09-15] MEDS: FLUDROCORTISONE 0.1 MG TAB PO SCH (08:32)
[2020-09-15] MEDS: ASCORBIC ACID 500 MG TABLET PO SCH (08:32)
[2020-09-15] MEDS: FAMOTIDINE 20 MG TAB PO SCH ×2 (08:32→20:35)
[2020-09-15] MEDS: MAGNESIUM OXIDE 400 MG TAB PO SCH ×2 (08:33→20:00)
[2020-09-15] MEDS: AMIODARONE HCL 200 MG TAB PO SCH (08:33)
[2020-09-15] MEDS: TAMSULOSIN 0.4 MG SR CAP PO SCH ×2 (08:33→20:35)
[2020-09-15] MEDS: FINASTERIDE 5 MG TAB PO SCH (08:33)
[2020-09-15] MEDS: THIAMINE HCL 100 MG TABLET PO SCH (08:33)
[2020-09-15] MEDS: CYANOCOBALAMIN 1,000 MCG TAB PO SCH (08:33)
[2020-09-15] MEDS: LIDOCAINE 4% PATCH TOP SCH (08:34)
[2020-09-15] MEDS: POTASSIUM CL SA 10 MEQ TAB PO SCH ×2 (08:34→20:35)
[2020-09-15] MEDS: COLLAGENASE 30 GM OINTMENT TOP SCH (08:35)
[2020-09-15] MEDS: GABAPENTIN 400 MG CAP PO SCH ×2 (08:37→20:36)
[2020-09-15] MEDS: ACETAMINOPHEN 500 MG TAB PO PRN ×2 (08:38→20:35)
--- NOTE | 2020-09-15 09:40 | P.RH.PN ---
Estimated Length of Stay: 22 Expected Discharge Date: 09/20/20 Discharge Disposition Plan: Home Family Support: Yes Half-Way Goal: Mobility, Transfers, Self Care Vital Signs: Last Vital Signs Temp 97.9 F 09/15/20 06:36 Pulse 64 09/15/20 06:36 Resp 18 09/15/20 06:36 BP 172/79 H 09/15/20 06:36 Pulse Ox 98 09/15/20 06:36 Laboratory: Laboratory Last Values WBC 7.10 K/uL (4.3-10.9) 09/14/20 06:39 RBC 4.31 M/uL (4.33-5.43) L 09/14/20 06:39 Hgb 11.4 g/dL (13.6-17.9) L 09/14/20 06:39 Hct 36.4 % (39.6-49.0) L 09/14/20 06:39 MCV 84.3 fL (80-100) 09/14/20 06:39 MCH 26.5 pg (27.0-35.0) L 09/14/20 06:39 MCHC 31.5 g/dL (32.0-36.0) L 09/14/20 06:39 RDW 16.7 % (12.1-15.2) H 09/14/20 06:39 Plt Count 265 K/uL (152-406) 09/14/20 06:39 MPV 9.9 fL (7.6-11.3) 09/14/20 06:39 Neutrophils % 69.8 % (41.7-73.7) 09/14/20 06:39 Lymphocytes % 10.8 % (15.3-44.8) L 09/14/20 06:39 Monocytes % 10.8 % (3.3-12.3) 09/14/20 06:39 Eosinophils % 7.6 % (0-4.4) H 09/14/20 06:39 Basophils % 1.0 % (0-1.3) 09/14/20 06:39 Absolute Neutrophils 4.9 K/uL (1.8-8.0) 09/14/20 06:39 Absolute Lymphocytes 0.8 K/uL (0.7-4.9) 09/14/20 06:39 Absolute Monocytes 0.8 K/uL (0.1-1.3) 09/14/20 06:39 Absolute Eosinophils 0.5 K/uL (0-0.5) 09/14/20 06:39 Absolute Basophils 0.1 K/uL (0-0.5) 09/14/20 06:39 Sodium 144 mmol/L (136-145) 09/14/20 06:39 Potassium 3.4 mmol/L (3.5-5.1) L 09/14/20 06:39 Chloride 109 mmol/L (98-107) H 09/14/20 06:39 Carbon Dioxide 31 mmol/L (21-32) 09/14/20 06:39 BUN 16 mg/dL (7-18) 09/14/20 06:39 Creatinine 0.98 mg/dL (0.55-1.3) 09/14/20 06:39 Estimated GFR 72 mL/min (=/>90) L 09/14/20 06:39 Glucose 110 mg/dL (74-106) H 09/14/20 06:39 Calcium 8.7 mg/dL (8.5-10.1) 09/14/20 06:39 Magnesium 2.2 mg/dL (1.8-2.4) 09/14/20 06:39 Albumin 2.6 g/dL (3.4-5.0) L 09/14/20 06:39 Prealbumin 13.2 mg/dL (20-40) L 09/14/20 06:39 Urine Color Yellow (Yellow) 08/30/20 18:00 Urine Appearance Clear (Clear) 08/30/20 18:00 Urine pH 5.5 (5.0-7.0) 08/30/20 18:00 Ur Specific [place] 1.015 (1.005-1.030) 08/30/20 18:00 Glucose (UA)(Auto) Negative (Negative) 08/30/20 18:00 Urine Ketones Negative (Negative) 08/30/20 18:00 Urine Blood Negative (Negative) 08/30/20 18:00 Urine Nitrite Negative (Negative) 08/30/20 18:00 Urine Bilirubin Negative (Negative) 08/30/20 18:00 Urine Urobilinogen 0.2 mg/dL (0.2-1.0) 08/30/20 18:00 Ur Leukocyte Esterase Negative (Negative) 08/30/20 18:00 Urine RBC <5 /HPF (NONE SEEN) 08/30/20 18:00 Urine WBC <5 /HPF (<5) 08/30/20 18:00 Ur Squamous Epith Cells <5 /HPF (NONE SEEN) 08/30/20 18:00 Urine Bacteria <20 /HPF (NONE SEEN) 08/30/20 18:00 Urine Culture Reflexed Not needed 08/30/20 18:00 Urine Total Protein Negative (Negative) 08/30/20 18:00 SARS-CoV-2 RNA (RT-PCR) Negative (NEGATIVE) 09/06/20 15:05 Weight: 204 lb 6.4 oz Within Defined Parameters: No left hand Skin Alteration: skin tear cleaned with ns triple antibiotics applied 2x2 and tegaderm Skin Temperature: Cold Skin Color: Normal Skin Tone Skin Turgor: Normal Skin Tone: Loose Wound Present: Yes Closed Surgical Incision Present: No Negative Pressure Wound Therapy Present: No Physician Update: He is doing better with the AFOs but he still requires moderate assistance when he is discharged home. He will likely require a half-way option or 24 hour care and supervision. His labs were reviewed and are stable. He may have VA benefits and that would be best for his discharge. Summary: Patient's care plan and skilled nursing goals have been reviewed and revised as necessary. Please see the Rehabilitation Signature page for all necessary signatures.
[2020-09-15] MEDS: MELATONIN 3 MG TABLET PO PRN (20:36)
[2020-09-16] MEDS: JUVEN PACKET PO SCH ×2 (08:09→20:00)
[2020-09-16] MEDS: LIDOCAINE 4% PATCH TOP SCH (08:09)
[2020-09-16] MEDS: GABAPENTIN 400 MG CAP PO SCH ×2 (08:13→20:19)
[2020-09-16] MEDS: ASCORBIC ACID 500 MG TABLET PO SCH (08:13)
[2020-09-16] MEDS: COLLAGENASE 30 GM OINTMENT TOP SCH (08:13)
[2020-09-16] MEDS: FLUDROCORTISONE 0.1 MG TAB PO SCH (08:13)
[2020-09-16] MEDS: ZINC SULFATE 220 MG CAP PO SCH (08:14)
[2020-09-16] MEDS: POTASSIUM CL SA 10 MEQ TAB PO SCH ×2 (08:14→20:19)
[2020-09-16] MEDS: ASPIRIN EC 81 MG TAB PO SCH (08:14)
[2020-09-16] MEDS: FAMOTIDINE 20 MG TAB PO SCH ×2 (08:14→20:19)
[2020-09-16] MEDS: AMIODARONE HCL 200 MG TAB PO SCH (08:15)
[2020-09-16] MEDS: THIAMINE HCL 100 MG TABLET PO SCH (08:15)
[2020-09-16] MEDS: TAMSULOSIN 0.4 MG SR CAP PO SCH (08:15)
[2020-09-16] MEDS: ACETAMINOPHEN 500 MG TAB PO PRN (08:15)
[2020-09-16] MEDS: CYANOCOBALAMIN 1,000 MCG TAB PO SCH (08:15)
[2020-09-16] MEDS: MAGNESIUM OXIDE 400 MG TAB PO SCH ×2 (08:15→20:19)
[2020-09-16] MEDS: FINASTERIDE 5 MG TAB PO SCH (08:15)
--- NOTE | 2020-09-16 19:01 | R.PN ---
PROGRESS NOTES ENCOUNTER DATE AND TIME: 09/16/2020 18:58 (CDT) NAME AILEEN ANDINO DATE OF : 1935 DATE OF ADMISSION: 08/30/2020 14:35 (CDT) right femur fractureCHIEF COMPLAINT: Right femur fracture, debility SUBJECTIVE: Pt denied any depression. Pt denied any Shortness of Breath. WBC 7.1, Hgb 11.4, PLT 265, prelabumin 13.2, K 3.4, Na 143, Ca 8.7, Mg 2.2 Self-propelled wheelchair 300' with modified independence. VITAL SIGNS Temperature: 98.2 F SBP/DBP: 159/74 Pulse: 68 Resp: 16 MEDICATION ALLERGIES: FENLANYL MORPHINE OXYCODONE PENICILLIN BACTRIM SULFA ANTIBIOTICS ENVIRONMENTAL ALLERGIES: Milk LETTUCE - Substance Allergies None Known - Other Allergies None Known NURSING: - Shower allowing shower - Skin care per protocol PRECAUTIONS: - Posterior Hip Precaution No adduction across midline No external rotation No hip flexion >90 degrees No internal rotation No wheel chair propulsion - Weight Bearing Precaution WBAT right LE ACTIVITIES OOB only with supervision THERAPIES: - Dietary and Nutrition Adequate Nutrition. Nutritional Education. Nutritional Supplements. PHYSICAL EXAM - Gen Alert and awake Lying in bed No apparent distress Oriented to: person, time, and place - Skin Mild bruising in anterior legs bilaterally, otherwise intact. Normacephalic - Eyes No abnormalities - ENMT No abnormalities - Neck No abnormalities - CVS RRR - Chest No abnormalities - Resp Clear to auscultation - Abd + bowel sounds - GI Soft Deferred - No abnormalities - Ext Mild right lower extremity edema. - MSK 4+/5 weakness in right lower extremity. - Neuro 4/5 strength right lower extremity - Psych No abnormalities ASSESSMENT: Pt. is a 85 yo Right-handed male of unknown race.On 08/30/2020 he was admitted to [facility] with diagnosis right femur fracture.His impairment category is Orthopaedic Disorders 08 - Unila teral Hip Fracture (08.11).Pre-morbidly, Pt. was independent/mod-I in Safety Awareness, Balance, Arevalo sfers Control, Endurance, and Locomotion; and he had good Balance and Social Cognition.Currently, he has deficits of Locomotion, Safety Awareness, Social Cognition, Transfers Control, Sphincter Control, Self-Care, and Endurance.Pt. is now referred to [facility] for acute in-patie nt rehabilitation in order to maximize patient's functional independence in activities of daily livin g, strength, ROM, and mobility.- Rehab Goal Patient has realistic goal of being discharged at assistance level 7-Ind to reside at Home with Fami ly/Relatives. MDM/PLAN: - Physical Therapy Decreased range of motion - to improve, our physical therapists will perform initial evaluation of p t's status upon admission and devise an individualized program for increasing patient's Range of Keyur on. Gait dysfunction - to improve, our physical therapists will perform initial evaluation of pt's statu s upon admission and devise an individualized program for Gait Training, and Wheel Chair mobility Inability to transfer - to improve, our physical therapists will perform initial evaluation of pt's status upon admission and devise an individualized program for Bed mobility Need for home safety evaluation - to improve, our physical therapists will perform initial evaluatio n of pt's status upon admission and devise an individualized program for Home Evaluation Need in caregiver upon discharge - to improve, our physical therapists will perform initial evaluati on of pt's status upon admission and devise an individualized program for Caregiver Training Edema - to improve, our physical therapists will perform initial evaluation of pt's status upon admi ssion and devise an individualized program for Elevation Training, and Lymphedema Therapy New precaution - to improve, our physical therapists will perform initial evaluation of pt's status upon admission and devise an individualized program for Patient precaution education Poor endurance - to improve, our physical therapists will perform initial evaluation of pt's status upon admission and devise an individualized program for Endurance Training Weakness - to improve, our physical therapists will perform initial evaluation of pt's status upon a dmission and devise an individualized program for Aquatic Therapy, Neuromuscular Reeducation, and Str engthening Achieving independence - to improve, our physical therapists will perform initial evaluation of pt's status upon admission and devise an individualized program for Community Reintegration Activities - Occupational Therapy ADL deficits - to improve, our occupation therapists will perform initial evaluation of pt's status upon admission and devise an individualized program for Bathing, Bed mobility, Community Reintegratio n, Cooking, Dressing, Eating, Fine Motor Skills, Grooming, Homemaking, Kitchen Mobility, Laundry, Pat ient Education, Safety Awareness, Splinting - Positioning, Transfers(Toilet, Tub, Shower), and Wheel Chair Management Cognitive deficits - to improve, our occupation therapists will perform initial evaluation of pt's s tatus upon admission and devise an individualized program for Cognition - orientation Need for pet care worker - to improve, our occupation therapists will perform initial evaluation of pt's status upon admission and devise an individualized program for Caregiver Training Weakness - to improve, our occupation therapists will perform initial evaluation of pt's status upon admission and devise an individualized program for Aquatic Therapy, Balance, Endurance, UE ROM, and UE strengthening - Other See attached MAR (Medication Administration Record) - Anterior Hip Precaution No abduction No active extension No adduction across midline No external rotation No hip flexion >90 degrees No internal rotation - Diet - Liquid Texture Continue Regular - Tube Feed Continue N/A - Diet Type Continue Regular - Posterior Hip Precaution No adduction across midline No external rotation No hip flexion >90 degrees No internal rotation No wheel chair propulsion - Weight Bearing Precaution WBAT right LE - Skin care per protocol - Diet - Solid Texture Continue Regular - Shower allowing shower FUNCTIONAL STATUS: UPDATED AT WEEKLY TEAM CONFERENCE - Bladder Same accident frequency: 7-Ind - No accidents in the past 7 days - Bowel Same accident frequency: 7-Ind - No accidents in the past 7 days - Walking Same score based on distance walked: 0(N/A) Same score based on distance walked: 1(<=50ft) - Wheelchair Same score based on distance traveled: 0(N/A) FUNCTIONAL STATUS: - Self-Care A. Eating Joyce B. Grooming sup C. Bathing Lorna D. Dressing - Upper Lorna E. Dressing - Lower modA F. Toileting Lorna - Sphincter Control G. Bladder control Lorna H. Bowel control Lorna - Transfers Control I. Bed/Chair/Wheelchair Lorna J. Toilet Lorna K. Tub/Shower modA - Locomotion L. Walk/Wheelchair (B) Lorna M. Stairs maxA - Communication N. Comprehension (B) sup O. Expression (B) sup - Social Cognition P. Social Interaction Joyce Q. Problem Solving sup R. Memory sup - Endurance Fair - Balance Fair - Safety Awareness Fair QI SCORES: - Self-Care A. Eating 06-Independent B. Oral hygiene 03-Partial/moderate assistance C. Toileting hygiene 02-Substantial/maximal assistance E. Shower/bathe self 02-Substantial/maximal assistance F. Upper body dressing 02-Substantial/maximal assistance G. Lower body dressing 02-Substantial/maximal assistance H. Putting on/taking off footwear 88-Not attempted due to medical condition or safety concerns - Mobility A. Roll left and right 03-Partial/moderate assistance B. Sit to lying 02-Substantial/maximal assistance C. Lying to sitting on side of bed 02-Substantial/maximal assistance D. Sit to stand 02-Substantial/maximal assistance E. Chair/[id number]-[id number] transfer 02-Substantial/maximal assistance F. Toilet transfer 03-Partial/moderate assistance G. Car transfer 88-Not attempted due to medical condition or safety concerns I. Walk 10 feet 02-Substantial/maximal assistance J. Walk 50 feet with two turns 88-Not attempted due to medical condition or safety concerns K. Walk 150 feet 88-Not attempted due to medical condition or safety concerns L. Walking 10 feet on uneven surfaces 88-Not attempted due to medical condition or safety concerns M. 1 step (curb) 88-Not attempted due to medical condition or safety concerns N. 4 steps 88-Not attempted due to medical condition or safety concerns O. 12 steps 88-Not attempted due to medical condition or safety concerns P. Picking up object 88-Not attempted due to medical condition or safety concerns R. Wheel 50 feet with two turns 88-Not attempted due to medical condition or safety concerns S. Wheel 150 feet 88-Not attempted due to medical condition or safety concerns - Bladder and Bowel Bladder continence Bowel continence - Endurance Fair - Balance Poor - Safety Awareness Fair CURRENT [facility]. DEFICITS: Mobility, Endurance, Balance, Safety Awareness, and Self-Care SIGNATURE PANEL: (CDT)
[2020-09-16] MEDS: MELATONIN 3 MG TABLET PO PRN (20:19)
[2020-09-17] MEDS: TAMSULOSIN 0.4 MG SR CAP PO SCH (07:50)
[2020-09-17] MEDS: ZINC SULFATE 220 MG CAP PO SCH (07:50)
[2020-09-17] MEDS: ASPIRIN EC 81 MG TAB PO SCH (07:50)
[2020-09-17] MEDS: POTASSIUM CL SA 10 MEQ TAB PO SCH ×2 (07:50→20:30)
[2020-09-17] MEDS: ASCORBIC ACID 500 MG TABLET PO SCH (07:50)
[2020-09-17] MEDS: FAMOTIDINE 20 MG TAB PO SCH ×2 (07:50→20:30)
[2020-09-17] MEDS: GABAPENTIN 400 MG CAP PO SCH ×2 (07:50→20:30)
[2020-09-17] MEDS: CYANOCOBALAMIN 1,000 MCG TAB PO SCH (07:51)
[2020-09-17] MEDS: FINASTERIDE 5 MG TAB PO SCH (07:51)
[2020-09-17] MEDS: LIDOCAINE 4% PATCH TOP SCH (07:51)
[2020-09-17] MEDS: AMIODARONE HCL 200 MG TAB PO SCH (07:51)
[2020-09-17] MEDS: FLUDROCORTISONE 0.1 MG TAB PO SCH (07:51)
[2020-09-17] MEDS: MAGNESIUM OXIDE 400 MG TAB PO SCH ×2 (07:51→20:30)
[2020-09-17] MEDS: JUVEN PACKET PO SCH ×2 (07:51→20:00)
[2020-09-17] MEDS: THIAMINE HCL 100 MG TABLET PO SCH (07:51)
[2020-09-17] MEDS: COLLAGENASE 30 GM OINTMENT TOP SCH (07:52)
[2020-09-17] MEDS: ACETAMINOPHEN 500 MG TAB PO PRN (13:34)
[2020-09-17] MEDS: MELATONIN 3 MG TABLET PO PRN (20:30)
[2020-09-18] MEDS: ACETAMINOPHEN 500 MG TAB PO PRN (00:21)
[2020-09-18] MEDS: COLLAGENASE 30 GM OINTMENT TOP SCH (07:00)
[2020-09-18] MEDS: LIDOCAINE 4% PATCH TOP SCH (07:00)
[2020-09-18] MEDS: AMIODARONE HCL 200 MG TAB PO SCH (08:00)
[2020-09-18] MEDS: JUVEN PACKET PO SCH ×2 (08:00→20:00)
[2020-09-18] MEDS: ASPIRIN EC 81 MG TAB PO SCH (08:40)
[2020-09-18] MEDS: ZINC SULFATE 220 MG CAP PO SCH (08:40)
[2020-09-18] MEDS: MAGNESIUM OXIDE 400 MG TAB PO SCH ×2 (08:40→20:17)
[2020-09-18] MEDS: FINASTERIDE 5 MG TAB PO SCH (08:41)
[2020-09-18] MEDS: TAMSULOSIN 0.4 MG SR CAP PO SCH (08:41)
[2020-09-18] MEDS: GABAPENTIN 400 MG CAP PO SCH ×2 (08:41→20:17)
[2020-09-18] MEDS: POTASSIUM CL SA 10 MEQ TAB PO SCH ×2 (08:41→20:17)
[2020-09-18] MEDS: CYANOCOBALAMIN 1,000 MCG TAB PO SCH (08:41)
[2020-09-18] MEDS: FLUDROCORTISONE 0.1 MG TAB PO SCH (08:41)
[2020-09-18] MEDS: THIAMINE HCL 100 MG TABLET PO SCH (08:41)
[2020-09-18] MEDS: FAMOTIDINE 20 MG TAB PO SCH ×2 (08:41→20:17)
[2020-09-18] MEDS: ASCORBIC ACID 500 MG TABLET PO SCH (08:41)
--- NOTE | 2020-09-18 18:22 | R.PN ---
PROGRESS NOTES ENCOUNTER DATE AND TIME: 09/18/2020 18:19 (CDT) NAME AILEEN ANDINO DATE OF : 1935 DATE OF ADMISSION: 08/30/2020 14:35 (CDT) right femur fractureCHIEF COMPLAINT: Right femur fracture, debility SUBJECTIVE: Pt denied any depression. Pt denied any Shortness of Breath. WBC 7.1, Hgb 11.4, PLT 265, prelabumin 13.2, K 3.8, Na 143, Ca 8.7, Mg 2.2 Self-propelled wheelchair 300' with modified independence. Ambulated 280' with contact guard assistance using a rolling walker. VITAL SIGNS Temperature: 98.2 F SBP/DBP: 132/62 Pulse: 61 Resp: 16 MEDICATION ALLERGIES: FENLANYL MORPHINE OXYCODONE PENICILLIN BACTRIM SULFA ANTIBIOTICS ENVIRONMENTAL ALLERGIES: Milk LETTUCE - Substance Allergies None Known - Other Allergies None Known NURSING: - Shower allowing shower - Skin care per protocol PRECAUTIONS: - Posterior Hip Precaution No adduction across midline No external rotation No hip flexion >90 degrees No internal rotation No wheel chair propulsion - Weight Bearing Precaution WBAT right LE ACTIVITIES OOB only with supervision THERAPIES: - Dietary and Nutrition Adequate Nutrition. Nutritional Education. Nutritional Supplements. PHYSICAL EXAM - Gen Alert and awake Lying in bed No apparent distress Oriented to: person, time, and place - Skin Mild bruising in anterior legs bilaterally, otherwise intact. Normacephalic - Eyes No abnormalities - ENMT No abnormalities - Neck No abnormalities - CVS RRR - Chest No abnormalities - Resp Clear to auscultation - Abd + bowel sounds - GI Soft Deferred - No abnormalities - Ext Mild right lower extremity edema. - MSK 4+/5 weakness in right lower extremity. - Neuro 4/5 strength right lower extremity - Psych No abnormalities ASSESSMENT: Pt. is a 85 yo Right-handed male of unknown race.On 08/30/2020 he was admitted to [facility] with diagnosis right femur fracture.His impairment category is Orthopaedic Disorders 08 - Unila teral Hip Fracture (08.11).Pre-morbidly, Pt. was independent/mod-I in Safety Awareness, Balance, Arevalo sfers Control, Endurance, and Locomotion; and he had good Balance and Social Cognition.Currently, he has deficits of Locomotion, Safety Awareness, Social Cognition, Transfers Control, Sphincter Control, Self-Care, and Endurance.Pt. is now referred to [facility] for acute in-patie nt rehabilitation in order to maximize patient's functional independence in activities of daily livin g, strength, ROM, and mobility.- Rehab Goal Patient has realistic goal of being discharged at assistance level 7-Ind to reside at Home with Fami ly/Relatives. MDM/PLAN: - Physical Therapy Decreased range of motion - to improve, our physical therapists will perform initial evaluation of p t's status upon admission and devise an individualized program for increasing patient's Range of Keyur on. Gait dysfunction - to improve, our physical therapists will perform initial evaluation of pt's statu s upon admission and devise an individualized program for Gait Training, and Wheel Chair mobility Inability to transfer - to improve, our physical therapists will perform initial evaluation of pt's status upon admission and devise an individualized program for Bed mobility Need for home safety evaluation - to improve, our physical therapists will perform initial evaluatio n of pt's status upon admission and devise an individualized program for Home Evaluation Need in caregiver upon discharge - to improve, our physical therapists will perform initial evaluati on of pt's status upon admission and devise an individualized program for Caregiver Training Edema - to improve, our physical therapists will perform initial evaluation of pt's status upon admi ssion and devise an individualized program for Elevation Training, and Lymphedema Therapy New precaution - to improve, our physical therapists will perform initial evaluation of pt's status upon admission and devise an individualized program for Patient precaution education Poor endurance - to improve, our physical therapists will perform initial evaluation of pt's status upon admission and devise an individualized program for Endurance Training Weakness - to improve, our physical therapists will perform initial evaluation of pt's status upon a dmission and devise an individualized program for Aquatic Therapy, Neuromuscular Reeducation, and Str engthening Achieving independence - to improve, our physical therapists will perform initial evaluation of pt's status upon admission and devise an individualized program for Community Reintegration Activities - Occupational Therapy ADL deficits - to improve, our occupation therapists will perform initial evaluation of pt's status upon admission and devise an individualized program for Bathing, Bed mobility, Community Reintegratio n, Cooking, Dressing, Eating, Fine Motor Skills, Grooming, Homemaking, Kitchen Mobility, Laundry, Pat ient Education, Safety Awareness, Splinting - Positioning, Transfers(Toilet, Tub, Shower), and Wheel Chair Management Cognitive deficits - to improve, our occupation therapists will perform initial evaluation of pt's s tatus upon admission and devise an individualized program for Cognition - orientation Need for care trainer - to improve, our occupation therapists will perform initial evaluation of pt's status upon admission and devise an individualized program for Caregiver Training Weakness - to improve, our occupation therapists will perform initial evaluation of pt's status upon admission and devise an individualized program for Aquatic Therapy, Balance, Endurance, UE ROM, and UE strengthening - Other See attached MAR (Medication Administration Record) - Anterior Hip Precaution No abduction No active extension No adduction across midline No external rotation No hip flexion >90 degrees No internal rotation - Diet - Liquid Texture Continue Regular - Tube Feed Continue N/A - Diet Type Continue Regular - Posterior Hip Precaution No adduction across midline No external rotation No hip flexion >90 degrees No internal rotation No wheel chair propulsion - Weight Bearing Precaution WBAT right LE - Skin care per protocol - Diet - Solid Texture Continue Regular - Shower allowing shower FUNCTIONAL STATUS: UPDATED AT WEEKLY TEAM CONFERENCE - Bladder Same accident frequency: 7-Ind - No accidents in the past 7 days - Bowel Same accident frequency: 7-Ind - No accidents in the past 7 days - Walking Same score based on distance walked: 0(N/A) Same score based on distance walked: 1(<=50ft) - Wheelchair Same score based on distance traveled: 0(N/A) FUNCTIONAL STATUS: - Self-Care A. Eating Joyce B. Grooming sup C. Bathing Lorna D. Dressing - Upper Lorna E. Dressing - Lower modA F. Toileting Lorna - Sphincter Control G. Bladder control Lorna H. Bowel control Lorna - Transfers Control I. Bed/Chair/Wheelchair Lorna J. Toilet Lorna K. Tub/Shower modA - Locomotion L. Walk/Wheelchair (B) Lorna M. Stairs maxA - Communication N. Comprehension (B) sup O. Expression (B) sup - Social Cognition P. Social Interaction Joyce Q. Problem Solving sup R. Memory sup - Endurance Fair - Balance Fair - Safety Awareness Fair QI SCORES: - Self-Care A. Eating 06-Independent B. Oral hygiene 03-Partial/moderate assistance C. Toileting hygiene 02-Substantial/maximal assistance E. Shower/bathe self 02-Substantial/maximal assistance F. Upper body dressing 02-Substantial/maximal assistance G. Lower body dressing 02-Substantial/maximal assistance H. Putting on/taking off footwear 88-Not attempted due to medical condition or safety concerns - Mobility A. Roll left and right 03-Partial/moderate assistance B. Sit to lying 02-Substantial/maximal assistance C. Lying to sitting on side of bed 02-Substantial/maximal assistance D. Sit to stand 02-Substantial/maximal assistance E. Chair/adj-cf-gnyhr transfer 02-Substantial/maximal assistance F. Toilet transfer 03-Partial/moderate assistance G. Car transfer 88-Not attempted due to medical condition or safety concerns I. Walk 10 feet 02-Substantial/maximal assistance J. Walk 50 feet with two turns 88-Not attempted due to medical condition or safety concerns K. Walk 150 feet 88-Not attempted due to medical condition or safety concerns L. Walking 10 feet on uneven surfaces 88-Not attempted due to medical condition or safety concerns M. 1 step (curb) 88-Not attempted due to medical condition or safety concerns N. 4 steps 88-Not attempted due to medical condition or safety concerns O. 12 steps 88-Not attempted due to medical condition or safety concerns P. Picking up object 88-Not attempted due to medical condition or safety concerns R. Wheel 50 feet with two turns 88-Not attempted due to medical condition or safety concerns S. Wheel 150 feet 88-Not attempted due to medical condition or safety concerns - Bladder and Bowel Bladder continence Bowel continence - Endurance Fair - Balance Poor - Safety Awareness Fair CURRENT [facility] DEFICITS: Mobility, Endurance, Balance, Safety Awareness, and Self-Care SIGNATURE PANEL: (CDT)
[2020-09-18] MEDS: MELATONIN 3 MG TABLET PO PRN (20:17)
[2020-09-18] MEDS: DOCUSATE NA/SENNA CONC 1 TAB PO PRN (20:17)
[2020-09-19] MEDS: LIDOCAINE 4% PATCH TOP SCH (06:34)
[2020-09-19] MEDS: COLLAGENASE 30 GM OINTMENT TOP SCH (06:34)
[2020-09-19] MEDS: ASPIRIN EC 81 MG TAB PO SCH (07:52)
[2020-09-19] MEDS: ZINC SULFATE 220 MG CAP PO SCH (07:52)
[2020-09-19] MEDS: THIAMINE HCL 100 MG TABLET PO SCH (07:52)
[2020-09-19] MEDS: POTASSIUM CL SA 10 MEQ TAB PO SCH ×2 (07:53→19:09)
[2020-09-19] MEDS: GABAPENTIN 400 MG CAP PO SCH ×2 (07:53→19:09)
[2020-09-19] MEDS: ASCORBIC ACID 500 MG TABLET PO SCH (07:53)
[2020-09-19] MEDS: MAGNESIUM OXIDE 400 MG TAB PO SCH ×2 (07:53→19:11)
[2020-09-19] MEDS: FLUDROCORTISONE 0.1 MG TAB PO SCH (07:54)
[2020-09-19] MEDS: CYANOCOBALAMIN 1,000 MCG TAB PO SCH (07:54)
[2020-09-19] MEDS: FAMOTIDINE 20 MG TAB PO SCH ×2 (07:54→19:09)
[2020-09-19] MEDS: FINASTERIDE 5 MG TAB PO SCH (07:54)
[2020-09-19] MEDS: TAMSULOSIN 0.4 MG SR CAP PO SCH (07:54)
[2020-09-19] MEDS: AMIODARONE HCL 200 MG TAB PO SCH (07:55)
[2020-09-19] MEDS: JUVEN PACKET PO SCH ×2 (09:05→19:10)
[2020-09-19] MEDS: POLYETHYL GLY 3350 17 GM/DOSE PO PRN (14:16)
[2020-09-19] MEDS ORDERED: ONDANSETRON 4 MG (ODT) TAB PO PRN (17:36)
--- NOTE | 2020-09-19 17:50 | R.PN ---
PROGRESS NOTES ENCOUNTER DATE AND TIME: 09/19/2020 17:47 (CDT) NAME AILEEN ANDINO DATE OF : 1935 DATE OF ADMISSION: 08/30/2020 14:35 (CDT) right femur fractureCHIEF COMPLAINT: Right femur fracture, debility SUBJECTIVE: Pt denied any depression. Pt denied any Shortness of Breath. WBC 7.1, Hgb 11.4, PLT 265, prelabumin 13.2, K 3.8, Na 143, Ca 8.7, Mg 2.2 Self-propelled wheelchair 300' with modified independence. Ambulated 300' with contact guard assistance using a rolling walker. VITAL SIGNS Temperature: 97.8 F SBP/DBP: 119/63 Pulse: 80 Resp: 16 MEDICATION ALLERGIES: FENLANYL MORPHINE OXYCODONE PENICILLIN BACTRIM SULFA ANTIBIOTICS ENVIRONMENTAL ALLERGIES: Milk LETTUCE - Substance Allergies None Known - Other Allergies None Known NURSING: - Shower allowing shower - Skin care per protocol PRECAUTIONS: - Posterior Hip Precaution No adduction across midline No external rotation No hip flexion >90 degrees No internal rotation No wheel chair propulsion - Weight Bearing Precaution WBAT right LE ACTIVITIES OOB only with supervision THERAPIES: - Dietary and Nutrition Adequate Nutrition. Nutritional Education. Nutritional Supplements. PHYSICAL EXAM - Gen Alert and awake Lying in bed No apparent distress Oriented to: person, time, and place - Skin Mild bruising in anterior legs bilaterally, otherwise intact. Normacephalic - Eyes No abnormalities - ENMT No abnormalities - Neck No abnormalities - CVS RRR - Chest No abnormalities - Resp Clear to auscultation - Abd + bowel sounds - GI Soft Deferred - No abnormalities - Ext Mild right lower extremity edema. - MSK 4+/5 weakness in right lower extremity. - Neuro 4/5 strength right lower extremity - Psych No abnormalities ASSESSMENT: Pt. is a 85 yo Right-handed male of unknown race.On 08/30/2020 he was admitted to [facility] with diagnosis right femur fracture.His impairment category is Orthopaedic Disorders 08 - Unila teral Hip Fracture (08.11).Pre-morbidly, Pt. was independent/mod-I in Safety Awareness, Balance, Arevalo sfers Control, Endurance, and Locomotion; and he had good Balance and Social Cognition.Currently, he has deficits of Locomotion, Safety Awareness, Social Cognition, Transfers Control, Sphincter Control, Self-Care, and Endurance.Pt. is now referred to [facility] for acute in-patie nt rehabilitation in order to maximize patient's functional independence in activities of daily livin g, strength, ROM, and mobility.- Rehab Goal Patient has realistic goal of being discharged at assistance level 7-Ind to reside at Home with Fami ly/Relatives. MDM/PLAN: - Physical Therapy Decreased range of motion - to improve, our physical therapists will perform initial evaluation of p t's status upon admission and devise an individualized program for increasing patient's Range of Keyur on. Gait dysfunction - to improve, our physical therapists will perform initial evaluation of pt's statu s upon admission and devise an individualized program for Gait Training, and Wheel Chair mobility Inability to transfer - to improve, our physical therapists will perform initial evaluation of pt's status upon admission and devise an individualized program for Bed mobility Need for home safety evaluation - to improve, our physical therapists will perform initial evaluatio n of pt's status upon admission and devise an individualized program for Home Evaluation Need in caregiver upon discharge - to improve, our physical therapists will perform initial evaluati on of pt's status upon admission and devise an individualized program for Caregiver Training Edema - to improve, our physical therapists will perform initial evaluation of pt's status upon admi ssion and devise an individualized program for Elevation Training, and Lymphedema Therapy New precaution - to improve, our physical therapists will perform initial evaluation of pt's status upon admission and devise an individualized program for Patient precaution education Poor endurance - to improve, our physical therapists will perform initial evaluation of pt's status upon admission and devise an individualized program for Endurance Training Weakness - to improve, our physical therapists will perform initial evaluation of pt's status upon a dmission and devise an individualized program for Aquatic Therapy, Neuromuscular Reeducation, and Str engthening Achieving independence - to improve, our physical therapists will perform initial evaluation of pt's status upon admission and devise an individualized program for Community Reintegration Activities - Occupational Therapy ADL deficits - to improve, our occupation therapists will perform initial evaluation of pt's status upon admission and devise an individualized program for Bathing, Bed mobility, Community Reintegratio n, Cooking, Dressing, Eating, Fine Motor Skills, Grooming, Homemaking, Kitchen Mobility, Laundry, Pat ient Education, Safety Awareness, Splinting - Positioning, Transfers(Toilet, Tub, Shower), and Wheel Chair Management Cognitive deficits - to improve, our occupation therapists will perform initial evaluation of pt's s tatus upon admission and devise an individualized program for Cognition - orientation Need for account executive healthcare - to improve, our occupation therapists will perform initial evaluation of pt's status upon admission and devise an individualized program for Caregiver Training Weakness - to improve, our occupation therapists will perform initial evaluation of pt's status upon admission and devise an individualized program for Aquatic Therapy, Balance, Endurance, UE ROM, and UE strengthening - Other See attached MAR (Medication Administration Record) - Anterior Hip Precaution No abduction No active extension No adduction across midline No external rotation No hip flexion >90 degrees No internal rotation - Diet - Liquid Texture Continue Regular - Tube Feed Continue N/A - Diet Type Continue Regular - Posterior Hip Precaution No adduction across midline No external rotation No hip flexion >90 degrees No internal rotation No wheel chair propulsion - Weight Bearing Precaution WBAT right LE - Skin care per protocol - Diet - Solid Texture Continue Regular - Shower allowing shower FUNCTIONAL STATUS: UPDATED AT WEEKLY TEAM CONFERENCE - Bladder Same accident frequency: 7-Ind - No accidents in the past 7 days - Bowel Same accident frequency: 7-Ind - No accidents in the past 7 days - Walking Same score based on distance walked: 0(N/A) Same score based on distance walked: 1(<=50ft) - Wheelchair Same score based on distance traveled: 0(N/A) FUNCTIONAL STATUS: - Self-Care A. Eating Joyce B. Grooming sup C. Bathing Lorna D. Dressing - Upper Lorna E. Dressing - Lower modA F. Toileting Lorna - Sphincter Control G. Bladder control Lorna H. Bowel control Lorna - Transfers Control I. Bed/Chair/Wheelchair Lorna J. Toilet Lorna K. Tub/Shower modA - Locomotion L. Walk/Wheelchair (B) Lorna M. Stairs maxA - Communication N. Comprehension (B) sup O. Expression (B) sup - Social Cognition P. Social Interaction Joyce Q. Problem Solving sup R. Memory sup - Endurance Fair - Balance Fair - Safety Awareness Fair QI SCORES: - Self-Care A. Eating 06-Independent B. Oral hygiene 03-Partial/moderate assistance C. Toileting hygiene 02-Substantial/maximal assistance E. Shower/bathe self 02-Substantial/maximal assistance F. Upper body dressing 02-Substantial/maximal assistance G. Lower body dressing 02-Substantial/maximal assistance H. Putting on/taking off footwear 88-Not attempted due to medical condition or safety concerns - Mobility A. Roll left and right 03-Partial/moderate assistance B. Sit to lying 02-Substantial/maximal assistance C. Lying to sitting on side of bed 02-Substantial/maximal assistance D. Sit to stand 02-Substantial/maximal assistance E. Chair/[id number]-fw-[id number] transfer 02-Substantial/maximal assistance F. Toilet transfer 03-Partial/moderate assistance G. Car transfer 88-Not attempted due to medical condition or safety concerns I. Walk 10 feet 02-Substantial/maximal assistance J. Walk 50 feet with two turns 88-Not attempted due to medical condition or safety concerns K. Walk 150 feet 88-Not attempted due to medical condition or safety concerns L. Walking 10 feet on uneven surfaces 88-Not attempted due to medical condition or safety concerns M. 1 step (curb) 88-Not attempted due to medical condition or safety concerns N. 4 steps 88-Not attempted due to medical condition or safety concerns O. 12 steps 88-Not attempted due to medical condition or safety concerns P. Picking up object 88-Not attempted due to medical condition or safety concerns R. Wheel 50 feet with two turns 88-Not attempted due to medical condition or safety concerns S. Wheel 150 feet 88-Not attempted due to medical condition or safety concerns - Bladder and Bowel Bladder continence Bowel continence - Endurance Fair - Balance Poor - Safety Awareness Fair [facility] DEFICITS: Mobility, Endurance, Balance, Safety Awareness, and Self-Care SIGNATURE PANEL: (CDT)
[2020-09-19] MEDS: DOCUSATE NA/SENNA CONC 1 TAB PO PRN (19:09)
[2020-09-20] MEDS: ACETAMINOPHEN 500 MG TAB PO PRN (05:48)
[2020-09-20] MEDS: COLLAGENASE 30 GM OINTMENT TOP SCH (08:46)
[2020-09-20] MEDS: LIDOCAINE 4% PATCH TOP SCH (08:46)
[2020-09-20] MEDS: AMIODARONE HCL 200 MG TAB PO SCH (08:47)
[2020-09-20] MEDS: GABAPENTIN 400 MG CAP PO SCH ×2 (08:47→19:50)
[2020-09-20] MEDS: ASCORBIC ACID 500 MG TABLET PO SCH (08:47)
[2020-09-20] MEDS: ASPIRIN EC 81 MG TAB PO SCH (08:47)
[2020-09-20] MEDS: POTASSIUM CL SA 10 MEQ TAB PO SCH ×2 (08:47→19:49)
[2020-09-20] MEDS: FAMOTIDINE 20 MG TAB PO SCH ×2 (08:48→19:49)
[2020-09-20] MEDS: FLUDROCORTISONE 0.1 MG TAB PO SCH (08:48)
[2020-09-20] MEDS: ZINC SULFATE 220 MG CAP PO SCH (08:48)
[2020-09-20] MEDS: TAMSULOSIN 0.4 MG SR CAP PO SCH (08:48)
[2020-09-20] MEDS: CYANOCOBALAMIN 1,000 MCG TAB PO SCH (08:48)
[2020-09-20] MEDS: THIAMINE HCL 100 MG TABLET PO SCH (08:48)
[2020-09-20] MEDS: FINASTERIDE 5 MG TAB PO SCH (08:53)
[2020-09-20] MEDS: MAGNESIUM OXIDE 400 MG TAB PO SCH ×2 (08:54→19:50)
[2020-09-20] MEDS: JUVEN PACKET PO SCH ×2 (08:54→19:51)
[2020-09-20] MEDS: MELATONIN 3 MG TABLET PO PRN (19:49)
[2020-09-20] MEDS: DOCUSATE NA/SENNA CONC 1 TAB PO PRN (19:49)
[2020-09-21] MEDS: TRAMADOL HCL 50 MG TAB PO PRN (02:27)
[2020-09-21 06:12] LABS: Absolute Lymphocytes (CBC) 1.2 K/uL (0.7-4.9); Basophils % 1.2 % (0-1.3); Hematocrit 33.8 % (39.6-49.0); Lymphocytes % 16.8 % (15.3-44.8); MPV 10.3 fL (7.6-11.3); RBC Red Blood Cell Count 4.03 M/uL (4.33-5.43)
[2020-09-21 06:30] LABS: Albumin 2.5 g/dL (3.4-5.0); Magnesium 2.4 mg/dL (1.8-2.4); Potassium 4.2 mmol/L (3.5-5.1); Prealbumin 14.9 mg/dL (20-40)
[2020-09-21] MEDS: FLUDROCORTISONE 0.1 MG TAB PO SCH (07:06)
[2020-09-21] MEDS: ACETAMINOPHEN 500 MG TAB PO PRN (07:06)
[2020-09-21] MEDS: LIDOCAINE 4% PATCH TOP SCH (07:06)
[2020-09-21] MEDS: COLLAGENASE 30 GM OINTMENT TOP SCH (07:19)
[2020-09-21] MEDS: AMIODARONE HCL 200 MG TAB PO SCH (08:45)
[2020-09-21] MEDS: ASCORBIC ACID 500 MG TABLET PO SCH (08:45)
[2020-09-21] MEDS: ZINC SULFATE 220 MG CAP PO SCH (08:46)
[2020-09-21] MEDS: GABAPENTIN 400 MG CAP PO SCH (08:46)
[2020-09-21] MEDS: FAMOTIDINE 20 MG TAB PO SCH ×2 (08:46→19:45)
[2020-09-21] MEDS: TAMSULOSIN 0.4 MG SR CAP PO SCH (08:46)
[2020-09-21] MEDS: FINASTERIDE 5 MG TAB PO SCH (08:46)
[2020-09-21] MEDS: ASPIRIN EC 81 MG TAB PO SCH (08:46)
[2020-09-21] MEDS: THIAMINE HCL 100 MG TABLET PO SCH (08:46)
[2020-09-21] MEDS: POTASSIUM CL SA 10 MEQ TAB PO SCH ×2 (08:47→19:45)
[2020-09-21] MEDS: CYANOCOBALAMIN 1,000 MCG TAB PO SCH (08:47)
[2020-09-21] MEDS: MAGNESIUM OXIDE 400 MG TAB PO SCH ×2 (09:13→19:45)
[2020-09-21] MEDS: JUVEN PACKET PO SCH ×2 (09:13→19:44)
--- NOTE | 2020-09-21 15:34 | RAD REPORT ---
EXAM DESCRIPTION: RAD - Hip Right 2 View - 09/21/2020 3:10 pm CLINICAL HISTORY: Right hip pain FINDINGS: Compression screw and intramedullary angelica affix femoral fracture. There has been no significant change in the appearance of the fracture fragments. Callus formation is seen about the medial aspect of fracture. No dislocation
--- NOTE | 2020-09-21 18:01 | R.PN ---
PROGRESS NOTES ENCOUNTER DATE AND TIME: 09/21/2020 17:55 (CDT) NAME AILEEN ANDINO DATE OF : 1935 DATE OF ADMISSION: 08/30/2020 14:35 (CDT) right femur fractureCHIEF COMPLAINT: Right femur fracture, debility SUBJECTIVE: Pt denied any depression. Pt denied any Shortness of Breath. WBC 7.1, Hgb 10.7 PLT 210, prealbumin 14.9, K 4.2, Na 145, Ca 8.8, Mg 2.4. Self-propelled wheelchair 500' with modified independence. Ambulated 70' with contact guard assistance using a rolling walker. VITAL SIGNS Temperature: 98.0 F SBP/DBP: 95-166/44-72 Pulse: 67 Resp: 16 MEDICATION ALLERGIES: FENLANYL MORPHINE OXYCODONE PENICILLIN BACTRIM SULFA ANTIBIOTICS ENVIRONMENTAL ALLERGIES: Milk LETTUCE - Substance Allergies None Known - Other Allergies None Known NURSING: - Shower allowing shower - Skin care per protocol PRECAUTIONS: - Posterior Hip Precaution No adduction across midline No external rotation No hip flexion >90 degrees No internal rotation No wheel chair propulsion - Weight Bearing Precaution WBAT right LE ACTIVITIES OOB only with supervision THERAPIES: - Dietary and Nutrition Adequate Nutrition. Nutritional Education. Nutritional Supplements. PHYSICAL EXAM - Gen Alert and awake Lying in bed No apparent distress Oriented to: person, time, and place - Skin Mild bruising in anterior legs bilaterally, otherwise intact. Normacephalic - Eyes No abnormalities - ENMT No abnormalities - Neck No abnormalities - CVS RRR - Chest No abnormalities - Resp Clear to auscultation - Abd + bowel sounds - GI Soft Deferred - No abnormalities - Ext Mild right lower extremity edema. - MSK 4+/5 weakness in right lower extremity. - Neuro 4/5 strength right lower extremity - Psych No abnormalities ASSESSMENT: Pt. is a 85 yo Right-handed male of unknown race.On 08/30/2020 he was admitted to [facility] with diagnosis right femur fracture.His impairment category is Orthopaedic Disorders 08 - Unila teral Hip Fracture (08.11).Pre-morbidly, Pt. was independent/mod-I in Safety Awareness, Balance, Arevalo sfers Control, Endurance, and Locomotion; and he had good Balance and Social Cognition.Currently, he has deficits of Locomotion, Safety Awareness, Social Cognition, Transfers Control, Sphincter Control, Self-Care, and Endurance.Pt. is now referred to [facility] for acute in-patie nt rehabilitation in order to maximize patient's functional independence in activities of daily livin g, strength, ROM, and mobility.- Rehab Goal Patient has realistic goal of being discharged at assistance level 7-Ind to reside at Home with Fami ly/Relatives. MDM/PLAN: - Physical Therapy Decreased range of motion - to improve, our physical therapists will perform initial evaluation of p t's status upon admission and devise an individualized program for increasing patient's Range of Keyur on. Gait dysfunction - to improve, our physical therapists will perform initial evaluation of pt's statu s upon admission and devise an individualized program for Gait Training, and Wheel Chair mobility Inability to transfer - to improve, our physical therapists will perform initial evaluation of pt's status upon admission and devise an individualized program for Bed mobility Need for home safety evaluation - to improve, our physical therapists will perform initial evaluatio n of pt's status upon admission and devise an individualized program for Home Evaluation Need in caregiver upon discharge - to improve, our physical therapists will perform initial evaluati on of pt's status upon admission and devise an individualized program for Caregiver Training Edema - to improve, our physical therapists will perform initial evaluation of pt's status upon admi ssion and devise an individualized program for Elevation Training, and Lymphedema Therapy New precaution - to improve, our physical therapists will perform initial evaluation of pt's status upon admission and devise an individualized program for Patient precaution education Poor endurance - to improve, our physical therapists will perform initial evaluation of pt's status upon admission and devise an individualized program for Endurance Training Weakness - to improve, our physical therapists will perform initial evaluation of pt's status upon a dmission and devise an individualized program for Aquatic Therapy, Neuromuscular Reeducation, and Str engthening Achieving independence - to improve, our physical therapists will perform initial evaluation of pt's status upon admission and devise an individualized program for Community Reintegration Activities - Occupational Therapy ADL deficits - to improve, our occupation therapists will perform initial evaluation of pt's status upon admission and devise an individualized program for Bathing, Bed mobility, Community Reintegratio n, Cooking, Dressing, Eating, Fine Motor Skills, Grooming, Homemaking, Kitchen Mobility, Laundry, Pat ient Education, Safety Awareness, Splinting - Positioning, Transfers(Toilet, Tub, Shower), and Wheel Chair Management Cognitive deficits - to improve, our occupation therapists will perform initial evaluation of pt's s tatus upon admission and devise an individualized program for Cognition - orientation Need for career development coordinator - to improve, our occupation therapists will perform initial evaluation of pt's status upon admission and devise an individualized program for Caregiver Training Weakness - to improve, our occupation therapists will perform initial evaluation of pt's status upon admission and devise an individualized program for Aquatic Therapy, Balance, Endurance, UE ROM, and UE strengthening - Other See attached MAR (Medication Administration Record) - Anterior Hip Precaution No abduction No active extension No adduction across midline No external rotation No hip flexion >90 degrees No internal rotation - Diet - Liquid Texture Continue Regular - Tube Feed Continue N/A - Diet Type Continue Regular - Posterior Hip Precaution No adduction across midline No external rotation No hip flexion >90 degrees No internal rotation No wheel chair propulsion - Weight Bearing Precaution WBAT right LE - Skin care per protocol - Diet - Solid Texture Continue Regular - Shower allowing shower FUNCTIONAL STATUS: UPDATED AT WEEKLY TEAM CONFERENCE - Bladder Same accident frequency: 7-Ind - No accidents in the past 7 days - Bowel Same accident frequency: 7-Ind - No accidents in the past 7 days - Walking Same score based on distance walked: 0(N/A) Same score based on distance walked: 1(<=50ft) - Wheelchair Same score based on distance traveled: 0(N/A) FUNCTIONAL STATUS: - Self-Care A. Eating Joyce B. Grooming sup C. Bathing Lorna D. Dressing - Upper Lorna E. Dressing - Lower modA F. Toileting Lorna - Sphincter Control G. Bladder control Lorna H. Bowel control Lorna - Transfers Control I. Bed/Chair/Wheelchair Lorna J. Toilet Lorna K. Tub/Shower modA - Locomotion L. Walk/Wheelchair (B) Lorna M. Stairs maxA - Communication N. Comprehension (B) sup O. Expression (B) sup - Social Cognition P. Social Interaction Joyce Q. Problem Solving sup R. Memory sup - Endurance Fair - Balance Fair - Safety Awareness Fair QI SCORES: - Self-Care A. Eating 06-Independent B. Oral hygiene 03-Partial/moderate assistance C. Toileting hygiene 02-Substantial/maximal assistance E. Shower/bathe self 02-Substantial/maximal assistance F. Upper body dressing 02-Substantial/maximal assistance G. Lower body dressing 02-Substantial/maximal assistance H. Putting on/taking off footwear 88-Not attempted due to medical condition or safety concerns - Mobility A. Roll left and right 03-Partial/moderate assistance B. Sit to lying 02-Substantial/maximal assistance C. Lying to sitting on side of bed 02-Substantial/maximal assistance D. Sit to stand 02-Substantial/maximal assistance E. Chair/[id number] transfer 02-Substantial/maximal assistance F. Toilet transfer 03-Partial/moderate assistance G. Car transfer 88-Not attempted due to medical condition or safety concerns I. Walk 10 feet 02-Substantial/maximal assistance J. Walk 50 feet with two turns 88-Not attempted due to medical condition or safety concerns K. Walk 150 feet 88-Not attempted due to medical condition or safety concerns L. Walking 10 feet on uneven surfaces 88-Not attempted due to medical condition or safety concerns M. 1 step (curb) 88-Not attempted due to medical condition or safety concerns N. 4 steps 88-Not attempted due to medical condition or safety concerns O. 12 steps 88-Not attempted due to medical condition or safety concerns P. Picking up object 88-Not attempted due to medical condition or safety concerns R. Wheel 50 feet with two turns 88-Not attempted due to medical condition or safety concerns S. Wheel 150 feet 88-Not attempted due to medical condition or safety concerns - Bladder and Bowel Bladder continence Bowel continence - Endurance Fair - Balance Poor - Safety Awareness Fair [facility] DEFICITS: Mobility, Endurance, Balance, Safety Awareness, and Self-Care SIGNATURE PANEL: (CDT)
[2020-09-21] MEDS: DOCUSATE NA/SENNA CONC 1 TAB PO PRN (19:44)
[2020-09-21] MEDS: GABAPENTIN 300 MG CAP PO SCH (19:45)
[2020-09-22] MEDS: ACETAMINOPHEN 500 MG TAB PO PRN (01:44)
[2020-09-22] MEDS: LIDOCAINE 4% PATCH TOP SCH (06:35)
[2020-09-22] MEDS: COLLAGENASE 30 GM OINTMENT TOP SCH (06:36)
[2020-09-22] MEDS: MEDIHONEY 44 ML TOPICAL TUBE TOP SCH (06:36)
[2020-09-22] MEDS: AMIODARONE HCL 200 MG TAB PO SCH (08:00)
[2020-09-22] MEDS: JUVEN PACKET PO SCH ×2 (08:23→19:37)
[2020-09-22] MEDS: GABAPENTIN 300 MG CAP PO SCH ×2 (08:23→19:37)
[2020-09-22] MEDS: TAMSULOSIN 0.4 MG SR CAP PO SCH (08:24)
[2020-09-22] MEDS: CYANOCOBALAMIN 1,000 MCG TAB PO SCH (08:24)
[2020-09-22] MEDS: POTASSIUM CL SA 10 MEQ TAB PO SCH ×2 (08:24→19:38)
[2020-09-22] MEDS: ASPIRIN EC 81 MG TAB PO SCH (08:24)
[2020-09-22] MEDS: ASCORBIC ACID 500 MG TABLET PO SCH (08:25)
[2020-09-22] MEDS: FLUDROCORTISONE 0.1 MG TAB PO SCH (08:25)
[2020-09-22] MEDS: ZINC SULFATE 220 MG CAP PO SCH (08:25)
[2020-09-22] MEDS: THIAMINE HCL 100 MG TABLET PO SCH (08:25)
[2020-09-22] MEDS: BISACODYL 10 MG RECTAL SUPP PR PRN (08:25)
[2020-09-22] MEDS: FAMOTIDINE 20 MG TAB PO SCH ×2 (08:25→19:37)
[2020-09-22] MEDS: MAGNESIUM OXIDE 400 MG TAB PO SCH ×2 (08:26→19:38)
[2020-09-22] MEDS: FINASTERIDE 5 MG TAB PO SCH (08:27)
--- NOTE | 2020-09-22 09:54 | P.RH.PN ---
Estimated Length of Stay: 30 Expected Discharge Date: 09/27/20 Discharge Disposition Plan: Home Family Support: Yes [facility]pc Goal: Mobility, Transfers, Self Care Vital Signs: Last Vital Signs Temp 98.6 F 09/22/20 09:38 Pulse 77 09/22/20 09:38 Resp 18 09/22/20 09:38 BP 106/57 L 09/22/20 09:38 Pulse Ox 96 09/22/20 09:38 Laboratory: Laboratory Last Values WBC 7.10 K/uL (4.3-10.9) 09/21/20 05:47 RBC 4.03 M/uL (4.33-5.43) L 09/21/20 05:47 Hgb 10.7 g/dL (13.6-17.9) L 09/21/20 05:47 Hct 33.8 % (39.6-49.0) L 09/21/20 05:47 MCV 83.9 fL (80-100) 09/21/20 05:47 MCH 26.6 pg (27.0-35.0) L 09/21/20 05:47 MCHC 31.7 g/dL (32.0-36.0) L 09/21/20 05:47 RDW 17.5 % (12.1-15.2) H 09/21/20 05:47 Plt Count 210 K/uL (152-406) D 09/21/20 05:47 MPV 10.3 fL (7.6-11.3) 09/21/20 05:47 Neutrophils % 61.6 % (41.7-73.7) 09/21/20 05:47 Lymphocytes % 16.8 % (15.3-44.8) 09/21/20 05:47 Monocytes % 15.4 % (3.3-12.3) H 09/21/20 05:47 Eosinophils % 5.0 % (0-4.4) H 09/21/20 05:47 Basophils % 1.2 % (0-1.3) 09/21/20 05:47 Absolute Neutrophils 4.4 K/uL (1.8-8.0) 09/21/20 05:47 Absolute Lymphocytes 1.2 K/uL (0.7-4.9) 09/21/20 05:47 Absolute Monocytes 1.1 K/uL (0.1-1.3) 09/21/20 05:47 Absolute Eosinophils 0.4 K/uL (0-0.5) 09/21/20 05:47 Absolute Basophils 0.1 K/uL (0-0.5) 09/21/20 05:47 Sodium 145 mmol/L (136-145) 09/21/20 05:47 Potassium 4.2 mmol/L (3.5-5.1) 09/21/20 05:47 Chloride 112 mmol/L (98-107) H 09/21/20 05:47 Carbon Dioxide 30 mmol/L (21-32) 09/21/20 05:47 BUN 27 mg/dL (7-18) H 09/21/20 05:47 Creatinine 1.00 mg/dL (0.55-1.3) 09/21/20 05:47 Estimated GFR 71 mL/min (=/>90) L 09/21/20 05:47 Glucose 94 mg/dL (74-106) 09/21/20 05:47 Calcium 8.8 mg/dL (8.5-10.1) 09/21/20 05:47 Magnesium 2.4 mg/dL (1.8-2.4) 09/21/20 05:47 Albumin 2.5 g/dL (3.4-5.0) L 09/21/20 05:47 Prealbumin 14.9 mg/dL (20-40) L 09/21/20 05:47 Urine Color Yellow (Yellow) 08/30/20 18:00 Urine Appearance Clear (Clear) 08/30/20 18:00 Urine pH 5.5 (5.0-7.0) 08/30/20 18:00 Ur Specific Mcconnell 1.015 (1.005-1.030) 08/30/20 18:00 Glucose (UA)(Auto) Negative (Negative) 08/30/20 18:00 Urine Ketones Negative (Negative) 08/30/20 18:00 Urine Blood Negative (Negative) 08/30/20 18:00 Urine Nitrite Negative (Negative) 08/30/20 18:00 Urine Bilirubin Negative (Negative) 08/30/20 18:00 Urine Urobilinogen 0.2 mg/dL (0.2-1.0) 08/30/20 18:00 Ur Leukocyte Esterase Negative (Negative) 08/30/20 18:00 Urine RBC <5 /HPF (NONE SEEN) 08/30/20 18:00 Urine WBC <5 /HPF (<5) 08/30/20 18:00 Ur Squamous Epith Cells <5 /HPF (NONE SEEN) 08/30/20 18:00 Urine Bacteria <20 /HPF (NONE SEEN) 08/30/20 18:00 Urine Culture Reflexed Not needed 08/30/20 18:00 Urine Total Protein Negative (Negative) 08/30/20 18:00 SARS-CoV-2 RNA (RT-PCR) Negative (NEGATIVE) 09/20/20 16:00 Weight: 196 lb 12.8 oz Within Defined Parameters: No left hand Skin Alteration: skin tear cleaned with ns triple antibiotics applied 2x2 and tegaderm Skin Temperature: Cold Skin Color: Normal Skin Tone Skin Turgor: Normal Skin Tone: Loose Wound Present: Yes Closed Surgical Incision Present: No Negative Pressure Wound Therapy Present: No Physician Update: Labs are reviewed. He want to go home with his but the left leg give out with ambulation and static standing. He needs maximum assistance with lower body dressing. His is not able to help him. He is walking less and fatigues quickly. He will require a wheelchair. His is looking at [facility] and is considering paying to stay at [facility]. Summary: Patient's care plan and skilled nursing goals have been reviewed and revised as necessary. Please see the Rehabilitation Signature page for all necessary signatures.
[2020-09-22] MEDS: POLYETHYL GLY 3350 17 GM/DOSE PO PRN (14:37)
[2020-09-22] MEDS: FORMULATION-R RECTAL 57GM PR PRN (14:39)
[2020-09-22] MEDS: DOCUSATE NA/SENNA CONC 1 TAB PO PRN (19:38)
[2020-09-22] MEDS: MELATONIN 3 MG TABLET PO PRN (19:38)
[2020-09-23] MEDS: FORMULATION-R RECTAL 57GM PR PRN ×2 (01:28→11:56)
[2020-09-23] MEDS: ACETAMINOPHEN 500 MG TAB PO PRN ×3 (04:29→19:05)
[2020-09-23] MEDS: MEDIHONEY 44 ML TOPICAL TUBE TOP SCH (06:43)
[2020-09-23] MEDS: COLLAGENASE 30 GM OINTMENT TOP SCH (06:44)
[2020-09-23] MEDS: LIDOCAINE 4% PATCH TOP SCH (06:44)
[2020-09-23] MEDS: AMIODARONE HCL 200 MG TAB PO SCH (08:00)
[2020-09-23] MEDS: JUVEN PACKET PO SCH ×2 (08:45→19:05)
[2020-09-23] MEDS: FAMOTIDINE 20 MG TAB PO SCH ×2 (08:45→19:05)
[2020-09-23] MEDS: ASPIRIN EC 81 MG TAB PO SCH (08:46)
[2020-09-23] MEDS: CYANOCOBALAMIN 1,000 MCG TAB PO SCH (08:46)
[2020-09-23] MEDS: THIAMINE HCL 100 MG TABLET PO SCH (08:46)
[2020-09-23] MEDS: ZINC SULFATE 220 MG CAP PO SCH (08:46)
[2020-09-23] MEDS: TAMSULOSIN 0.4 MG SR CAP PO SCH (08:46)
[2020-09-23] MEDS: FLUDROCORTISONE 0.1 MG TAB PO SCH (08:46)
[2020-09-23] MEDS: MAGNESIUM OXIDE 400 MG TAB PO SCH ×2 (08:46→19:05)
[2020-09-23] MEDS: POTASSIUM CL SA 10 MEQ TAB PO SCH ×2 (08:46→19:05)
[2020-09-23] MEDS: ASCORBIC ACID 500 MG TABLET PO SCH (08:47)
[2020-09-23] MEDS: GABAPENTIN 300 MG CAP PO SCH ×2 (08:47→19:05)
[2020-09-23] MEDS: FINASTERIDE 5 MG TAB PO SCH (08:47)
[2020-09-23] MEDS: BISACODYL 10 MG RECTAL SUPP PR PRN (11:45)
[2020-09-23] MEDS: DOCUSATE NA/SENNA CONC 1 TAB PO PRN (19:02)
[2020-09-23] MEDS: MELATONIN 3 MG TABLET PO PRN (19:05)
[2020-09-24] MEDS: ACETAMINOPHEN 500 MG TAB PO PRN ×3 (00:50→17:19)
[2020-09-24] MEDS: COLLAGENASE 30 GM OINTMENT TOP SCH (06:25)
[2020-09-24] MEDS: LIDOCAINE 4% PATCH TOP SCH (06:25)
[2020-09-24] MEDS: MEDIHONEY 44 ML TOPICAL TUBE TOP SCH (06:26)
[2020-09-24] MEDS: AMIODARONE HCL 200 MG TAB PO SCH (08:00)
[2020-09-24] MEDS: FLUDROCORTISONE 0.1 MG TAB PO SCH (09:30)
[2020-09-24] MEDS: FORMULATION-R RECTAL 57GM PR PRN (09:30)
[2020-09-24] MEDS: GABAPENTIN 300 MG CAP PO SCH ×2 (09:30→19:55)
[2020-09-24] MEDS: ZINC SULFATE 220 MG CAP PO SCH (09:32)
[2020-09-24] MEDS: THIAMINE HCL 100 MG TABLET PO SCH (09:32)
[2020-09-24] MEDS: TAMSULOSIN 0.4 MG SR CAP PO SCH (09:32)
[2020-09-24] MEDS: POTASSIUM CL SA 10 MEQ TAB PO SCH ×2 (09:32→19:56)
[2020-09-24] MEDS: MAGNESIUM OXIDE 400 MG TAB PO SCH ×2 (09:32→19:56)
[2020-09-24] MEDS: ASPIRIN EC 81 MG TAB PO SCH (09:32)
[2020-09-24] MEDS: FINASTERIDE 5 MG TAB PO SCH (09:33)
[2020-09-24] MEDS: CYANOCOBALAMIN 1,000 MCG TAB PO SCH (09:33)
[2020-09-24] MEDS: ASCORBIC ACID 500 MG TABLET PO SCH (09:33)
[2020-09-24] MEDS: FAMOTIDINE 20 MG TAB PO SCH ×2 (09:33→19:55)
[2020-09-24] MEDS: JUVEN PACKET PO SCH ×2 (09:34→19:56)
--- NOTE | 2020-09-24 10:47 | RAD REPORT ---
EXAM DESCRIPTION: RAD - Chest Single View - 09/24/2020 8:43 am CLINICAL HISTORY: Pneumonia Chest pain. COMPARISON: Chest Single View dated 07/01/2020; Chest Pa And Lat (2 Views) dated 12/27/2015; CHEST SIN GLE VIEW dated 10/06/2013; CHEST SINGLE VIEW dated 05/09/2012 FINDINGS: Portable technique limits examination quality. The lungs are grossly clear. The heart is normal in size. No displaced fractures. IMPRESSION: No acute intrathoracic process suspected.
[2020-09-24 17:09] LABS: Urine Appearance CLOUDY (Clear); Urine Bilirubin NEGATIVE (Negative); Urine Blood NEGATIVE (Negative); Urine Color YELLOW (Yellow); Urine Glucose NEGATIVE (Negative); Urine Protein NEGATIVE (Negative); Urine Specific Gravity 1.015 (1.005-1.030); Urine Urobilinogen 0.2 mg/dL (0.2-1.0); Urine pH 5.5 (5.0-7.0)
[2020-09-24 17:48] LABS: Urine Bacteria <20 /HPF (NONE SEEN); Urine RBC NONE SEEN /HPF (NONE SEEN)
[2020-09-24 17:49] LABS: Calcium Oxalate Crystals- Ur FEW (NONE SEEN)
[2020-09-24] MEDS: MELATONIN 3 MG TABLET PO PRN (19:55)
[2020-09-25] MEDS: FORMULATION-R RECTAL 57GM PR PRN (00:11)
[2020-09-25] MEDS: ACETAMINOPHEN 500 MG TAB PO PRN ×2 (00:11→08:15)
[2020-09-25 07:02] LABS: Absolute Lymphocytes (CBC) 1.6 K/uL (0.7-4.9); Basophils % 0.6 % (0-1.3); Hematocrit 38.4 % (39.6-49.0); Lymphocytes % 7.7 % (15.3-44.8); RBC Red Blood Cell Count 4.52 M/uL (4.33-5.43)
[2020-09-25] MEDS: LIDOCAINE 4% PATCH TOP SCH (08:12)
[2020-09-25] MEDS: JUVEN PACKET PO SCH ×2 (08:15→20:00)
[2020-09-25] MEDS: MAGNESIUM OXIDE 400 MG TAB PO SCH ×2 (08:15→20:00)
[2020-09-25] MEDS: FLUDROCORTISONE 0.1 MG TAB PO SCH (08:16)
[2020-09-25] MEDS: GABAPENTIN 300 MG CAP PO SCH ×2 (08:16→20:08)
[2020-09-25] MEDS: FAMOTIDINE 20 MG TAB PO SCH ×2 (08:16→20:08)
[2020-09-25] MEDS: ASPIRIN EC 81 MG TAB PO SCH (08:16)
[2020-09-25] MEDS: CYANOCOBALAMIN 1,000 MCG TAB PO SCH (08:16)
[2020-09-25] MEDS: ZINC SULFATE 220 MG CAP PO SCH (08:16)
[2020-09-25 08:17] LABS: Blood Morphology Comment NOT SEEN (NOT SEEN); Platelet Estimate ADEQ; White Blood Cell Scan OK (OK)
[2020-09-25] MEDS: ASCORBIC ACID 500 MG TABLET PO SCH (08:17)
[2020-09-25] MEDS: FINASTERIDE 5 MG TAB PO SCH (08:17)
[2020-09-25] MEDS: TAMSULOSIN 0.4 MG SR CAP PO SCH (08:17)
[2020-09-25] MEDS: POTASSIUM CL SA 10 MEQ TAB PO SCH ×2 (08:17→20:09)
[2020-09-25] MEDS: AMIODARONE HCL 200 MG TAB PO SCH (08:17)
[2020-09-25] MEDS: THIAMINE HCL 100 MG TABLET PO SCH (08:17)
[2020-09-25] MEDS: MEDIHONEY 44 ML TOPICAL TUBE TOP SCH (08:20)
[2020-09-25] MEDS ORDERED: PIPER/TAZO/NS 3.375gm 3.375 GM/100 ML BAG IVPB SCH (09:00)
[2020-09-25] MEDS: CEFTRIAXONE/SWI 1gm 1 GM/10 ML SYR IV SCH ×2 (09:32→20:10)
[2020-09-25] MEDS: COLLAGENASE 30 GM OINTMENT TOP SCH (09:33)
[2020-09-25] MEDS: LOPERAMIDE HCL 2 MG CAPSULE PO PRN ×2 (12:37→20:27)
--- NOTE | 2020-09-25 17:04 | R.PN ---
PROGRESS NOTES ENCOUNTER DATE AND TIME: 09/24/2020 10:45 (CDT) NAME AILEEN ANDINO DATE OF : 1935 DATE OF ADMISSION: 08/30/2020 14:35 (CDT) right femur fractureCHIEF COMPLAINT: Right femur fracture, debility SUBJECTIVE: Pt denied any depression. Pt denied any Shortness of Breath. WBC 7.1, Hgb 10.7 PLT 210, prealbumin 14.9, K 4.2, Na 145, Ca 8.8, Mg 2.4. Self-propelled wheelchair 500' with modified independence. Ambulated 70' with contact guard assistance using a rolling walker. VITAL SIGNS Temperature: 98.0 F SBP/DBP: 95-166/44-72 Pulse: 67 Resp: 16 MEDICATION ALLERGIES: FENLANYL MORPHINE OXYCODONE PENICILLIN BACTRIM SULFA ANTIBIOTICS ENVIRONMENTAL ALLERGIES: Milk LETTUCE - Substance Allergies None Known - Other Allergies None Known NURSING: - Shower allowing shower - Skin care per protocol PRECAUTIONS: - Posterior Hip Precaution No adduction across midline No external rotation No hip flexion >90 degrees No internal rotation No wheel chair propulsion - Weight Bearing Precaution WBAT right LE ACTIVITIES OOB only with supervision THERAPIES: - Dietary and Nutrition Adequate Nutrition. Nutritional Education. Nutritional Supplements. PHYSICAL EXAM - Gen Alert and awake Lying in bed No apparent distress Oriented to: person, time, and place - Skin Mild bruising in anterior legs bilaterally, otherwise intact. Normacephalic - Eyes No abnormalities - ENMT No abnormalities - Neck No abnormalities - CVS RRR - Chest No abnormalities - Resp Clear to auscultation - Abd + bowel sounds - GI Soft Deferred - No abnormalities - Ext Mild right lower extremity edema. - MSK 4+/5 weakness in right lower extremity. - Neuro 4/5 strength right lower extremity - Psych No abnormalities ASSESSMENT: Pt. is a 85 yo Right-handed male of unknown race.On 08/30/2020 he was admitted to [facility] with diagnosis right femur fracture.His impairment category is Orthopaedic Disorders 08 - Unila teral Hip Fracture (08.11).Pre-morbidly, Pt. was independent/mod-I in Safety Awareness, Balance, Arevalo sfers Control, Endurance, and Locomotion; and he had good Balance and Social Cognition.Currently, he has deficits of Locomotion, Safety Awareness, Social Cognition, Transfers Control, Sphincter Control, Self-Care, and Endurance.Pt. is now referred to [facility] for acute in-patie nt rehabilitation in order to maximize patient's functional independence in activities of daily livin g, strength, ROM, and mobility.- Rehab Goal Patient has realistic goal of being discharged at assistance level 7-Ind to reside at Home with Fami ly/Relatives. MDM/PLAN: - Physical Therapy Decreased range of motion - to improve, our physical therapists will perform initial evaluation of p t's status upon admission and devise an individualized program for increasing patient's Range of Keyur on. Gait dysfunction - to improve, our physical therapists will perform initial evaluation of pt's statu s upon admission and devise an individualized program for Gait Training, and Wheel Chair mobility Inability to transfer - to improve, our physical therapists will perform initial evaluation of pt's status upon admission and devise an individualized program for Bed mobility Need for home safety evaluation - to improve, our physical therapists will perform initial evaluatio n of pt's status upon admission and devise an individualized program for Home Evaluation Need in caregiver upon discharge - to improve, our physical therapists will perform initial evaluati on of pt's status upon admission and devise an individualized program for Caregiver Training Edema - to improve, our physical therapists will perform initial evaluation of pt's status upon admi ssion and devise an individualized program for Elevation Training, and Lymphedema Therapy New precaution - to improve, our physical therapists will perform initial evaluation of pt's status upon admission and devise an individualized program for Patient precaution education Poor endurance - to improve, our physical therapists will perform initial evaluation of pt's status upon admission and devise an individualized program for Endurance Training Weakness - to improve, our physical therapists will perform initial evaluation of pt's status upon a dmission and devise an individualized program for Aquatic Therapy, Neuromuscular Reeducation, and Str engthening Achieving independence - to improve, our physical therapists will perform initial evaluation of pt's status upon admission and devise an individualized program for Community Reintegration Activities - Occupational Therapy ADL deficits - to improve, our occupation therapists will perform initial evaluation of pt's status upon admission and devise an individualized program for Bathing, Bed mobility, Community Reintegratio n, Cooking, Dressing, Eating, Fine Motor Skills, Grooming, Homemaking, Kitchen Mobility, Laundry, Pat ient Education, Safety Awareness, Splinting - Positioning, Transfers(Toilet, Tub, Shower), and Wheel Chair Management Cognitive deficits - to improve, our occupation therapists will perform initial evaluation of pt's s tatus upon admission and devise an individualized program for Cognition - orientation Need for rn homecare - to improve, our occupation therapists will perform initial evaluation of pt's status upon admission and devise an individualized program for Caregiver Training Weakness - to improve, our occupation therapists will perform initial evaluation of pt's status upon admission and devise an individualized program for Aquatic Therapy, Balance, Endurance, UE ROM, and UE strengthening - Other See attached MAR (Medication Administration Record) - Anterior Hip Precaution No abduction No active extension No adduction across midline No external rotation No hip flexion >90 degrees No internal rotation - Diet - Liquid Texture Continue Regular - Tube Feed Continue N/A - Diet Type Continue Regular - Posterior Hip Precaution No adduction across midline No external rotation No hip flexion >90 degrees No internal rotation No wheel chair propulsion - Weight Bearing Precaution WBAT right LE - Skin care per protocol - Diet - Solid Texture Continue Regular - Shower allowing shower FUNCTIONAL STATUS: UPDATED AT WEEKLY TEAM CONFERENCE - Bladder Same accident frequency: 7-Ind - No accidents in the past 7 days - Bowel Same accident frequency: 7-Ind - No accidents in the past 7 days - Walking Same score based on distance walked: 0(N/A) Same score based on distance walked: 1(<=50ft) - Wheelchair Same score based on distance traveled: 0(N/A) FUNCTIONAL STATUS: - Self-Care A. Eating Joyce B. Grooming sup C. Bathing Lorna D. Dressing - Upper Lorna E. Dressing - Lower modA F. Toileting Lorna - Sphincter Control G. Bladder control Lorna H. Bowel control Lorna - Transfers Control I. Bed/Chair/Wheelchair Lorna J. Toilet Lorna K. Tub/Shower modA - Locomotion L. Walk/Wheelchair (B) Lorna M. Stairs maxA - Communication N. Comprehension (B) sup O. Expression (B) sup - Social Cognition P. Social Interaction Joyce Q. Problem Solving sup R. Memory sup - Endurance Fair - Balance Fair - Safety Awareness Fair QI SCORES: - Self-Care A. Eating 06-Independent B. Oral hygiene 03-Partial/moderate assistance C. Toileting hygiene 02-Substantial/maximal assistance E. Shower/bathe self 02-Substantial/maximal assistance F. Upper body dressing 02-Substantial/maximal assistance G. Lower body dressing 02-Substantial/maximal assistance H. Putting on/taking off footwear 88-Not attempted due to medical condition or safety concerns - Mobility A. Roll left and right 03-Partial/moderate assistance B. Sit to lying 02-Substantial/maximal assistance C. Lying to sitting on side of bed 02-Substantial/maximal assistance D. Sit to stand 02-Substantial/maximal assistance E. Chair/[id number] transfer 02-Substantial/maximal assistance F. Toilet transfer 03-Partial/moderate assistance G. Car transfer 88-Not attempted due to medical condition or safety concerns I. Walk 10 feet 02-Substantial/maximal assistance J. Walk 50 feet with two turns 88-Not attempted due to medical condition or safety concerns K. Walk 150 feet 88-Not attempted due to medical condition or safety concerns L. Walking 10 feet on uneven surfaces 88-Not attempted due to medical condition or safety concerns M. 1 step (curb) 88-Not attempted due to medical condition or safety concerns N. 4 steps 88-Not attempted due to medical condition or safety concerns O. 12 steps 88-Not attempted due to medical condition or safety concerns P. Picking up object 88-Not attempted due to medical condition or safety concerns R. Wheel 50 feet with two turns 88-Not attempted due to medical condition or safety concerns S. Wheel 150 feet 88-Not attempted due to medical condition or safety concerns - Bladder and Bowel Bladder continence Bowel continence - Endurance Fair - Balance Poor - Safety Awareness Fair CURRENT [facility]. DEFICITS: Mobility, Endurance, Balance, Safety Awareness, and Self-Care SIGNATURE PANEL: (CDT)
--- NOTE | 2020-09-25 17:11 | R.PN ---
PROGRESS NOTES ENCOUNTER DATE AND TIME: 09/25/2020 17:04 (CDT) NAME AILEEN ANDINO DATE OF : 1935 DATE OF ADMISSION: 08/30/2020 14:35 (CDT) right femur fractureCHIEF COMPLAINT: Right femur fracture, debility SUBJECTIVE: Pt denied any depression. Pt denied any Shortness of Breath. WBC 7.1, Hgb 10.7 PLT 210, prealbumin 14.9, K 4.2, Na 145, Ca 8.8, Mg 2.4. Ambulated 115' with contact guard assistance using a rolling walker. Patient had fever with elevated WBC to 20K, neurtophisl 78%and burning with urination. Procalcitonin and lactate are normal. He is on rocephin 1 gram bid for 3 days. Chest x-ray is normal. Blood culture s and UA is pending. UA from 09-24-20 is negative. VITAL SIGNS Temperature: T max 101.7, currently 96.8 F SBP/DBP: 128/60 Pulse: 67 Resp: 16 MEDICATION ALLERGIES: FENLANYL MORPHINE OXYCODONE PENICILLIN BACTRIM SULFA ANTIBIOTICS ENVIRONMENTAL ALLERGIES: Milk LETTUCE - Substance Allergies None Known - Other Allergies None Known NURSING: - Shower allowing shower - Skin care per protocol PRECAUTIONS: - Posterior Hip Precaution No adduction across midline No external rotation No hip flexion >90 degrees No internal rotation No wheel chair propulsion - Weight Bearing Precaution WBAT right LE ACTIVITIES OOB only with supervision THERAPIES: - Dietary and Nutrition Adequate Nutrition. Nutritional Education. Nutritional Supplements. PHYSICAL EXAM - Gen Alert and awake Lying in bed No apparent distress Oriented to: person, time, and place - Skin Mild bruising in anterior legs bilaterally, otherwise intact. Normacephalic - Eyes No abnormalities - ENMT No abnormalities - Neck No abnormalities - CVS RRR - Chest No abnormalities - Resp Clear to auscultation - Abd + bowel sounds - GI Soft Deferred - No abnormalities - Ext Mild right lower extremity edema. - MSK 4+/5 weakness in right lower extremity. - Neuro 4/5 strength right lower extremity - Psych No abnormalities ASSESSMENT: Pt. is a 85 yo Right-handed male of unknown race.On 08/30/2020 he was admitted to [facility] with diagnosis right femur fracture.His impairment category is Orthopaedic Disorders 08 - Unila teral Hip Fracture (08.11).Pre-morbidly, Pt. was independent/mod-I in Safety Awareness, Balance, Arevalo sfers Control, Endurance, and Locomotion; and he had good Balance and Social Cognition.Currently, he has deficits of Locomotion, Safety Awareness, Social Cognition, Transfers Control, Sphincter Control, Self-Care, and Endurance.Pt. is now referred to [facility] for acute in-patie nt rehabilitation in order to maximize patient's functional independence in activities of daily livin g, strength, ROM, and mobility.- Rehab Goal Patient has realistic goal of being discharged at assistance level 7-Ind to reside at Home with Fami ly/Relatives. MDM/PLAN: - Physical Therapy Decreased range of motion - to improve, our physical therapists will perform initial evaluation of p t's status upon admission and devise an individualized program for increasing patient's Range of Keyur on. Gait dysfunction - to improve, our physical therapists will perform initial evaluation of pt's statu s upon admission and devise an individualized program for Gait Training, and Wheel Chair mobility Inability to transfer - to improve, our physical therapists will perform initial evaluation of pt's status upon admission and devise an individualized program for Bed mobility Need for home safety evaluation - to improve, our physical therapists will perform initial evaluatio n of pt's status upon admission and devise an individualized program for Home Evaluation Need in caregiver upon discharge - to improve, our physical therapists will perform initial evaluati on of pt's status upon admission and devise an individualized program for Caregiver Training Edema - to improve, our physical therapists will perform initial evaluation of pt's status upon admi ssion and devise an individualized program for Elevation Training, and Lymphedema Therapy New precaution - to improve, our physical therapists will perform initial evaluation of pt's status upon admission and devise an individualized program for Patient precaution education Poor endurance - to improve, our physical therapists will perform initial evaluation of pt's status upon admission and devise an individualized program for Endurance Training Weakness - to improve, our physical therapists will perform initial evaluation of pt's status upon a dmission and devise an individualized program for Aquatic Therapy, Neuromuscular Reeducation, and Str engthening Achieving independence - to improve, our physical therapists will perform initial evaluation of pt's status upon admission and devise an individualized program for Community Reintegration Activities - Dysuria Pt complained of burning sensation urination. Perform Urinary Analysis (UA) Expecting Urinary Analysis (UA) results - Occupational Therapy ADL deficits - to improve, our occupation therapists will perform initial evaluation of pt's status upon admission and devise an individualized program for Bathing, Bed mobility, Community Reintegratio n, Cooking, Dressing, Eating, Fine Motor Skills, Grooming, Homemaking, Kitchen Mobility, Laundry, Pat ient Education, Safety Awareness, Splinting - Positioning, Transfers(Toilet, Tub, Shower), and Wheel Chair Management Cognitive deficits - to improve, our occupation therapists will perform initial evaluation of pt's s tatus upon admission and devise an individualized program for Cognition - orientation Need for career guidance technician - to improve, our occupation therapists will perform initial evaluation of pt's status upon admission and devise an individualized program for Caregiver Training Weakness - to improve, our occupation therapists will perform initial evaluation of pt's status upon admission and devise an individualized program for Aquatic Therapy, Balance, Endurance, UE ROM, and UE strengthening - Other See attached MAR (Medication Administration Record) - Anterior Hip Precaution No abduction No active extension No adduction across midline No external rotation No hip flexion >90 degrees No internal rotation - Diet - Liquid Texture Continue Regular - Tube Feed Continue N/A - Diet Type Continue Regular - Posterior Hip Precaution No adduction across midline No external rotation No hip flexion >90 degrees No internal rotation No wheel chair propulsion - Weight Bearing Precaution WBAT right LE - Skin care per protocol - Diet - Solid Texture Continue Regular - Shower allowing shower FUNCTIONAL STATUS: UPDATED AT WEEKLY TEAM CONFERENCE - Bladder Same accident frequency: 7-Ind - No accidents in the past 7 days - Bowel Same accident frequency: 7-Ind - No accidents in the past 7 days - Walking Same score based on distance walked: 0(N/A) Same score based on distance walked: 1(<=50ft) - Wheelchair Same score based on distance traveled: 0(N/A) FUNCTIONAL STATUS: - Self-Care A. Eating Joyce B. Grooming sup C. Bathing Lorna D. Dressing - Upper Lorna E. Dressing - Lower modA F. Toileting Lorna - Sphincter Control G. Bladder control Lorna H. Bowel control Lorna - Transfers Control I. Bed/Chair/Wheelchair Lorna J. Toilet Lorna K. Tub/Shower modA - Locomotion L. Walk/Wheelchair (B) Lorna M. Stairs maxA - Communication N. Comprehension (B) sup O. Expression (B) sup - Social Cognition P. Social Interaction Joyce Q. Problem Solving sup R. Memory sup - Endurance Fair - Balance Fair - Safety Awareness Fair QI SCORES: - Self-Care A. Eating 06-Independent B. Oral hygiene 03-Partial/moderate assistance C. Toileting hygiene 02-Substantial/maximal assistance E. Shower/bathe self 02-Substantial/maximal assistance F. Upper body dressing 02-Substantial/maximal assistance G. Lower body dressing 02-Substantial/maximal assistance H. Putting on/taking off footwear 88-Not attempted due to medical condition or safety concerns - Mobility A. Roll left and right 03-Partial/moderate assistance B. Sit to lying 02-Substantial/maximal assistance C. Lying to sitting on side of bed 02-Substantial/maximal assistance D. Sit to stand 02-Substantial/maximal assistance E. Chair/[id number] transfer 02-Substantial/maximal assistance F. Toilet transfer 03-Partial/moderate assistance G. Car transfer 88-Not attempted due to medical condition or safety concerns I. Walk 10 feet 02-Substantial/maximal assistance J. Walk 50 feet with two turns 88-Not attempted due to medical condition or safety concerns K. Walk 150 feet 88-Not attempted due to medical condition or safety concerns L. Walking 10 feet on uneven surfaces 88-Not attempted due to medical condition or safety concerns M. 1 step (curb) 88-Not attempted due to medical condition or safety concerns N. 4 steps 88-Not attempted due to medical condition or safety concerns O. 12 steps 88-Not attempted due to medical condition or safety concerns P. Picking up object 88-Not attempted due to medical condition or safety concerns R. Wheel 50 feet with two turns 88-Not attempted due to medical condition or safety concerns S. Wheel 150 feet 88-Not attempted due to medical condition or safety concerns - Bladder and Bowel Bladder continence Bowel continence - Endurance Fair - Balance Poor - Safety Awareness Fair CURRENT [facility]. DEFICITS: Mobility, Endurance, Balance, Safety Awareness, and Self-Care SIGNATURE PANEL: (CDT)
[2020-09-25] MEDS: MELATONIN 3 MG TABLET PO PRN (20:09)
[2020-09-26] MEDS: TRAMADOL HCL 50 MG TAB PO PRN (00:06)
[2020-09-26] MEDS: LOPERAMIDE HCL 2 MG CAPSULE PO PRN (00:07)
[2020-09-26 06:31] LABS: Basophils % 0.8 % (0-1.3); Hematocrit 32.9 % (39.6-49.0); Lymphocytes % 8.6 % (15.3-44.8); MPV 10.6 fL (7.6-11.3); RBC Red Blood Cell Count 3.93 M/uL (4.33-5.43)
[2020-09-26] MEDS: ACETAMINOPHEN 500 MG TAB PO PRN (06:46)
[2020-09-26] MEDS: CEFTRIAXONE/SWI 1gm 1 GM/10 ML SYR IV SCH ×2 (07:46→19:33)
[2020-09-26] MEDS: ZINC SULFATE 220 MG CAP PO SCH (07:48)
[2020-09-26] MEDS: ASCORBIC ACID 500 MG TABLET PO SCH (07:48)
[2020-09-26] MEDS: LIDOCAINE 4% PATCH TOP SCH (07:48)
[2020-09-26] MEDS: GABAPENTIN 300 MG CAP PO SCH ×2 (07:48→19:33)
[2020-09-26] MEDS: FLUDROCORTISONE 0.1 MG TAB PO SCH (07:49)
[2020-09-26] MEDS: POTASSIUM CL SA 10 MEQ TAB PO SCH ×2 (07:49→19:38)
[2020-09-26] MEDS: FAMOTIDINE 20 MG TAB PO SCH ×2 (07:49→19:33)
[2020-09-26] MEDS: TAMSULOSIN 0.4 MG SR CAP PO SCH (07:49)
[2020-09-26] MEDS: MAGNESIUM OXIDE 400 MG TAB PO SCH ×2 (07:50→19:34)
[2020-09-26] MEDS: COLLAGENASE 30 GM OINTMENT TOP SCH (07:50)
[2020-09-26] MEDS: ASPIRIN EC 81 MG TAB PO SCH (07:50)
[2020-09-26] MEDS: CYANOCOBALAMIN 1,000 MCG TAB PO SCH (07:50)
[2020-09-26] MEDS: AMIODARONE HCL 200 MG TAB PO SCH (07:50)
[2020-09-26] MEDS: THIAMINE HCL 100 MG TABLET PO SCH (07:50)
[2020-09-26] MEDS: MEDIHONEY 44 ML TOPICAL TUBE TOP SCH (07:51)
[2020-09-26] MEDS: JUVEN PACKET PO SCH ×2 (07:51→19:32)
[2020-09-26] MEDS: FINASTERIDE 5 MG TAB PO SCH (07:56)
--- NOTE | 2020-09-26 17:33 | R.PN ---
PROGRESS NOTES ENCOUNTER DATE AND TIME: 09/26/2020 17:28 (CDT) NAME AILEEN ANDINO DATE OF : 1935 DATE OF ADMISSION: 08/30/2020 14:35 (CDT) right femur fractureCHIEF COMPLAINT: Right femur fracture, debility SUBJECTIVE: Pt denied any depression. Pt denied any Shortness of Breath. WBC 12.1, Hgb 10.5 PLT 218, prealbumin 14.9, K 4.2, Na 145, Ca 8.8, Mg 2.4. Ambulated 40' with contact guard assistance using a rolling walker. Self-propelled wheelchair 250' w ith standby assistance. Patient had fever with elevated WBC to 20K, neurtophisl 78%and burning with urination. Procalcitonin and lactate are normal. He is on rocephin 1 gram bid for 3 days. Chest x-ray is normal. Blood culture s and UA is pending. UA from 09-24-20 is negative. VITAL SIGNS Temperature: 98.3 F SBP/DBP: 93-119/51-55 Pulse: 72 Resp: 16 MEDICATION ALLERGIES: FENLANYL MORPHINE OXYCODONE PENICILLIN BACTRIM SULFA ANTIBIOTICS ENVIRONMENTAL ALLERGIES: Milk LETTUCE - Substance Allergies None Known - Other Allergies None Known NURSING: - Shower allowing shower - Skin care per protocol PRECAUTIONS: - Posterior Hip Precaution No adduction across midline No external rotation No hip flexion >90 degrees No internal rotation No wheel chair propulsion - Weight Bearing Precaution WBAT right LE ACTIVITIES OOB only with supervision THERAPIES: - Dietary and Nutrition Adequate Nutrition. Nutritional Education. Nutritional Supplements. PHYSICAL EXAM - Gen Alert and awake Lying in bed No apparent distress Oriented to: person, time, and place - Skin Mild bruising in anterior legs bilaterally, otherwise intact. Normacephalic - Eyes No abnormalities - ENMT No abnormalities - Neck No abnormalities - CVS RRR - Chest No abnormalities - Resp Clear to auscultation - Abd + bowel sounds - GI Soft Deferred - No abnormalities - Ext Mild right lower extremity edema. - MSK 4+/5 weakness in right lower extremity. - Neuro 4/5 strength right lower extremity - Psych No abnormalities ASSESSMENT: Pt. is a 85 yo Right-handed male of unknown race.On 08/30/2020 he was admitted to [facility] with diagnosis right femur fracture.His impairment category is Orthopaedic Disorders 08 - [facility]Pre-morbidly, Pt. was independent/mod-I in Safety Awareness, Balance, Arevalo sfers Control, Endurance, and Locomotion; and he had good Balance and Social Cognition.Currently, he has deficits of Locomotion, Safety Awareness, Social Cognition, Transfers Control, Sphincter Control, Self-Care, and Endurance.Pt. is now referred to [facility] for acute in-patie nt rehabilitation in order to maximize patient's functional independence in activities of daily livin g, strength, ROM, and mobility.- Rehab Goal Patient has realistic goal of being discharged at assistance level 7-Ind to reside at Home with Fami ly/Relatives. MDM/PLAN: - Physical Therapy Decreased range of motion - to improve, our physical therapists will perform initial evaluation of p t's status upon admission and devise an individualized program for increasing patient's Range of Keyur on. Gait dysfunction - to improve, our physical therapists will perform initial evaluation of pt's statu s upon admission and devise an individualized program for Gait Training, and Wheel Chair mobility Inability to transfer - to improve, our physical therapists will perform initial evaluation of pt's status upon admission and devise an individualized program for Bed mobility Need for home safety evaluation - to improve, our physical therapists will perform initial evaluatio n of pt's status upon admission and devise an individualized program for Home Evaluation Need in caregiver upon discharge - to improve, our physical therapists will perform initial evaluati on of pt's status upon admission and devise an individualized program for Caregiver Training Edema - to improve, our physical therapists will perform initial evaluation of pt's status upon admi ssion and devise an individualized program for Elevation Training, and Lymphedema Therapy New precaution - to improve, our physical therapists will perform initial evaluation of pt's status upon admission and devise an individualized program for Patient precaution education Poor endurance - to improve, our physical therapists will perform initial evaluation of pt's status upon admission and devise an individualized program for Endurance Training Weakness - to improve, our physical therapists will perform initial evaluation of pt's status upon a dmission and devise an individualized program for Aquatic Therapy, Neuromuscular Reeducation, and Str engthening Achieving independence - to improve, our physical therapists will perform initial evaluation of pt's status upon admission and devise an individualized program for Community Reintegration Activities - Dysuria Pt complained of burning sensation urination. Perform Urinary Analysis (UA) Expecting Urinary Analysis (UA) results - Occupational Therapy ADL deficits - to improve, our occupation therapists will perform initial evaluation of pt's status upon admission and devise an individualized program for Bathing, Bed mobility, Community Reintegratio n, Cooking, Dressing, Eating, Fine Motor Skills, Grooming, Homemaking, Kitchen Mobility, Laundry, Pat ient Education, Safety Awareness, Splinting - Positioning, Transfers(Toilet, Tub, Shower), and Wheel Chair Management Cognitive deficits - to improve, our occupation therapists will perform initial evaluation of pt's s tatus upon admission and devise an individualized program for Cognition - orientation Need for medicare contact specialist - to improve, our occupation therapists will perform initial evaluation of pt's status upon admission and devise an individualized program for Caregiver Training Weakness - to improve, our occupation therapists will perform initial evaluation of pt's status upon admission and devise an individualized program for Aquatic Therapy, Balance, Endurance, UE ROM, and UE strengthening - Other See attached MAR (Medication Administration Record) - Anterior Hip Precaution No abduction No active extension No adduction across midline No external rotation No hip flexion >90 degrees No internal rotation - Diet - Liquid Texture Continue Regular - Tube Feed Continue N/A - Diet Type Continue Regular - Posterior Hip Precaution No adduction across midline No external rotation No hip flexion >90 degrees No internal rotation No wheel chair propulsion - Weight Bearing Precaution WBAT right LE - Skin care per protocol - Diet - Solid Texture Continue Regular - Shower allowing shower FUNCTIONAL STATUS: UPDATED AT WEEKLY TEAM CONFERENCE - Bladder Same accident frequency: 7-Ind - No accidents in the past 7 days - Bowel Same accident frequency: 7-Ind - No accidents in the past 7 days - Walking Same score based on distance walked: 0(N/A) Same score based on distance walked: 1(<=50ft) - Wheelchair Same score based on distance traveled: 0(N/A) FUNCTIONAL STATUS: - Self-Care A. Eating Joyce B. Grooming sup C. Bathing Lorna D. Dressing - Upper Lorna E. Dressing - Lower modA F. Toileting Lorna - Sphincter Control G. Bladder control Lorna H. Bowel control Lorna - Transfers Control I. Bed/Chair/Wheelchair Lorna J. Toilet Lorna K. Tub/Shower modA - Locomotion L. Walk/Wheelchair (B) Lorna M. Stairs maxA - Communication N. Comprehension (B) sup O. Expression (B) sup - Social Cognition P. Social Interaction Joyce Q. Problem Solving sup R. Memory sup - Endurance Fair - Balance Fair - Safety Awareness Fair QI SCORES: - Self-Care A. Eating 06-Independent B. Oral hygiene 03-Partial/moderate assistance C. Toileting hygiene 02-Substantial/maximal assistance E. Shower/bathe self 02-Substantial/maximal assistance F. Upper body dressing 02-Substantial/maximal assistance G. Lower body dressing 02-Substantial/maximal assistance H. Putting on/taking off footwear 88-Not attempted due to medical condition or safety concerns - Mobility A. Roll left and right 03-Partial/moderate assistance B. Sit to lying 02-Substantial/maximal assistance C. Lying to sitting on side of bed 02-Substantial/maximal assistance D. Sit to stand 02-Substantial/maximal assistance E. Chair/[id number]-hgnox transfer 02-Substantial/maximal assistance F. Toilet transfer 03-Partial/moderate assistance G. Car transfer 88-Not attempted due to medical condition or safety concerns I. Walk 10 feet 02-Substantial/maximal assistance J. Walk 50 feet with two turns 88-Not attempted due to medical condition or safety concerns K. Walk 150 feet 88-Not attempted due to medical condition or safety concerns L. Walking 10 feet on uneven surfaces 88-Not attempted due to medical condition or safety concerns M. 1 step (curb) 88-Not attempted due to medical condition or safety concerns N. 4 steps 88-Not attempted due to medical condition or safety concerns O. 12 steps 88-Not attempted due to medical condition or safety concerns P. Picking up object 88-Not attempted due to medical condition or safety concerns R. Wheel 50 feet with two turns 88-Not attempted due to medical condition or safety concerns S. Wheel 150 feet 88-Not attempted due to medical condition or safety concerns - Bladder and Bowel Bladder continence Bowel continence - Endurance Fair - Balance Poor - Safety Awareness Fair CURRENT FUNC. DEFICITS: Mobility, Endurance, Balance, Safety Awareness, and Self-Care SIGNATURE PANEL: (CDT)
[2020-09-26] MEDS: MELATONIN 3 MG TABLET PO PRN (19:33)
[2020-09-26] MEDS: FORMULATION-R RECTAL 57GM PR PRN (20:04)
[2020-09-27] MEDS: POLYETHYL GLY 3350 17 GM/DOSE PO PRN (03:56)
[2020-09-27 06:12] LABS: Basophils % 0.6 % (0-1.3); Hematocrit 34.8 % (39.6-49.0); Lymphocytes % 10.8 % (15.3-44.8); MPV 10.2 fL (7.6-11.3); RBC Red Blood Cell Count 4.16 M/uL (4.33-5.43)
[2020-09-27] MEDS: MEDIHONEY 44 ML TOPICAL TUBE TOP SCH (06:25)
[2020-09-27] MEDS: LIDOCAINE 4% PATCH TOP SCH (06:25)
[2020-09-27] MEDS: COLLAGENASE 30 GM OINTMENT TOP SCH (06:25)
[2020-09-27] MEDS: ACETAMINOPHEN 500 MG TAB PO PRN ×2 (07:43→19:23)
[2020-09-27] MEDS: ASCORBIC ACID 500 MG TABLET PO SCH (08:06)
[2020-09-27] MEDS: JUVEN PACKET PO SCH ×2 (08:06→19:23)
[2020-09-27] MEDS: FAMOTIDINE 20 MG TAB PO SCH ×2 (08:07→19:23)
[2020-09-27] MEDS: FLUDROCORTISONE 0.1 MG TAB PO SCH (08:07)
[2020-09-27] MEDS: GABAPENTIN 300 MG CAP PO SCH ×2 (08:07→19:23)
[2020-09-27] MEDS: ZINC SULFATE 220 MG CAP PO SCH (08:07)
[2020-09-27] MEDS: MAGNESIUM OXIDE 400 MG TAB PO SCH ×2 (08:07→19:23)
[2020-09-27] MEDS: TAMSULOSIN 0.4 MG SR CAP PO SCH (08:07)
[2020-09-27] MEDS: ASPIRIN EC 81 MG TAB PO SCH (08:07)
[2020-09-27] MEDS: CYANOCOBALAMIN 1,000 MCG TAB PO SCH (08:07)
[2020-09-27] MEDS: AMIODARONE HCL 200 MG TAB PO SCH (08:07)
[2020-09-27] MEDS: FINASTERIDE 5 MG TAB PO SCH (08:07)
[2020-09-27] MEDS: POTASSIUM CL SA 10 MEQ TAB PO SCH ×2 (08:07→19:23)
[2020-09-27] MEDS: THIAMINE HCL 100 MG TABLET PO SCH (08:08)
[2020-09-27] MEDS: FORMULATION-R RECTAL 57GM PR PRN (09:11)
[2020-09-27] MEDS ORDERED: FLEET ENEMA ADULT PR PRN (13:49)
[2020-09-27] MEDS: BISACODYL 10 MG RECTAL SUPP PR PRN (15:30)
--- NOTE | 2020-09-27 17:21 | R.PN ---
PROGRESS NOTES ENCOUNTER DATE AND TIME: 09/27/2020 17:18 (CDT) NAME AILEEN ANDINO DATE OF : 1935 DATE OF ADMISSION: 08/30/2020 14:35 (CDT) right femur fractureCHIEF COMPLAINT: Right femur fracture, debility SUBJECTIVE: Pt denied any depression. Pt denied any Shortness of Breath. WBC 9.1, Hgb 111.1 PLT 218, prealbumin 14.9, K 4.2, Na 145, Ca 8.8, Mg 2.4. Ambulated 40' with minimum assistance using a rolling walker. Self-propelled wheelchair 120' with st andby assistance. Patient had fever with elevated WBC to 20K, neurtophisl 78%and burning with urination. Procalcitonin and lactate are normal. He is on rocephin 1 gram bid for 3 days. Chest x-ray is normal. Blood culture s and UA is pending. UA from 09-24-20 is negative. VITAL SIGNS Temperature: 97.1 F SBP/DBP: 125/65 Pulse: 73 Resp: 16 MEDICATION ALLERGIES: FENLANYL MORPHINE OXYCODONE PENICILLIN BACTRIM SULFA ANTIBIOTICS ENVIRONMENTAL ALLERGIES: Milk LETTUCE - Substance Allergies None Known - Other Allergies None Known NURSING: - Shower allowing shower - Skin care per protocol PRECAUTIONS: - Posterior Hip Precaution No adduction across midline No external rotation No hip flexion >90 degrees No internal rotation No wheel chair propulsion - Weight Bearing Precaution WBAT right LE ACTIVITIES OOB only with supervision THERAPIES: - Dietary and Nutrition Adequate Nutrition. Nutritional Education. Nutritional Supplements. PHYSICAL EXAM - Gen Alert and awake Lying in bed No apparent distress Oriented to: person, time, and place - Skin Mild bruising in anterior legs bilaterally, otherwise intact. Normacephalic - Eyes No abnormalities - ENMT No abnormalities - Neck No abnormalities - CVS RRR - Chest No abnormalities - Resp Clear to auscultation - Abd + bowel sounds - GI Soft Deferred - No abnormalities - Ext Mild right lower extremity edema. - MSK 4+/5 weakness in right lower extremity. - Neuro 4/5 strength right lower extremity - Psych No abnormalities ASSESSMENT: Pt. is a 85 yo Right-handed male of unknown race.On 08/30/2020 he was admitted to [facility] with diagnosis right femur fracture.His impairment category is Orthopaedic Disorders 08 - [facility] Hip Fracture (08.11).Pre-morbidly, Pt. was independent/mod-I in Safety Awareness, Balance, Arevalo sfers Control, Endurance, and Locomotion; and he had good Balance and Social Cognition.Currently, he has deficits of Locomotion, Safety Awareness, Social Cognition, Transfers Control, Sphincter Control, Self-Care, and Endurance.Pt. is now referred to [facility] for acute in-patie nt rehabilitation in order to maximize patient's functional independence in activities of daily livin g, strength, ROM, and mobility.- Rehab Goal Patient has realistic goal of being discharged at assistance level 7-Ind to reside at Home with Fami ly/Relatives. MDM/PLAN: - Physical Therapy Decreased range of motion - to improve, our physical therapists will perform initial evaluation of p t's status upon admission and devise an individualized program for increasing patient's Range of Keyur on. Gait dysfunction - to improve, our physical therapists will perform initial evaluation of pt's statu s upon admission and devise an individualized program for Gait Training, and Wheel Chair mobility Inability to transfer - to improve, our physical therapists will perform initial evaluation of pt's status upon admission and devise an individualized program for Bed mobility Need for home safety evaluation - to improve, our physical therapists will perform initial evaluatio n of pt's status upon admission and devise an individualized program for Home Evaluation Need in caregiver upon discharge - to improve, our physical therapists will perform initial evaluati on of pt's status upon admission and devise an individualized program for Caregiver Training Edema - to improve, our physical therapists will perform initial evaluation of pt's status upon admi ssion and devise an individualized program for Elevation Training, and Lymphedema Therapy New precaution - to improve, our physical therapists will perform initial evaluation of pt's status upon admission and devise an individualized program for Patient precaution education Poor endurance - to improve, our physical therapists will perform initial evaluation of pt's status upon admission and devise an individualized program for Endurance Training Weakness - to improve, our physical therapists will perform initial evaluation of pt's status upon a dmission and devise an individualized program for Aquatic Therapy, Neuromuscular Reeducation, and Str engthening Achieving independence - to improve, our physical therapists will perform initial evaluation of pt's status upon admission and devise an individualized program for Community Reintegration Activities - Dysuria Pt complained of burning sensation urination. Perform Urinary Analysis (UA) Expecting Urinary Analysis (UA) results - Occupational Therapy ADL deficits - to improve, our occupation therapists will perform initial evaluation of pt's status upon admission and devise an individualized program for Bathing, Bed mobility, Community Reintegratio n, Cooking, Dressing, Eating, Fine Motor Skills, Grooming, Homemaking, Kitchen Mobility, Laundry, Pat ient Education, Safety Awareness, Splinting - Positioning, Transfers(Toilet, Tub, Shower), and Wheel Chair Management Cognitive deficits - to improve, our occupation therapists will perform initial evaluation of pt's s tatus upon admission and devise an individualized program for Cognition - orientation Need for family day carer - to improve, our occupation therapists will perform initial evaluation of pt's status upon admission and devise an individualized program for Caregiver Training Weakness - to improve, our occupation therapists will perform initial evaluation of pt's status upon admission and devise an individualized program for Aquatic Therapy, Balance, Endurance, UE ROM, and UE strengthening - Other See attached MAR (Medication Administration Record) - Anterior Hip Precaution No abduction No active extension No adduction across midline No external rotation No hip flexion >90 degrees No internal rotation - Diet - Liquid Texture Continue Regular - Tube Feed Continue N/A - Diet Type Continue Regular - Posterior Hip Precaution No adduction across midline No external rotation No hip flexion >90 degrees No internal rotation No wheel chair propulsion - Weight Bearing Precaution WBAT right LE - Skin care per protocol - Diet - Solid Texture Continue Regular - Shower allowing shower FUNCTIONAL STATUS: UPDATED AT WEEKLY TEAM CONFERENCE - Bladder Same accident frequency: 7-Ind - No accidents in the past 7 days - Bowel Same accident frequency: 7-Ind - No accidents in the past 7 days - Walking Same score based on distance walked: 0(N/A) Same score based on distance walked: 1(<=50ft) - Wheelchair Same score based on distance traveled: 0(N/A) FUNCTIONAL STATUS: - Self-Care A. Eating Joyce B. Grooming sup C. Bathing Lorna D. Dressing - Upper Lorna E. Dressing - Lower modA F. Toileting Lorna - Sphincter Control G. Bladder control Lorna H. Bowel control Lorna - Transfers Control I. Bed/Chair/Wheelchair Lorna J. Toilet Lorna K. Tub/Shower modA - Locomotion L. Walk/Wheelchair (B) Lorna M. Stairs maxA - Communication N. Comprehension (B) sup O. Expression (B) sup - Social Cognition P. Social Interaction Joyce Q. Problem Solving sup R. Memory sup - Endurance Fair - Balance Fair - Safety Awareness Fair QI SCORES: - Self-Care A. Eating 06-Independent B. Oral hygiene 03-Partial/moderate assistance C. Toileting hygiene 02-Substantial/maximal assistance E. Shower/bathe self 02-Substantial/maximal assistance F. Upper body dressing 02-Substantial/maximal assistance G. Lower body dressing 02-Substantial/maximal assistance H. Putting on/taking off footwear 88-Not attempted due to medical condition or safety concerns - Mobility A. Roll left and right 03-Partial/moderate assistance B. Sit to lying 02-Substantial/maximal assistance C. Lying to sitting on side of bed 02-Substantial/maximal assistance D. Sit to stand 02-Substantial/maximal assistance E. Chair/rkz-vw-vokha transfer 02-Substantial/maximal assistance F. Toilet transfer 03-Partial/moderate assistance G. Car transfer 88-Not attempted due to medical condition or safety concerns I. Walk 10 feet 02-Substantial/maximal assistance J. Walk 50 feet with two turns 88-Not attempted due to medical condition or safety concerns K. Walk 150 feet 88-Not attempted due to medical condition or safety concerns L. Walking 10 feet on uneven surfaces 88-Not attempted due to medical condition or safety concerns M. 1 step (curb) 88-Not attempted due to medical condition or safety concerns N. 4 steps 88-Not attempted due to medical condition or safety concerns O. 12 steps 88-Not attempted due to medical condition or safety concerns P. Picking up object 88-Not attempted due to medical condition or safety concerns R. Wheel 50 feet with two turns 88-Not attempted due to medical condition or safety concerns S. Wheel 150 feet 88-Not attempted due to medical condition or safety concerns - Bladder and Bowel Bladder continence Bowel continence - Endurance Fair - Balance Poor - Safety Awareness Fair CURRENT FUNC. DEFICITS: Mobility, Endurance, Balance, Safety Awareness, and Self-Care SIGNATURE PANEL: (CDT)
[2020-09-27] MEDS: DOCUSATE NA/SENNA CONC 1 TAB PO SCH (19:23)
[2020-09-27] MEDS: MELATONIN 3 MG TABLET PO PRN (19:23)
[2020-09-27 19:27] LABS: Absolute Lymphocytes (CBC) 0.8 K/uL (0.7-4.9); Basophils % 0.7 % (0-1.3); Hematocrit 31.6 % (39.6-49.0); Lymphocytes % 9.5 % (15.3-44.8); MPV 10.6 fL (7.6-11.3)
[2020-09-27 19:53] LABS: Albumin 2.3 g/dL (3.4-5.0); Magnesium 2.2 mg/dL (1.8-2.4); Potassium 3.7 mmol/L (3.5-5.1); Prealbumin 8.5 mg/dL (20-40)
[2020-09-28] MEDS: ACETAMINOPHEN 500 MG TAB PO PRN ×2 (01:57→20:01)
[2020-09-28] MEDS: TRAMADOL HCL 50 MG TAB PO PRN (03:17)
[2020-09-28] MEDS: LIDOCAINE 4% PATCH TOP SCH (06:57)
[2020-09-28] MEDS: COLLAGENASE 30 GM OINTMENT TOP SCH (06:58)
[2020-09-28] MEDS: MEDIHONEY 44 ML TOPICAL TUBE TOP SCH (06:58)
[2020-09-28] MEDS: ASCORBIC ACID 500 MG TABLET PO SCH (08:20)
[2020-09-28] MEDS: JUVEN PACKET PO SCH ×2 (08:23→19:58)
[2020-09-28] MEDS: ASPIRIN EC 81 MG TAB PO SCH (08:23)
[2020-09-28] MEDS: MAGNESIUM OXIDE 400 MG TAB PO SCH ×2 (08:24→19:58)
[2020-09-28] MEDS: POTASSIUM CL SA 10 MEQ TAB PO SCH ×2 (08:24→20:01)
[2020-09-28] MEDS: FINASTERIDE 5 MG TAB PO SCH (08:24)
[2020-09-28] MEDS: TAMSULOSIN 0.4 MG SR CAP PO SCH (08:24)
[2020-09-28] MEDS: GABAPENTIN 300 MG CAP PO SCH ×2 (08:25→19:57)
[2020-09-28] MEDS: FAMOTIDINE 20 MG TAB PO SCH ×2 (08:25→19:57)
[2020-09-28] MEDS: ZINC SULFATE 220 MG CAP PO SCH (08:25)
[2020-09-28] MEDS: AMIODARONE HCL 200 MG TAB PO SCH (08:25)
[2020-09-28] MEDS: CYANOCOBALAMIN 1,000 MCG TAB PO SCH (08:25)
[2020-09-28] MEDS: THIAMINE HCL 100 MG TABLET PO SCH (08:25)
[2020-09-28] MEDS: FLUDROCORTISONE 0.1 MG TAB PO SCH (08:25)
--- NOTE | 2020-09-28 09:45 | P.RH.PN ---
Estimated Length of Stay: 36 Expected Discharge Date: 09/29/20 Discharge Disposition Plan: Home Family Support: Yes Senior Care Goal: Mobility, Transfers, Self Care Vital Signs: Last Vital Signs Temp 98.2 F 09/28/20 08:23 Pulse 72 09/28/20 08:23 Resp 18 09/28/20 08:23 BP 115/62 09/28/20 08:23 Pulse Ox 99 09/28/20 08:23 Laboratory: Laboratory Last Values WBC 8.80 K/uL (4.3-10.9) 09/27/20 18:35 RBC 3.80 M/uL (4.33-5.43) L 09/27/20 18:35 Hgb 10.4 g/dL (13.6-17.9) L 09/27/20 18:35 Hct 31.6 % (39.6-49.0) L 09/27/20 18:35 MCV 83.1 fL (80-100) 09/27/20 18:35 MCH 27.3 pg (27.0-35.0) 09/27/20 18:35 MCHC 32.8 g/dL (32.0-36.0) 09/27/20 18:35 RDW 17.2 % (12.1-15.2) H 09/27/20 18:35 Plt Count 223 K/uL (152-406) 09/27/20 18:35 MPV 10.6 fL (7.6-11.3) 09/27/20 18:35 Plt Distribution Width Cancelled 09/25/20 Unknown Absolute Nucleated RBC Cancelled 09/25/20 Unknown Neutrophils % 73.0 % (41.7-73.7) 09/27/20 18:35 Lymphocytes % 9.5 % (15.3-44.8) L 09/27/20 18:35 Monocytes % 14.7 % (3.3-12.3) H 09/27/20 18:35 Eosinophils % 2.1 % (0-4.4) 09/27/20 18:35 Basophils % 0.7 % (0-1.3) 09/27/20 18:35 Nucleated RBC % Cancelled 09/25/20 Unknown Absolute Neutrophils 6.4 K/uL (1.8-8.0) 09/27/20 18:35 Absolute Lymphocytes 0.8 K/uL (0.7-4.9) 09/27/20 18:35 Absolute Monocytes 1.3 K/uL (0.1-1.3) 09/27/20 18:35 Absolute Eosinophils 0.2 K/uL (0-0.5) 09/27/20 18:35 Absolute Basophils 0.1 K/uL (0-0.5) 09/27/20 18:35 Diff Path Review Cancelled 09/25/20 Unknown Platelet Estimate Adeq 09/25/20 06:30 Morphology Comment Not seen (NOT SEEN) 09/25/20 06:30 Sodium 142 mmol/L (136-145) 09/27/20 18:35 Potassium 3.7 mmol/L (3.5-5.1) 09/27/20 18:35 Chloride 108 mmol/L (98-107) H 09/27/20 18:35 Carbon Dioxide 28 mmol/L (21-32) 09/27/20 18:35 BUN 29 mg/dL (7-18) H 09/27/20 18:35 Creatinine 1.06 mg/dL (0.55-1.3) 09/27/20 18:35 Estimated GFR 66 mL/min (=/>90) L 09/27/20 18:35 Glucose 139 mg/dL (74-106) H 09/27/20 18:35 Lactic Acid 2.0 mmol/L (0.4-2.0) 09/25/20 07:46 Calcium 8.4 mg/dL (8.5-10.1) L 09/27/20 18:35 Magnesium 2.2 mg/dL (1.8-2.4) 09/27/20 18:35 Lactate Dehydrogenase 143 U/L (87-241) 09/25/20 07:46 Albumin 2.3 g/dL (3.4-5.0) L 09/27/20 18:35 Prealbumin 8.5 mg/dL (20-40) L 09/27/20 18:35 Procalcitonin 0.05 ng/mL (<0.050) 09/25/20 07:46 Urine Color Yellow (Yellow) 09/24/20 16:45 Urine Appearance Cloudy (Clear) 09/24/20 16:45 Urine pH 5.5 (5.0-7.0) 09/24/20 16:45 Ur Specific [place] 1.015 (1.005-1.030) 09/24/20 16:45 Glucose (UA)(Auto) Negative (Negative) 09/24/20 16:45 Urine Ketones Negative (Negative) 09/24/20 16:45 Urine Blood Negative (Negative) 09/24/20 16:45 Urine Nitrite Negative (Negative) 09/24/20 16:45 Urine Bilirubin Negative (Negative) 09/24/20 16:45 Urine Urobilinogen 0.2 mg/dL (0.2-1.0) 09/24/20 16:45 Ur Leukocyte Esterase Negative (Negative) 09/24/20 16:45 Urine RBC None seen /HPF (NONE SEEN) 09/24/20 16:45 Urine WBC <5 /HPF (<5) 09/24/20 16:45 Ur Squamous Epith Cells <5 /HPF (NONE SEEN) 09/24/20 16:45 Calcium Oxalate Crystal Few (NONE SEEN) 09/24/20 16:45 Urine Bacteria <20 /HPF (NONE SEEN) 09/24/20 16:45 Urine Culture Reflexed Not needed 09/24/20 16:45 Urine Total Protein Negative (Negative) 09/24/20 16:45 SARS-CoV-2 RNA (RT-PCR) Negative (NEGATIVE) 09/27/20 10:50 Smear Scan Ok (OK) 09/25/20 06:30 Weight: 184 lb 6.4 oz Within Defined Parameters: No left hand Skin Alteration: skin tear cleaned with ns triple antibiotics applied 2x2 and tegaderm Skin Temperature: Cold Skin Color: Normal Skin Tone Skin Turgor: Normal Skin Tone: Loose Wound Present: Yes Closed Surgical Incision Present: No Negative Pressure Wound Therapy Present: No Physician Update: WBC is now normal. He appears to be almost impacted with stool despite multiple stools. He is incontinent with urine. He is moderate to minimum assistance with lower body dressing. He is at minimum assistance with transfers and using a rolling walker. He may go to assisted living with multiple choices available. [facility]. Summary: Patient's care plan and detention goals have been reviewed and revised as necessary. Please see the Rehabilitation Signature page for all necessary signatures.
[2020-09-28] MEDS: FORMULATION-R RECTAL 57GM PR PRN (11:09)
[2020-09-28] MEDS: LOPERAMIDE HCL 2 MG CAPSULE PO PRN (11:09)
[2020-09-28] MEDS: DOCUSATE NA/SENNA CONC 1 TAB PO SCH (19:58)
[2020-09-28] MEDS: MELATONIN 3 MG TABLET PO PRN (19:58)
[2020-09-29] MEDS: MEDIHONEY 44 ML TOPICAL TUBE TOP SCH (07:49)
[2020-09-29] MEDS: COLLAGENASE 30 GM OINTMENT TOP SCH (07:49)
[2020-09-29] MEDS: LIDOCAINE 4% PATCH TOP SCH (08:00)
[2020-09-29] MEDS: ASCORBIC ACID 500 MG TABLET PO SCH (08:45)
[2020-09-29] MEDS: GABAPENTIN 300 MG CAP PO SCH ×2 (08:45→19:24)
[2020-09-29] MEDS: ZINC SULFATE 220 MG CAP PO SCH (08:46)
[2020-09-29] MEDS: POTASSIUM CL SA 10 MEQ TAB PO SCH ×2 (08:46→19:24)
[2020-09-29] MEDS: TAMSULOSIN 0.4 MG SR CAP PO SCH (08:46)
[2020-09-29] MEDS: FAMOTIDINE 20 MG TAB PO SCH ×2 (08:46→19:24)
[2020-09-29] MEDS: ASPIRIN EC 81 MG TAB PO SCH (08:46)
[2020-09-29] MEDS: FINASTERIDE 5 MG TAB PO SCH (08:47)
[2020-09-29] MEDS: AMIODARONE HCL 200 MG TAB PO SCH (08:47)
[2020-09-29] MEDS: FLUDROCORTISONE 0.1 MG TAB PO SCH (08:47)
[2020-09-29] MEDS: MAGNESIUM OXIDE 400 MG TAB PO SCH ×2 (08:47→19:26)
[2020-09-29] MEDS: CYANOCOBALAMIN 1,000 MCG TAB PO SCH (08:47)
[2020-09-29] MEDS: JUVEN PACKET PO SCH ×2 (08:48→19:25)
[2020-09-29] MEDS: ACETAMINOPHEN 500 MG TAB PO PRN (08:48)
[2020-09-29] MEDS: THIAMINE HCL 100 MG TABLET PO SCH (08:48)
[2020-09-29 10:45] LABS: Urine Appearance CLEAR (Clear); Urine Bilirubin NEGATIVE (Negative); Urine Blood NEGATIVE (Negative); Urine Color YELLOW (Yellow); Urine Glucose NEGATIVE (Negative); Urine Protein NEGATIVE (Negative); Urine Specific Gravity <=1.005 (1.005-1.030); Urine Urobilinogen 0.2 mg/dL (0.2-1.0); Urine pH 6.5 (5.0-7.0)
[2020-09-29 10:48] LABS: Urine Microscopic Reflex ORDER UMIC
[2020-09-29 11:11] LABS: Urine Bacteria 20-50 /HPF (NONE SEEN); Urine RBC NONE SEEN /HPF (NONE SEEN)
[2020-09-29] MEDS: DOCUSATE NA/SENNA CONC 1 TAB PO SCH (19:25)
[2020-09-30] MEDS: TRAMADOL HCL 50 MG TAB PO PRN (03:03)
[2020-09-30] MEDS: FORMULATION-R RECTAL 57GM PR PRN (03:04)
[2020-09-30 05:17] VITALS: BMI 26.3
[2020-09-30] MEDS: LIDOCAINE 4% PATCH TOP SCH (08:00)
[2020-09-30] MEDS: CYANOCOBALAMIN 1,000 MCG TAB PO SCH (08:40)
[2020-09-30] MEDS: THIAMINE HCL 100 MG TABLET PO SCH (08:40)
[2020-09-30] MEDS: GABAPENTIN 300 MG CAP PO SCH ×2 (08:40→19:16)
[2020-09-30] MEDS: ZINC SULFATE 220 MG CAP PO SCH (08:40)
[2020-09-30] MEDS: FINASTERIDE 5 MG TAB PO SCH (08:40)
[2020-09-30] MEDS: ASCORBIC ACID 500 MG TABLET PO SCH (08:40)
[2020-09-30] MEDS: FAMOTIDINE 20 MG TAB PO SCH ×2 (08:41→19:16)
[2020-09-30] MEDS: ASPIRIN EC 81 MG TAB PO SCH (08:41)
[2020-09-30] MEDS: FLUDROCORTISONE 0.1 MG TAB PO SCH (08:41)
[2020-09-30] MEDS: TAMSULOSIN 0.4 MG SR CAP PO SCH (08:42)
[2020-09-30] MEDS: POTASSIUM CL SA 10 MEQ TAB PO SCH ×2 (08:42→19:16)
[2020-09-30] MEDS: AMIODARONE HCL 200 MG TAB PO SCH (08:42)
[2020-09-30] MEDS: ACETAMINOPHEN 500 MG TAB PO PRN ×2 (08:47→15:07)
[2020-09-30] MEDS: MAGNESIUM OXIDE 400 MG TAB PO SCH ×2 (08:47→19:16)
[2020-09-30] MEDS: JUVEN PACKET PO SCH ×2 (08:47→19:16)
[2020-09-30] MEDS: MEDIHONEY 44 ML TOPICAL TUBE TOP SCH (08:48)
[2020-09-30] MEDS: COLLAGENASE 30 GM OINTMENT TOP SCH (08:49)
[2020-09-30] MEDS: DOCUSATE NA/SENNA CONC 1 TAB PO SCH (19:16)
[2020-10-01] MEDS: MEDIHONEY 44 ML TOPICAL TUBE TOP SCH (07:52)
[2020-10-01] MEDS: COLLAGENASE 30 GM OINTMENT TOP SCH (07:52)
[2020-10-01] MEDS: ZINC SULFATE 220 MG CAP PO SCH (07:59)
[2020-10-01] MEDS: CRANBERRY FRUIT EXTRACT 200 MG CAP PO SCH ×2 (07:59→20:06)
[2020-10-01] MEDS: GABAPENTIN 300 MG CAP PO SCH ×2 (07:59→20:05)
[2020-10-01] MEDS: TAMSULOSIN 0.4 MG SR CAP PO SCH ×2 (07:59→20:06)
[2020-10-01] MEDS: FAMOTIDINE 20 MG TAB PO SCH ×2 (07:59→20:07)
[2020-10-01] MEDS: FLUDROCORTISONE 0.1 MG TAB PO SCH (08:00)
[2020-10-01] MEDS: ASPIRIN EC 81 MG TAB PO SCH (08:00)
[2020-10-01] MEDS: ACETAMINOPHEN 500 MG TAB PO PRN (08:00)
[2020-10-01] MEDS: THIAMINE HCL 100 MG TABLET PO SCH (08:00)
[2020-10-01] MEDS: AMIODARONE HCL 200 MG TAB PO SCH (08:00)
[2020-10-01] MEDS: FINASTERIDE 5 MG TAB PO SCH (08:00)
[2020-10-01] MEDS: ASCORBIC ACID 500 MG TABLET PO SCH (08:00)
[2020-10-01] MEDS: LIDOCAINE 4% PATCH TOP SCH (08:00)
[2020-10-01] MEDS: POTASSIUM CL SA 10 MEQ TAB PO SCH ×2 (08:01→20:07)
[2020-10-01] MEDS: CYANOCOBALAMIN 1,000 MCG TAB PO SCH (08:01)
[2020-10-01] MEDS: JUVEN PACKET PO SCH ×2 (08:02→20:07)
[2020-10-01] MEDS: MAGNESIUM OXIDE 400 MG TAB PO SCH ×2 (08:03→20:06)
--- NOTE | 2020-10-01 15:36 | FAST ---
[employer] FORM SHIFT START DATE/TIME: 10/01/2020 07:00 (CDT) SHIFT END DATE/TIME: 10/01/2020 19:00 (CDT) NAME AILEEN ANDINO DATE OF : 1935 DATE OF ADMISSION: 08/30/2020 14:35 (CDT) PHONE: AGE: 85 N# [id number] GENDER: Male ENCOUNTER PHYSICIAN: Dr. Zhang Sullivan M.D. ADMISSION DIAGNOSIS: - Orthopaedic Disorders 08 - Unilateral Hip Fracture (08.11) right femur fracture. EATING: EATING - STEP 1: Does the patient complete the activity by him/herself with no assistance (physical, verbal/nonverbal cueing, setup/clean-up)? No. EATING - STEP 2: Does the patient need only setup/clean-up assistance from one helper? Yes. 1. [id number] ADMISSION PERFORMANCE: Setup or clean-up assistance CODE: 05 ORAL HYGIENE: ORAL HYGIENE - STEP 1: Does the patient complete the activity by him/herself with no assistance (physical, verbal/nonverbal cueing, setup/clean-up)? No. ORAL HYGIENE - STEP 2: Does the patient need only setup/clean-up assistance from one helper? Yes. 1. [id number] ADMISSION PERFORMANCE: Setup or clean-up assistance CODE: 05 TOILETING HYGIENE: TOILETING HYGIENE - STEP 1: Does the patient complete the activity by him/herself with no assistance (physical, verbal/nonverbal cueing, setup/clean-up)? No. TOILETING HYGIENE - STEP 2: Does the patient need only setup/clean-up assistance from one helper? Yes. 1. [id number] ADMISSION PERFORMANCE: Setup or clean-up assistance CODE: 05 BATHING: Not assessed/no information CODE: - DRESSING - UPPER BODY: DRESSING - UPPER BODY - STEP 1: Does the patient complete the activity by him/herself with no assistance (physical, verbal/nonverbal cueing, setup/clean-up)? No. DRESSING - UPPER BODY - STEP 2: Does the patient need only setup/clean-up assistance from one helper? Yes. 1. [id number] ADMISSION PERFORMANCE: Setup or clean-up assistance CODE: 05 DRESSING - LOWER BODY: DRESSING - LOWER BODY - STEP 1: Does the patient complete the activity by him/herself with no assistance (physical, verbal/nonverbal cueing, setup/clean-up)? No. DRESSING - LOWER BODY - STEP 2: Does the patient need only setup/clean-up assistance from one helper? Yes. 1. [id number] ADMISSION PERFORMANCE: Setup or clean-up assistance CODE: 05 PUTTING ON/TAKING OFF FOOTWEAR: FOOTWEAR - STEP 1: Does the patient complete the activity by him/herself with no assistance (physical, verbal/nonverbal cueing, setup/clean-up)? No. FOOTWEAR - STEP 2: Does the patient need only setup/clean-up assistance from one helper? Yes. 1. [id number] ADMISSION PERFORMANCE: Setup or clean-up assistance CODE: 05 ROLL LEFT AND RIGHT: ROLL LEFT AND RIGHT - STEP 1: Does the patient complete the activity by him/herself with no assistance (physical, verbal/nonverbal cueing, setup/clean-up)? No. ROLL LEFT AND RIGHT - STEP 2: Does the patient need only setup/clean-up assistance from one helper? No. ROLL LEFT AND RIGHT - STEP 3: Does the patient need only verbal/nonverbal cueing or touching/steadying/contact guard assistance fro m one helper? Yes. 1. [id number] ADMISSION PERFORMANCE: Supervision or touching assistance CODE: 04 SIT TO LYING: SIT TO LYING - STEP 1: Does the patient complete the activity by him/herself with no assistance (physical, verbal/nonverbal cueing, setup/clean-up)? No. SIT TO LYING - STEP 2: Does the patient need only setup/clean-up assistance from one helper? Yes. 1. [id number] ADMISSION PERFORMANCE: Setup or clean-up assistance CODE: 05 LYING TO SITTING: LYING TO SITTING ON SIDE OF BED - STEP 1: Does the patient complete the activity by him/herself with no assistance (physical, verbal/nonverbal cueing, setup/clean-up)? No. LYING TO SITTING ON SIDE OF BED - STEP 2: Does the patient need only setup/clean-up assistance from one helper? Yes. 1. [id number] ADMISSION PERFORMANCE: Setup or clean-up assistance CODE: 05 SIT TO STAND: SIT TO STAND - STEP 1: Does the patient complete the activity by him/herself with no assistance (physical, verbal/nonverbal cueing, setup/clean-up)? No. SIT TO STAND - STEP 2: Does the patient need only setup/clean-up assistance from one helper? Yes. 1. [id number] ADMISSION PERFORMANCE: Setup or clean-up assistance CODE: 05 TRANSFERS: BED, CHAIR: Not assessed/no information CODE: - TRANSFER TOILET: TOILET TRANSFER - STEP 1: Does the patient complete the activity by him/herself with no assistance (physical, verbal/nonverbal cueing, setup/clean-up)? No. TOILET TRANSFER - STEP 2: Does the patient need only setup/clean-up assistance from one helper? Yes. 1. [id number] ADMISSION PERFORMANCE: Setup or clean-up assistance CODE: 05 TRANSFERS: CAR: Not assessed/no information CODE: - WALK 10 FEET: Not assessed/no information CODE: - 1 STEP (CURB): Not assessed/no information CODE: - PICKING UP OBJECT: Not assessed/no information CODE: - DOES THE PATIENT USE A WHEELCHAIR/SCOOTER? Q1. DOES THE PATIENT USE A WHEELCHAIR/SCOOTER?: Yes CODE: 1 WHEEL 50 FEET WITH TWO TURNS: WHEEL 50 FEET WITH TWO TURNS - STEP 1: Does the patient complete the activity by him/herself with no assistance (physical, verbal/nonverbal cueing, setup/clean-up)? No. WHEEL 50 FEET WITH TWO TURNS - STEP 2: Does the patient need only setup/clean-up assistance from one helper? Yes. 1. [id number] ADMISSION PERFORMANCE: Setup or clean-up assistance CODE: 05 INDICATE THE TYPE OF WHEELCHAIR/SCOOTER USED: RR1. INDICATE THE TYPE OF WHEELCHAIR/SCOOTER USED.: Manual CODE: 1 WHEEL 150 FEET: WHEEL 150 FEET - STEP 1: Does the patient complete the activity by him/herself with no assistance (physical, verbal/nonverbal cueing, setup/clean-up)? No. WHEEL 150 FEET - STEP 2: Does the patient need only setup/clean-up assistance from one helper? Yes. 1. [id number] ADMISSION PERFORMANCE: Setup or clean-up assistance CODE: 05 INDICATE THE TYPE OF WHEELCHAIR/SCOOTER USED: SS1. INDICATE THE TYPE OF WHEELCHAIR/SCOOTER USED.: Manual CODE: 1 BLADDER AND BOWEL: H350. BLADDER CONTINENCE (3-DAY ASSESSMENT PERIOD): Incontinent daily (at least once a day) CODE: 3 H400. BOWEL CONTINENCE (3-DAY ASSESSMENT PERIOD): Occasionally incontinent (one episode of bowel incontinence) CODE: 1 SIGNATURE PANEL: The following modified sections: 1. [id number] Admission Performance, 1. [id number] Admission Performance, 1. [id number] Admission Performance, 1. [id number] Admission Performance, 1. [id number] Admission Performance, 1. [id number] Admission Performance, 1. [id number] Admission Performance, 1. [id number] Admission Performance , 1. [id number] Admission Performance, 1. [id number] Admission Performance, 1. [id number] Admission Performanc e, Q1. Does the patient use a wheelchair/scooter?, 1. [id number] Admission Performance, RR1. Indicate th e type of wheelchair/scooter used., 1. [id number] Admission Performance, Code, SS1. Indicate the type of wheelchair/scooter used., H350. Bladder Continence (3-day assessment period), H400. Bowel Continence (3-day assessment period), H350. Bladder Continence (3-day assessment period) were [electronically] signed by Jolie Reed C.N.A. on FriOct 01 2020 15:35:28 T-0500 (Central Daylight Time)
[2020-10-01] MEDS: DOCUSATE NA/SENNA CONC 1 TAB PO SCH (20:06)
[2020-10-02] MEDS: MEDIHONEY 44 ML TOPICAL TUBE TOP SCH (06:26)
[2020-10-02] MEDS: COLLAGENASE 30 GM OINTMENT TOP SCH (06:26)
[2020-10-02] MEDS: LIDOCAINE 4% PATCH TOP SCH ×2 (06:49→10:53)
[2020-10-02] MEDS: FLUDROCORTISONE 0.1 MG TAB PO SCH ×2 (08:00→11:43)
[2020-10-02] MEDS: ACETAMINOPHEN 500 MG TAB PO PRN ×2 (08:24→19:55)
[2020-10-02] MEDS: JUVEN PACKET PO SCH ×2 (08:24→19:54)
[2020-10-02] MEDS: CRANBERRY FRUIT EXTRACT 200 MG CAP PO SCH ×2 (08:24→19:54)
[2020-10-02] MEDS: ASCORBIC ACID 500 MG TABLET PO SCH (08:25)
[2020-10-02] MEDS: CYANOCOBALAMIN 1,000 MCG TAB PO SCH (08:25)
[2020-10-02] MEDS: AMIODARONE HCL 200 MG TAB PO SCH (08:25)
[2020-10-02] MEDS: ZINC SULFATE 220 MG CAP PO SCH (08:25)
[2020-10-02] MEDS: FAMOTIDINE 20 MG TAB PO SCH ×2 (08:26→19:54)
[2020-10-02] MEDS: THIAMINE HCL 100 MG TABLET PO SCH (08:26)
[2020-10-02] MEDS: MAGNESIUM OXIDE 400 MG TAB PO SCH ×2 (08:26→19:54)
[2020-10-02] MEDS: POTASSIUM CL SA 10 MEQ TAB PO SCH ×2 (08:26→19:54)
[2020-10-02] MEDS: FINASTERIDE 5 MG TAB PO SCH (08:26)
[2020-10-02] MEDS: GABAPENTIN 300 MG CAP PO SCH ×2 (08:26→19:53)
[2020-10-02] MEDS: TAMSULOSIN 0.4 MG SR CAP PO SCH ×2 (08:26→19:54)
[2020-10-02] MEDS: ASPIRIN EC 81 MG TAB PO SCH (08:27)
[2020-10-02] MEDS: FORMULATION-R RECTAL 57GM PR PRN (09:37)
--- NOTE | 2020-10-02 17:17 | R.PN ---
PROGRESS NOTES ENCOUNTER DATE AND TIME: 10/02/2020 17:11 (CDT) NAME AILEEN ANDINO DATE OF : 1935 DATE OF ADMISSION: 08/30/2020 14:35 (CDT) right femur fractureCHIEF COMPLAINT: Right femur fracture, debility SUBJECTIVE: Pt denied any depression. Pt denied any Shortness of Breath. WBC 8.8, Hgb 10.4 PLT 223, prealbumin decreased to 8.5, K 3.7, Na 125, Ca 8.4, Mg 2.2. Ambulated 145' with contact guard assistance using a rolling walker. Patient had fever with elevated WBC to 20K, neurtophisl 78%and burning with urination. Procalcitonin and lactate are normal. He is on rocephin 1 gram bid for 3 days. Chest x-ray is normal. Blood culture s and UA is pending. UA from 09-24-20 is negative. VITAL SIGNS Temperature: 97.81 F SBP/DBP: 104/58 Pulse: 60 Resp: 16 MEDICATION ALLERGIES: FENLANYL MORPHINE OXYCODONE PENICILLIN BACTRIM SULFA ANTIBIOTICS ENVIRONMENTAL ALLERGIES: Milk LETTUCE - Substance Allergies None Known - Other Allergies None Known NURSING: - Shower allowing shower - Skin care per protocol PRECAUTIONS: - Posterior Hip Precaution No adduction across midline No external rotation No hip flexion >90 degrees No internal rotation No wheel chair propulsion - Weight Bearing Precaution WBAT right LE ACTIVITIES OOB only with supervision THERAPIES: - Dietary and Nutrition Adequate Nutrition. Nutritional Education. Nutritional Supplements. PHYSICAL EXAM - Gen Alert and awake Lying in bed No apparent distress Oriented to: person, time, and place - Skin Mild bruising in anterior legs bilaterally, otherwise intact. Normacephalic - Eyes No abnormalities - ENMT No abnormalities - Neck No abnormalities - CVS RRR - Chest No abnormalities - Resp Clear to auscultation - Abd + bowel sounds - GI Soft Deferred - No abnormalities - Ext Mild right lower extremity edema. - MSK 4+/5 weakness in right lower extremity. - Neuro 4/5 strength right lower extremity - Psych No abnormalities ASSESSMENT: Pt. is a 85 yo Right-handed male of unknown race.On 08/30/2020 he was admitted to [facility] with diagnosis right femur fracture.His impairment category is Orthopaedic Disorders 08 - Unila teral Hip Fracture (08.11).Pre-morbidly, Pt. was independent/mod-I in Safety Awareness, Balance, Arevalo sfers Control, Endurance, and Locomotion; and he had good Balance and Social Cognition.Currently, he has deficits of Locomotion, Safety Awareness, Social Cognition, Transfers Control, Sphincter Control, Self-Care, and Endurance.Pt. is now referred to [facility] for acute in-patie nt rehabilitation in order to maximize patient's functional independence in activities of daily livin g, strength, ROM, and mobility.- Rehab Goal Patient has realistic goal of being discharged at assistance level 7-Ind to reside at Home with Fami ly/Relatives. MDM/PLAN: - Physical Therapy Decreased range of motion - to improve, our physical therapists will perform initial evaluation of p t's status upon admission and devise an individualized program for increasing patient's Range of Keyur on. Gait dysfunction - to improve, our physical therapists will perform initial evaluation of pt's statu s upon admission and devise an individualized program for Gait Training, and Wheel Chair mobility Inability to transfer - to improve, our physical therapists will perform initial evaluation of pt's status upon admission and devise an individualized program for Bed mobility Need for home safety evaluation - to improve, our physical therapists will perform initial evaluatio n of pt's status upon admission and devise an individualized program for Home Evaluation Need in caregiver upon discharge - to improve, our physical therapists will perform initial evaluati on of pt's status upon admission and devise an individualized program for Caregiver Training Edema - to improve, our physical therapists will perform initial evaluation of pt's status upon admi ssion and devise an individualized program for Elevation Training, and Lymphedema Therapy New precaution - to improve, our physical therapists will perform initial evaluation of pt's status upon admission and devise an individualized program for Patient precaution education Poor endurance - to improve, our physical therapists will perform initial evaluation of pt's status upon admission and devise an individualized program for Endurance Training Weakness - to improve, our physical therapists will perform initial evaluation of pt's status upon a dmission and devise an individualized program for Aquatic Therapy, Neuromuscular Reeducation, and Str engthening Achieving independence - to improve, our physical therapists will perform initial evaluation of pt's status upon admission and devise an individualized program for Community Reintegration Activities - Dysuria Pt complained of burning sensation urination. Perform Urinary Analysis (UA) Expecting Urinary Analysis (UA) results - Occupational Therapy ADL deficits - to improve, our occupation therapists will perform initial evaluation of pt's status upon admission and devise an individualized program for Bathing, Bed mobility, Community Reintegratio n, Cooking, Dressing, Eating, Fine Motor Skills, Grooming, Homemaking, Kitchen Mobility, Laundry, Pat ient Education, Safety Awareness, Splinting - Positioning, Transfers(Toilet, Tub, Shower), and Wheel Chair Management Cognitive deficits - to improve, our occupation therapists will perform initial evaluation of pt's s tatus upon admission and devise an individualized program for Cognition - orientation Need for intensive care unit registered nurse - to improve, our occupation therapists will perform initial evaluation of pt's status upon admission and devise an individualized program for Caregiver Training Weakness - to improve, our occupation therapists will perform initial evaluation of pt's status upon admission and devise an individualized program for Aquatic Therapy, Balance, Endurance, UE ROM, and UE strengthening - Other See attached MAR (Medication Administration Record) - Anterior Hip Precaution No abduction No active extension No adduction across midline No external rotation No hip flexion >90 degrees No internal rotation - Diet - Liquid Texture Continue Regular - Tube Feed Continue N/A - Diet Type Continue Regular - Posterior Hip Precaution No adduction across midline No external rotation No hip flexion >90 degrees No internal rotation No wheel chair propulsion - Weight Bearing Precaution WBAT right LE - Skin care per protocol - Diet - Solid Texture Continue Regular - Shower allowing shower FUNCTIONAL STATUS: UPDATED AT WEEKLY TEAM CONFERENCE - Bladder Same accident frequency: 7-Ind - No accidents in the past 7 days - Bowel Same accident frequency: 7-Ind - No accidents in the past 7 days - Walking Same score based on distance walked: 0(N/A) Same score based on distance walked: 1(<=50ft) - Wheelchair Same score based on distance traveled: 0(N/A) FUNCTIONAL STATUS: - Self-Care A. Eating Joyce B. Grooming sup C. Bathing Lorna D. Dressing - Upper Lorna E. Dressing - Lower modA F. Toileting Lorna - Sphincter Control G. Bladder control Lorna H. Bowel control Lorna - Transfers Control I. Bed/Chair/Wheelchair Lorna J. Toilet Lorna K. Tub/Shower modA - Locomotion L. Walk/Wheelchair (B) Lorna M. Stairs maxA - Communication N. Comprehension (B) sup O. Expression (B) sup - Social Cognition P. Social Interaction Joyce Q. Problem Solving sup R. Memory sup - Endurance Fair - Balance Fair - Safety Awareness Fair QI SCORES: - Self-Care A. Eating 06-Independent B. Oral hygiene 03-Partial/moderate assistance C. Toileting hygiene 02-Substantial/maximal assistance E. Shower/bathe self 02-Substantial/maximal assistance F. Upper body dressing 02-Substantial/maximal assistance G. Lower body dressing 02-Substantial/maximal assistance H. Putting on/taking off footwear 88-Not attempted due to medical condition or safety concerns - Mobility A. Roll left and right 03-Partial/moderate assistance B. Sit to lying 02-Substantial/maximal assistance C. Lying to sitting on side of bed 02-Substantial/maximal assistance D. Sit to stand 02-Substantial/maximal assistance E. Chair/[id number] transfer 02-Substantial/maximal assistance F. Toilet transfer 03-Partial/moderate assistance G. Car transfer 88-Not attempted due to medical condition or safety concerns I. Walk 10 feet 02-Substantial/maximal assistance J. Walk 50 feet with two turns 88-Not attempted due to medical condition or safety concerns K. Walk 150 feet 88-Not attempted due to medical condition or safety concerns L. Walking 10 feet on uneven surfaces 88-Not attempted due to medical condition or safety concerns M. 1 step (curb) 88-Not attempted due to medical condition or safety concerns N. 4 steps 88-Not attempted due to medical condition or safety concerns O. 12 steps 88-Not attempted due to medical condition or safety concerns P. Picking up object 88-Not attempted due to medical condition or safety concerns R. Wheel 50 feet with two turns 88-Not attempted due to medical condition or safety concerns S. Wheel 150 feet 88-Not attempted due to medical condition or safety concerns - Bladder and Bowel Bladder continence Bowel continence - Endurance Fair - Balance Poor - Safety Awareness Fair CURRENT FUNC. DEFICITS: Mobility, Endurance, Balance, Safety Awareness, and Self-Care SIGNATURE PANEL: (CDT)
[2020-10-02] MEDS: MELATONIN 3 MG TABLET PO PRN (19:55)
[2020-10-02] MEDS: DOCUSATE NA/SENNA CONC 1 TAB PO SCH (20:05)
[2020-10-03] MEDS: LIDOCAINE 4% PATCH TOP SCH (06:42)
[2020-10-03] MEDS: MEDIHONEY 44 ML TOPICAL TUBE TOP SCH (06:43)
[2020-10-03] MEDS: COLLAGENASE 30 GM OINTMENT TOP SCH (06:43)
[2020-10-03 07:20] VITALS: BP 149/72; TEMP 97
[2020-10-03] MEDS: JUVEN PACKET PO SCH (07:42)
[2020-10-03] MEDS: ACETAMINOPHEN 500 MG TAB PO PRN (07:43)
[2020-10-03] MEDS: FLUDROCORTISONE 0.1 MG TAB PO SCH (07:43)
[2020-10-03] MEDS: MAGNESIUM OXIDE 400 MG TAB PO SCH (07:45)
[2020-10-03] MEDS: GABAPENTIN 300 MG CAP PO SCH (07:45)
[2020-10-03] MEDS: CRANBERRY FRUIT EXTRACT 200 MG CAP PO SCH (07:45)
[2020-10-03] MEDS: ZINC SULFATE 220 MG CAP PO SCH (07:45)
[2020-10-03] MEDS: ASCORBIC ACID 500 MG TABLET PO SCH (07:45)
[2020-10-03] MEDS: TAMSULOSIN 0.4 MG SR CAP PO SCH (07:45)
[2020-10-03] MEDS: CYANOCOBALAMIN 1,000 MCG TAB PO SCH (07:46)
[2020-10-03] MEDS: FINASTERIDE 5 MG TAB PO SCH (07:46)
[2020-10-03] MEDS: ASPIRIN EC 81 MG TAB PO SCH (07:46)
[2020-10-03] MEDS: POTASSIUM CL SA 10 MEQ TAB PO SCH (07:46)
[2020-10-03] MEDS: THIAMINE HCL 100 MG TABLET PO SCH (07:46)
[2020-10-03] MEDS: FAMOTIDINE 20 MG TAB PO SCH (07:46)
[2020-10-03] MEDS: AMIODARONE HCL 200 MG TAB PO SCH (08:00)
== END 2020-10-03 13:55 | DRG 561 ==
LOC: 5TH 08-30 14:35
PROVIDERS: ADMIT Psychiatry & Neurology Neurology with Special Qualifications in Child Neurology; ATTEND Psychiatry & Neurology Neurology with Special Qualifications in Child Neurology
DX: S72.91XD Unspecified fracture of right femur, subsequent encounter for closed fracture with routine healing (principal); Z88.5 Allergy status to narcotic agent; Z88.0 Allergy status to penicillin; Z88.1 Allergy status to other antibiotic agents; Z91.011 Allergy to milk products; Z91.018 Allergy to other foods; Z20.822 Contact with and (suspected) exposure to COVID-19
CPT/HCPCS: 36415; 71045; 80048; 81001; 81003; 81015; 82040; 83605; 83615; 83735; 84132; 84134; 84145; 85025; 87040; 87070; 87075; 87086; 87088; 87205; 93971; 97110; 97112; 97116; 97161; 97530; 97542; 99251; J0696; J3590; U0002; U0003